=== PATIENT | male | born 1970 | race Hispanic/Latino ===

== ENCOUNTER 2017-09-09 13:38 | Emergency (ER) | payer OTHER, SELFPAY ==
[2017-09-09 13:39] VITALS: BP 151/79; PULSE 93; RESP 16; TEMP 36.7; O2SAT 97; BMI 32.5
[2017-09-09 14:08] LABS: Absolute Lymphocyte Count 1.81 X10^3/ul (0.83-4.51); Absolute Neutrophil Count 3.3 X10^3/uL (2.0-7.7); Basophil# 0.07 X10^3/uL; Basophil% 1.1 % (0-1); Eosinophil# 0.28 X10^3/uL; Eosinophils% 4.5 % (0-5); Hemoglobin 16.3 g/dl (13.0-16.5); Lymphocyte # 1.81 X10^3/ul (4.0); Lymphocyte % 28.8 % (19-41); Mean Corp Hgb Conc 34.7 g/gl (32-36); Mean Corpuscular Hgb 30.3 pg (27.0-32.0); Mean Corpuscular Volume 87.4 fL (80-94); Mean Platelet Vol. 9.8 fl (6.2-12.0); Monocyte# 0.78 X10^3/uL; Monocyte% 12.4 % (0-10); Neutrophil # 3.34 X10^3/uL (2.7-7.7); Neutrophil % 53.2 % (47-70); Platelet Count 211 K/mm3 (150-450); RBC Distribution Width SD 44.7 fl (35.1-43.9); Red Blood Count 5.38 M/mm3 (4.6-6.2); White Blood Count 6.3 K/mm3 (4.4-11.0)
[2017-09-09 14:18] LABS: Amphetamine Urine VISTA NEGATIVE (<1000 ng/mL); Barbiturate Urine VISTA NEGATIVE (< 200 ng/mL); Benzodiazepine Urine VISTA NEGATIVE (< 200 ng/mL); Cocaine Urine VISTA NEGATIVE (< 300 ng/mL); Ecstacy Urine VISTA NEGATIVE (< 500 ng/mL); Methadone Urine VISTA NEGATIVE (< 300 ng/mL); PCP Urine VISTA NEGATIVE (< 25 ng/mL); THC Urine VISTA NEGATIVE (< 50 ng/mL); Vista UDS pH Range 6
[2017-09-09 14:23] LABS: POSITIVE COUNT NO; POSITIVE DIFFERENTIAL NO; POSITIVE MORPHOLOGY NO
[2017-09-09 14:29] LABS: Anion Gap 7 (5-15); BUN 15 mg/dL (7-18); BUN/Creat Ratio 14.3 RATIO (10-20); Calcium,Total 8.8 mg/dL (8.5-10.1); Chloride 104 mmol/L (98-107); Creatinine, Serum 1.05 mg/dL (0.70-1.30); EST Glomerular Filtration Rate 80 mL/min (>60); Est Glom Filt Rate - Afr Amer 96 mL/min (>60); Estimated Creatinine Clearance 93.41 ml/min; Glucose 117 mg/dL (74-106); Sodium Level 138 mmol/L (136-145)
[2017-09-09 14:53] LABS: Alcohol, Blood (Medical)-Serum < 3.0 mg/dL
[2017-09-09 16:00] VITALS: BP 119/61; PULSE 85; RESP 16; O2SAT 98
--- NOTE | 2017-09-09 16:53 | ED.DCSUM_ITS ---
- ER Visit Summary Date of Service: 09/09/17 Chief Complaint: Depression and suicidal ideation History of Present Illness: The patient is a 47 M with depression and recent diagnosis of bipolar disorder. reports symptoms seem to be worsening in spite of medication that was started at the counseling center. Patient does admit to suicidal ideation with multiple different ideas. He mentions stepping in front of a car, slitting his wrist, or hanging himself. He states he has never acted on these thoughts. Physical Examination: Vital signs for blood pressure 151/79, otherwise unremarkable. Head neck examination is normal. Heart is regular rate and rhythm. Lung sounds are clear. Abdomen is soft nontender. Neuro exam reveals normal strength and sensation throughout. Psychiatric examination was normal speech pattern. He does admit to suicidal thoughts. He has good eye contact. Test Results: CBC and chemistry studies are unremarkable. TSH is normal. Tox screen and EtOH are normal. Emergency Department Course and Treatment: Patient was seen by crisis counselor. He has been accepted in transfer at [facility]. Counselor and myself are comfortable with driving him there. He has signed an agreement for voluntary admission. Treatment Plan: [] Disposition: Transfer Impression: Depression with suicidal ideation This note was generated with [employer] dictation software. It may contain incorrect words, spelling, and punctuation that were not noted in review of the chart prior to signing ED Disposition - Plan for ED Patient: Chief Complaint: Suicidal Referrals: Care Physician,No Primary [Primary Care Provider] -
[2017-09-09 17:49] VITALS: BP 127/99; PULSE 75; RESP 16; O2SAT 100
[2017-09-09 17:51] VITALS: BP 127/99; PULSE 75; RESP 16; O2SAT 100
--- NOTE | 2017-09-09 20:03 | ED.RN ---
EFRAIN CALLED AND ASKED WHERE PATIENT WAS BECAUSE PATIENT NEVER SHOWED UP TO FACILITY. I ADVISED THE MANAGER PHILOSOPHY THAT IT WAS CHARTED THAT THE PATIENT LEFT HERE AT [id number]. MANAGER PHILOSOPHY STATED SHE WAS GOING TO GIVE THE PATIENT A LITTLE MORE TIME AND SHE WILL CALL ME BACK AND LET ME KNOW IF HE SHOWS UP. TESS MUNGUIA TALKED TO DR. NEWELL AND MADE HER AWARE OF THE SITUATION. PATIENT WAS NOT PINK SLIPPED AND WAS GOING TO [facility] VOLUNTARILY. PATIENT WENT BY PRIVATE CAR WITH HIS TO [facility].
--- NOTE | 2017-09-09 20:30 | ED.RN ---
EFRAIN CALLED STATING PATIENT SHOWED UP TO FACILITY.
== END 2017-09-09 17:52 | disposition short-term general hospital (02) ==
PROVIDERS: Emergency Provider Emergency Medicine
DX: F31.9 Bipolar disorder, unspecified (principal); R45.851 Suicidal ideations; Z79.899 Other long term (current) drug therapy
CPT/HCPCS: 80048; 80307; 80320; 84443; 85025; 99284; G0480

== ENCOUNTER 2017-09-15 09:00 | Outpatient (RCR) | payer OTHER, SELFPAY ==
--- NOTE | 2017-09-15 09:30 | BH.COMM ---
Communication Note - Communication with Client Communication Note: Therapist met with client to complete intake paperwork, build rapport, and answer client's questions about the program. Therapist will be client's individual therapist during his time in IOP.
--- NOTE | 2017-09-15 13:04 | PCM.HP.BLA ---
History and Physical Identifying information 47-year-old male presents to the [facility] status post inpatient psychiatric hospitalization due to bipolar disorder with mood cycling. History is been obtained per interview with patient, discussion with staff, review of chart. Records reviewed quitting the history and physical from September 10 from [facility] by Dr. Raul Connell. Case discussed with treatment team. Chief complaint-bipolar disorder/I hit a low. History of present illness Patient is a 47-year-old male with history of bipolar disorder who was referred to the [facility] after psychiatric inpatient hospitalization September 10 - September 11 for mixed mood symptoms and suicidal thoughts in the context of recent med changes (increased Zoloft). Patient reports a long-standing history of episodic symptoms since his mid 20s. He describes them as a high burst of energy that then drops. Endorses symptoms consistent with cassia a week and a half ago in which he had a 4 day period when he felt energetic and excitable with decreased sleep to 3 hours per night, increased anxiety, and irritability. He reports that he is intermittently risky or impulsive in his decisions. He then developed depression prior to his hospitalization where he felt isolative with decreased energy and suicidal thoughts. He reports thinking about hanging or cutting. He denied making specific suicide plan. He feels that his mood is somewhat better since his hospitalization. He continues to have some depressive symptoms but of decreased intensity. He denies suicidal ideation since discharge from the hospital. Denies access to guns or firearms. Denies stock piles of medications. Feels able to maintain safety. Denies homicidal thoughts. Denies hallucinations. Sleeping 6-7 hours per night. Appetite normal. Reports history of ruminative anxiety about multiple issues. He reports some anxiety about his marriage as he had an affair between March 2016 and October 2016. Because of the affair he and his moved here from [place]. He denies panic attacks. He has some perfectionistic behavior and notices anxiety if there is disorganization. He denies counting or checking behaviors. He denies history of disordered eating. Past psychiatric history Patient was diagnosed with bipolar disorder 1 month ago by primary outpatient provider Sari Gray. He has had 1 previous psychiatric hospitalization as noted above from September 10 September 11 at [facility]. He reports depression in April for which he was started on Zoloft 50 mg. It was increased to 100 mg in May 150 mg 1-2 weeks ago. Reports she has been on Lamictal 50 mg daily since August. Primary outpatient psychiatric provider Sari Gray. Individual counseling with Bryn Sun at [facility]. Substance use history 8 month history of cocaine use in the early . 2 episodes lasting 1 year each of methamphetamine (mid 20s, mid 30s). Cannabis use for 20 years. Quit in 2005. Last alcohol consumption 1 year ago. Past medical history Neuroma left foot Hypertension Orthopedic shoulder injury Denies history of seizure History concussion Vitamin D deficiency Review of systems No fevers chills nausea vomiting chest pain dyspnea. All other systems reviewed and negative. Allergies-lactose/seasonal environmental Current medications Lamictal 50 mg daily Zoloft 150 mg daily Risperdal 0.25 mg twice daily - started inpatient 5 days ago Ativan 0.5 mg 3 times daily-started inpatient 5 days ago. Vitamin D 5000 units daily Xyzal Family medical psychiatric history Brother had previous suicide attempt Father-depression Developmental social history Patient is the eldest of 2 children. He was born in [place]. In 1980 the family moved to [place]. He grew up with his parents and his younger brother. His father worked at . He describes growing up as good. He attended 5 years of college in [employer] studying business, electrical engineering and physical therapy. He did not finish his degree. He worked at [employer] for 30 years. 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 He has been twice. His first marriage lasted 12 years. Per records from professor of social work at [employer] because he had an affair. He has 2 sons ages 14 and 19. They live in [place]. He has little contact with them. He is currently to his second . They have been for 6 years. They live in [place] with their daughter age 3. He had an affair from March 2016 through October 2016. He reports he and his are working things out. Legal history-none Mental status exam Vital signs reviewed and discussed with nursing. Alert and oriented . No acute distress. Ambulatory with normal gait and station. Appears stated age. Casually dressed and groomed. Appropriate hygiene. Cooperative with interview. Good eye contact. No psychomotor agitation or retardation. Mood depressed. Affect congruent. Speech is clear and with regular rate and rhythm. Language fluent. Thought process organized. Associations logical. Thought content significant for ruminative anxiety and themes of depression. Suicidal thoughts 1 week ago. No current suicidal or homicidal ideation related or detected. Feels able to maintain safety. No symptoms consistent with psychosis noted or detected. Immediate recent and remote memory grossly intact. Attention and concentration are fair. Estimated intelligence and fund of knowledge average. Judgment and insight fair. Labs and testing Lab work will be requested from [facility]. Further lab work will be obtained as needed. Diagnosis Bipolar disorder F 31.9 Anxiety unspecified Vit D def. Cannabis use disorder-remission Plan Admit to IOP the structured setting is necessary to prevent decompensation and rehospitalization. Risks benefits alternatives of medications discussed with patient. Patient acknowledges understanding. Increase Lamictal to 100 mg p.o. daily dispense #30 with 0 refills. Continue Risperdal 0.25 mg p.o. twice daily. No evidence of EPS. Decrease Zoloft to 100 mg daily as antidepressants may exacerbate hypomania and mixed mood symptoms. Continue vitamin D. Discontinue Lorazepam 0.5 mg 3 times daily. May use Lorazepam as needed. Patient acknowledges understanding and is in agreement with plan. Feels able to maintain safety. Agrees to seek help or emergency care feeling unsafe to self or others.
--- NOTE | 2017-09-15 13:38 | HP.PCM_ITS ---
History and Physical Identifying information 47-year-old male presents to the [facility] status post inpatient psychiatric hospitalization due to bipolar disorder with mood cycling. History is been obtained per interview with patient, discussion with staff, review of chart. Records reviewed quitting the history and physical from September 10 from [facility] by Dr. Raul Connell. Case discussed with treatment team. Chief complaint-bipolar disorder/I hit a low. History of present illness Patient is a 47-year-old male with history of bipolar disorder who was referred to the [facility] after psychiatric inpatient hospitalization September 10 - September 11 for mixed mood symptoms and suicidal thoughts in the context of recent med changes (increased Zoloft). Patient reports a long -standing history of episodic symptoms since his mid 20s. He describes them as a high burst of energy that then drops. Endorses symptoms consistent with cassia a week and a half ago in which he had a 4 day period when he felt energetic and excitable with decreased sleep to 3 hours per night, increased anxiety, and irritability. He reports that he is intermittently risky or impulsive in his decisions. He then developed depression prior to his hospitalization where he felt isolative with decreased energy and suicidal thoughts. He reports thinking about hanging or cutting. He denied making specific suicide plan. He feels that his mood is somewhat better since his hospitalization. He continues to have some depressive symptoms but of decreased intensity. He denies suicidal ideation since discharge from the hospital. Denies access to guns or firearms. Denies stock piles of medications. Feels able to maintain safety. Denies homicidal thoughts. Denies hallucinations. Sleeping 6-7 hours per night. Appetite normal. Reports history of ruminative anxiety about multiple issues. He reports some anxiety about his marriage as he had an affair between March 2016 and October 2016. Because of the affair he and his moved here from [place]. He denies panic attacks. He has some perfectionistic behavior and notices anxiety if there is disorganization. He denies counting or checking behaviors. He denies history of disordered eating. Past psychiatric history Patient was diagnosed with bipolar disorder 1 month ago by primary outpatient provider Sari Gray. He has had 1 previous psychiatric hospitalization as noted above from September 10 September 11 at [facility]. He reports depression in April for which he was started on Zoloft 50 mg. It was increased to 100 mg in May 150 mg 1-2 weeks ago. Reports she has been on Lamictal 50 mg daily since August. Primary outpatient psychiatric provider Sari Gray. Individual counseling with Bryn Sun at [facility]. Substance use history 8 month history of cocaine use in the early . 2 episodes lasting 1 year each of methamphetamine (mid 20s, mid 30s). Cannabis use for 20 years. Quit in 2005. Last alcohol consumption 1 year ago. Past medical history Neuroma left foot Hypertension Orthopedic shoulder injury Denies history of seizure History concussion Vitamin D deficiency Review of systems No fevers chills nausea vomiting chest pain dyspnea. All other systems reviewed and negative. Allergies-lactose/seasonal environmental Current medications Lamictal 50 mg daily Zoloft 150 mg daily Risperdal 0.25 mg twice daily - started inpatient 5 days ago Ativan 0.5 mg 3 times daily-started inpatient 5 days ago. Vitamin D 5000 units daily Xyzal Family medical psychiatric history Brother had previous suicide attempt Father-depression Developmental social history Patient is the eldest of 2 children. He was born in [place]. In 1980 the family moved to [place]. He grew up with his parents and his younger brother. His father worked at . He describes growing up as good. He attended 5 years of college in [employer] studying business, electrical engineering and physical therapy. He did not finish his degree. He worked at [employer] for 30 years. 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 He has been twice. His first marriage lasted 12 years. Per records from social media marketing specialist at [place] [facility] because he had an affair. He has 2 sons ages 14 and 19. They live in [place]. He has little contact with them. He is currently to his second . They have been for 6 years. They live in [place] with their daughter age 3. He had an affair from March 2016 through October 2016. He reports he and his are working things out. Legal history-none Mental status exam Vital signs reviewed and discussed with nursing. Alert and oriented . No acute distress. Ambulatory with normal gait and station. Appears stated age. Casually dressed and groomed. Appropriate hygiene. Cooperative with interview. Good eye contact. No psychomotor agitation or retardation. Mood depressed. Affect congruent. Speech is clear and with regular rate and rhythm. Language fluent. Thought process organized. Associations logical. Thought content significant for ruminative anxiety and themes of depression. Suicidal thoughts 1 week ago. No current suicidal or homicidal ideation related or detected. Feels able to maintain safety. No symptoms consistent with psychosis noted or detected. Immediate recent and remote memory grossly intact. Attention and concentration are fair. Estimated intelligence and fund of knowledge average. Judgment and insight fair. Labs and testing Lab work will be requested from [facility]. Further lab work will be obtained as needed. Diagnosis Bipolar disorder F 31.9 Anxiety unspecified Vit D def. Cannabis use disorder-remission Plan Admit to IOP the structured setting is necessary to prevent decompensation and rehospitalization. Risks benefits alternatives of medications discussed with patient. Patient acknowledges understanding. Increase Lamictal to 100 mg p.o. daily dispense #30 with 0 refills. Continue Risperdal 0.25 mg p.o. twice daily. No evidence of EPS. Decrease Zoloft to 100 mg daily as antidepressants may exacerbate hypomania and mixed mood symptoms. Continue vitamin D. Discontinue Lorazepam 0.5 mg 3 times daily. May use Lorazepam as needed. Patient acknowledges understanding and is in agreement with plan. Feels able to maintain safety. Agrees to seek help or emergency care feeling unsafe to self or others.
--- NOTE | 2017-09-15 13:39 | BH.DR.ITP ---
Initial Treatment Plan - Patient Information Visit Information: ADMISSION DATE: EXPECTED LOS: 4-6 weeks Diagnoses:: Bipolar F31.9 - Problems/Symptoms Problem #1:: mood cycling Symptom:: irritability, depression, recent suicidal ideation, biologic disruption sleep Problem #2:: Anxiety Symptom:: rumination
--- NOTE | 2017-09-15 15:17 | BH.SGPN ---
Service Group Progress Note - Session Psychotherapy Session #2 Date Open:: 09/15/17 Time Started:: 10:15 Time Stopped:: 11:05 Targeted Problem #:: 1 Type of Group:: Illness Management Goal of Group:: To increase understanding of a crisis and improve clients awareness of how he/she feels when in a crisis. Client Response/Progress/Benefit:: Client contributed to discussion and listened to peers. Client connected with quote that he tends to struggle with dealing with a crisis in a healthy manner. Client reported he will shut down, push others away or minimize the situation. Pt reported he can see how his reaction to a crisis sets himself up for additional problems and potentially a personal crisis. Client seemed to benefit from increased awareness of his own response to crisis and importance of using healthy skills to cope effectively with a crisis. Eye Contact:: Good Motor Activity:: Appropriate Appearance:: Casual Speech:: Appropriate Mood:: Depressed Affect:: Congruent Thoughts:: Linear, Logical, No evidence of hallucinations/delusions noted Staff Interventions:: Therapist facilitated group discussion about defining a crisis and specifying various events that are considered a crisis. Therapist led group in an activity in which group members had to identify their thoughts and emotions attached to being in a crisis. Therapist provided support by using active listening and providing feedback.
--- NOTE | 2017-09-15 16:11 | BH.SGPN ---
Service Group Progress Note - Session Psychotherapy Session #1 Date Open:: 09/15/17 Time Started:: 09:00 Time Stopped:: 10:00 Type of Group:: Process - 9 group members Goal of Group:: The goal of today's group was to check-in with client's mood, stressors, and positives, review homework and introduce topic for the day. Client Response/Progress/Benefit:: Pt spoke when prompted however was attentive throughtout the group. This was pt's first day and he shared with the group his current symptoms. Pt reports that he is hoping to improve his coping skills for depression and anxiety. Talked about his mood instability for the past several years which increased symptoms in the past few weeks. Discussed how depression and anxiety negative impacted him, his work, and his relationships. Group provided support and pt benefited from this. No progress noted on first day. WIll continue in IOP to maintain safety, prevent decompensation, and increase daily functioning so he can return to work. Eye Contact:: Good Motor Activity:: Appropriate Appearance:: Casual Speech:: Appropriate Mood:: Depressed Affect:: Congruent Thoughts:: Linear, Logical, No evidence of hallucinations/delusions noted Staff Interventions:: Therapist used open-ended questions to elicit information about client's current stressors and mood state. Therapist was supportive by using active listening and reflection.
--- NOTE | 2017-09-19 14:32 | BH.SGPN_ITS ---
Service Group Progress Note - Session Psychotherapy Session #2 Date Open:: 09/19/17 - group members Time Started:: 10:17 Time Stopped:: 11:12 Targeted Problem #:: 1 Type of Group:: Illness Management Goal of Group:: To identify within self what is keeping client trapped from achieving better quality of life. Client Response/Progress/Benefit:: Client responded well to session, quiet, but often nodding and taking notes. Client appeared to connect with the quote agreeing with peers that ?we build up our own cid.? Client helped the group identify things that keep people stuck such as isolation, erratic behaviors, avoidance, and depression. Client listened to discussion of how negative thinking can continue negative maintenance cycles of depression and anxiety. Client reported he only recently realized that he has been in a manic or depressive cycle most of his life and that his negative coping skills have kept client stuck. Client identified the negative thoughts keeping client stuck as I ?m a bad parent, I?m losing control, I?m not where I should be in life, and I?m not worthy. Client appeared to benefit from recognizing negative thoughts and coping skills keeping client stuck in an unhealthy maintenance cycle. Progress noted as shown by client's increased awareness, continue IOP to promote mood stability. Eye Contact:: Good Motor Activity:: Appropriate Appearance:: Neat Speech:: Soft Mood:: Dysthymic Affect:: Constricted Thoughts:: Linear, No evidence of hallucinations/delusions noted Staff Interventions:: Therapist facilitated discussion about what is keeping client?s stuck from moving toward mental wellness. Therapist assisted clients in connecting how thoughts can contribute to keeping clients stuck. Therapist led discussion about barriers clients face from making changes to help one move forward. Therapist provided support by using active listening and giving feedback to others. Psychotherapy Session #3 Date Open:: 09/19/17 - 7 group members Time Started:: 11:18 Time Stopped:: 12:20 Targeted Problem #:: 1 Type of Group:: Functional Skills Development Goal of Group:: To identify what client can do to release self from those things that are trapping them to find more peace and quality in everyday life. Client Response/Progress/Benefit:: Client responded well to session, active and supportive peer. Client identified ?I?m not where I should be in life? as a negative thought that keeps client stuck and increases his self-doubt and depression. Client identified the thought as unrealistic and stated when he has this thought he lashes out, makes bad decisions, and isolates. The group helped client recognize his thought is the ?should? cognitive distortion. With group and therapist elicitation, client reframed the thought to ?I?ve made the most of out of my experiences.? Client shared when he reframes the thought he has a more positive outlook and better self-worth. Client appeared to benefit from challenging his unrealistic thought and learning about the different cognitive distortions. Client to continue IOP to promote mood stability, increase coping skills, and prevent decompensation. Eye Contact:: Good Motor Activity:: Appropriate Appearance:: Neat Speech:: Appropriate Mood:: Anxious Affect:: Full Thoughts:: Linear, No evidence of hallucinations/delusions noted Staff Interventions:: Therapist used examples of maintenance cycles to help clients gain awareness of how negative thinking is keeping clients stuck. Therapist facilitated discussion about different strategies for challenging negative thoughts, assisting clients in connecting how the strategies could benefit them. Therapist provided clients with homework to focus on one thing that is keeping them stuck and identify small steps to start moving towards mental wellness.
--- NOTE | 2017-09-19 17:22 | BH.SGPN ---
Service Group Progress Note - Session Psychotherapy Session #1 Date Open:: 09/19/17 Time Started:: 09:05 Time Stopped:: 10:08 Targeted Problem #:: 1 Type of Group:: Process Goal of Group:: The goal of today's group was to check-in with client's mood, stressors, and positives, review homework and introduce topic for the day. Client Response/Progress/Benefit:: Client reported over the weekend he was able to recognize several of his anxiety triggers. Identified work to be 1 of his major anxiety triggers because when he sent a work email over the weekend he noticed himself getting very nervous. Client shared he had to speak to his boss and had a lot of ruminations about this conversation and after having the discussion on the phone with his boss it turned out not to be so bad. Client reported he is currently avoiding his other anxiety trigger which is his mother. Client explained he has a lot of underlying anger towards his mom about his father's because his mom was not there for his dad when his father . Client became tearful when talking about his father's explaining that he was really close to his dad. Client reported he knows he just needs to make the call his mom to let her know that he is okay since being released from the hospital but keeps pushing it off. Client shared he knows that when he is overwhelmed or anxious he tends to rely on electronics as his form of escape which he no longer wants to do. Client seemed to benefit from positive support from peers as well as having actually express his thoughts and feelings. Eye Contact:: Fair Motor Activity:: Appropriate Appearance:: Casual Speech:: Appropriate Mood:: Anxious, Dysthymic Affect:: Congruent, Other - Tearful at times Thoughts:: Linear, Logical, No evidence of hallucinations/delusions noted Staff Interventions:: Therapist used open-ended questions to elicit information about client's current stressors and mood state. Therapist was supportive by using active listening and reflection.
--- NOTE | 2017-09-20 11:32 | BH.COMM ---
Communication Note - Communication with Client Communication Note: Client called to cancel his scheduled group and indiviudal sessions today as his dog is sick. Client reported he will attend group tomorrow 09/21/17.
--- NOTE | 2017-09-21 11:34 | BH.SGPN ---
Service Group Progress Note - Session Psychotherapy Session #1 Date Open:: 09/21/17 Time Started:: 09:10 Time Stopped:: 10:10 Targeted Problem #:: 1 Type of Group:: Process Goal of Group:: The goal of today's group was to check-in with client's mood, stressors, and positives, review homework and introduce topic for the day. Client Response/Progress/Benefit:: Pt reported yesterday he couldn't attend IOP because his dog was dehydrated so he had to take his dog to the vet to get fluids. Pt shared his mother called whom he hasn't spoken to in a month and attempted he has been avoiding calling her. Pt reported overall the conversation went better than expected, reported there were a few things his mom had said about pt's dad that pt thought was negative. Pt shared after the phone call he tried to isolate himself, but his knew he was upset so processed the call with him. Pt reported by talking out his frustrations it helped him better understand where his mom was coming from. Pt shared he needs to continue to work on communicating his thoughts and feelings, especially with his . Pt reported he has several more phone calls to make to family members he has either hurt or hasn't spoken to in awhile. Pt reported he recognizes his lack of communication is only hurting him and needs to continue to work on opening up. Pt showing progress as evidenced by him not avoiding the conversation wtih his mom as well as showing insight and awareness into how certain behavior is negatively impacting him. Eye Contact:: Good Motor Activity:: Appropriate Appearance:: Casual Speech:: Appropriate Mood:: Anxious, Dysthymic Affect:: Congruent Thoughts:: Linear, Logical, No evidence of hallucinations/delusions noted Staff Interventions:: Therapist used open-ended questions to elicit information about client's current stressors and mood state. Therapist was supportive by using active listening and reflection.
--- NOTE | 2017-09-21 12:51 | BH.MTP_ITS ---
[facility] - Patient Information Program Physician:: Anna Rider Primary Therapist:: Jenn Portillo - Psychiatric Diagnoses Psychiatric Diagnoses:: Bipolar 1 most recent episode depressed, anxiety unspecified, cannabis use in remission. Diagnosis Code(s):: F 31.9 - Estimated LOS Estimated LOS (in weeks):: 6 Problem/Goal #1 - Problem/Goal #1 Stated Goal:: Client will increase mood stability and decrease depressive symptoms, anger/irritability, and suicidal ideation due to Bipolar I through Intensive Outpatient Program. Description of Barriers: Client reports high expectations of self, people pleasing, and negative core beliefs that may impact his treatment. Client reports several potential supports in his life, but shared he often shuts down, isolates, and does not communicate when he experiences increased depression. Client appears to have some insight to his bipolar warning signs, but reports struggling to change thoughts and behaviors that have kept client stuck in the past. Client reports a history of impulsive, risky behaviors that have led to relationship issues and punishment at work. Functional Impact: Client recently discharged from [facility] after a psychiatric hospitalization following increased symptoms of depression and suicidal ideation. Client reports a long-standing history of bipolar symptoms since his mid 20s. Client reported symptoms consistent with cassia a week and a half ago in which he had a 4 day period when he felt energetic and excitable with decreased sleep to 3 hours per night, increased anxiety, and irritability. Client stated that he is intermittently risky or impulsive in his decisions. At admission client endorsed depressive symptoms with decreased energy, negative thinking, passive suicidal thoughts, and isolation. Client also reports negative thoughts of self, history of substance abuse, and relationship discord with his . Goal Relevant Strengths/Supports: Client appears intelligent, outgoing, and reports a desire to learn about his warning signs and symptoms. Client has insight to his unhealthy coping skills and negative thought patterns. Client has a history of substance abuse, but currently reports refraining from substances. Client reports he loves his daughter and identifies himself as a hard worker. Additionally, client states willingness to work on his marriage and learn healthy coping skills. - Objectives Objective #1 Stated Objective: Identify 2-3 thoughts or behaviors that trigger manic or depressive symptoms and replace or reframe with healthy coping skills. Interventions: Therapist will provide psychoeducation on bipolar disorder and help client identify warning signs and triggers. Therapist will help client identify 2-3 negative thinking patterns that trigger mood changes and teach client 2-3 techniques to challenge negative thinking and increase emotional regulation. Discharge Criteria: Client will have met this goal when he can report better insight into mood changes and negative thinking patterns and be able to report success with using at least 2 healthy coping skills to reframe thoughts. Target Date: 10/27/17 Review Date: 10/13/17 Status: open Objective #3 Stated Objective: Client will identify 2-3 unhealthy patterns of coping for both depressive and manic episodes and be able to replace those unhealthy patterns with 2-3 positive coping skills. Interventions: Therapist will provide psychoeducation on maintenance cycles and help client identify his warning signs and patterns of unhealthy coping. Therapist will assist client in learning healthy internal coping strategies to manage depressive symptoms, along with helping client identify triggers. Therapist will help client identify external supports and help client weigh the pros and cons of changing behaviors. Discharge Criteria: Client will have achieved this goal when can verbalize and has practiced at least 2 healthy coping strategies to break unhealthy maintenance cycles. Target Date: 10/27/17 Review Date: 10/13/17 Status: open Problem/Goal #2 - Problem/Goal #2 Stated Goal:: Client will reduce overall frequency, intensity, and duration of anxiety rumination so that daily functioning is not impaired. Description of Barriers: Client reports high expectations of self, people pleasing, and negative core beliefs that may impact his treatment. Client reports several potential supports in his life, but shared he often shuts down, isolates, and does not communicate when he experiences increased depression. Client appears to have some insight to his bipolar warning signs, but reports struggling to change thoughts and behaviors that have kept client stuck in the past. Client reports a history of impulsive, risky behaviors that have led to relationship issues and punishment at work. Functional Impact: Client recently discharged from [facility] after a psychiatric hospitalization following increased symptoms of depression and suicidal ideation. Client reports a long-standing history of bipolar symptoms since his mid 20s. Client reported symptoms consistent with cassia a week and a half ago in which he had a 4 day period when he felt energetic and excitable with decreased sleep to 3 hours per night, increased anxiety, and irritability. Client stated that he is intermittently risky or impulsive in his decisions. At admission client endorsed depressive symptoms with decreased energy, negative thinking, passive suicidal thoughts, and isolation. Client also reports negative thoughts of self, history of substance abuse, and relationship discord with his . Goal Relevant Strengths/Supports: Client appears intelligent, outgoing, and reports a desire to learn about his warning signs and symptoms. Client has insight to his unhealthy coping skills and negative thought patterns. Client has a history of substance abuse, but currently reports refraining from substances. Client reports he loves his daughter and identifies himself as a hard worker. Additionally, client states willingness to work on his marriage and learn healthy coping skills. - Objectives Objective #1 Stated Objective: Client will increase awareness of stressors and identify 2-3 anxiety triggers and 2 coping skills to use when feeling anxious. Interventions: Therapist will assist client in exploring what triggers anxiety and teach client coping strategies to effectively manage anxiety symptoms. Therapist will help client explore how thoughts, emotions, and behaviors connect and provide psychoeducation on cognitive distortions and anxiety. Discharge Criteria: Client will have met this goal when can identify at least 2 triggers to anxiety and verbalize two healthy ways to cope with feelings of anxiety. Target Date: 10/27/17 Review Date: 10/13/17 Status: open
--- NOTE | 2017-09-21 12:51 | BH.PSA ---
Source of Information - Presenting Problems/Circumstances Problems, Referral Source, Mental Status, Client: Client is a 47-year-old male with a history of bipolar disorder. Client was recently discharged from [facility] inpatient psychiatric services on 09/11/17 after a two-day admission. Client was admitted due to worsening depressive symptoms and suicidal thoughts. Client reports worsening mental health symptoms for the past several weeks and gradual decompensation over the past 3 years. At [facility] admission, client endorsed decreased sleep, increased appetite, erratic energy, decreased motivation, hopelessness, worthlessness, racing thoughts, and poor concentration. Client has been on FMLA from work for 7 weeks due to mental health symptoms and reports being unable to function at his baseline. Client was alert and oriented during assessment. No signs of hallucinations or delusions. Psychiatric Presentation - Psych Issues & Need for Admission Psychiatric Issues:: Bipolar disorder F 31.9; Anxiety unspecified; Cannabis use disorder-remission Past Psychiatric History - Treatment Hx Treatment History: Client was diagnosed with bipolar disorder 1 month ago by primary outpatient psychiatrist Dorene Leger. Client reports one previous psychiatric hospitalization which happened this year, September 10- September 11 2017 at [facility]. Client noted depression in April for which he was started on Zoloft 50 mg. It was increased to 100 mg in May 150 mg 1-2 weeks ago. Client reports he has been on Lamictal 50 mg daily since August. Primary outpatient psychiatric provider Dorene Leger and individual counseling with Bryn Sun at [facility]. First hospitalization:: September 10 2017 Most recent hospitalization:: September 10 2017 Medication Trials:: Yes - Zoloft, Lamictal, Risperdal, Ativan ECT Therapy:: No Age of first mental health symptoms: Client reports belief his bipolar symptoms started in his mid-20s as client recalls episodic symptoms which he described as a high burst of energy that then drops. Client reported during this time he also had increased illicit drug use. Describe (age, circumstance, etc) any past hospitalizations: Client reports one previous psychiatric hospitalization this year from September 10 - September 11 for mixed mood symptoms and suicidal thoughts in the context of recent med changes (increased Zoloft). Client 47 at the time of inpatient admission. Current providers for mental health treatment (counselor, psychiatrist, geriatric case manager, etc.): Dorene Leger at [facility] for psychiatry and Bryn Sun at [facility] for counesling. Development & Family of Origin - Childhood Significant Childhood Events: Client described growing up as good, but client stated his father was gone a lot for work. Client reported looking back he can see that his father struggled with mental health as well. Client shared remembering times when his father was more irritable and did not leave the couch for hours. - Family Who currently lives in your home?: Client lives in [place] with his and [id number] daughter. Client and his currently rent a house, but are in the process of looking to buy a house and move. Client and his have been since 2011. Client was previously and the marriage lasted 12 years. Client had two sons in his first marriage ages 12 and 19. Client's ex- and sons live in [place]. Describe family composition:: Client was born in [place] and is the oldest of 2 children. Clients family moved to [place] in 1980 where he grew up with his parents and younger brothers. Clients father in 2012 in [place]. Client reports ongoing grief and anger that he did not get to be with his father when he . Client stated he has anger towards his mom and brothers as well regarding the loss of his father. Client has been twice, his first marriage lasted 12 years and they had two sons. Client described the marriage as not good sharing I felt like I had a duty to . Client had an affair which led to divorce in his first marriage. Client reports his relationship with his ex- is not good, and his relationship with his sons is estranged as well. Client shared he wants to improve his relationship with his sons. Client remarried in 2011 and the couple had a daughter in 2014. Client described the relationship as supportive and good. Client had an affair in 2016 and stated the couple is trying to work things out. - Family History Family Hx of Psychiatric or AOD Problems: Brother had previous suicide attempt. Father-depression Ethnicity - Culture Do you identify yourself with any particular cultural, ethnic background, or community?: Yes - Client reported his mother was from [facility] - Sexuality Sexual Orientation: Heterosexual Spirituality - Lutheran Do you currently identify with any organized restoration?: None - Beliefs Is there a particular form of support from this community you can use for your recovery?: No Mental Status - Memory Recent Memory: Good Remote Memory: Good - Concentration Concentration: Fair - Eye Contact Eye Contact: Good - Speech Speech: Rapid, Tangential - Thought Process Thought Process: Logical Insight: Fair Judgment: Fair Behavior: Anxious - restless, playing with ring on his finger. - Orientation Orientation: Time, Person, Place, Situation - Appearance Appearance: Appropriate - Mood Mood: Anxious, Depressed - Affect Affect: Constricted Suicide Assessment - Suicidal Ideation Have you ever felt like hurting yourself?: Yes Please explain:: Client reports suicidal ideation prior to his hospitalization. Client stated he had no specific plan, but had thoughts of cutting, hanging, or driving into traffic. Were you using ETOH/drugs at the time?: No Suicidal Intentional Rating Scale (SIRS): Suicidal thoughts (past) - Client reports no suicidal ideation since his discharge form [facility]. Client shared prior to his hospitalization he had thoughts of cutting, hanging, or driving into traffic but denied making a specific plan. Client denies access to firearms and stockpiles of medication. Client reports ability to maintain safety and identifies his and daughter as reasons to live. Physician Notification: If Active suicidal thoughts/Will not contract for safety is checked, contact physician and document in the Physician Notification section below. Violent Behavior/Abuse History - Homicidal Ideation Do you have any homicidal thoughts? If so, explain:: No Is there a known potential victim? If yes, who:: No - Abuse Have you ever been abused?: No - Life Events Are there any other significant life events?: Financial loss - Client has been on FMLA for 7 weeks which may impact client's finances., Hardships - had a miscarriage last year during which time client was having an affair. Client shared the couple continues to have trust issues., Loss of custody of child(jesus) - Client is estranged from his sons from his first marriage. Client shared he does not reach out to them for fear they don't want to have client in their lives. - Safety Do you ever feel threatened in your home? If yes, describe:: No Adult Social History - Age 16 to Present Describe your current support system:: Client identified his as his main support. Client shared his mother and brother may also be a support, but he has not spoken with them in several months. Client identified his counselor at [facility] as a positive support as well. Substance Use - Substance Substance Use Type: Alcohol, Cocaine, Marijuana, Methamphetamine - Specific Drugs What specific drugs have you used?: alcohol, cocaine, methamphetamine, marijuana - Extent of Use What quantity of substances have you used?: Client reported using marijuana daily for 20 years. Client unsure of the quantity of cocaine and methamphetamine use, client stated his use was social while with friends-not daily. Client reported social drinking as well. - Duration of Use How long have you used substances?: Client reports using cocaine for 8 months in the early 1999s. 2 episodes of methamphetamine use, lasting 1 year each (mid 20s, mid 30s). Client reported using marijuana for 20 years to self-medicate. - Last Usage What is the date and situation you last used?: 8 month history of cocaine use in the early . 2 episodes lasting 1 year each of methamphetamine (mid 20s, mid 30s). Last used marijuana in 2005. Last alcohol consumption 1 year ago. - IV Substance Use Do you have a history of IV use?: none reported Leisure/Social Activities - Interests What do you enjoy or might be interested in learning about?: Client reported he enjoys spending time outside, walking his dog, and spending time with his daughter. Client reports he enjoys being a leader, working on hands on projects, and listening to music. Education & Occupational Histo - Education What is your level of education?: Some College - He attended 5 years of college in [employer] studying business, electrical engineering and physical therapy. He did not finish his degree Do you have any learning disabilities?: No - Occupation List any current or past employment:: Client shared he has worked at [employer] for 30 years. Client has had various positions at [employer] during his time there. 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 List any previous volunteering you may have done:: none reported Service - Service Have you ever been in the ?: No Legal History - Records Have you had any past legal charges?: No Do you have any current legal charges?: No Have you ever been incarcerated? If yes, describe:: No - Court Orders Have you had any past court orders for psychiatric treatment?: No Do you have a present court order for psychiatric treatment?: No Problem Checklist - Current Problem Areas Problem List: Nutritional/Eating pattern changes - increased appetite and 15lb weight gain within the last few months., Depressed mood/sad - developed depression prior to his hospitalization where he felt isolative with decreased energy and suicidal thoughts., Bereavement - Client reports ongoing grief associated with the loss of his father in 2012, Anxiety - Client reports some anxiety about his marriage as he had an affair between March 2016 and October 2016. Client also reports anxiety about work and ruminations. Client has some perfectionistic behavior and notices anxiety if there is disorganization, Anger/aggression - Client reports when he becomes angry and irritable he tends to throw things and yell., Inattention - Client reports poor concentration and difficulty focsuing., Impulsivity - Client shared belief his affairs were impulsive and client enjoyed the thrill of it. Client reported he also gets a thrill from speeding and being late to work., Mood swings/hyperactivity - Client described his cassia as a high burst of energy that then drops. Client endorsed symptoms consistent with cassia a week and a half ago in which he had a 4 day period when he felt energetic and excitable with decreased sleep to 3 hours per night, increased anxiety, and irritability., Substance use - self-reported history of cocaine, marijuana, alcohol, and methamphetamine use., Other addictive behaviors - Client reports being addicted to online pornography., Sleep problems - Currently sleeping 6-7 hours per night, but when manic decreased sleep to 3 hours per night, Additional psychosocial stressors - Client currently on FMLA due to mental health symptoms. Client reported he and his are working through the affair. Discharge Planning Needs - Anticipated Follow-Up Mental Health Center (Name/Phone Number):: [facility] (counseling) [facility] (psychiatry) Private Therapist/Psychiatrist:: Bryn Brown Family and Caregiver Contacts:: Heaven Tejada Release of Information Signed:: Yes - [phone] Community Agency Contacts: none reported Program Director/Morning Show Host Name/Phone Number: none reported Software Design Analyst's Assessment - Client's Needs What are the client's feelings about the program?: Client shared the program has been helpful so far as client has increased self-awareness and learned more about his bipolar disorder. Client stated he continues to struggle at times with wearing the mask but client reported he feels somewhat comfortable opening up with peers during group. What are the client's goals?: Client states wanting to work on communication of emotions, managing symptoms, and reducing avoidance behaviors. Additionally, client wants to increase mood stability and decrease severity of symptoms. What are the client's strengths?: Client is intelligent, charismatic, and funny. Client has worked at [employer] for 30 years which demonstrates determination, reliability, and a good work ethic. Client self-reports as a people person and shared he does well connecting with others and being a leader. Client shared he loves his and daughter and stated he wants to get better for them. Diagnoses - Diagnoses Diagnosis #1:: Bipolar disorder F 31.9 Diagnosis #2:: Anxiety unspecified Diagnosis #3:: Cannabis use disorder-remission Interpretive Summary - Interpretive Summary Interpretive Summary: Client is a 47-year-old male with history of bipolar disorder who was referred to [facility] post psychiatric inpatient hospitalization from September 10, 2017 - September 11, 2017 for mixed mood symptoms and suicidal thoughts. Client reports a long-standing history of episodic symptoms since his mid-20s which client described as a high burst of energy that then drops. Per client report, he endorsed symptoms consistent with cassia a week and a half ago in which he had a 4-day period when he felt energetic and excitable with decreased sleep to 3 hours per night, increased anxiety, and irritability. Client reported that he was intermittently risky and impulsive in his decisions, sharing during this time he would drive erratically and be late to work on purpose. Client developed depression prior to his hospitalization where he felt isolative with decreased energy and suicidal thoughts of hanging, cutting, or driving into traffic. Client denied making specific suicide plan. Client denies suicidal ideation since discharge from the hospital and reports ability to maintain safety. Denies access to guns or firearms. Denies stock piles of medications. Client denies homicidal thoughts. Client reported his brother had a previous suicide attempt and his father had depression. Client denied history of trauma and abuse. Client reported history of substance abuse, having used marijuana, cocaine, alcohol, and methamphetamines. Client denies current use of substances. Client shared that his mood is somewhat better since his hospitalization although he continues to have some depressive symptoms, but of decreased intensity. Client reports history of ruminative anxiety about multiple issues including his marriage, job, and some perfectionism. Treatment Plan Recommendations - Recommendations Guidelines: Special needs identified to be included in the development of an individualized treatment plan regarding past psychiatric history and treatment, developmental events, family relationships/events/culture, past and/or current educational, occupational, social, and residential experience, and legal status. Recommendations:: Client recommended to be admitted to IOP as the structured setting is necessary to prevent decompensation and rehospitalization. Client recommended to participate in IOP for 6 weeks and to follow up with his outpatient psychiatrist and therapist for continuity of care.
--- NOTE | 2017-09-21 12:51 | BH.MDN ---
Multi-Disciplinary Note - Note 60-min Individual Time Started:: 11:37 Date: 09/21/17 Purpose of session/treatment goals addressed:: The purpose of this session was to gather information on client's current symptoms, supports, stressors, and treatment goals. Another goal was to build rapport, normalize bipolar symptoms, and set a small daily goal. Eye Contact:: Good Motor Activity:: Restless Appearance:: Casual Speech:: Rapid, Other - circumstantial Mood:: Euthymic - potentially hypomanic as shown by circumstantial speech and loose associations. Affect:: Full Thoughts:: Racing, No evidence of hallucinations/delusions noted Staff Interventions:: Therapist used active listening and open-ended questions to explore client's current stressors, symptoms, and supports. Therapist used strengths perspective to build rapport and help client identify positives. Therapist provided emotional support and psychoeducation on bipolar disorder and normalized clients experience. Therapist assisted client in identifying overall treatment goals and gave client homework to identify his warning signs for cassia and depression and to watch a video on emotional courage. Client Response:: Client responded well to session, potentially hypomanic as shown by his rapid speech and elevated mood. Client shared multiple stressors that led up to his most recent hospitalization such as medication changes, an affair, issues at work, grief, and marriage issues. Client reported before he was hospitalized he noticed increased depressive symptoms, isolation, suicidal thoughts, lack of concentration, low self-esteem, and weight gain. Client reported a history of mood cycling during which time client had increased erratic energy, heightened sexuality which led to an affair, and reduced need for sleep. Client shared he and his are currently working on improving their marriage and client identified his as my biggest support. Client stated his recognized a lot of client's warning signs before he did and has encouraged client to follow up with counseling. Client reported he often takes on too much and internalizes which increases stress and frustration. Client shared he would like to work on being outspoken for myself while in the program as client reports always being stoic and a people pleaser. Client also expressed wanting to work on expressing emotions fully rather than minimizing and shutting down. Risks/Concerns:: Client denies suicidal ideation, plan, and intent as of 09/21/17. Progress Toward Goals/Plan:: Progress limited as client just started IOP last Monday. However, client reports he feels the insight he has gained from group has helped him increase self-awareness and better understand his diagnosis. Client states wanting to work on communication of emotions, managing symptoms, and reducing avoidance behaviors. Client to continue IOP to promote mood stability and prevent decompensation. Time Stopped:: 12:33
--- NOTE | 2017-09-22 14:28 | BH.SGPN ---
Service Group Progress Note - Session Psychotherapy Session #1 Date Open:: 09/22/17 Time Started:: 09:05 Time Stopped:: 10:20 Targeted Problem #:: 1 Type of Group:: Process - 7 group members Goal of Group:: The goal of today's group was to check-in with client's mood, stressors, and positives, review homework and introduce topic for the day. Client Response/Progress/Benefit:: Client reported today plans to finish moving his in laws into their new condo. Client shared is excited and looking forward to having a relaxing weekend with his family. Client reported he was told by his landlord that once the contract is up he is going to have to move because they have a different family moving in. Client shared feeling stressed about having to find a new house whether they are going to rent or by house he is unsure of what to do. Client seemed to benefit from expressing thoughts and feelings as well as receiving support by peers. Progress noted with client being able to identify things he is looking forward to doing over the weekend. Eye Contact:: Fair Motor Activity:: Appropriate Appearance:: Casual Speech:: Appropriate Mood:: Anxious Affect:: Congruent Thoughts:: Linear, Logical, No evidence of hallucinations/delusions noted Staff Interventions:: Therapist used open-ended questions to elicit information about client's current stressors and mood state. Therapist was supportive by using active listening and reflection.
--- NOTE | 2017-09-22 15:45 | BH.NA_ITS ---
Physical Data - Vital Signs Pulse Rate: 94 Respiratory Rate: 16 Blood Pressure: 132/90 - Height/Weight Height: 1.83 m Weight:: 108.862 kg Weight in Pounds: 240.0 lbs Current Medication Compliance - Medication Compliance Do you take your medication as prescribed?: Yes Do you need assistance with taking medication?: No Have you had side effects from medication?: No Nutritional History - Appetite Nutritional Instructions:: If client shows signs of a swallowing problem, weight change of 10 pounds or more in the last month, or is on a diabetic diet, the physician will review and request a dietitian consult, as appropriate. All unintentional weight loss will be referred to the physician for decision on need for dietitian consult. Describe your appetite:: Good Have you noticed a change in your eating habits lately?: Yes - appetite has increased with decompensation of symptoms Additional nutritional information:: Caffiene use of 2-4 beverages daily Functional Assessment - Sleep Pattern Describe any problems with sleeping: Client notes that he had some difficulty both falling and staying asleep recently. However, he recent medication adjustments have helped and he is sleeping 5-6 hours nightly now. He does note that he is having vivid, movie-like dreams, not nightmares, but differnt from his normal. - Activities Motor Activity:: Functional Sensory/Communication Assess - Hearing Problems Do you have any hearing problems?: Adequate - Communication Problems Do you have difficulty understanding what people are saying?: No Do you have trouble putting your thoughts into words or expressing what you want to say?: No Do people ever have trouble understanding what you say?: No What is your primary language?: Chinese Learning Assessment - Learning Barriers Learning Barriers:: Ready to learn Medical Problems/History - Cardiac Conditions Cardiovascular: Hypertension - Pain Assessment Do you have acute or chronic pain?: No Surgical History - Surgical History Have you had any surgeries? If so, list type and date:: Yes - multiple orthopedic surgeries, umbilical hernia repair Substance Abuse - Substance Abuse Please describe substance abuse in the last 30 days:: Client denies ETOH use. Former smoker of 3 pack years. Significant history of illicit substance use including marijuana, meth, and cocaine. Mental Status Summary - Mental Status Significant Findings/Observations on Appearance and Mood:: Client is A&Ox4, casually dressed with appropriate hygiene and grooming. He is cooperative with interview. Normal activity. Fair eye contact. Speech is clear and of regular rate and volume. Logical associations with frequent derailment. Normal process. Fair-average knowledge. No symptoms of delusions. Denies hallucinations and HI. Does have past SI; ongoing rare, fleeting SI without plan or intent. He does exhibit some grandiose thoughts of self. Suicide Assessment - Suicidal Ideation Are you currently or have you been suicidal in the past?: Yes Suicidal Intentional Rating Scale (SIRS): Suicidal thoughts (past), Current suicidal thoughts/No plan/Contracts for safety Physician Notification: If Active suicidal thoughts/Will not contract for safety is checked, contact physician and document in the Physician Notification section below. Past Psychiatric History - Treatment Hx Describe (age, circumstance, etc) any past hospitalizations: September 2017: [place] [facility] for SI Fall Risk Assessment - Age Age: Less than 60 - Mental Status Mental Status: Willing & able to ask for assistance when needed - Physical Status Physical Status: No problems - Impairments Impairments: None - Elimination Elimination: Continent AND independent - Gait or Balance Gait or Balance: Walks independently - Hx of Falls History of falls in the past 6 months: No known history - Medications/Substances Psychotropics:: Antidepressants, Mood stabilizers Medications/substances used within the past 24 hours or ordered to administer: 1 -2 of the medications/substances listed above - Total Score Total Points:: 1 Physician Notification - Physician Notification Physician Notified: Anna Rider Method of Notification: Face to Face Comments: treatment planning discussion RN Summary of Impressions - Impressions Recommendations: Include psychiatric and medical issues, treatment planning recommendations, and discharge planning needs. Impressions: Psychiatric Issues: bipolar I Impression: General Medical Conditions: HTN - untreated - Level of Care How do the client's current symptoms and functional deficits support need for this level of care?: Client notes a gradual decompensation in his mental health for several weeks which culminated in SI and subsequent hospitalization. He did not have a plan or intent for suicide, but intrusive thoughts were becoming overwhelming. He was discharged from [facility] on 09/11/17 and has been feeling slightly better after adjustments were made to his medications. He continues to have little motivation, decreased concentration, and rumination ( especially at night). He has been on FMLA from work since early July and is anxious to return to work. He notes a long history of bipolar disorder, but this period of depression has been much worse than those in the past. He is able to cite his as his main support, and is future oriented at the time of conversation. IOP will promote gains and decrease risk of decompensation.
--- NOTE | 2017-09-22 15:47 | BH.SGPN ---
Service Group Progress Note - Session Psychotherapy Session #3 Date Open:: 09/22/17 - 8 group members Time Started:: 11:27 Time Stopped:: 12:25 Targeted Problem #:: 1 Type of Group:: Functional Skills Development Goal of Group:: To rehearse resilient factors and identify ways to maintain resilience despite hardships and stressors. Client Response/Progress/Benefit:: Client responded well to session, active participant. Client reported the activity and topic helped client recognize he needs to be resilient to continue to grow and accept emotions that he has suppressed over many years. Client identified his resiliency traits as being self-aware, humor, and being willing to accept help by coming to [facility]. Client stated he will continue to maintain resiliency by using his supports, setting small goals, and using positive self-talk. Client appeared to benefit from identifying ways he demonstrates resiliency and by learning how to maintain resiliency despite hardships. Progress noted in client's increased self-awareness and communication with his , but can continue to benefit from expressing emotions rather than suppressing them. Eye Contact:: Good Motor Activity:: Appropriate Appearance:: Neat Speech:: Appropriate Mood:: Euthymic Affect:: Congruent Thoughts:: Linear, No evidence of hallucinations/delusions noted Staff Interventions:: Therapist led group in an activity in which group members were challenged to stay resilient despite various stressors and hardships added to activity. Therapist provided each group member with a stress ball and used stress ball as a tool to discuss factors of resilient personality. Therapist provided group members with a handout about the building blocks of resilience. Therapist provided support by using reflective listening.
--- NOTE | 2017-09-25 15:13 | BH.COMM ---
Communication Note - Communication with Client Communication Note: This therapist attempted to call client's outpatient therapist, Bryn Sun, for continuity of care and to inform Bryn Sun that client has been involved in IOP. Therapist left a message asking for a follow up on client.
--- NOTE | 2017-09-26 10:56 | BH.SGPN ---
Service Group Progress Note - Session Psychotherapy Session #1 Date Open:: 09/26/17 - 6 group members Time Started:: 09:05 Time Stopped:: 10:15 Targeted Problem #:: 1 Type of Group:: Process Goal of Group:: The goal of today's group was to check-in with client's mood, stressors, and positives, and introduce topic for the day. Client Response/Progress/Benefit:: Client responded well to session, active participant. Client reports feeling positive and ambitious today as client had a good morning despite a rough weekend. Client stated he and his had several arguments which resulted in client throwing things and having an outburst. Client shared the argument came about as his started recognizing warning signs of client being spacey and unfocused. Client reported when his expressed these to client he became defensive. Client stated he was able to take a break and walk his dog which helped client calm down and more effectively communicate with his . Client was receptive to feedback on other ways to express anger in a healthy way such as journaling, cleaning, punching a pillow, and taking breaks. Client reports plan to share his needs and barriers with his so they can better communicate. Client appeared to benefit from receiving supportive statements and coping ideas from peers. Eye Contact:: Good Motor Activity:: Appropriate Appearance:: Neat - new haircut Speech:: Appropriate Mood:: Euthymic Affect:: Full Thoughts:: Linear, Logical, No evidence of hallucinations/delusions noted Staff Interventions:: Therapist used open-ended questions to elicit information about client's current stressors and mood state. Therapist was supportive by using active listening and reflection.
--- NOTE | 2017-09-27 15:27 | BH.SGPN_ITS ---
Service Group Progress Note - Session Psychotherapy Session #2 Date Open:: 09/27/17 Time Started:: 10:20 Time Stopped:: 11:10 Type of Group:: Illness Management - 9 group members Goal of Group:: To increase understanding of fear and explore the negative impact fear of failure can have on mental health and decision making. Behaviors/Verbalizations/Mental Status:: Pt was an active participant in group activity and discussion. Participated with group in discussion on definitions of failure. Along with the group discussed how failure and fear of failing has impacted life stated the importance of applauding the setback that can push us to success. He worked with the group during activity and processed the activity with group pointing out how learning from setbacks, missteps, and failures during the activity helped them accomplish their goals. Shared the importance of recalibrating when having a setback. Along with the group was able to identify how perceptions of the task and fear of not performing well impacted motivation and increased fear. Progress noted through increased awareness and education on how fear of failure impacts mental wellness. Able to identify that avoiding fear altogether is unrealistic. Also able to identify how failure can be beneficial. Eye Contact:: Fair Motor Activity:: Restless Appearance:: Casual Speech:: Appropriate Mood:: Anxious, Depressed Affect:: Congruent Thoughts:: Linear, Logical, No evidence of hallucinations/delusions noted Staff Interventions:: Therapist facilitated discussion about fear and impact fear of failure can have. Therapist led group in an experiential activity in which client?s would fail numerous times throughout, but were given the opportunity to try again. Therapist led the processing of the activity and assisted clients with connecting how fear of failure impacted their decision making during the activity. Psychotherapy Session #3 Date Open:: 09/27/17 Time Started:: 11:20 Time Stopped:: 12:10 Type of Group:: Functional Skills Development - 9 group members Goal of Group:: To identify the impact fear of failure has had on the group members lives and identify strategies to overcome fear of failure. Client Response/Progress/Benefit:: Active participant in group discussion and activity. Completed worksheet regarding how failure has impacted them, what they gained from the group topic, and how they plan to use topics discussed today in daily life. Shared in small group that he learned today is to Look at my successes and accept that they are positive regardless of the size or impact they have on me. Stated that she plans to think about what obstacles or goals he has not followed through with due to fear which include communicating with my spouse and family Progress noted AEB increased education and awareness. Will continue in IOP to maintain gains and prevent further decompensation. Eye Contact:: Fair Motor Activity:: Appropriate Appearance:: Casual Speech:: Appropriate Mood:: Anxious, Depressed Affect:: Congruent Thoughts:: Linear, Logical, No evidence of hallucinations/delusions noted Staff Interventions:: Therapist provided each group member with a worksheet to complete that asked questions about their experiences with fear of failure. Therapist led the processing of the worksheet, helping client?s connect how fear of failure has impacted them. Therapist provided support by using active listening and providing feedback.
--- NOTE | 2017-09-27 16:25 | BH.SGPN ---
Service Group Progress Note - Session Psychotherapy Session #1 Date Open:: 09/27/17 Time Started:: 09:08 Time Stopped:: 10:09 Targeted Problem #:: 1 Type of Group:: Process - 7 participants Goal of Group:: The goal of group was to check-in with clients on current mood, stressors, and positives and from previous group session. Client Response/Progress/Benefit:: Client responded well to session and openly processed with the group. He shared being tired this morning as his daughter had been up throughout the night. CLient went on to discuss that he and his had been able to have a long conversation the previous night and discussed Client's difficulty with expressing his emotions. Client noted that the conversation have been very helpful in shedding some light on what may have led to worsening symptoms of depression. Client discussed feeling encouraged that his was still willing to remain invested in the marriage and supportive of client treatment. CLient benefited from reflecting upon ways he may continue to incoporate effective communication strategies with his as well as detect warning signs that he may be falling back into isolative or closed off behaviors. CLient making progress in his ability to identify the relationship between his actions and emotions. CLient recommended continued IOP to further improve use of skills learned and maintain stability. Eye Contact:: Good Motor Activity:: Appropriate Appearance:: Casual Speech:: Appropriate Mood:: Euthymic Affect:: Congruent Thoughts:: Linear, Logical, No evidence of hallucinations/delusions noted Staff Interventions:: Therapist used open-ended questions to elicit information about client's current stressors and mood state. Therapist was supportive by using active listening and reflection. Therapist utilized a quote to introduce the topic of the day.
--- NOTE | 2017-09-28 10:29 | BH.SGPN ---
Service Group Progress Note - Session Psychotherapy Session #1 Date Open:: 09/28/17 - 7 group members Time Started:: 09:15 Time Stopped:: 10:05 Targeted Problem #:: 1 Type of Group:: Process Goal of Group:: The goal of today's group was to check-in with client's mood, stressors, and positives, and introduce topic for the day. Client Response/Progress/Benefit:: Client responded well to session, arrived late, but engaged throughout. Client reports feeling optimistic today as his day yesterday was uneventful, but good. Client shared he has multiple stressors weighing on him such as money, his car, and finding a new house. With group and therapist support, client able to identify ways to manage stress such as journaling and talking with his to avoid overflow and suppression of emotion. Client stated he tends to put on a mask and keep emotions in which often result in client getting angry and blowing up. Client appeared to benefit from identifying ways to manage stress and from receiving group support. Progress noted in client's improved mood, but can continue to benefit from challenging minimization of symptoms and emotions. Eye Contact:: Good Motor Activity:: Appropriate Appearance:: Neat Speech:: Appropriate Mood:: Euthymic Affect:: Full Thoughts:: Linear, No evidence of hallucinations/delusions noted Staff Interventions:: Therapist used open-ended questions to elicit information about client's current stressors and mood state. Therapist was supportive by using active listening and reflection.
--- NOTE | 2017-09-28 11:47 | BH.MDN ---
Multi-Disciplinary Note - Note 30-min Individual Time Started:: 11:00 Date: 09/28/17 Purpose of session/treatment goals addressed:: The purpose of this session was to work on goal #2 objective #1 of client's treatment plan. Another goal was to increase emotional intelligence and awareness of the function of emotions to help client more effectively express his feelings. Other topics included: grief, anger, and family session. Eye Contact:: Good Motor Activity:: Appropriate Appearance:: Neat Speech:: Rambling Mood:: Euthymic Affect:: Congruent Thoughts:: Linear, No evidence of hallucinations/delusions noted Staff Interventions:: Therapist used active listening and open-ended questions to explore client's current stressors and expression of emotions. Therapist helped client gain awareness of how suppressed emotions and grief can present themselves in ways client does not intent, such as anger and avoidance. Therapist and client discussed the biopsychosocial impacts of stress and discussed warning signs. Therapist and client identified strategies to help client more effectively express his emotions and increase emotional intelligence. Therapist gave client homework to record his emotions, thoughts, and stressors while identifying warning signs. Therapist and client discussed a family session next week with client's . Client Response:: Client responded well to session, rambling at times, but able to be redirected. Client shared he would like to continue to learn how to take off the mask as client has lived most of his life trying to please others, suppressing bad emotions, and not fully expressing his feelings. Client stated coming to therapy and getting help from others has been a huge step for me as client reported the belief he should be able to handle things on his own. Client expressed he has still not allowed himself to grieve the passing of his father, who in 2012, recognizing he has conflicting emotions about it. Client stated, part of me is angry with my mom and part of me is guilty. Client and therapist discussed the stages of grief and giving oneself permission to feel conflicting emotions. Client reflected that he always believed he should not feel anger or sadness, but when client suppresses these emotions it comes up in unhealthy ways like throwing things or yelling. Client learned about anger as a secondary emotion, identifying invalidation, fear, and stress to his primary emotions under anger. Client was receptive to having a family session to communicating his anger iceberg with his . Client also receptive to using a writing prompt to express emotions, stressors, and thoughts throughout the day. Risks/Concerns:: Client denies suicidal ideation, plan, and intent as of 09/28/17. Progress Toward Goals/Plan:: Client demonstrating progress towards treatment goals as shown by client's report of increased insight to stressors and unhealthy patterns of coping. Client continues to report anxiety and difficulty verbalizing his emotions. Client to continue IOP to promote emotional regulation and prevent decompensation. Client to follow up with homework and communicate potential family session with his . Time Stopped:: 11:35
--- NOTE | 2017-09-28 15:31 | BH.SGPN ---
Service Group Progress Note - Session Psychotherapy Session #3 Date Open:: 09/28/17 Time Started:: 10:18 Time Stopped:: 11:15 Targeted Problem #:: 1 Goal of Group:: The goal of group was to identify a goal for the weekend, explore the potential barriers to achieving that set goal, and identify strategies to overcome barriers. Client Response/Progress/Benefit:: Pt active and engaged as evidenced by pt contributing to discussion and listening attentively to others. Pt identified his goal for the week is to set time to talk with his every night about how his day went and other thoughts he has. Pt reported obstacles could be not going to bed at a reasonable time and minimizing how he is feeling. Pt shared he can overcome these obstacles by reminding himself of the importance of being open and honest with his . Pt seemed to benefit from identifying a SMART short term goal that will help keep pt moving towards his usp goals. Eye Contact:: Good Motor Activity:: Appropriate Appearance:: Casual Speech:: Appropriate Mood:: Euthymic Affect:: Congruent Thoughts:: Linear, Logical, No evidence of hallucinations/delusions noted Staff Interventions:: Therapist facilitated group activity in which group members identified a goal to work on over the next week. Therapist asked group members to identify barriers to achieving identified goal and strategies to help them achieve their goal. Therapist led group in processing their goal maps, assisting clients with establishing SMART goals. Therapist provided support by using reflective listening.
--- NOTE | 2017-09-29 14:29 | BH.SGPN ---
Service Group Progress Note - Session Psychotherapy Session #3 Date Open:: 09/29/17 Time Started:: 09:05 Time Stopped:: 10:15 Targeted Problem #:: 1 Type of Group:: Process Goal of Group:: The goal of today's group was to check-in with client's mood, stressors, and positives, review homework and introduce topic for the day. Client Response/Progress/Benefit:: Pt reported he was more open and honest with his about his anger from last week. Pt shared he recognized he needs to have structure and routine throughout his day or he starts to struggle. Reports he will get spacey and not actually pay attention to what others are saying, which results in conflict. 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 Pt reported this weekend he is going to work with his to create a structure/plans for each day so he doesn't feel lost on what to do. Pt continuing to struggle with negative thoughts and not functioning at baseline. Pt to continue IOP level of care to decrease depression and prevent decompensation. Eye Contact:: Fair Motor Activity:: Appropriate Appearance:: Casual Speech:: Appropriate Mood:: Depressed Affect:: Constricted Thoughts:: Linear, Logical, No evidence of hallucinations/delusions noted Staff Interventions:: Therapist used open-ended questions to elicit information about client's current stressors and mood state. Therapist was supportive by using active listening and reflection.
--- NOTE | 2017-10-02 12:05 | BH.COMM ---
Communication Note - Communication with Client Communication Note: Therapist spoke with client on the phone to set up client's family session this week. Client reports plan to have a family session with his on 10/05/17.
--- NOTE | 2017-10-03 14:13 | BH.SGPN ---
Service Group Progress Note - Session Psychotherapy Session #1 Date Open:: 10/03/17 Time Started:: 09:10 Time Stopped:: 10:00 Type of Group:: Process - 5 group members Goal of Group:: The goal of today's group was to check-in with client's mood, stressors, and positives, review homework and introduce topic for the day. Client Response/Progress/Benefit:: Pt was an active participant in group discussion. Emotion for today was content but anxious. Shared that his weekend went well. Reports that he was able to manage his emotions effectively. Discussed that he was in contact with his son (19) who is going to be in the area this weekend. Has plans to meet up with son for lunch. Pt has not seen his son in over a year. Has been thinking about talking to him about his recent MH struggles and hospitalization and wants to be as honest as he can. In the past he minimized his symptoms to his family however wants to be more honest. Group provided feedback on how they have approached family in the past regarding thier MH symptoms. Pt was receptive. Progress noted. Increased awareness of negative to people pleasing and minimizing symptoms to family. Will continue in IOP to stabilize mood, increase functioning, and prevent further decompensation. Eye Contact:: Good Motor Activity:: Appropriate Appearance:: Casual Speech:: Appropriate Mood:: Anxious Affect:: Congruent Thoughts:: Linear, Logical, No evidence of hallucinations/delusions noted Staff Interventions:: Therapist used open-ended questions to elicit information about client's current stressors and mood state. Therapist was supportive by using active listening and reflection.
--- NOTE | 2017-10-03 15:01 | BH.SGPN_ITS ---
Service Group Progress Note - Session Psychotherapy Session #2 Date Open:: 10/03/17 6 group members Time Started:: 10:07 Time Stopped:: 11:06 Targeted Problem #:: 1 Type of Group:: Illness Management Goal of Group:: To increase understanding of components of a problem, learn strategies to solve a problem and rehearse problem solving skills. Client Response/Progress/Benefit:: Client responded well to session, providing insight to discussion. Client appeared to connect with quote sharing, ?we can?t always use the same kind of thinking.? Client reported he is good at solving problems at work, but when it comes to his personal life, client struggles to find solutions. Client helped the group process problem-solving strategies, such as the ABCDEs of problem solving. Client participated in an activity aimed to help group members utilize in the moment problem solving skills. Client reported at times the activity was difficult because it took many attempts and ideas to find a solution. Client connected this to life outside of group, ?we need to use our supports and be open to new ideas.? Client appeared to benefit from learning how to more effectively solve problems. Progress noted in client? s improved mood, but continues to struggle with lack of implementation of internal coping skills. Eye Contact:: Good Motor Activity:: Appropriate Appearance:: Neat Speech:: Appropriate Mood:: Euthymic Affect:: Full Thoughts:: Linear, No evidence of hallucinations/delusions noted Staff Interventions:: Therapist facilitated group discussion about problems and the underlying components of problems. Therapist educated group about various strategies to solving a problem and provided an example of each. Therapist led group in an experiential activity that required group members to use problem solving skills to work together, rehearsing problem solving skills. Psychotherapy Session #3 Date Open:: 10/03/17 - 6 group members Time Started:: 11:10 Time Stopped:: 12:05 Targeted Problem #:: 1 Type of Group:: Functional Skills Development Goal of Group:: To identify steps to solving a personal problem and increase awareness to those barriers that impedes the problem solving process. Client Response/Progress/Benefit:: Client responded well to session, providing good insight. Client shared he connected with the step by step guide to problem solving so he can more effectively ?tackle? a problem. Client identified ? reducing minimizing? as problem he wants to solve. Client shared he plans to work towards his goal of being more open and honest by first evaluating the impact minimizing has had on client?s relationships and mental health. Client stated he will also focus on small successes, positive self-talk, and reminding himself of why he is doing this. Client reported his barriers are lack of trust , negative self-talk, and putting up a wall or isolating. Client appeared to benefit from problem-solving strategies to increase confidence and overcome barriers. Client to continue IOP to promote mood stability and increase generalization of healthy coping skills. Eye Contact:: Good Motor Activity:: Appropriate Appearance:: Neat Speech:: Appropriate Mood:: Euthymic Affect:: Full Thoughts:: Linear, No evidence of hallucinations/delusions noted Staff Interventions:: Therapist provided group members with a worksheet in which the group members were instructed to identify a problem and steps need to take to solve that problem. Then therapist instructed group members to identify those barriers that get in the way of solving the problem. Therapist led the processing of the activity. Therapist provided support by using active listening and providing feedback.
--- NOTE | 2017-10-04 10:23 | BH.SGPN ---
Service Group Progress Note - Session Psychotherapy Session #1 Date Open:: 18 - 6 group members Time Started:: 09:25 Time Stopped:: 10:09 Targeted Problem #:: 1 Type of Group:: Process Goal of Group:: The goal of today's group was to check-in with client's mood, stressors, and positives, and introduce topic for the day. Behaviors/Verbalizations/Mental Status:: Client arrived late to session. Client Response/Progress/Benefit:: Client responded well to session, active participant and receptive to feedback. Client reports feeling apprehensive today as client plans to see his son this week for the first time in over a year. Client shared his son does not know about client's mental health issues, but client hopes to be able to talk with his son more openly. Client was receptive to ideas from the group on ways to reduce anxiety and increase confidence in communicating such as writing down what he hopes to say. Client stated he and his are also in the process of moving which has increased client's stress, but client reported overall he is managing his emotions well. Client reported his communication has improved with his and he has been walking his dog daily which helps reduce stress. Client appeared to benefit from group support. Progress noted in client's improved mood and communication, but can continue to benefit from expressing emotions rather than suppressing them. Eye Contact:: Good Motor Activity:: Appropriate Appearance:: Neat Speech:: Appropriate Mood:: Anxious Affect:: Congruent Thoughts:: Linear, No evidence of hallucinations/delusions noted Staff Interventions:: Therapist used open-ended questions to elicit information about client's current stressors and mood state. Therapist was supportive by using active listening and reflection.
--- NOTE | 2017-10-04 15:25 | BH.SGPN ---
Service Group Progress Note - Session Psychotherapy Session #2 Date Open:: 10/04/17 Time Started:: 10:18 Time Stopped:: 11:14 Targeted Problem #:: 1 Type of Group:: Illness Management - 6 participants Goal of Group:: To increase understanding of communication and the various types of communication. Another goal was to increase understanding of impact communication styles can have.? Client Response/Progress/Benefit:: Client was receptive to group an indicated the topic of effective communication connected well with areas he would like to improve upon. CLient provided quality input throughout and worked with fellow participants on identifying characteristics associated with the 4 main communication styles. CLient expressed benefiting from reflecting upon potential pros and cons of each style as well as identifying the traits he may exhibit from each. Client is making progress in his ability to relate concepts discussed to daily life and is beginning to apply the skills learned. Client recommended continued IOP tx to maintain stability and continue to increase awareness and healthy management of mental health sx. Eye Contact:: Good Motor Activity:: Appropriate Appearance:: Casual Speech:: Appropriate Mood:: Euthymic Affect:: Congruent Thoughts:: Linear, Logical, No evidence of hallucinations/delusions noted Staff Interventions:: Therapist facilitated the group discussion about communication and explained the different types of communication. Therapist assisted group members in connecting the communication styles to the way they communicate and impact the communication style has on their relationships. Therapist provided support by using active listening and providing feedback.? Psychotherapy Session #3 Date Open:: 10/04/17 Time Started:: 11:19 Time Stopped:: 12:16 Targeted Problem #:: 1 Type of Group:: Functional Skills Development - 6 participants Goal of Group:: To identify important components of communication and practice specific, clear communication. Client Response/Progress/Benefit:: Client again did well to remain engaged throughout. He was able to actively participate in both discussion and activity portions of the group. CLient worked with fellow participants to communicate to a group member how to draw an object while attempting to overcome various communication barriers. CLient benefited from reflecting upon how the barriers in the activity relate to Client ability to openly communicate needs and emotions with his . CLient showed progress in his ability to identify areas in which he has been struggling to use effective forms of communication. He indicated wanting to improve attentiveness and receptivity when communicating with his spouse. CLient recommended additional focus on these areas in individual and/or family session to improve healthy communication with supports. Eye Contact:: Good Motor Activity:: Appropriate Appearance:: Casual Speech:: Appropriate Mood:: Euthymic Affect:: Congruent Thoughts:: Linear, Logical, No evidence of hallucinations/delusions noted Staff Interventions:: Therapist explained challenge activity to group, connecting skills learned from previous session to current activity. Therapist led group in an activity in which participants would need to use communication skills to overcome communication barriers and assist another participant in accomplishing a task. Therapist facilitated processing of challenge activity and helped connect skills used in activity to real life situations.
--- NOTE | 2017-10-05 10:08 | BH.COMM ---
Communication Note - Communication with Client Communication Note: Client called to cancel his scheduled group and family IOP sessions today due to car troubles and needing to care for his sick child. Client reports plan to attend group tomorrow 10/06/17 and reschedule his family session for next week.
--- NOTE | 2017-11-22 15:33 | BH.SGPN_ITS ---
Service Group Progress Note - Session Psychotherapy Session #3 Date Open:: 09/28/17 Time Started:: 10:18 Time Stopped:: 11:15 Targeted Problem #:: 1 Goal of Group:: The goal of group was to identify a goal for the weekend, explore the potential barriers to achieving that set goal, and identify strategies to overcome barriers. Client Response/Progress/Benefit:: Pt active and engaged as evidenced by pt contributing to discussion and listening attentively to others. Pt identified his goal for the week is to set time to talk with his every night about how his day went and other thoughts he has. Pt reported obstacles could be not going to bed at a reasonable time and minimizing how he is feeling. Pt shared he can overcome these obstacles by reminding himself of the importance of being open and honest with his . Pt seemed to benefit from identifying a SMART short term goal that will help keep pt moving towards his care home goals. Eye Contact:: Good Motor Activity:: Appropriate Appearance:: Casual Speech:: Appropriate Mood:: Euthymic Affect:: Congruent Thoughts:: Linear, Logical, No evidence of hallucinations/delusions noted Staff Interventions:: Therapist facilitated group activity in which group members identified a goal to work on over the next week. Therapist asked group members to identify barriers to achieving identified goal and strategies to help them achieve their goal. Therapist led group in processing their goal maps , assisting clients with establishing SMART goals. Therapist provided support by using reflective listening.
[2017-12-08 09:25] VITALS: BP 132/90; PULSE 94; RESP 16
--- NOTE | 2018-10-04 11:20 | BH.SGPN.GN ---
Behaviors/Verbalizations/Mental Status: []Client alert and oriented, casually dressed and groomed. Eye contact good. Motor activity appropriate. Speech within normal limits. Affect congruent, mood euthymic. Thoughts linear, logical, no signs of hallucinations or delusions. Client Response/Progress/Benefit: []Client was an active participant throughout session, providing good feedback and encouragement during the activity. Client worked with the group to complete the challenge activity. Client was able to identify barriers encountered that may also impact managing stress in daily life. Group identified barriers of stress management to include taking on the biggest stressor at once, not asking for help, and avoidance. Client actively listening and taking notes during discussion about the 4 A's of managing stress. Expressed wanting to get home projects out of his stress jar, which he stated the first step is to create a plan of action for each project. Client seemed to benefit from increased awareness of the impact of stress on mental health and increasing repertoire of stress management strategies. Will continue IOP tx to promote gains in symptom management and improve daily functioning. Narrative Note: []
== END 2017-10-09 23:59 ==
LOC: BHIOP 09:00
PROVIDERS: Visit Provider Psychiatry & Neurology Psychiatry
DX: F31.9 Bipolar disorder, unspecified (principal); F41.9 Anxiety disorder, unspecified; E55.9 Vitamin D deficiency, unspecified; Z79.899 Other long term (current) drug therapy; F12.21 Cannabis dependence, in remission; I10 Essential (primary) hypertension; D36.13 Benign neoplasm of peripheral nerves and autonomic nervous system of lower limb, including hip
CPT/HCPCS: H0035; 90832; 90837; 90853

== ENCOUNTER 2017-10-10 09:00 | Outpatient (RCR) | payer OTHER, SELFPAY ==
[2017-10-10 01:07] VITALS: PULSE 94; RESP 16
--- NOTE | 2017-10-10 10:31 | BH.SGPN ---
Service Group Progress Note - Session Psychotherapy Session #1 Date Open:: 18 - 6 group members Time Started:: 09:05 Time Stopped:: 10:05 Targeted Problem #:: 1 Type of Group:: Process Goal of Group:: The goal of today's group was to check-in with client's mood, stressors, and positives, review homework and introduce topic for the day. Client Response/Progress/Benefit:: Client responded well to session, quiet, but participating when prompted. Client reports feeling apprehensive and disappointed today as client's thinks client is presenting with warning signs of a depressive episode. Client was receptive to discussion of realistically looking at setbacks and having self-compassion. Client stated, I know I'm going to have this for the rest of my life and it's not always going to be good. Client shared he did not see his son as planned over the weekend as client reported I wasn't ready, however, client did talk with his son over the phone and for the first time verbalized client's mental health. Client expressed the conversation made him feel better and he hopes to increase contact with his son. Client appeared to benefit from challenging cognitive distortions. Progress noted in client's improved self-awareness, but continues to report lack of coping skill implementation and minimization which could hinder progress. Eye Contact:: Fair Motor Activity:: Appropriate Appearance:: Casual Speech:: Appropriate Mood:: Depressed Affect:: Constricted Thoughts:: Linear, No evidence of hallucinations/delusions noted Staff Interventions:: Therapist used open-ended questions to elicit information about client's current stressors and mood state. Therapist was supportive by using active listening and reflection.
--- NOTE | 2017-10-11 11:29 | BH.SGPN ---
Service Group Progress Note - Session Psychotherapy Session #1 Date Open:: 10/11/17 Time Started:: 09:06 Time Stopped:: 10:06 Targeted Problem #:: 1 Type of Group:: Process Goal of Group:: The goal of today's group was to check-in with client's mood, stressors, and positives, review homework and introduce topic for the day. Client Response/Progress/Benefit:: Client reported he is feeling crappy because he is still trying to gain insight and awareness into his triggers. Client shared he is also struggling because last year he engaged in risky behavior which he is now ruminating over and feeling guilty for his choices. Client reported having a difficult time focusing on current moment and keeps finding himself looking back at the choices he made. Client seemed to benefit from support by peers as well as expressing his thoughts and emotions. Client to continue IOP level of care to decrease depressive and anxious symptoms as well as prevent decompensation. Eye Contact:: Fair Motor Activity:: Restless Appearance:: Casual Speech:: Appropriate Mood:: Anxious, Depressed Affect:: Constricted Thoughts:: Linear, Logical, No evidence of hallucinations/delusions noted Staff Interventions:: Therapist used open-ended questions to elicit information about client's current stressors and mood state. Therapist was supportive by using active listening and reflection.
--- NOTE | 2017-10-11 13:40 | BH.SGPN_ITS ---
Service Group Progress Note - Session Psychotherapy Session #2 Date Open:: 10/11/17 - 6 group members Time Started:: 10:18 Time Stopped:: 11:08 Targeted Problem #:: 1 Type of Group:: Illness Management Goal of Group:: To increase understanding of pitfalls and impact can have on mental health. Client Response/Progress/Benefit:: Client responded well to session, active participant. Client appeared to connect with the quote, sharing ?the easy path leads to the same results, the right path could be happiness.? Client stated pitfalls are challenges and barriers to goals. Client reported depression, unrealistic expectations, and negative thinking can make someone vulnerable to pitfalls. Client reported pitfalls can lead to more severe mental health symptoms, low self-esteem, and self-fulfilling prophecies if one does not have awareness of how to overcome them. Client appeared to benefit from gaining awareness of how pitfalls impact mental health. Client seems to be progressing as shown by his report of increased awareness of self-sabotaging behaviors, but continue to struggle with implementing coping skills. Eye Contact:: Fair Motor Activity:: Appropriate Appearance:: Casual Speech:: Appropriate Mood:: Dysthymic Affect:: Constricted Thoughts:: Linear, No evidence of hallucinations/delusions noted Staff Interventions:: Therapist facilitated discussion about pitfalls and assisted group in identifying common pitfalls that can set you back. Therapist led group in an activity to help group understand impact pitfalls can have on oneself and identify strategies that could help you get back on the right path. Therapist provided support by using active listening and providing feedback. Psychotherapy Session #3 Date Open:: 10/11/17 - 6 group members Time Started:: 11:16 Time Stopped:: 12:15 Targeted Problem #:: 1 Type of Group:: Functional Skills Development Goal of Group:: To identify personal pitfalls and what keeps them stuck from moving forward. Client Response/Progress/Benefit:: Client responded well to session, quiet, but participating when prompted. Client identified personal pitfalls of his fear of failure, fear of rejection, being overly distracted, self-sabotage, and lack of communication. Client reported belief the program has helped client reduce some of his pitfalls, but shared he continues to stay stuck ?because I don?t always recognize them so I stay in a negative maintenance cycle.? Client helped the group identify strategies to overcome and prevent pitfalls such as setting boundaries, challenging negative thoughts, communicating with supports, and using self-care. Client appeared to benefit from increasing awareness of personal pitfalls and identifying strategies to overcome them. Client to continue IOP to promote mood stability and prevent decompensation. Eye Contact:: Good Motor Activity:: Appropriate Appearance:: Casual Speech:: Appropriate Mood:: Dysthymic Affect:: Constricted Thoughts:: Linear, No evidence of hallucinations/delusions noted Staff Interventions:: Therapist facilitated activity in which group members were given the task to identify personal pitfalls and what keeps them stuck from moving past the pitfall. Therapist provided group members with the homework assignment of identifying strategies that can help them overcome pitfalls.
--- NOTE | 2017-10-12 09:43 | BH.SGPN ---
Service Group Progress Note - Session Psychotherapy Session #2 Date Open:: 10/12/17 Time Started:: 10:20 Time Stopped:: 11:10 Type of Group:: Illness Management - 6 group members Goal of Group:: To increase understanding and awareness of emotions connected to change and the impact those emotions can have on change. Client Response/Progress/Benefit:: Pt was active participant group discussion and activity. Worked with peers in the group to identify common emotions related to changes which include; curious, fear, anxiety, panic, anger, enthusiastic, lost, and torn. Pt stated that for him change is going outside his comfort zone which causes stress. Benefited from education and awareness regarding change and how to manage emtions related to it. Eye Contact:: Fair Motor Activity:: Appropriate Appearance:: Casual Speech:: Appropriate Mood:: Anxious Affect:: Congruent Thoughts:: Linear, Logical, No evidence of hallucinations/delusions noted Staff Interventions:: Therapist facilitated group discussion about change. Therapist led the group in an activity in which the activity was utilized as a tool to increase clients awareness of emotions connected with change. Therapist led the processing of how each emotion was associated with change. Therapist also educated clients on the stages of change and discussed emotions associated with each stage. Therapist was supportive by providing feedback and using reflective listening.
--- NOTE | 2017-10-12 13:18 | BH.MDN_ITS ---
Multi-Disciplinary Note - Note 30-min Individual Time Started:: 12:35 Date: 10/12/17 Purpose of session/treatment goals addressed:: The purpose of this session was to address barriers to change, increase communication, and review stress management strategies. Another goal was to reschedule client's family session as it was scheduled to take place today. Motor Activity:: Restless - AEB playing with ring and adjusting in seat. Appearance:: Neat Speech:: Rapid Mood:: Anxious Affect:: Other - incongruent AEB smiling while reporting anxiety Thoughts:: Racing, No evidence of hallucinations/delusions noted Staff Interventions:: Therapist used active listening and opened-ended questions to explore client's current barriers, stressors, and use of coping skills. Therapist used solution focused strategies to help client scale his progress and identify strategies to help client move forward. Therapist used motivational interviewing to promote change talk and help client identify personal barriers to change. Therapist discussed the roles self-compassion and forgiveness play in processing emotions, managing emotions, and gaining progress. Therapist provided client with homework to utilize grounding techniques to reduce anxiety and to read an article about bipolar disorder. Client Response:: Client responded well to session, willing to meet despite cancelation of his family session. Client reported his had to cancel due to changes in childcare plans and client also stated, she has a lot going on and a lot of anxiety. Client recognized that his anxiety and his 's anxiety play off each other. Client and therapist talked about focusing on regulating client's emotions so he does not further escalate his . Client and therapist practiced mindfulness strategies and client agreed to use one before he talks with his . Client shared he continues to struggle with implementing the coping skills learned in group and individual session, recognizing I'm the one that prevents me from doing it.. I don't give myself the time. Client shared out of 10 (10 being high) client is at a 4 for progress. Client stated he would need to actually force himeslf to sit down every day and work on his mental health to improve progress. Client shared he is also apprehensive about changing his behaviors because it will break his routine. Client and therapist discussed the pros and cons of change and client was asked to look at the consequences of not changing as homework. Client stated he continues to struggle with verbalizing emotions and being fully honest with his . Client reported belief he is getting better communicating , but continues to shut down and avoid. Client expressed he wants to build trust in his relationship and improve with managing mental health symptoms, but feels stuck. With therapist elicitation, client reflected that he has not forgiven himself for his past mistakes which keeps client stuck in a cycle of guilt, self-blame, and defensiveness. Client reported wanting to work more on forgiveness and communicating with his in future sessions. Risks/Concerns:: Client denies suicidal ideation, plan, and intent as of 10/12/17. Progress Toward Goals/Plan:: Client demonstrating some progress towards treatment goals as he reports increased self-awareness and knowledge of healthy coping skills, but continues to struggle with applying coping skills outside of group. Client shared he continues to feel apprehensive about change which has kept client stuck in old patterns and results in internalization of emotions. Client to discuss family session with his and continue IOP to promote mood stability and increase communication. Time Stopped:: 13:00
--- NOTE | 2017-10-12 16:45 | BH.SGPN ---
Service Group Progress Note - Session Psychotherapy Session #3 Date Open:: 10/12/17 Time Started:: 11:23 Time Stopped:: 12:20 Targeted Problem #:: 1 Type of Group:: Functional Skills Development - 6 participants Goal of Group:: To identify the challenges associated with making change and identify positive outcomes that have resulted from changes made in past. Another goal was to identify one change they are willing to make this week. Eye Contact:: Fair Motor Activity:: Appropriate Appearance:: Neat, Casual Speech:: Appropriate Mood:: Euthymic, Anxious Affect:: Congruent Thoughts:: Linear, Logical, No evidence of hallucinations/delusions noted Staff Interventions:: Therapist led group in an activity to help group members recognize the challenges associated with change. Therapist utilized activity as a tool to identify ways to manage changes and adapt to the challenges that ensue. Therapist facilitated group discussion about positive outcomes from change. Therapist helped clients explore changes they are willing to make this week and elicited discussion on the pros and cons of making that change.
--- NOTE | 2017-10-13 09:14 | BH.TPR ---
Treatment Plan Review Date of Admission:: 09/15/17 Date of Treatment Plan Review:: 10/13/17 Admitting Diagnoses:: Bipolar 1 most recent episode depressed F31.9; anxiety unspecified; cannabis use in remission. Current Diagnoses:: Bipolar 1 most recent episode depressed F31.9; anxiety unspecified; cannabis use in remission. Patient's Response to Treatment:: Overall, client has responded well to treatment as he is an active group member and reports implementing calming and mindfulness strategies learned in individual and group sessions. Client has had ongoing issues with tardiness as he often arrives late for group and has canceled twice. However, client does well with calling and once he joins group he provides beneficial insight to discussion. Client appears receptive during group and individual sessions and has improved with reducing minimization of symptoms. Client reported IOP has helped client improve his awareness of warning signs, negative maintenance cycles, and mental health symptoms. Client also shared he has been trying to communicate more with his , although at times client reports he becomes defensive or shuts down. Status of Current Problems and Symptoms: Client reports ongoing difficulty with verbalizing emotions, minimizing, and being fully honest with his . Client reported belief he is getting better at communicating, but continues to shut down and avoid. Client stated his negative thoughts and shame of past decisions keeps client stuck in a cycle of guilt, self-blame, and defensiveness. Client has progressed with gaining awareness of warning signs, negative thoughts, triggers, and coping skills, but continues to report Im the one preventing me from using the skills as client shared he does not give himself time to practice thought challenging. Client also shared he continues to have reluctance to changing thoughts and breaking negative maintenance cycles, but has been open to weighing the pros and cons. Client reports ongoing anxiety regarding work, his family, and pleasing everyone. Client expresses having good days and bad days, with depression and anxiety, but feels better equipped to manage his symptoms. Problem #1 Problem Name:: Pt. to increase mood stability and reduce depressive symptoms Status of Goals:: Client has not yet accomplished this treatment goal as he continues to report ongoing anger triggered by feeling guilty and becoming defensive. Client also continues to report lack of implementation of thought challenging strategies. Client has demonstrated progress with utilizing mindfulness coping skills and increased communication. Overall, client reports reduced depressive symptoms and suicidal ideation. Team Recommendations:: Client recommended to continue working toward treatment goal as he can continue to benefit from challenging negative thoughts, applying skills learned in group, and reframing negative core beliefs. Client and therapist currently working on recognizing warning signs, communicating needs and not minimizing, and decisional balance to promote change in behaviors. Client recommended to follow up with Bryn [facility] for outpatient therapy. Problem #2 Problem Name:: Pt. to reduce frequency, intensity, and duration of anxiety and ruminations Status of Goals:: Client has not yet accomplished this treatment goal as he continues to report ongoing negative thinking, ruminations, and minimization of symptoms. Client has demonstrated progress with increasing awareness of triggers and warning signs as well as utilizing deep breathing. Client continues to work on improving communication with his as he reports she is a positive support that can help recognize warning signs. Team Recommendations:: Client to continue working toward treatment goal as he reports success with implementing calming strategies such as deep breathing to reduce anxiety in the moment, but continues to report ruminations and negative thinking. Client and therapist currently working on proactively utilizing coping skills, writing out negative thoughts and challenging them, and managing stress at work. Client recommended to follow up with outpatient therapist, Bryn Sun.
--- NOTE | 2017-10-13 09:44 | BH.SGPN_ITS ---
Service Group Progress Note - Session Psychotherapy Session #2 Date Open:: 10/12/17 Time Started:: 10:20 Time Stopped:: 11:10 Type of Group:: Illness Management - 6 group members Goal of Group:: To increase understanding and awareness of emotions connected to change and the impact those emotions can have on change. Client Response/Progress/Benefit:: Pt was active participant group discussion and activity. Worked with peers in the group to identify common emotions related to changes which include; curious, fear, anxiety, panic, anger, enthusiastic, lost, and torn. Pt stated that for him change is going outside his comfort zone which causes stress. Benefited from education and awareness regarding change and how to manage emtions related to it. Eye Contact:: Fair Motor Activity:: Appropriate Appearance:: Casual Speech:: Appropriate Mood:: Anxious Affect:: Congruent Thoughts:: Linear, Logical, No evidence of hallucinations/delusions noted Staff Interventions:: Therapist facilitated group discussion about change. Therapist led the group in an activity in which the activity was utilized as a tool to increase client?s awareness of emotions connected with change. Therapist led the processing of how each emotion was associated with change. Therapist also educated clients on the stages of change and discussed emotions associated with each stage. Therapist was supportive by providing feedback and using reflective listening.
--- NOTE | 2017-10-13 10:50 | BH.SGPN ---
Service Group Progress Note - Session Psychotherapy Session #1 Date Open:: 18 - 7 group members Time Started:: 09:05 Time Stopped:: 10:10 Targeted Problem #:: 1 Type of Group:: Process Goal of Group:: The goal of today's group was to check-in with client's mood, stressors, and positives, review homework and introduce topic for the day. Client Response/Progress/Benefit:: Client responded well to session, quiet, but participating when prompted. Client reports feeling tired today as he stayed up late last night. Client shared his late night was not due to cassia or rumination, it happened because of good conversation with his . Client reported yesterday his was highly anxious which impacted his anxiety. Client stated using 5 senses to help calm himself down. Client shared he continues to be busy with packing as he and his are looking at buying a home, but client reports he is managing his stress well. Client appeared to benefit from supportive statements from peers and identifying healthy coping skills he implemented. Progress noted in client's improved mood and communication, but continues to struggle with minimizing and applying thought challenging coping skills learned in IOP. Client to continue IOP to prevent decompensation and promote mood stability. Eye Contact:: Fair Motor Activity:: Appropriate Appearance:: Neat Speech:: Appropriate Mood:: Depressed Affect:: Constricted Thoughts:: Linear, No evidence of hallucinations/delusions noted Staff Interventions:: Therapist used open-ended questions to elicit information about client's current stressors and mood state. Therapist was supportive by using active listening and reflection.
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
--- NOTE | 2017-10-16 16:28 | BH.SGPN ---
Service Group Progress Note - Session Psychotherapy Session #1 Date Open:: 10/16/17 Time Started:: 09:09 Time Stopped:: 10:19 Targeted Problem #:: 1 Type of Group:: Process - 7 participants Goal of Group:: The goal of today's group was to check-in with client's mood, stressors, and positives, review homework and introduce topic for the day. Client Response/Progress/Benefit:: Client responded well to session and remained engaged. He did well to openly share thoughts, feelings, and opinions with the group. Client discussed that this past weekend had been one of the first times he had truly felt present in a long time. CLient indicated feeling more connected with his as a result and discussed that the two of them felt as though they were on the same wave length at various points throughout the weekend. Client expressed relief at the increase in communication. He shared attempting to actively communicate with his as they struggled with searching for a house over the weekend. Client benefitted from reflecting upon his areas of progress as well as identifying what skills he had used to maintain healthy communication with his . CLient is displaying progress in his willingness to begin actively applying treatment concepts outside of the group environment. Client recommended continued IOP to further work on challenging distorted thinking patterns. Eye Contact:: Good Motor Activity:: Appropriate Appearance:: Casual Speech:: Appropriate Mood:: Euthymic, Anxious - self described as anxious in a positive way Affect:: Congruent Thoughts:: Linear, Logical, No evidence of hallucinations/delusions noted Staff Interventions:: Therapist used open-ended questions to elicit information about client's current stressors and mood state. Therapist was supportive by using active listening and reflection.
--- NOTE | 2017-10-19 14:56 | BH.SGPN_ITS ---
Service Group Progress Note - Session Psychotherapy Session #2 Date Open:: 10/19/17 - 6 group members Time Started:: 10:23 Time Stopped:: 11:20 Targeted Problem #:: 1 Type of Group:: Illness Management Goal of Group:: To identify within self what is keeping client trapped from achieving better quality of life. Client Response/Progress/Benefit:: Client responded well to session, active participant. Client connected with the topic sharing, ?for many years I kept the cycle going with bad coping skills.? Client identified various things that keep people stuck such as depression, isolation, and negative thoughts. Client identified his top negative thoughts as ?I always mess up, I have failed my family, and I ruin everything.? Client shared these thoughts keep him stuck as they lead to isolation and depression. Client appeared to benefit from increased awareness of what keeps client stuck. Progress noted as evidenced by client?s improved mood and communication, but can continue to benefit from improved emotional regulation. Eye Contact:: Good Motor Activity:: Appropriate Appearance:: Neat Speech:: Appropriate Mood:: Anxious Affect:: Constricted Thoughts:: Linear, No evidence of hallucinations/delusions noted Staff Interventions:: Therapist facilitated discussion about what is keeping client?s stuck from moving toward mental wellness. Therapist assisted clients in connecting how thoughts can contribute to keeping clients stuck. Therapist led discussion about barriers clients face from making changes to help one move forward. Therapist provided support by using active listening and giving feedback to others. Psychotherapy Session #3 Date Open:: 10/19/17 - 5 group members Time Started:: 11:30 Time Stopped:: 12:27 Targeted Problem #:: 1 Type of Group:: Functional Skills Development Goal of Group:: To identify what client can do to release self from those things that are trapping them to find more peace and quality in everyday life. Client Response/Progress/Benefit:: Client responded well to session, engaged throughout. Client identified ?I have failed my family? as the thought that keeps client most stuck. Client stated this thought leads to self sabotage ?I shut down and don?t take any action to break my cycle? and lack of communication. Client reported this thought as unrealistic and reframed it with ?I am trying my best for my family, but I?m not perfect.? Client shared when he challenges this negative thought he has a better attitude and more open communication. Client helped the group identify strategies to challenge negative thoughts and increase awareness of cognitive distortions. Client appeared to benefit from utilizing in the moment thought challenging skills. Client to continue IOP to promote mood stability and increase coping skill consistency. Eye Contact:: Good Motor Activity:: Appropriate Appearance:: Neat Speech:: Appropriate Mood:: Euthymic Affect:: Full, Constricted Thoughts:: Linear, No evidence of hallucinations/delusions noted Staff Interventions:: Therapist used examples of maintenance cycles to help clients gain awareness of how negative thinking is keeping clients stuck. Therapist facilitated discussion about different strategies for challenging negative thoughts, assisting clients in connecting how the strategies could benefit them. Therapist provided clients with homework to focus on one thing th at is keeping them stuck and identify small steps to start moving towards mental wellness.
--- NOTE | 2017-10-20 09:14 | BH.MTP_ITS ---
Treatment Plan Review Date of Admission:: 09/15/17 Date of Treatment Plan Review:: 10/13/17 Admitting Diagnoses:: Bipolar 1 most recent episode depressed F31.9; anxiety unspecified; cannabis use in remission. Current Diagnoses:: Bipolar 1 most recent episode depressed F31.9; anxiety unspecified; cannabis use in remission. Patient's Response to Treatment:: Overall, client has responded well to treatment as he is an active group member and reports implementing calming and mindfulness strategies learned in individual and group sessions. Client has had ongoing issues with tardiness as he often arrives late for group and has canceled twice. However, client does well with calling and once he joins group he provides beneficial insight to discussion. Client appears receptive during group and individual sessions and has improved with reducing minimization of symptoms. Client reported IOP has helped client improve his awareness of warning signs, negative maintenance cycles, and mental health symptoms. Client also shared he has been trying to communicate more with his , although at times client reports he becomes defensive or shuts down. Status of Current Problems and Symptoms: Client reports ongoing difficulty with verbalizing emotions, minimizing, and being fully honest with his . Client reported belief he is getting better at communicating, but continues to shut down and avoid. Client stated his negative thoughts and shame of past decisions keeps client stuck in a cycle of guilt, self-blame, and defensiveness. Client has progressed with gaining awareness of warning signs, negative thoughts, triggers, and coping skills, but continues to report ?I?m the one preventing me from using the skills? as client shared he does not give himself time to practice thought challenging. Client also shared he continues to have reluctance to changing thoughts and breaking negative maintenance cycles, but has been open to weighing the pros and cons. Client reports ongoing anxiety regarding work, his family, and ?pleasing everyone.? Client expresses having good days and bad days, with depression and anxiety, but feels better equipped to manage his symptoms. Problem #1 Problem Name:: Pt. to increase mood stability and reduce depressive symptoms Status of Goals:: Client has not yet accomplished this treatment goal as he continues to report ongoing anger triggered by feeling guilty and becoming defensive. Client also continues to report lack of implementation of thought challenging strategies. Client has demonstrated progress with utilizing mindfulness coping skills and increased communication. Overall, client reports reduced depressive symptoms and suicidal ideation. Team Recommendations:: Client recommended to continue working toward treatment goal as he can continue to benefit from challenging negative thoughts, applying skills learned in group, and reframing negative core beliefs. Client and therapist currently working on recognizing warning signs, communicating needs and not minimizing, and decisional balance to promote change in behaviors. Client recommended to follow up with Bryn Sun for outpatient therapy. Problem #2 Problem Name:: Pt. to reduce frequency, intensity, and duration of anxiety and ruminations Status of Goals:: Client has not yet accomplished this treatment goal as he continues to report ongoing negative thinking, ruminations, and minimization of symptoms. Client has demonstrated progress with increasing awareness of triggers and warning signs as well as utilizing deep breathing. Client continues to work on improving communication with his as he reports she is a positive support that can help recognize warning signs. Team Recommendations:: Client to continue working toward treatment goal as he reports success with implementing calming strategies such as deep breathing to reduce anxiety in the moment, but continues to report ruminations and negative thinking. Client and therapist currently working on proactively utilizing coping skills, writing out negative thoughts and challenging them, and managing stress at work. Client recommended to follow up with outpatient therapist, Bryn Sun.
--- NOTE | 2017-10-20 14:46 | BH.SGPN_ITS ---
Service Group Progress Note - Session Psychotherapy Session #2 Date Open:: 10/20/17 - 7 group members Time Started:: 10:10 Time Stopped:: 11:15 Targeted Problem #:: 1 Type of Group:: Illness Management Goal of Group:: To increase understanding of what conflict is and increase awareness of how group members manage conflict. Client Response/Progress/Benefit:: Client responded well to session, active participant. Client connected with the quote sharing conflict is something I accept, but do my best to avoid. Client reported one can have internal and external conflict. Client identified his conflict resolution style as accommodating or avoidant type when it comes to conflicts with others as client reports fearing rejection. Client shared when dealing with internal conflict he is a shark as client is hard on himself and not self-compassionate. Client shared his current conflict resolution style negative impacts his mental health as he does not share his needs and he tries to people please. Client appeared to benefit from increasing awareness of his personal conflict resolution style. Progress noted in client's increased awareness, but can continue to improve with more consistent application of coping skills. Eye Contact:: Good Motor Activity:: Appropriate Appearance:: Casual Speech:: Appropriate Mood:: Anxious Affect:: Constricted Thoughts:: Linear, No evidence of hallucinations/delusions noted Staff Interventions:: Therapist facilitated discussion about conflict and conflict resolution. Therapist led group in an activity in which group members had to identify their initial response to conflict and how their response changes based on different situations. Therapist assisted clients with connecting the impact current conflict style has on their mental health. Psychotherapy Session #3 Date Open:: 10/20/17 - 6 group members Time Started:: 11:23 Time Stopped:: 12:13 Targeted Problem #:: 1 Type of Group:: Functional Skills Development Goal of Group:: To identify what contributes positively and negatively to conflict and appropriate ways to manage conflict with others. Client Response/Progress/Benefit:: Client responded well to session, active participant. Client reported the group managed conflict in the activity because we were understanding of each other?s point of view. Client stated he tried to use a more cooperative conflict resolution style during the activity to assertive his thoughts. Client helped the group identify strategies to improve conflict resolution such as having awareness of emotions, focusing on one issue at a time, and taking healthy breaks. Client shared he plans to use strategies from today's group to communicate his conflict ?pitfalls? with his with the hopes to improve how the two manage conflict. Client appeared to benefit from learning various conflict resolution strategies. Client to continue IOP to promote mood stability and reduce negative thinking. Eye Contact:: Good Motor Activity:: Appropriate Appearance:: Neat Speech:: Appropriate Mood:: Euthymic Affect:: Full Thoughts:: Linear, No evidence of hallucinations/delusions noted Staff Interventions:: Therapist facilitated group activity in which group members were provided with materials and had to eliminate certain items with consensus from group. Therapist processed activity, helping clients connect throughout activity strategies each person used to manage conflict. Therapist led discussion about what contributes to conflict in a positive or negative manner. Therapist facilitated discussion about conflict resolution strategies and provided group member with a handout about effective ways to manage conflict.
--- NOTE | 2017-10-20 15:48 | BH.COMM ---
Communication Note - Communication with Client Communication Note: Client was scheduled to have an individual session with this therapist today, but had to cancel due to an appointment conflict. Client reports plan to meet with therapist 10/23/17. Client and therapist also reviewed healthy coping skills to use over the weekend to manage anger.
--- NOTE | 2017-10-23 14:14 | BH.MDN ---
Multi-Disciplinary Note - Note 45-min Individual Time Started:: 11:32 Date: 10/23/17 Purpose of session/treatment goals addressed:: The purpose of this session was to explore client's current symptoms, stressors, and barriers to progress. Another goal was to identify warning signs for anxiety, negative thought patterns, and strategies to reduce work stress. Other topics included: developing a plan to reduce stress at work, discharge, and communication. Eye Contact:: Fair Motor Activity:: Restless - AEB rubbing arms Appearance:: Neat Speech:: Rapid Mood:: Anxious Affect:: Congruent Thoughts:: Linear, No evidence of hallucinations/delusions noted Staff Interventions:: Therapist used active listening and open-ended questions to gain further information on clients current symptoms, stressors, and barriers. Therapist reflected on clients progress and gently challenged client on lack of implementation of thought challenging coping skills. Therapist helped client identify his warning signs, common negative thoughts, and discussed creating a plan to help reduce anxiety at work. Therapist and client discussed clients current communication strategies and established a plan to maintain effective communication with clients supports. Therapist and client discussed discharge and therapist gave client a decisional balance sheet for homework to promote change talk. Client Response:: Client responded well to session, open about barriers and minimizing. Client shared overall, he has been experiencing less stress and not lost in my thoughts. However, client stated he continues to struggle with implementing thought challenging coping skills. Client reported he has been using relaxation strategies and has increased awareness of his cognitive distortions, but struggles with reframing thoughts. Client stated this concerns him as he plans to start work again at the end of this month. Client and therapist processed the pros and cons of not implementing thought challenging and how this may impact client's mental health. Client identified his most recent negative thoughts about work such as what if I let people down.. what if work becomes my main priority again. With therapist elicitation, client able to challenge negative thoughts sharing I'm not going to please everyone and I know my warning signs now. Client identified his stress warning signs as breaking out, heart burn, headache, and not taking breaks. Client also shared warning signs for work burnout to be working overtime, working off the clock, and taking on too many roles. Client stated he would like to continue to develop a plan for how to reduce stress and minimizing when he returns to work. Client was receptive to being more aware of his minimizing statements and trying to challenge them. Client reflected on progress sharing he spoke with his mother and his brother this weekend after not speaking with them for a long time. Client stated he was nervous about it, but was glad he did it. Client reported using deep breathing to help reduce anxiety on the phone. Client shared he and his mother would like to talk once every other week. Risks/Concerns:: Client denies suicidal ideation, plan, and intent as of 10/23/17. Client reported he had fleeting suicidal thoughts three weeks ago, but with no intent. Client denies suicidal thoughts since and reports ability to maintain safety. Progress Toward Goals/Plan:: Client demonstrating some progress towards treatment goals as he reports reduced intensity and duration of anxiety and depressive symptoms, but continues to report lack of implementation of coping skills learned in IOP. Client reports awareness that lack of implementation and consistency with thought challenging, stress management, and communication of needs may keep client stuck. Client to continue IOP to promote mood stability and increase generalization of healthy coping skills. Client agreed to let therapist call to gain further insight on client's symptoms and progress. Time Stopped:: 12:23
--- NOTE | 2017-10-23 14:26 | BH.SGPN ---
Service Group Progress Note - Session Psychotherapy Session #2 Date Open:: 10/23/17 Time Started:: 10:21 Time Stopped:: 11:22 Targeted Problem #:: 1 Type of Group:: Illness Management - 6 participants Goal of Group:: To increase understanding of the impact viewing situations as impossible can have on our mental health. Client Response/Progress/Benefit:: Client was an active participant throughout and appeared to respond well to group topic of Overcoming the impossible. Client worked with fellow participants in discussing ways in which an impossible mindset may impact one's mental health. Client shared that in the past he has held himself back by giving up because of one setback. Client benefited from identifying the connections between the activity in which participants were tasked with overcoming a seemingly impossible task and the internal and external barriers we may encounter in similar situations in daily life. Client displaying progress in his ability to process with the group and did well to advocate for his needs during the activity by asking fellow participants for additional assistance. Client continues to struggle with minimization and avoidance, he woiuld benefit from continued work on assessing motivation to change and identifying and challenging barriers related. Eye Contact:: Good Motor Activity:: Appropriate Appearance:: Casual Speech:: Appropriate Mood:: Euthymic Affect:: Bright, Congruent Thoughts:: Linear, Logical, No evidence of hallucinations/delusions noted Staff Interventions:: Therapist facilitated discussion about what it means to overcome what seems impossible. Therapist led group in an activity that would initially seem impossible to complete, but once group members looked at the problem in a different way they would be able to see alternative solutions. Therapist utilized the activity as a tool to discuss overcoming those situations that seem impossible to get through.
--- NOTE | 2017-10-24 08:16 | BH.MDN_ITS ---
Multi-Disciplinary Note - Note 45-min Individual Time Started:: 11:32 Date: 10/23/17 Purpose of session/treatment goals addressed:: The purpose of this session was to explore client's current symptoms, stressors, and barriers to progress. Another goal was to identify warning signs for anxiety, negative thought patterns, and strategies to reduce work stress. Other topics included: developing a plan to reduce stress at work, discharge, and communication. Eye Contact:: Fair Motor Activity:: Restless - AEB rubbing arms Appearance:: Neat Speech:: Rapid Mood:: Anxious Affect:: Congruent Thoughts:: Linear, No evidence of hallucinations/delusions noted Staff Interventions:: Therapist used active listening and open-ended questions to gain further information on client?s current symptoms, stressors, and barriers. Therapist reflected on client?s progress and gently challenged client on lack of implementation of thought challenging coping skills. Therapist helped client identify his warning signs, common negative thoughts, and discussed creating a plan to help reduce anxiety at work. Therapist and client discussed client?s current communication strategies and established a plan to maintain effective communication with client?s supports. Therapist and client discussed discharge and therapist gave client a decisional balance sheet for homework to promote change talk. Client Response:: Client responded well to session, open about barriers and minimizing. Client shared overall, he has been experiencing less stress and not lost in my thoughts. However, client stated he continues to struggle with implementing thought challenging coping skills. Client reported he has been using relaxation strategies and has increased awareness of his cognitive distortions, but struggles with reframing thoughts. Client stated this concerns him as he plans to start work again at the end of this month. Client and therapist processed the pros and cons of not implementing thought challenging and how this may impact client's mental health. Client identified his most recent negative thoughts about work such as what if I let people down.. what if work becomes my main priority again. With therapist elicitation, client able to challenge negative thoughts sharing I'm not going to please everyone and I know my warning signs now. Client identified his stress warning signs as breaking out, heart burn, headache, and not taking breaks. Client also shared warning signs for work burnout to be working overtime, working off the clock, and taking on too many roles. Client stated he would like to continue to develop a plan for how to reduce stress and minimizing when he returns to work. Client was receptive to being more aware of his minimizing statements and trying to challenge them. Client reflected on progress sharing he spoke with his mother and his brother this weekend after not speaking with them for a long time. Client stated he was nervous about it, but was glad he did it. Client reported using deep breathing to help reduce anxiety on the phone. Client shared he and his mother would like to talk once every other week. Risks/Concerns:: Client denies suicidal ideation, plan, and intent as of . Client reported he had fleeting suicidal thoughts three weeks ago, but with no intent. Client denies suicidal thoughts since and reports ability to maintain safety. Progress Toward Goals/Plan:: Client demonstrating some progress towards treatment goals as he reports reduced intensity and duration of anxiety and depressive symptoms, but continues to report lack of implementation of coping skills learned in IOP. Client reports awareness that lack of implementation and consistency with thought challenging, stress management, and communication of needs may keep client stuck. Client to continue IOP to promote mood stability and increase generalization of healthy coping skills. Client agreed to let therapist call to gain further insight on client's symptoms and progress. Time Stopped:: 12:23
--- NOTE | 2017-10-24 15:34 | BH.COMM ---
Communication Note - Communication with Client Communication Note: Therapist attempted to call client's to provide updates on client's progress and hopefully schedule a family session. Therapist was also hoping to gain insight to more effectively serve client's mental health needs while in the program. Client's did not answer, therapist left a message.
--- NOTE | 2017-10-25 14:40 | BH.SGPN ---
Service Group Progress Note - Session Psychotherapy Session #2 Date Open:: 10/25/17 Time Started:: 10:20 Time Stopped:: 11:15 Targeted Problem #:: 1 Type of Group:: Illness Management Goal of Group:: To increase understanding of what boundaries are and the different ways of setting boundaries (permeable, rigid, and flexible). Another goal was increase self-awareness of current boundaries. Client Response/Progress/Benefit:: Client alert and oriented, contributed to discussion and listened attentively to peers. Client reported he tends to be a people pleaser which contributes to him not setting boundaries due to not wanting to upset others. Client able to recognzie how bieng a people pleaser could be impacting his mental health. Client shared he also recognizes he has more rigid boundaries at home with closing himself off to his spouse and others supports and is more permeable with friends. Client able to recognize this incongruence could be impacting his relationships negatively. Client seemed to benefit from learning about the different boundary styles and how each boundary style can impact mental health. Eye Contact:: Good Motor Activity:: Appropriate Appearance:: Casual Speech:: Appropriate Mood:: Dysthymic Affect:: Congruent Thoughts:: Linear, Logical, No evidence of hallucinations/delusions noted Staff Interventions:: Therapist facilitated group discussion about defining boundaries. Therapist educated the group about the three different ways of setting boundaries and led discussion about each one. Therapist facilitated activity, asking group members to either draw or create something that represents their current way of setting boundaries. The activity was used as a tool to help increase clients self-awareness of their boundaries. Psychotherapy Session #3 Date Open:: 10/25/17 Time Started:: 11:25 Time Stopped:: 12:15 Targeted Problem #:: 1 Type of Group:: Functional Skills Development Goal of Group:: To identify the importance of boundaries and identifying skills to help increase healthy boundaries. Client Response/Progress/Benefit:: Client active participant, sharing thought and ideas as well as connecting with others. Client shared he recognizes he needs to move towards being less rigid with his spouse and support system because by trying to pretend to be okay it not only hurts himself but it also impacts his relationships. Client reported he will establish healthier boundaries by openly communicating with his . Client seemed to benefit from increasing insight into how his current style of setting boundaries is impacting him as well as what steps he can take to improve his healthy boundaries. Eye Contact:: Good Motor Activity:: Appropriate Appearance:: Casual Speech:: Appropriate Mood:: Dysthymic Affect:: Congruent Thoughts:: Linear, Logical, No evidence of hallucinations/delusions noted Staff Interventions:: Therapist facilitated the group discussion about importance of setting and maintaining boundaries. Therapist provided support by using reflective listening and giving feedback. Therapist processed client's view of how they currently set boundaries. Therapist inquired how client's current way of setting boundaries impacts them. Therapist elicited what client's would change about the way currently set boundaries. Therapist provided feedback to group members.
--- NOTE | 2017-10-31 09:50 | BH.COMM ---
Communication Note - Communication with Client Communication Note: Client called to cancel his scheduled group session today due to childcare issues this morning, but reports plan to come in after group ends to have his family session this afternoon.
--- NOTE | 2017-10-31 14:34 | BH.MDN ---
Multi-Disciplinary Note - Note Family Time Started:: 12:50 Date: 10/31/17 Purpose of session/treatment goals addressed:: The purpose of this session was to engage client's , Heaven in the treatment process by increasing communication, providing psychoeducation, and problem-solving strategies to reduce negative thinking, anger, and stress. Another goal was to increase communication of maintenance cycles, triggers, core beliefs, and defense mechanisms. Eye Contact:: Fair Motor Activity:: Restless - AEB fidgeting with her ring Appearance:: Casual Speech:: Appropriate Mood:: Anxious Affect:: Constricted Thoughts:: Linear, No evidence of hallucinations/delusions noted Staff Interventions:: Therapist used active listening and open-ended questions to explore clients and Christys expectations for session, communication barriers, triggers, and client's mental health needs. Therapist provided emotional validation and support to both client and Heaven as they processed emotions, thoughts, and behaviors. Therapist helped client and Heaven identify strategies to increase emotional regulation and improve communication when dealing with triggering topics. Therapist encouraged conversation of needs and helped client process his guilt, negative core beliefs, and defense mechanisms. Therapist assisted client and Heaven in challenging negative thought patterns. Client Response:: Client and Heaven responded well to session, utilizing open communication and active listening. Client and Heaven agreed that better communication and increased understanding of how to support client's mental were good goals for session. Heaven reported seeing progress in client's use of deep breathing, awareness, and recognition of unhealthy coping patterns. Client and Heaven stated client continues to struggle with minimizing and verbalizing his emotions, especially when the topics of work, money, and his ex- come up. Client shared those are my biggest triggers and with therapist elicitation, recognized he is triggered because these topics bring up guilt and his negative core beliefs of I'm not good enough. Client reported when these topics come up he personalizes, gets defensive, and feels guilty which comes out is anger. Heaven shared she also finds she becomes angry as she feels she is repeatedly asking client to open up with little response. Client reported he wants Heaven to talk with him, but he immediately gets defensive and feels like she is pushing client. The couple recognized that when they are both angry they say and do hurtful things, which makes the situation worse. The couple and therapist discussed strategies to increase communication and promote client's needs in the moment. Client shared I just really need a break before we start talking about those things. Heaven was receptive to her and client setting emotional boundaries to prevent further escalation. Client stated he also continues to struggle with forgiving himself which client reports belief is part of his minimizing, self-sabotaging, and stone-walling. Heaven shared she wants client to forgive himself and to feel your feelings. Client and Heaven agreed to work on better communication, setting emotional boundaries to promote emotional regulation, and start working on client's stress plan for work. Risks/Concerns:: Client denies suicidal ideation, plan, and intent as of 10/31/17. Client identifies his family as a protective factor. Progress Toward Goals/Plan:: Client demonstrating progress toward treatment goals as shown by the couples report of increased awareness of warning signs and triggers and improvement with communication. Client continues to report negative core beliefs, guilt, and difficulty verbalizing emotions. Client to reports willingness to improve his implementation of healthy coping skills as lack of application has been a barrier in the past. Client and to work on client's work action plan, utilize coping skills to manage emotions when communicating, and challenge client's cognitive distortions. Client to continue IOP to promote mood stability and prevent decompensation. Time Stopped:: 14:00
--- NOTE | 2017-10-31 14:46 | BH.MDN_ITS ---
Multi-Disciplinary Note - Note Family Time Started:: 12:50 Date: 10/31/17 Purpose of session/treatment goals addressed:: The purpose of this session was to engage client's , Heaven in the treatment process by increasing communication, providing psychoeducation, and problem-solving strategies to reduce negative thinking, anger, and stress. Another goal was to increase communication of maintenance cycles, triggers, core beliefs, and defense mechanisms. Eye Contact:: Fair Motor Activity:: Restless - AEB fidgeting with her ring Appearance:: Casual Speech:: Appropriate Mood:: Anxious Affect:: Constricted Thoughts:: Linear, No evidence of hallucinations/delusions noted Staff Interventions:: Therapist used active listening and open-ended questions to explore client?s and Heaven?s expectations for session, communication barriers, triggers, and client's mental health needs. Therapist provided emotional validation and support to both client and Heaven as they processed emotions, thoughts, and behaviors. Therapist helped client and Heaven identify strategies to increase emotional regulation and improve communication when dealing with triggering topics. Therapist encouraged conversation of needs and helped client process his guilt, negative core beliefs, and defense mechanisms. Therapist assisted client and Heaven in challenging negative thought patterns. Client Response:: Client and Heaven responded well to session, utilizing open communication and active listening. Client and Heaven agreed that better communication and increased understanding of how to support client's mental were good goals for session. Heaven reported seeing progress in client's use of deep breathing, awareness, and recognition of unhealthy coping patterns. Client and Heaven stated client continues to struggle with minimizing and verbalizing his emotions, especially when the topics of work, money, and his ex- come up. Client shared those are my biggest triggers and with therapist elicitation, recognized he is triggered because these topics bring up guilt and his negative core beliefs of I'm not good enough. Client reported when these topics come up he personalizes, gets defensive, and feels guilty which comes out is anger. Heaven shared she also finds she becomes angry as she feels she is repeatedly asking client to open up with little response. Client reported he wants Heaven to talk with him, but he immediately gets defensive and feels like she is ?pushing? client. The couple recognized that when they are both angry they say and do hurtful things, which makes the situation worse. The couple and therapist discussed strategies to increase communication and promote client's needs in the moment. Client shared I just really need a break before we start talking about those things. Heaven was receptive to her and client setting emotional boundaries to prevent further escalation. Client stated he also continues to struggle with forgiving himself which client reports belief is part of his minimizing, self-sabotaging, and stone-walling. Heaven shared she wants client to forgive himself and to feel your feelings. Client and Heaven agreed to work on better communication, setting emotional boundaries to promote emotional regulation, and start working on client's stress plan for work. Risks/Concerns:: Client denies suicidal ideation, plan, and intent as of . Client identifies his family as a protective factor. Progress Toward Goals/Plan:: Client demonstrating progress toward treatment goals as shown by the couple?s report of increased awareness of warning signs and triggers and improvement with communication. Client continues to report negative core beliefs, guilt, and difficulty verbalizing emotions. Client to reports willingness to improve his implementation of healthy coping skills as lack of application has been a barrier in the past. Client and to work on client's work action plan, utilize coping skills to manage emotions when communicating, and challenge client's cognitive distortions. Client to continue IOP to promote mood stability and prevent decompensation. Time Stopped:: 14:00
--- NOTE | 2017-11-01 15:14 | BH.COMM ---
Communication Note - Communication with Client Communication Note: Therapist attempted to call client to see if he wanted to reschedule as client has not attended group yet this week due to circumstances at home. Client did not answer and therapist left a message asking client to call back.
--- NOTE | 2017-11-03 10:45 | BH.SGPN ---
Service Group Progress Note - Session Psychotherapy Session #1 Date Open:: 18 - 7 group members Time Started:: 09:30 Time Stopped:: 10:10 Targeted Problem #:: 1 Type of Group:: Process Goal of Group:: The goal of today's group was to check-in with clients and review homework from previous group session. Client Response/Progress/Benefit:: Client responded well to session, active participant and providing supportive statements to peers. Client reports feeling hopeful and anxious today as he shared life at home is going well, but client is nervous about returning to work. Client stated he will feel much better about returning to work after he talks with his boss, but he has been putting it off. Client reported I've had the email written I just can't send it. With therapist elicitation, client recognized the benefits of sending the email outweigh the anxiety that comes from having a perfect email. Client receptive to the idea of limiting the number of times he rereads the email, sharing he will read it once with his and then send it. Client reported he has been working on being more compassionate and forgiving with himself which shows progress. Client appeared to benefit from problem-solving strategies to help reduce anxiety. Progress noted as client reports improved mood and use of coping skills, but can continue to benefit from challenging cognitive distortions. Eye Contact:: Good Motor Activity:: Appropriate Appearance:: Neat Speech:: Appropriate Mood:: Euthymic Affect:: Congruent Thoughts:: Linear, No evidence of hallucinations/delusions noted Staff Interventions:: Therapist inquired about each group member?s previous night and current mood state. Therapist reviewed the group member?s homework from previous group session with the group, asking open ended questions to get more information.
--- NOTE | 2017-11-07 11:04 | BH.MDN ---
Multi-Disciplinary Note - Note 60-min Individual Time Started:: 09:35 Date: 11/07/17 Purpose of session/treatment goals addressed:: The purpose of this session was to establish strategies to reduce stress and help create a smooth transition for client's return to work. Another goal was to discuss aftercare, progress, and coping skill maintenance. Eye Contact:: Good Motor Activity:: Appropriate Appearance:: Neat Speech:: Rambling Mood:: Euthymic Affect:: Congruent Thoughts:: Logical, Circular, No evidence of hallucinations/delusions noted Staff Interventions:: Therapist used open-ended questions to explore client's stressors, concerns, and progress. Therapist helped client process his emotions and identify strategies to manage mental health symptoms when client returns to work. Therapist used DBT rdz mind strategies to help client challenge negative thoughts and develop realistic, positive self-talk. Therapist assisted client in identifying warning for anxiety, stress, and depression. Therapist used strengths perspective to empower client on progress. Therapist encouraged client to follow up with outpatient mental health providers. Client Response:: Client responded well to session, smiling and reporting a relaxing and fun weekend with his family. Client stated he has noticed progress as he reports reduced intensity of symptoms, increased awareness, and improved mood stability. Client shared being a 7/8, 10 being very significant, when scaling progress. Client reported his improved progress is from client gaining awareness, using the coping skills, and really reflecting on what I can do to improve myself. Client stated he has been using mindfulness, self-talk, and awareness of warning signs to more effectively manage his anger and stress. Client reported over the weekend he recognized his anger warning signs early and took a healthy break which allowed client and his to avoid a fight and communicate better. Client shared he continues feel anxious about work, but reported I didn't let the thoughts consume me all weekend. Client stated he is most concerned about reverting to old habits such as minimizing and putting up a wall when asked about his absence. Client and therapist processed this and identified ways to communicate his absence without minimizing or oversharing. Client used the rdz mind worksheet to develop self-talk statements he can tell himself at work such as I can only do the best I can with what I have. 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 Client shared he emailed his boss to explain the extent of his mental health and advocate for himself. Client shared he is glad he communicated this with his boss and client is hopeful this will make the transition back to work go well. and Client and therapist discussed the importance of maintenance and consistency with utilizing communication, self-care, and healthy coping skills. Risks/Concerns:: Client denies suicidal ideation, plan, and intent as of 11/07/17. Progress Toward Goals/Plan:: Client demonstrating progress towards treatment goal as shown by his report of an improved mood, increased implementation of healthy coping skills, and improved communication with his . Client reports he still has his down days, but overall feels better able to manage his frustration, stress, and negative thoughts. Client reports utilizing mindfulness, self-talk, and journaling to manage symptoms. Client to discharge from [facility] tomorrow 11/08/17 and follow up with outpatient therapist Bryn 11/16/17. Client reported today that he would like to find a new psychiatrist and shared he plans to call [facility] to set up an appointment. Therapist to follow up on establishing outpatient psychiatry as well. Time Stopped:: 10:30
--- NOTE | 2017-11-07 11:55 | BH.MDN_ITS ---
Multi-Disciplinary Note - Note 60-min Individual Time Started:: 09:35 Date: 11/07/17 Purpose of session/treatment goals addressed:: The purpose of this session was to establish strategies to reduce stress and help create a smooth transition for client's return to work. Another goal was to discuss aftercare, progress, and coping skill maintenance. Eye Contact:: Good Motor Activity:: Appropriate Appearance:: Neat Speech:: Rambling Mood:: Euthymic Affect:: Congruent Thoughts:: Logical, Circular, No evidence of hallucinations/delusions noted Staff Interventions:: Therapist used open-ended questions to explore client's stressors, concerns, and progress. Therapist helped client process his emotions and identify strategies to manage mental health symptoms when client returns to work. Therapist used DBT rdz mind strategies to help client challenge negative thoughts and develop realistic, positive self-talk. Therapist assisted client in identifying warning for anxiety, stress, and depression. Therapist used strengths perspective to empower client on progress. Therapist encouraged client to follow up with outpatient mental health providers. Client Response:: Client responded well to session, smiling and reporting a relaxing and fun weekend with his family. Client stated he has noticed progress as he reports reduced intensity of symptoms, increased awareness, and improved mood stability. Client shared being a 7/8, 10 being very significant, when scaling progress. Client reported his improved progress is from client gaining awareness, using the coping skills, and really reflecting on what I can do to improve myself. Client stated he has been using mindfulness, self- talk, and awareness of warning signs to more effectively manage his anger and stress. Client reported over the weekend he recognized his anger warning signs early and took a healthy break which allowed client and his to avoid a fight and communicate better. Client shared he continues feel anxious about work , but reported I didn't let the thoughts consume me all weekend. Client stated he is most concerned about reverting to old habits such as minimizing and putting up a wall when asked about his absence. Client and therapist processed this and identified ways to communicate his absence without minimizing or oversharing. Client used the rdz mind worksheet to develop self- talk statements he can tell himself at work such as I can only do the best I can with what I have. 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 Client shared he emailed his boss to explain the extent of his mental health and advocate for himself. Client shared he is glad he communicated this with his boss and client is hopeful this will make the transition back to work go well. and Client and therapist discussed the importance of maintenance and consistency with utilizing communication, self-care, and healthy coping skills. Risks/Concerns:: Client denies suicidal ideation, plan, and intent as of . Progress Toward Goals/Plan:: Client demonstrating progress towards treatment goal as shown by his report of an improved mood, increased implementation of healthy coping skills, and improved communication with his . Client reports he still has his down days, but overall feels better able to manage his frustration, stress, and negative thoughts. Client reports utilizing mindfulness , self-talk, and journaling to manage symptoms. Client to discharge from [facility] tomorrow 11/08/17 and follow up with outpatient therapist Bryn 11/16/17. Client reported today that he would like to find a new psychiatrist and shared he plans to call [facility] to set up an appointment. Therapist to follow up on establishing outpatient psychiatry as well. Time Stopped:: 10:30
--- NOTE | 2017-11-07 15:50 | BH.SGPN ---
Service Group Progress Note - Session Psychotherapy Session #2 Date Open:: 11/07/17 Time Started:: 10:19 Time Stopped:: 11:14 Targeted Problem #:: 1 Type of Group:: Illness Management - 6 participants Goal of Group:: To increase understanding of a crisis and improve clients awareness of personal warning signs before crisis. Client Response/Progress/Benefit:: It was a positive participant and appeared to respond well to session. He did well to provide input and supportive feedback throughout the discussion at hand. Contributed to discussion reviewing the definition of a crisis well as various factors including ones mental-health date that may contribute to ability to manage a potential crisis situation and prevent relation. Benefited from shared group environment and processing his own crisis response. He shared that for him crisis looks like a wave of denial with various peaks and valleys. Client is displaying progress in his ability to more genuinely discuss his own mental health and current progress. He shared that through learning to take off the mask while in [facility] he has seen positive strides in his own daily life. Client to discharge from [facility] on the following date, 11/08, and would benefit from continuing to address emotional response and stress management techniques. Eye Contact:: Good Motor Activity:: Appropriate Appearance:: Casual Speech:: Appropriate Mood:: Euthymic Affect:: Congruent Thoughts:: Linear, Logical, No evidence of hallucinations/delusions noted Staff Interventions:: Therapist facilitated group discussion about defining a crisis and specifying various events that are considered a crisis. Therapist led the group in discussion about identifying personal warning signs before a crisis and importance of being aware of those signs. Therapist provided support by using active listening and providing feedback. Psychotherapy Session #3 Date Open:: 11/08/17 Time Started:: 11:21 Time Stopped:: 12:18 Targeted Problem #:: 1 Type of Group:: Functional Skills Development - 6 participants Goal of Group:: To increase awareness of warning signs before a crisis and identify interventions/coping strategies that would help clients proactively manage potential crises. Client Response/Progress/Benefit:: Client again did well to engage in both discussion and activity portions of session. He indicated specifically connecting with the discussion reviewing the importance of recognizing and and responding proactively to mental health warning signs. He disclosed that prior to treatment client had ignored or denied he had any warning signs. He shared that since engaging his in identifying these signs he has seen positive improvements. Client benefitted from reviewing various healthy means of coping and addressing warning signs and was willing to complete a crisis kit to remind him of these skills. Client displaying progres in his overall understanding of his mental health needs and triggers. CLient encouraged to continue focusing on communication and health stress management post discharge. Eye Contact:: Good Motor Activity:: Appropriate Appearance:: Casual Speech:: Appropriate Mood:: Euthymic Affect:: Congruent Thoughts:: Linear, Logical, No evidence of hallucinations/delusions noted Staff Interventions:: Therapist led the group in discussion about identifying personal warning signs before a crisis and importance of being aware of those signs. Therapist provided the group with various types of items and asked each group member to select five items that represent something that would be helpful in managing their warning signs of a crisis. Therapist facilitated group processing of the crisis emergency kits each group member created. Therapist used open-ended questions to encourage elaboration of each item chosen for their kit. Therapist helped clients connect how the crisis emergency kit could help be a crisis prevention tool.
--- NOTE | 2017-11-08 09:18 | BH.AFTERPLAN ---
Aftercare Plan - Demographics Treatment End Date:: 11/08/17 Psychiatrist:: Anna Rider Psychiatrist Office #:: [id number] [facility] Therapist:: Jenn Portilol Therapist Phone #:: [phone] - Medications Home Medications: Home Medications Lamotrigine [Lamictal] 100 mg PO QHS 09/09/17 Naproxen Sodium [Aleve] 220 mg PO Q12H PRN PRN 09/09/17 Sertraline HCl [Zoloft] 100 mg PO QHS 09/09/17 Cholecalciferol (Vitamin D3) [Vitamin D3] 5,000 unit PO DAILY 09/15/17 Levocetirizine Dihydrochloride [Xyzal] 5 mg PO QHS 09/15/17 Lorazepam [Ativan] 0.5 mg PO TID PRN PRN 09/15/17 Risperidone [Risperdal] 0.25 mg PO BID 09/15/17 - Plan Details Progress/Aftercare Plan Details:: You have demonstrated progress with taking off the mask and verbalizing your emotions, thoughts, and needs. You have reduced your anxiety and depression through use of mindfulness, communication, social supports, and challenging negative thoughts. You have gained awareness of your triggers, warning signs, and symptoms for cassia, depression, and anxiety which has helped you increase your ability to cope. You are learning how to forgive yourself and be more self-compassionate, even though you recognize you have some work left to do. You have used calming strategies to be mindful and cope with early warning signs of anger and stress. You are starting to challenge your thoughts and unrealistic expectations which will benefit you moving forward. Strategies for Success:: 1. Recognize your warning signs early and use those skills! 2. Talk!! remember no one is a mind-reader, share what you need and ask for help when needed. 3. Breathe!! It's okay to say you need a healthy break to calm down or gather your thoughts! 4. Be present and practice mindfulness- 5 senses, music, walking, etc. 5. Remember to challenge unrealistic expectations and negative thoughts. 6. Remember that you have the skills and despite hardships, you can thrive! Yes, I feel stressed, but I can manage. 7. Self-care and self-compassion! two krishnan factors in maintaining progress, managing stress, and overcome hardships. 8. Use the skills daily! stick with what works for you, and remember it doesn't have to be perfect! 9. Use your crisis kit! rock for grounding, elephant for texture and something to focus on. - Appointments Appointments/Referrals to Other Services:: 1. Appointment with Bryn Vega at [facility] on 11/16/17. 2. Follow up with [facility] or [facility] for psychiatry.
--- NOTE | 2017-11-08 09:29 | BH.IGGP_ITS ---
Aftercare Plan - Demographics Treatment End Date:: 11/08/17 Psychiatrist:: Anna Rider Psychiatrist Office #:: [phone] [facility] Therapist:: Jenn Portillo Therapist Phone #:: [phone] - Medications Home Medications: Home Medications Lamotrigine [Lamictal] 100 mg PO QHS 09/09/17 Naproxen Sodium [Aleve] 220 mg PO Q12H PRN PRN 09/09/17 Sertraline HCl [Zoloft] 100 mg PO QHS 09/09/17 Cholecalciferol (Vitamin D3) [Vitamin D3] 5,000 unit PO DAILY 09/15/17 Levocetirizine Dihydrochloride [Xyzal] 5 mg PO QHS 09/15/17 Lorazepam [Ativan] 0.5 mg PO TID PRN PRN 09/15/17 Risperidone [Risperdal] 0.25 mg PO BID 09/15/17 - Plan Details Progress/Aftercare Plan Details:: You have demonstrated progress with taking off the mask and verbalizing your emotions, thoughts, and needs. You have reduced your anxiety and depression through use of mindfulness, communication, social supports, and challenging negative thoughts. You have gained awareness of your triggers, warning signs, and symptoms for cassia, depression, and anxiety which has helped you increase your ability to cope. You are learning how to forgive yourself and be more self-compassionate, even though you recognize you have some work left to do. You have used calming strategies to be mindful and cope with early warning signs of anger and stress. You are starting to challenge your thoughts and unrealistic expectations which will benefit you moving forward. Strategies for Success:: 1. Recognize your warning signs early and use those skills! 2. Talk!! remember no one is a mind-reader, share what you need and ask for help when needed. 3. Breathe!! It's okay to say you need a healthy break to calm down or gather your thoughts! 4. Be present and practice mindfulness- 5 senses, music, walking, etc. 5. Remember to challenge unrealistic expectations and negative thoughts. 6. Remember that you have the skills and despite hardships, you can thrive! Yes, I feel stressed, but I can manage. 7. Self- care and self-compassion! two krishnan factors in maintaining progress, managing stress, and overcome hardships. 8. Use the skills daily! stick with what works for you, and remember it doesn't have to be perfect! 9. Use your crisis kit! rock for grounding, elephant for texture and something to focus on. - Appointments Appointments/Referrals to Other Services:: 1. Appointment with Bryn Vega at [facility] on 11/16/17. 2. Follow up with [facility] or [facility] for psychiatry.
--- NOTE | 2017-11-08 09:29 | BH.DS_ITS ---
Discharge Summary - Demographics Date of Admission:: 09/15/17 Discharge Date: 11/08/17 Presenting Problems at Admission:: At admission, client was recently discharged from [facility] after a psychiatric hospitalization following increased symptoms of depression and suicidal ideation. Client reported a long-standing history of bipolar symptoms since his mid 20s. Client reported symptoms consistent with cassia a week and a half before being admitted to [facility] in which he had a 4 day period when he felt energetic and excitable with decreased sleep to 3 hours per night, increased anxiety, and irritability. At admission client endorsed depressive symptoms with decreased energy, negative thinking, passive suicidal thoughts, and isolation. Client also reported negative thoughts of self, guilt, anxiety, history of substance abuse, and multiple stressors at home and with work. Discharge Diagnoses:: Bipolar disorder F 31.9; Anxiety unspecified Reason for Discharge:: Client has made significant progress towards treatment goals as shown by his report of reduced depression, suicidal ideation, and anxiety. Based on client's progress, he no longer meets [facility] level of care. - Treatment Progress During Treatment & Response: Overall, client responded well to treatment as shown by his active participation in group and individual sessions. Client struggled with tardiness throughout his time in [facility], but was once in group he was engaged, supportive, and provided good insight to discussion. Client has demonstrated progress with taking off the mask and verbalizing his emotions, thoughts, and needs to various social supports in his life including his , mother, and boss. At discharge client stated he has reduced isolation, ?shutting? down, and suicidal thoughts which demonstrates progress. Client has progressed with reducing his anxiety and depression through use of mindfulness, communication, social supports, and challenging negative thoughts. Client shared one of the most important aspects of his progress was the awareness he gained of his triggers, warning signs, and mental health symptoms. Client began improving with self-forgiveness and self- compassion, even though he recognizes he can continue to grow. Client has progressed with using calming strategies to be mindful and cope with early warning signs of anger and stress. Client also improved with learning to challenge negative thoughts and unrealistic expectations. Issues Still to be Addressed:: Client has made progress with increased emotional regulation to reduce intensity of symptoms, but can continue to benefit from ongoing work on cognitive distortions, reframing core beliefs, and managing anger and stress. Client did well while in the program with communication and applying the coping skills learned into his daily routine, however, there is a concern post discharge that client will not make time to practice these coping skills as time and work have been barriers in the past. It would also be beneficial for client to continue working on communicating emotions, thoughts, and mental health needs with his supports and working on managing defensiveness. Lastly, client reported he would like ongoing work with managing stress, forgiveness, and reducing minimization of mental health. Discharge Recommendations/Instructions:: Client recommended to follow up with Bryn Sun at [facility] for individual counseling, client's next appointment is 11/16. Client also recommended to follow up with psychiatry, he is established at [facility] with Dorene Leger. However, client reported he would like to explore other options for psychiatry, potentially at [facility]. Client reports plan to call this week and update this therapist. Discharge Handout: Complete Discharge Handout with client on aftercare options and continuity of care.
--- NOTE | 2017-11-08 14:19 | BH.SGPN ---
Service Group Progress Note - Session Psychotherapy Session #2 Date Open:: 11/08/17 - 10 group members Time Started:: 10:20 Time Stopped:: 11:15 Targeted Problem #:: 1 Type of Group:: Illness Management Goal of Group:: To increase understanding of resilience and identify the factors that contribute to building resilience. Client Response/Progress/Benefit:: Client responded well to session, providing good insight to discussion. Client connected with the quote stating, being rigid isn't being strong, being flexible is. Client defined resilience as bouncing back and adapting to difficulties and change. Client reported anyone can be resilient, but it is challenging and takes time and practice. Client helped the group identify factors that contribute to a resilient personality such as self-awareness and living to learn. Client stated one has to be self-aware of warning signs, negative thoughts, and emotions. Client reported social supports can help with increasing self-awareness. Client also shared being open to help and new ideas helps promote resilience as well. Client appeared to benefit from increasing his understanding of resilience and how it impacts mental health. Progress noted in client's improved mood and report of reduced symptoms. Eye Contact:: Good Motor Activity:: Appropriate Appearance:: Neat Speech:: Appropriate Mood:: Euthymic Affect:: Full Thoughts:: Linear, Logical, No evidence of hallucinations/delusions noted Staff Interventions:: Therapist led group in an activity that would induce a chaotic environment and used the activity as a tool in discussing the various stressors people are faced with each day. Therapist facilitated group discussion about resilience and explained the factors of building resilience. Therapist led discussion about factors that contribute to resilience. Therapist provided support by using active listening and providing feedback. Psychotherapy Session #3 Date Open:: 11/08/17 - 9 group members Time Started:: 11:25 Time Stopped:: 12:15 Targeted Problem #:: 1 Type of Group:: Functional Skills Development Goal of Group:: To rehearse resilient factors and identify ways to maintain resilience despite hardships and stressors. Client Response/Progress/Benefit:: Client responded well to session, reflecting on his progress in IOP. Client shared since starting IOP he has noticed he is more resilient than he thought. Client shared he has become more open to support, increased awareness, and improved communication. Client provided supportive statements to peers and reported let your supports know it's okay to help you. Client shared there are days when being resilient is more challenging, but he has to remind himself of the progress and keep moving towards goals. Client identified reminders for maintaining resilience as adaptability, self-awareness, and open communication. Client appeared to benefit from recognizing his personal resilience traits and reflecting on his progress. Client to discharge IOP. Eye Contact:: Good Motor Activity:: Appropriate Appearance:: Neat Speech:: Appropriate Mood:: Euthymic Affect:: Full Thoughts:: Linear, Logical, No evidence of hallucinations/delusions noted Staff Interventions:: Therapist led group in an activity in which group members were challenged to stay resilient despite various stressors and hardships added to activity. Therapist provided each group member with a stress ball and used stress ball as a tool to discuss factors of resilient personality. Therapist provided group members with a handout about the building blocks of resilience. Therapist provided support by using reflective listening.
--- NOTE | 2017-11-08 14:26 | BH.SGPN_ITS ---
Service Group Progress Note - Session Psychotherapy Session #2 Date Open:: 11/08/17 - 10 group members Time Started:: 10:20 Time Stopped:: 11:15 Targeted Problem #:: 1 Type of Group:: Illness Management Goal of Group:: To increase understanding of resilience and identify the factors that contribute to building resilience. Client Response/Progress/Benefit:: Client responded well to session, providing good insight to discussion. Client connected with the quote stating, being rigid isn't being strong, being flexible is. Client defined resilience as bouncing back and adapting to difficulties and change. Client reported anyone can be resilient, but it is challenging and takes time and practice. Client helped the group identify factors that contribute to a resilient personality such as self-awareness and living to learn. Client stated one has to be self- aware of warning signs, negative thoughts, and emotions. Client reported social supports can help with increasing self-awareness. Client also shared being open to help and new ideas helps promote resilience as well. Client appeared to benefit from increasing his understanding of resilience and how it impacts mental health. Progress noted in client's improved mood and report of reduced symptoms. Eye Contact:: Good Motor Activity:: Appropriate Appearance:: Neat Speech:: Appropriate Mood:: Euthymic Affect:: Full Thoughts:: Linear, Logical, No evidence of hallucinations/delusions noted Staff Interventions:: Therapist led group in an activity that would induce a chaotic environment and used the activity as a tool in discussing the various stressors people are faced with each day. Therapist facilitated group discussion about resilience and explained the factors of building resilience. Therapist led discussion about factors that contribute to resilience. Therapist provided support by using active listening and providing feedback. Psychotherapy Session #3 Date Open:: 11/08/17 - 9 group members Time Started:: 11:25 Time Stopped:: 12:15 Targeted Problem #:: 1 Type of Group:: Functional Skills Development Goal of Group:: To rehearse resilient factors and identify ways to maintain resilience despite hardships and stressors. Client Response/Progress/Benefit:: Client responded well to session, reflecting on his progress in IOP. Client shared since starting IOP he has noticed he is more resilient than he thought. Client shared he has become more open to support , increased awareness, and improved communication. Client provided supportive statements to peers and reported let your supports know it's okay to help you. Client shared there are days when being resilient is more challenging, but he has to remind himself of the progress and keep moving towards goals. Client identified reminders for maintaining resilience as adaptability, self-awareness , and open communication. Client appeared to benefit from recognizing his personal resilience traits and reflecting on his progress. Client to discharge IOP. Eye Contact:: Good Motor Activity:: Appropriate Appearance:: Neat Speech:: Appropriate Mood:: Euthymic Affect:: Full Thoughts:: Linear, Logical, No evidence of hallucinations/delusions noted Staff Interventions:: Therapist led group in an activity in which group members were challenged to stay resilient despite various stressors and hardships added to activity. Therapist provided each group member with a stress ball and used stress ball as a tool to discuss factors of resilient personality. Therapist provided group members with a handout about the building blocks of resilience. Therapist provided support by using reflective listening.
--- NOTE | 2017-11-08 16:04 | BH.SGPN_ITS ---
Service Group Progress Note - Session Psychotherapy Session #2 Date Open:: 11/07/17 Time Started:: 10:19 Time Stopped:: 11:14 Targeted Problem #:: 1 Type of Group:: Illness Management - 6 participants Goal of Group:: To increase understanding of a crisis and improve client?s awareness of personal warning signs before crisis. Client Response/Progress/Benefit:: It was a positive participant and appeared to respond well to session. He did well to provide input and supportive feedback throughout the discussion at hand. Contributed to discussion reviewing the definition of a crisis well as various factors including ones mental-health date that may contribute to ability to manage a potential crisis situation and prevent relation. Benefited from shared group environment and processing his own crisis response. He shared that for him crisis looks like a wave of denial with various peaks and valleys. Client is displaying progress in his ability to more genuinely discuss his own mental health and current progress. He shared that through learning to take off the mask while in [facility] he has seen positive strides in his own daily life. Client to discharge from [facility] on the following date, 11/08, and would benefit from continuing to address emotional response and stress management techniques. Eye Contact:: Good Motor Activity:: Appropriate Appearance:: Casual Speech:: Appropriate Mood:: Euthymic Affect:: Congruent Thoughts:: Linear, Logical, No evidence of hallucinations/delusions noted Staff Interventions:: Therapist facilitated group discussion about defining a crisis and specifying various events that are considered a crisis. Therapist led the group in discussion about identifying personal warning signs before a crisis and importance of being aware of those signs. Therapist provided support by using active listening and providing feedback. Psychotherapy Session #3 Date Open:: 11/08/17 Time Started:: 11:21 Time Stopped:: 12:18 Targeted Problem #:: 1 Type of Group:: Functional Skills Development - 6 participants Goal of Group:: To increase awareness of warning signs before a crisis and identify interventions/coping strategies that would help clients proactively manage potential crises. Client Response/Progress/Benefit:: Client again did well to engage in both discussion and activity portions of session. He indicated specifically connecting with the discussion reviewing the importance of recognizing and and responding proactively to mental health warning signs. He disclosed that prior to treatment client had ignored or denied he had any warning signs. He shared that since engaging his in identifying these signs he has seen positive improvements. Client benefitted from reviewing various healthy means of coping and addressing warning signs and was willing to complete a crisis kit to remind him of these skills. Client displaying progres in his overall understanding of his mental health needs and triggers. CLient encouraged to continue focusing on communication and health stress management post discharge. Eye Contact:: Good Motor Activity:: Appropriate Appearance:: Casual Speech:: Appropriate Mood:: Euthymic Affect:: Congruent Thoughts:: Linear, Logical, No evidence of hallucinations/delusions noted Staff Interventions:: Therapist led the group in discussion about identifying personal warning signs before a crisis and importance of being aware of those signs. Therapist provided the group with various types of items and asked each group member to select five items that represent something that would be helpful in managing their warning signs of a crisis. Therapist facilitated group processing of the crisis emergency kits each group member created. Therapist used open-ended questions to encourage elaboration of each item chosen for their kit. Therapist helped clients connect how the crisis emergency kit could help be a crisis prevention tool.
--- NOTE | 2017-12-07 11:40 | BH.SGPN_ITS ---
Service Group Progress Note - Session Psychotherapy Session #2 Date Open:: 10/16/17 Time Started:: 10:25 Time Stopped:: 11:15 Targeted Problem #:: 1 Type of Group:: Illness Management Goal of Group:: To increase understanding how positive and negative forces in life can impact balance in life. Client Response/Progress/Benefit:: Client active participant, contributed to discussion and listened attentively to others. Client reported he has been through a lot of different changes over the past 3 years and his response to each change impacted the outcome. Client shared he recognizes there will constantly be negative forces and barriers throughout life, but if he focuses on utilizing his supports he can balance those negative forces with positives. Client seemed to benefit from connecting importance of focusing on what is in his control to help him not let the negative forces overpower his progress. Eye Contact:: Good Motor Activity:: Appropriate Appearance:: Casual Speech:: Appropriate Mood:: Anxious, Dysthymic Affect:: Congruent Thoughts:: Linear, Logical, No evidence of hallucinations/delusions noted Staff Interventions:: Therapist facilitated group discussion about the various forces of life and helped clients connect the impact they have on balance in life. Therapist led group in an experiential activity in which group members had to work together to balance an object and move it to a designated location. Therapist utilized the activity as a tool to process the challenges connected with balancing various forces. Psychotherapy Session #3 Date Open:: 10/25/17 Time Started:: 11:25 Time Stopped:: 12:15 Targeted Problem #:: 1 Type of Group:: Functional Skills Development Goal of Group:: To identify positive and negative forces in life and identify which forces are helping stability and which forces are contributing to instability. Client Response/Progress/Benefit:: Client active and engaged throughout session AEB connecting with others and contributing his thoughts and ideas to discussion. Cient identified his positive forces to include: , family, IOP program, positive thinking and exercise. Client reported negative forces that impact progress to include: self-doubt, complacency, poor boundaries, not expressing his emotions, and puttong on a mask (pretending everything is okay). Client identified his to be the most impactful positive force in his life and his self-doubt to be most impactful negative force in his life. Client shared he can see progress within himself of increased communication and positive thinking, but recognizes he still has work to do until he feels fully stable. Client seemed to benefit from increasing awareness of his current positive and negative forces, focusing on what he can do to increase his balance and stability. Eye Contact:: Good Motor Activity:: Appropriate Appearance:: Casual Speech:: Appropriate Mood:: Anxious, Dysthymic Affect:: Congruent Thoughts:: Linear, Logical, No evidence of hallucinations/delusions noted Staff Interventions:: Therapist provided group with an example of a scenario of a person and the individual???s positive and negative forces. Therapist provided each group member with a worksheet in which they were to identify five positive and five negative forces in their life. Therapist processed the activity with the group, helping others connect the impact certain forces have on their life balance.
== END 2017-11-08 14:00 | disposition home or self-care (01) ==
LOC: BHIOP 09:00
PROVIDERS: Visit Provider Psychiatry & Neurology Psychiatry
DX: F31.9 Bipolar disorder, unspecified (principal); F41.9 Anxiety disorder, unspecified; E55.9 Vitamin D deficiency, unspecified; F12.21 Cannabis dependence, in remission; I10 Essential (primary) hypertension; D36.13 Benign neoplasm of peripheral nerves and autonomic nervous system of lower limb, including hip; Z79.899 Other long term (current) drug therapy
CPT/HCPCS: H0035; 90832; 90834; 90837; 90847; 90853

== ENCOUNTER 2018-01-22 19:14 | Inpatient (IN) | payer OTHER, SELFPAY ==
[2018-01-22 19:15] VITALS: BP 147/84; PULSE 111; RESP 16; TEMP 37.4; O2SAT 94; BMI 32.5
--- NOTE | 2018-01-22 20:33 | ED.VISSUMM ---
- ER Visit Summary Date of Service: 01/22/18 Chief Complaint: Left knee abscess History of Present Illness: The patient is a 47 M increasing redness to his left knee since yesterday. 2 day history noting slight redness. Saw the urgent care yesterday placed on Keflex and Bactrim. Total of 7 doses of Keflex 3 doses of Bactrim, redness has past the line. He had a fever 100 today status post Tylenol. No history of diabetes. Had ACL repair in that knee in 1995. He has a follow-up with orthopedics on , Dr. Hensley. Denies nausea or vomiting. No previous similar symptoms in the past. Physical Examination: General: Alert and oriented ?3, no acute distress HEENT: Normocephalic, atraumatic. Moist mucosa membranes Neck: supple, nontender. Cardiovascular: Regular rate and rhythm, no murmurs Respiratory: Normal breath sounds, symmetric, no distress Abdomen: Soft, nontender, nondistended Extremities: Nontender, no edema, pulses intact ?4 Neuro: no focal neurological deficits. Skin: Left knee: There is a healing scab patellar, there is fluctuance around this. There is erythema medial aspect of the knee and lower thigh. No pain with short arc movement. No active drainage. Test Results: WBC 8.8. Lactate is 1.4. Creatinine normal. Blood culture ?2 pending. Emergency Department Course and Treatment: Patient with worsening cellulitis failing outpatient therapy. Temperature 99.4 status post Tylenol at home. His heart rate was 111 on arrival however 90 on my evaluation. Sepsis protocol initiated. Initial plan was to perform incision and drainage for cultures and knee region, however placed the bedside ultrasound around the wound there was no fluid buildup or any cobblestoning that would assist with incision and drainage. Discussed this with the patient. His erythema was outlined passes initial markings. I did start him on Zosyn and vancomycin. Due to failing outpatient therapy even with normal labs, I do feel benefit of inpatient management. Spoke with Dr. Reilly for admission. Treatment Plan: [] Disposition: Admission Impression: Left knee cellulitis failing outpatient therapy This note was generated with [employer] dictation software. It may contain incorrect words, spelling, and punctuation that were not noted in review of the chart prior to signing ED Disposition - Plan for ED Patient: Disposition: Acute Care Hospital [facility] Chief Complaint: Abscess Diagnosis: Cellulitis of left knee Referrals: Hugo Garcia MD [Primary Care Provider] -
[2018-01-22 20:53] LABS: Absolute Lymphocyte Count 1.43 X10^3/ul (0.83-4.51); Absolute Neutrophil Count 6.1 X10^3/uL (2.0-7.7); Basophil# 0.04 X10^3/uL; Basophil% 0.5 % (0-1); Eosinophil# 0.19 X10^3/uL; Eosinophils% 2.2 % (0-5); Hematocrit 42.2 % (40-54); Hemoglobin 14.5 g/dl (13.0-16.5); Lymphocyte # 1.43 X10^3/ul (4.0); Lymphocyte % 16.3 % (19-41); Mean Corp Hgb Conc 34.4 g/gl (32-36); Mean Corpuscular Volume 87.4 fL (80-94); Mean Platelet Vol. 10.7 fl (6.2-12.0); Monocyte# 0.98 X10^3/uL; Monocyte% 11.2 % (0-10); Neutrophil # 6.11 X10^3/uL (2.7-7.7); Neutrophil % 69.7 % (47-70); POSITIVE COUNT NO; POSITIVE DIFFERENTIAL NO; POSITIVE MORPHOLOGY NO; Platelet Count 205 K/mm3 (150-450); RBC Distribution Width CV 13.1 % (11.6-14.6); RBC Distribution Width SD 41.7 fl (35.1-43.9); Red Blood Count 4.83 M/mm3 (4.6-6.2); White Blood Count 8.8 K/mm3 (4.4-11.0)
[2018-01-22 21:01] LABS: International Normalized Ratio 0.9; Partial Thromboplast Time 33.3 Seconds (24.1-36.2); Prothrombin Time (Protime)PT. 12.6 SECONDS (11.7-14.9)
[2018-01-22 21:02] LABS: ALB/GLOB Ratio 1.1 RATIO (0.9-2.4); AST(SGOT) 26 U/L (15-37); Alanine Aminotransfer ALT/SGPT 33 U/L (16-61); Albumin, Serum 3.9 g/dL (3.2-5.0); Alkaline Phosphatase 78 U/L (45-117); Anion Gap 6 (5-15); BUN 19 mg/dL (7-18); BUN/Creat Ratio 15.2 RATIO (10-20); Calcium,Total 8.9 mg/dL (8.5-10.1); Chloride 104 mmol/L (98-107); Creatinine, Serum 1.25 mg/dL (0.70-1.30); EST Glomerular Filtration Rate 65 mL/min (>60); Est Glom Filt Rate - Afr Amer 79 mL/min (>60); Estimated Creatinine Clearance 78.46 ml/min; Globulin 3.5 g/dL (2.2-4.2); Glucose 115 mg/dL (74-106); Potassium 3.6 mmol/L (3.5-5.1); Protein, Total 7.4 g/dL (6.4-8.2); Sodium Level 139 mmol/L (136-145)
[2018-01-22 21:08] LABS: Lactic Acid 1.4 mmol/L (0.4-2.0)
[2018-01-22 22:27] VITALS: BP 138/86; PULSE 85; RESP 16; O2SAT 97
--- NOTE | 2018-01-22 22:29 | PCM.HP.STD ---
Problem List (1) Left leg cellulitis Status: Acute History of Present Illness Date of Admission: 01/22/18 Chief Complaint: left leg cellulitis The patient is a 47 year old male male with a 2 day history of skin infection on his left leg over his knee. Yesterday he went to an urgent care and was placed on Bactrim and Keflex. The area of involvement increased despite oral antibiotic therapy. He has a low grade fever yet no chills. He denies chest juan pablo or shortness of breath. He will be admitted for IV antibiotics due to failure of outpatient therapy. Past Medical History Allergies lactose Adverse Reaction (Verified 01/22/18 19:17) Nausea/Vom/Diarrhea Home Medications: Ambulatory Orders Medication Instructions Recorded Lamotrigine [Lamictal] 150 mg PO QHS 09/09/17 Naproxen Sodium [Aleve] 220 mg PO Q12H PRN PRN 09/09/17 Cholecalciferol (Vitamin D3) 5,000 unit PO DAILY 09/15/17 [Vitamin D3] Risperidone [Risperdal] 0.25 mg PO BID 09/15/17 Fexofenadine/Pseudoephedrine 1 each PO DAILY 01/22/18 [Afia-D 24 Hour Tablet] Magnesium 350 mg PO BID 01/22/18 Smoking Status: Never smoker - *Family History Maternal History Items: No pertinent history Review of Systems Constitutional: Reports: Fever. Denies: Chills, Weight Change HEENT: Denies: Head Aches, Sinus Congestion, Sinus Drainage Cardiovascular: Denies: Chest Pain, Palpitations Respiratory: Denies: Cough, Shortness of breath at rest, Sputum production Gastrointestinal: Denies: Abdominal Pain, Nausea, Vomiting Genitourinary: Denies: Dysuria Musculoskeletal: Reports: Leg Pain. Denies: Joint Pain, Joint Tenderness Skin: Reports: Wounds. Denies: Rash Neurological: Denies: Numbness, Tingling, Focal weakness Psychiatric: Denies: Anxiety, Depression, Homicidal Ideations, Suicidal Ideations Hematologic/ Lymphatic: Denies: Easy Bruising, Easy Bleeding VTE Information - Inpt Only VTE Present on Admission: No VTE Mechan Device Prophylaxis: None VTE Pharm Prophylaxis ordered?: Yes Patient Problems: Active and Suspected Problems Left leg cellulitis (Acute) - Physical Exam General: Alert, Oriented x3, Cooperative HEENT: Atraumatic, Normocephalic Neck: Supple Lungs: Clear to auscultation, Normal air movement Cardiovascular: Regular rate, Normal S1, Normal S2, No murmurs Abdomen: Bowel Sounds Present, Soft, Non Tender Extremities: Capillary Refill Less than 3 Seconds, Edema - left leg 1+ Skin: Ulcer/ Wound - cellulitic area demarcated with marker erythema with induration at medial left knee Musculoskeletal: Tenderness - left knee Neurological: Neuro grossly intact Psych/Mental Status: Normal Affect, Appropriate Vital Signs Temp Pulse Resp BP Pulse Ox 99.4 F H 111 H 16 147/84 H 94 01/22/18 19:15 01/22/18 19:15 01/22/18 19:15 01/22/18 19:15 01/22/18 19:15 Oxygen Delivery Method Room Air Weight: 240 lb Body Mass Index (BMI) 32.5 Laboratory Tests Past 24 Hrs 01/22/18 01/22/18 01/22/18 20:10 20:10 20:10 WBC 8.8 RBC 4.83 Hgb 14.5 Hct 42.2 MCV 87.4 MCH 30.0 MCHC 34.4 RDW 13.1 RDW Differential 41.7 Plt Count 205 MPV 10.7 Immature Gran % (Auto) 0.100 Neut % (Auto) 69.7 Lymph % (Auto) 16.3 L [place] % (Auto) 11.2 H Eos % (Auto) 2.2 Baso % (Auto) 0.5 Absolute Neuts (auto) 6.1 Absolute Lymphs (auto) 1.43 Total Counted Not Reportable PT 12.6 INR 0.9 APTT 33.3 Sodium 139 Potassium 3.6 Chloride 104 Carbon Dioxide 29.0 Anion Gap 6 BUN 19 H Creatinine 1.25 Estim Creat Clear Calc 78.46 Est GFR (MDRD) Af Amer 79 Est GFR (MDRD) Non-Af 65 BUN/Creatinine Ratio 15.2 Glucose 115 H Lactic Acid Calcium 8.9 Total Bilirubin 0.30 AST 26 ALT 33 Alkaline Phosphatase 78 Total Protein 7.4 Albumin 3.9 Globulin 3.5 Albumin/Globulin Ratio 1.1 01/22/18 20:10 WBC RBC Hgb Hct MCV MCH MCHC RDW RDW Differential Plt Count MPV Immature Gran % (Auto) Neut % (Auto) Lymph % (Auto) [place] % (Auto) Eos % (Auto) Baso % (Auto) Absolute Neuts (auto) Absolute Lymphs (auto) Total Counted PT INR APTT Sodium Potassium Chloride Carbon Dioxide Anion Gap BUN Creatinine Estim Creat Clear Calc Est GFR (MDRD) Af Amer Est GFR (MDRD) Non-Af BUN/Creatinine Ratio Glucose Lactic Acid 1.4 Calcium Total Bilirubin AST ALT Alkaline Phosphatase Total Protein Albumin Globulin Albumin/Globulin Ratio Assessment/Plan All Active Problems Left leg cellulitis (Acute) Plan - admit to general medical floor - cbc in am - regular diet - Vancomycin and zosyn to continue - LMW for DVT prophylaxis Code Visit Inpatient E&M: 84393 Init Hosp L2
[2018-01-22] MEDS: Piperacil/Tazobactam 3.375 GM/50 ML ML IV (22:31)
[2018-01-22] MEDS: 0.9% Normal Saline 1,000 ML 150 ML IV (22:32)
[2018-01-22 23:37] VITALS: BMI 33.5
[2018-01-22 23:40] VITALS: BMI 33.6
[2018-01-23 00:03] VITALS: BP 124/74; PULSE 85; RESP 14; TEMP 36.8; O2SAT 99
[2018-01-23] MEDS: Naproxen 250 MG Tablet PO (00:16)
[2018-01-23] MEDS: lamoTRIgine 150 MG Tablet PO ×2 (00:17→22:02)
--- NOTE | 2018-01-23 00:36 | PCM.RX.CS ---
Consult Pharmacy has been consulted to manage selected antiobiotic: Vancomycin Type of Consult: New start Suspected Infection: Skin/Soft tissue Prior Doses of Antibiotics Received/Current Regimen: Medications Vancomycin HCl 1,250 mg/ (Sodium Chloride) 275 mls @ 167 mls/hr IV Q12H NAOMI Discontinued Medications Vancomycin HCl 1,500 mg/ (Sodium Chloride) 530 mls @ 250 mls/hr IV X1 ONE Stop: 01/22/18 22:38 Last Admin: 01/22/18 22:32 Dose: 250 mls/hr Labs: Sodium 139 mmol/L (136-145) 01/22/18 20:10 Potassium 3.6 mmol/L (3.5-5.1) 01/22/18 20:10 Chloride 104 mmol/L (98-107) 01/22/18 20:10 Carbon Dioxide 29.0 mmol/L (21.0-32.0) 01/22/18 20:10 Anion Gap 6 (5-15) 01/22/18 20:10 BUN 19 mg/dL (7-18) H 01/22/18 20:10 Creatinine 1.25 mg/dL (0.70-1.30) 01/22/18 20:10 Est GFR (MDRD) Af Amer 79 mL/min (>60) 01/22/18 20:10 Est GFR (MDRD) Non-Af 65 mL/min (>60) 01/22/18 20:10 BUN/Creatinine Ratio 15.2 RATIO (10-20) 01/22/18 20:10 Glucose 115 mg/dL (74-106) H 01/22/18 20:10 Weight used for dosin.3 kg Estimated Creatinine Clearance: 78 Goal Trough: 10-15 mcg/mL Pharmacy Plan for Drug Dosing: Pharmacy Service will continue to monitor and adjust dosing as required. Follow-Up Labs: Trough Vancomycin Labs to be done on [date and time ordered]: 01/24/18 @1000
[2018-01-23] MEDS: Piperacil/Tazobactam 3.375 GM/50 ML ML IV ×2 (05:45→13:54)
[2018-01-23] MEDS: 0.9% NaCl Peripheral Flush Adult/Peds IV ×3 (05:45→10:03)
[2018-01-23 05:50] VITALS: BP 117/66; PULSE 70; RESP 14; TEMP 36.9; O2SAT 100
[2018-01-23 06:14] LABS: Absolute Lymphocyte Count 2.13 X10^3/ul (0.83-4.51); Absolute Neutrophil Count 5.5 X10^3/uL (2.0-7.7); Basophil# 0.02 X10^3/uL; Basophil% 0.2 % (0-1); Eosinophils% 3.2 % (0-5); Hematocrit 42.1 % (40-54); Hemoglobin 14.1 g/dl (13.0-16.5); Lymphocyte # 2.13 X10^3/ul (4.0); Lymphocyte % 23.1 % (19-41); Mean Corp Hgb Conc 33.5 g/gl (32-36); Mean Corpuscular Hgb 29.7 pg (27.0-32.0); Mean Corpuscular Volume 88.8 fL (80-94); Mean Platelet Vol. 10.7 fl (6.2-12.0); Monocyte# 1.27 X10^3/uL; Monocyte% 13.7 % (0-10); Neutrophil # 5.52 X10^3/uL (2.7-7.7); Neutrophil % 59.8 % (47-70); Platelet Count 190 K/mm3 (150-450); RBC Distribution Width CV 13.2 % (11.6-14.6); RBC Distribution Width SD 43.1 fl (35.1-43.9); Red Blood Count 4.74 M/mm3 (4.6-6.2); White Blood Count 9.2 K/mm3 (4.4-11.0)
[2018-01-23 06:19] LABS: POSITIVE COUNT NO; POSITIVE DIFFERENTIAL NO; POSITIVE MORPHOLOGY NO
--- NOTE | 2018-01-23 08:41 | PCM.PN.HOSP ---
Patient Problems: Active and Suspected Problems Left leg cellulitis (Acute) Cellulitis of left knee (Acute) Subjective: decreased redness of left leg. stated that some pus was expressed from left knee. never had cellulitis previously. Vitals/I&O's: Vital Signs Temp Pulse Resp BP Pulse Ox 36.9 C 70 14 117/66 100 01/23/18 05:50 01/23/18 05:50 01/23/18 05:50 01/23/18 05:50 01/23/18 05:50 Oxygen Delivery Method Room Air Weight: 112.3 kg Body Mass Index (BMI) 33.5 Intake and Output for Last 24 Hours 01/21/18 01/22/18 01/23/18 23:59 23:59 23:59 Intake Total 200 / 200 Balance 200 / 200 General: Alert, No apparent distress HEENT: Atraumatic, Normocephalic Oral: Moist Mucosa, No Gingival or Mucosal Lesions/ Ulcerations Neck: No Nodes, Thyroid Normal Size and Texture Lungs: Clear to auscultation, Normal air movement, No rhonchi, No wheeze Cardiovascular: Regular rate, Regular Rhythm, Normal S1, Normal S2, No murmurs Abdomen: Bowel Sounds Present, Soft, Non Tender, Non-Distended, No Hepato-splenomegaly Extremities: No edema, No Calf Tenderness Skin: - - faint erythema LLE. very superficial abscess at RUQ of left knee. TTP with induration of left knee just above the knee cap. Musculoskeletal: No Tenderness to Palpation of Joints or Extremities, No Muscle Wasting Psych/Mental Status: Normal Affect, Appropriate Laboratory Results 01/23/18 05:25: WBC 9.2, RBC 4.74, Hgb 14.1, Hct 42.1, MCV 88.8, MCH 29.7, MCHC 33.5, RDW 13.2, RDW Differential 43.1, Plt Count 190, MPV 10.7, Immature Gran % (Auto) 0.000, Neut % (Auto) 59.8, Lymph % (Auto) 23.1, [place] % (Auto) 13.7 H, Eos % (Auto) 3.2, Baso % (Auto) 0.2, Absolute Neuts (auto) 5.5, Absolute Lymphs (auto) 2.13, Total Counted Not Reportable Current Medications Acetaminophen (Tylenol) 650 mg PO Q6H PRN PRN PRN Reason: pain or fever Cholecalciferol (Vitamin D) 5,000 unit PO DAILY [facility] Dextrose (D50w Syringe) 0 gm IV X1 PRN; Protocol PRN Reason: Hypoglycemia Enoxaparin Sodium (Lovenox) 40 mg SC DAILY@1000 NAOMI Glucagon () 1 mg IM .X1 PRN PRN Reason: Hypoglycemia Vancomycin IV Pharmacy to Dose (1 ea/ Sodium Chloride) 500 mls @ 250 mls/hr IV X1 PRN; Protocol PRN Reason: Rx to Dose Piperacillin Sod/Tazobactam Sod (Zosyn) 3.375 gm in 50 mls @ 12.5 mls/hr IV Q8 NAOMI Last Admin: 01/23/18 05:45 Dose: 12.5 mls/hr Vancomycin HCl 1,250 mg/ (Sodium Chloride) 275 mls @ 167 mls/hr IV Q12H NAOMI Lamotrigine (Lamictal) 150 mg PO QHS [facility] Last Admin: 01/23/18 00:17 Dose: 150 mg Loratadine (Claritin) 10 mg PO DAILY [facility] Magnesium Hydroxide (Milk Of Magnesia) 30 ml PO DAILY PRN PRN PRN Reason: Constipation Magnesium Oxide (Mag-Ox 400) 400 mg PO BID [facility] Naproxen (Naprosyn) 250 mg PO Q12H PRN PRN PRN Reason: PAIN Last Admin: 01/23/18 00:16 Dose: 250 mg Oxycodone HCl (Oxyir) 5 mg PO Q8H PRN PRN PRN Reason: SEVERE PAIN (6-10/10) Pseudoephedrine HCl (Sudafed) 60 mg PO 4X/DAY [facility] Risperidone (Risperdal) 0.25 mg PO BID [facility] Sodium Chloride () 5 - 30 ml IV UD PRN PRN Reason: SALINE FLUSH Last Admin: 01/23/18 05:45 Dose: 10 ml Medical Necessity - Tobacco Use Smoking Status: Never smoker Tobacco Use: Non-smoker Assessment/Plan All Active Problems Left leg cellulitis (Acute) Cellulitis of left knee (Acute) 1. LLE cellulitis failed outpt abx w Keflex and Bactrim (only 24h of abx) continue vancomycin superfical abscess of left knee that I feel will open up with no surgical intervention, however, I am concerned for a deeper abscess. Check CT to eval for abscess, if deeper abscess noted, then will need to consult surgery/ortho for I+D. no clinical suspicion for septic arthritis 2. DVT proph: Karena. Code Visit Inpatient E&M: 17104 Subs Hosp L2
--- NOTE | 2018-01-23 08:46 | PN_ITS ---
Patient Problems: Active and Suspected Problems Left leg cellulitis (Acute) Cellulitis of left knee (Acute) Subjective: decreased redness of left leg. stated that some pus was expressed from left knee. never had cellulitis previously. Vitals/I&O's: Vital Signs Temp Pulse Resp BP Pulse Ox 36.9 C 70 14 117/66 100 01/23/18 05:50 01/23/18 05:50 01/23/18 05:50 01/23/18 05:50 01/23/18 05:50 Oxygen Delivery Method Room Air Weight: 112.3 kg Body Mass Index (BMI) 33.5 Intake and Output for Last 24 Hours 01/21/18 01/22/18 01/23/18 23:59 23:59 23:59 Intake Total 200 / 200 Balance 200 / 200 General: Alert, No apparent distress HEENT: Atraumatic, Normocephalic Oral: Moist Mucosa, No Gingival or Mucosal Lesions/ Ulcerations Neck: No Nodes, Thyroid Normal Size and Texture Lungs: Clear to auscultation, Normal air movement, No rhonchi, No wheeze Cardiovascular: Regular rate, Regular Rhythm, Normal S1, Normal S2, No murmurs Abdomen: Bowel Sounds Present, Soft, Non Tender, Non-Distended, No Hepato- splenomegaly Extremities: No edema, No Calf Tenderness Skin: - - faint erythema LLE. very superficial abscess at RUQ of left knee. TTP with induration of left knee just above the knee cap. Musculoskeletal: No Tenderness to Palpation of Joints or Extremities, No Muscle Wasting Psych/Mental Status: Normal Affect, Appropriate Laboratory Results 01/23/18 05:25: WBC 9.2, RBC 4.74, Hgb 14.1, Hct 42.1, MCV 88.8, MCH 29.7, MCHC 33.5, RDW 13.2, RDW Differential 43.1, Plt Count 190, MPV 10.7, Immature Gran % (Auto) 0.000, Neut % (Auto) 59.8, Lymph % (Auto) 23.1, [place] % (Auto) 13.7 H, Eos % (Auto) 3.2, Baso % (Auto) 0.2, Absolute Neuts (auto) 5.5, Absolute Lymphs (auto) 2.13, Total Counted Not Reportable Current Medications Acetaminophen (Tylenol) 650 mg PO Q6H PRN PRN PRN Reason: pain or fever Cholecalciferol (Vitamin D) 5,000 unit PO DAILY [facility] Dextrose (D50w Syringe) 0 gm IV X1 PRN; Protocol PRN Reason: Hypoglycemia Enoxaparin Sodium (Lovenox) 40 mg SC DAILY@1000 NAOMI Glucagon () 1 mg IM .X1 PRN PRN Reason: Hypoglycemia Vancomycin IV Pharmacy to Dose (1 ea/ Sodium Chloride) 500 mls @ 250 mls/hr IV X1 PRN; Protocol PRN Reason: Rx to Dose Piperacillin Sod/Tazobactam Sod (Zosyn) 3.375 gm in 50 mls @ 12.5 mls/hr IV Q8 NAOMI Last Admin: 01/23/18 05:45 Dose: 12.5 mls/hr Vancomycin HCl 1,250 mg/ (Sodium Chloride) 275 mls @ 167 mls/hr IV Q12H NAOMI Lamotrigine (Lamictal) 150 mg PO QHS [facility] Last Admin: 01/23/18 00:17 Dose: 150 mg Loratadine (Claritin) 10 mg PO DAILY [facility] Magnesium Hydroxide (Milk Of Magnesia) 30 ml PO DAILY PRN PRN PRN Reason: Constipation Magnesium Oxide (Mag-Ox 400) 400 mg PO BID [facility] Naproxen (Naprosyn) 250 mg PO Q12H PRN PRN PRN Reason: PAIN Last Admin: 01/23/18 00:16 Dose: 250 mg Oxycodone HCl (Oxyir) 5 mg PO Q8H PRN PRN PRN Reason: SEVERE PAIN (6-10/10) Pseudoephedrine HCl (Sudafed) 60 mg PO 4X/DAY [facility] Risperidone (Risperdal) 0.25 mg PO BID [facility] Sodium Chloride () 5 - 30 ml IV UD PRN PRN Reason: SALINE FLUSH Last Admin: 01/23/18 05:45 Dose: 10 ml Medical Necessity - Tobacco Use Smoking Status: Never smoker Tobacco Use: Non-smoker Assessment/Plan All Active Problems Left leg cellulitis (Acute) Cellulitis of left knee (Acute) 1. LLE cellulitis * failed outpt abx w Keflex and Bactrim (only 24h of abx) * continue vancomycin * superfical abscess of left knee that I feel will open up with no surgical intervention, however, I am concerned for a deeper abscess. * Check CT to eval for abscess, if deeper abscess noted, then will need to consult surgery/ortho for I+D. * no clinical suspicion for septic arthritis 2. DVT proph: Lovenox. Code Visit Inpatient E&M: 76263 Subs Hosp L2
[2018-01-23 09:08] VITALS: BP 107/67; PULSE 80; RESP 16; TEMP 36.5; O2SAT 95
[2018-01-23] MEDS: Enoxaparin 40 MG/0.4 ML Syringe SC (10:03)
[2018-01-23] MEDS: RisperiDONE 0.25 MG Tablet PO ×2 (10:03→22:02)
[2018-01-23] MEDS: Magnesium Oxide 400 MG Tablet PO ×2 (10:03→22:02)
[2018-01-23] MEDS: Loratadine 10 MG Tablet PO (10:03)
[2018-01-23 10:35] VITALS: PULSE 84
--- NOTE | 2018-01-23 11:25 | CASEMGMT ---
RN NICOLASA Face to Face with patient for initial transition planning/care coordination assessment. RN CM introduced self and role at [facility]. Patient lying in bed, alert and oriented. Patient willing to participate in assessment and is able to answer all questions appropriately. Care providers, pharmacy, and demographics verified. See link attached. Patient wishes to discharge home, denies need for home health at this time. Patient states he has no further needs or concerns at this time. CM to follow for discharge planning needs that may arise. Disposition Plan: Patient to discharge home with family support and follow-up plans in place.
[2018-01-23 13:56] VITALS: BP 117/76; PULSE 84; RESP 16; TEMP 36.5; O2SAT 96
--- NOTE | 2018-01-23 20:31 | PCM.CONS.GEN ---
Reason for Consult Date of Consultation: 01/23/18 History of Present Illness: The patient is a 47 year old male that has had some foot ankle and calf pain and swelling over the past month. He denies any chest pain or shortness of breath. He states this past he was picking at a callus on the anterior aspect of his knee. By Monday he had more anterior knee pain and swelling. Pain at worst was 9 out of 10. He went to urgent care on Monday. He was started on oral antibiotics. He was having fevers and chills at home. No nausea vomiting. He felt like he may be getting the flu. He was brought to the hospital yesterday. ER physician did not feel he would be able to obtain any fluid from the involved area. Patient was admitted for IV antibiotics. CAT scan obtained. Patient states his pain is now 4 out of 10. He is happy with his improvement. He is able to bend the knee better. He is able to walk on it more normally. He is hoping for discharge on oral antibiotic soon. [] Past medical history significant for bipolar disorder, high cholesterol, history of high blood pressure, vitamin D deficiency Past Medical History Allergies lactose Adverse Reaction (Verified 01/22/18 19:17) Nausea/Vom/Diarrhea Home Medications: Ambulatory Orders Medication Instructions Recorded Lamotrigine [Lamictal] 150 mg PO QHS 09/09/17 Naproxen Sodium [Aleve] 220 mg PO Q12H PRN PRN 09/09/17 Cholecalciferol (Vitamin D3) 5,000 unit PO DAILY 09/15/17 [Vitamin D3] Risperidone [Risperdal] 0.25 mg PO BID 09/15/17 Fexofenadine/Pseudoephedrine 1 each PO DAILY 01/22/18 [Afia-D 24 Hour Tablet] Magnesium 175 mg PO BID 01/22/18 Surgical History: arthroscopy, knee - Patient had ACL reconstructive surgery, hernia surgery, bilateral carpal tunnel release surgery, biceps repair bilaterally Smoking Status: Never smoker Tobacco Use: Non-smoker - *Family History Maternal History Items: No pertinent history Patient Problems: Active and Suspected Problems Left leg cellulitis (Acute) Cellulitis of left knee (Acute) Objective: Left knee has no significant knee effusion. Left knee motion is 0-90?. Patient noted to ambulate in the room without a limp. He has some fullness at the anterior soft tissues of the left knee. He has a callus there with signs of superficial abrasion over the patella. No obvious fluctuance within his prepatellar bursa. Chronic thickening of the skin and soft tissues about the prepatellar bursa 1 small area measuring about 4 x 4 mm x 1 mm consistent with a superficial blister superior medially. No significant knee joint tenderness at the joint line. Tenderness about his prepatellar bursa. He is able to do a straight leg raise easily. No hip pain with motion. No calf pain or swelling. Negative Homans sign. Mild redness about the anterior leg. Mild tenderness about the anterior leg. No severe pain or swelling at the ankle. Full motion of the ankle and foot. Pulses are intact. Sensation intact. Some redness about the knee and lower thigh. This has been mapped with a pen. Notes from ER physician and hospitalist reviewed No x-rays obtained. CAT scan reviewed showing metallic bone screws from previous ACL reconstructive surgery in the tibia and femur. Degenerative joint disease of the left knee. There is thickening of the tissues in front of the patellar bursa. Possibility for abscess raised by the radiologist. Small left knee joint effusion noted. No obvious signs of osteomyelitis or septic knee. Laboratory work reviewed, vital signs reviewed - Physical Exam Vital Signs Temp Pulse Resp BP Pulse Ox 97.7 F L 84 16 117/76 96 01/23/18 13:56 01/23/18 13:56 01/23/18 13:56 01/23/18 13:56 01/23/18 13:56 Oxygen Delivery Method Room Air Weight: 112.3 kg Body Mass Index (BMI) 33.5 Intake and Output for Last 24 Hours 01/21/18 01/22/18 01/23/18 23:59 23:59 23:59 Intake Total 2250 / 2250 Balance 2250 / 2250 Laboratory Tests Past 24 Hrs 01/23/18 05:25 WBC 9.2 RBC 4.74 Hgb 14.1 Hct 42.1 MCV 88.8 MCH 29.7 MCHC 33.5 RDW 13.2 RDW Differential 43.1 Plt Count 190 MPV 10.7 Immature Gran % (Auto) 0.000 Neut % (Auto) 59.8 Lymph % (Auto) 23.1 [place] % (Auto) 13.7 H Eos % (Auto) 3.2 Baso % (Auto) 0.2 Absolute Neuts (auto) 5.5 Absolute Lymphs (auto) 2.13 Total Counted Not Reportable Assessment/Plan All Active Problems Left leg cellulitis (Acute) Cellulitis of left knee (Acute) Left leg cellulitis, left anterior knee swelling with possible prepatellar bursitis. Clinically no obvious signs of abscess or knee joint infection. Improving on IV antibiotics. Possibility of aspiration of the site discussed. Possibility of allowing further treatment with IV antibiotics discussed. Patient did wish to have this aspirated with a needle. Risk of the procedure explained. Continue IV antibiotics. Very scant bloody fluid obtained and sent for cultures, Gram stain. Do not recommend surgical intervention at this point. Hopeful continued improvement on antibiotics. Will follow. Possibility further aspirations discussed if the condition worsens. Procedure: After obtaining appropriate consent patient's left knee region was prepped with Betadine. From a anterior medial approach I aspirated through the small blister with an 18-gauge needle and obtained very scant amount of bloody fluid. I felt confident I was in the involved area based on CAT scan and clinical findings. Scant amount of bloody fluid in the syringe/needle to be sent to lab for Gram stain and cultures. Scant amount of fluid was expressible from the blister area, bloody, white, cultured with swab. I tried to express further material from the involved area and was not successful further. 4 x 4's and Zain wrap applied.
[2018-01-23 21:59] VITALS: BP 117/75; PULSE 82; RESP 16; TEMP 36.8; O2SAT 97
[2018-01-23] MEDS: oxyCODONE 5 MG Tablet PO (22:02)
[2018-01-23 22:40] LABS: M R Staph aureus DNA By PCR Negative (Negative); Probe Check PASS; Staph aureus DNA By PCR POSITIVE (Negative)
[2018-01-24 03:44] VITALS: BP 120/66; PULSE 80; RESP 16; TEMP 36.7; O2SAT 96
[2018-01-24 06:10] LABS: Anion Gap 4 (5-15); BUN 11 mg/dL (7-18); BUN/Creat Ratio 9.4 RATIO (10-20); Calcium,Total 8.9 mg/dL (8.5-10.1); Chloride 104 mmol/L (98-107); Creatinine, Serum 1.17 mg/dL (0.70-1.30); EST Glomerular Filtration Rate 70 mL/min (>60); Est Glom Filt Rate - Afr Amer 85 mL/min (>60); Estimated Creatinine Clearance 83.83 ml/min; Glucose 90 mg/dL (74-106); Potassium 4.3 mmol/L (3.5-5.1); Sodium Level 138 mmol/L (136-145)
--- NOTE | 2018-01-24 07:28 | PCM.PN.HOSP ---
Patient Problems: Active and Suspected Problems Left leg cellulitis (Acute) Cellulitis of left knee (Acute) Subjective: Patient was seen and examined. He feels well. Denies fever, chills, chest pain. He feels left lower leg redness and swelling is better but still unable to complete range of motion. Vitals/I&O's: Vital Signs Temp Pulse Resp BP Pulse Ox 98.0 F 80 16 120/66 96 01/24/18 03:44 01/24/18 03:44 01/24/18 03:44 01/24/18 03:44 01/24/18 03:44 Oxygen Delivery Method Room Air Weight: 112.3 kg Body Mass Index (BMI) 33.5 Intake and Output for Last 24 Hours 01/22/18 01/23/18 01/24/18 23:59 23:59 23:59 Intake Total 2250 / 2250 1052 / 1052 Balance 2250 / 2250 1052 / 1052 General: Alert, Oriented x3, Cooperative, No apparent distress HEENT: Atraumatic, PERRLA, EOMI, Normocephalic Oral: Moist Mucosa Neck: Supple Lungs: Clear to auscultation, Normal air movement Cardiovascular: Regular rate, Regular Rhythm, Normal S1, Normal S2, No murmurs Abdomen: Bowel Sounds Present, Soft, Non Tender, Non-Distended, No Hepato-splenomegaly Extremities: - - Left lower extremity swelling, erythema and differential warmth, present from distal thigh to ankle, scab on anterior knee Skin: No rashes, No breakdown Musculoskeletal: No Tenderness to Palpation of Joints or Extremities Neurological: Cranial nerves II-XII grossly intact Psych/Mental Status: Normal Affect, Appropriate Microbiology Past 72 Hours 01/23/18 20:30 Fluid - Other Gram Stain - Preliminary Laboratory Results 01/23/18 20:30: S.aureus Protein A PCR POSITIVE H, MRSA (PCR) Negative 01/24/18 05:15: Sodium 138, Potassium 4.3, Chloride 104, Carbon Dioxide 30.0, Anion Gap 4 L, BUN 11, Creatinine 1.17, Estim Creat Clear Calc 83.83, Est GFR (MDRD) Af Amer 85, Est GFR (MDRD) Non-Af 70, BUN/Creatinine Ratio 9.4 L, Glucose 90, Calcium 8.9 Current Medications Acetaminophen (Tylenol) 650 mg PO Q6H PRN PRN PRN Reason: pain or fever Cholecalciferol (Vitamin D) 5,000 unit PO DAILY [facility] Last Admin: 01/23/18 10:03 Dose: 5,000 unit Dextrose (D50w Syringe) 0 gm IV X1 PRN; Protocol PRN Reason: Hypoglycemia Enoxaparin Sodium (Lovenox) 40 mg SC DAILY@1000 NAOMI Glucagon () 1 mg IM .X1 PRN PRN Reason: Hypoglycemia Vancomycin IV Pharmacy to Dose (1 ea/ Sodium Chloride) 500 mls @ 250 mls/hr IV X1 PRN; Protocol PRN Reason: Rx to Dose Vancomycin HCl 1,250 mg/ (Sodium Chloride) 275 mls @ 167 mls/hr IV Q12H [facility] Last Admin: 01/23/18 22:03 Dose: 167 mls/hr Lamotrigine (Lamictal) 150 mg PO QHS [facility] Last Admin: 01/23/18 22:02 Dose: 150 mg Loratadine (Claritin) 10 mg PO DAILY [facility] Last Admin: 01/23/18 10:03 Dose: 10 mg Magnesium Hydroxide (Milk Of Magnesia) 30 ml PO DAILY PRN PRN PRN Reason: Constipation Magnesium Oxide (Mag-Ox 400) 400 mg PO BID [facility] Last Admin: 01/23/18 22:02 Dose: 400 mg Naproxen (Naprosyn) 250 mg PO Q12H PRN PRN PRN Reason: PAIN Last Admin: 01/23/18 00:16 Dose: 250 mg Oxycodone HCl (Oxyir) 5 mg PO Q8H PRN PRN PRN Reason: SEVERE PAIN (6-10/10) Last Admin: 01/23/18 22:02 Dose: 5 mg Pseudoephedrine HCl (Sudafed) 60 mg PO 4X/DAY [facility] Last Admin: 01/23/18 22:02 Dose: 60 mg Risperidone (Risperdal) 0.25 mg PO BID [facility] Last Admin: 01/23/18 22:02 Dose: 0.25 mg Sodium Chloride () 5 - 30 ml IV UD PRN PRN Reason: SALINE FLUSH Last Admin: 01/23/18 10:03 Dose: 10 ml Medical Necessity - Tobacco Use Smoking Status: Never smoker Tobacco Use: Non-smoker Assessment/Plan All Active Problems Left leg cellulitis (Acute) Cellulitis of left knee (Acute) 47-year-old male admitted with left knee and lower extremity swelling and redness and being managed as cellulitis/abscess. He had I&D done by the orthopedic team on 01/23/2018. 1. Left lower extremity cellulitis/abscess, status post I&D, blood and wound cultures are pending, MRSA PCR was negative, MSSA PCR positive, was on IV vancomycin and Zosyn, switched to IV cefazolin pending culture results, PT and OT to evaluate, continue with pain control 2. Bipolar disorder, on lamotrigine, risperidone 3. DVT Ppx- Lovenox SC 4. Disposition: Possible DC tomorrow, pending PT and OT evaluation Code Visit Inpatient E&M: 53312 Subs Hosp L2
[2018-01-24 08:32] VITALS: BP 142/93; PULSE 94; RESP 18; TEMP 36.5; O2SAT 96
[2018-01-24] MEDS: Naproxen 250 MG Tablet PO ×2 (08:37→21:53)
[2018-01-24] MEDS: RisperiDONE 0.25 MG Tablet PO ×2 (10:34→21:53)
[2018-01-24] MEDS: Magnesium Oxide 400 MG Tablet PO (10:35)
[2018-01-24 10:55] LABS: Vancomycin, Trough Level 6.5 ug/mL (5.0-15.0)
[2018-01-24] MEDS: Enoxaparin 40 MG/0.4 ML Syringe SC (12:20)
--- NOTE | 2018-01-24 12:43 | PCM.PN.ORT ---
Patient Problems: Active and Suspected Problems Left leg cellulitis (Acute) Cellulitis of left knee (Acute) Subjective: Patient states his leg is doing better. He did have some slight increased knee pain from aspiration last evening. That has resolved. He has been up walking in his room without assistance. He is hoping for discharge to home soon. He had questions about going back to work. Denies chest pain or shortness of breath. Denies posterior calf pain. Objective: Left knee continues to have some thickness of the anterior soft tissues. No expressible drainage. Diffuse mild warmth about his prepatellar bursa. Mild redness about the lower thigh and upper leg. No posterior calf pain or swelling. Negative Homans sign. Knee motion is 0-95 degrees. Ankle motion is normal. Toe motion is normal. No significant knee or ankle effusion palpated. No joint line tenderness at the knee medially or laterally. No hip pain with motion. No pain at the mid or upper thigh. Vital signs, laboratory work, culture, Gram stain reviewed. Notes from hospitalist reviewed - Physical Exam Vital Signs Temp Pulse Resp BP Pulse Ox 97.7 F L 94 18 142/93 H 96 01/24/18 08:32 01/24/18 08:32 01/24/18 08:32 01/24/18 08:32 01/24/18 08:32 Oxygen Delivery Method Room Air Weight: 112.3 kg Body Mass Index (BMI) 33.5 Intake and Output for Last 24 Hours 01/22/18 01/23/18 01/24/18 23:59 23:59 23:59 Intake Total 2250 / 2250 1677 / 1677 Balance 2250 / 2250 1677 / 1677 Microbiology Past 72 Hours 01/23/18 20:30 Gram Stain - Final Fluid - Other Laboratory Tests Past 24 Hrs 01/23/18 01/24/18 01/24/18 20:30 05:15 10:00 Sodium 138 Potassium 4.3 Chloride 104 Carbon Dioxide 30.0 Anion Gap 4 L BUN 11 Creatinine 1.17 Estim Creat Clear Calc 83.83 Est GFR (MDRD) Af Amer 85 Est GFR (MDRD) Non-Af 70 BUN/Creatinine Ratio 9.4 L Glucose 90 Calcium 8.9 Vancomycin Trough 6.5 S.aureus Protein A PCR POSITIVE H MRSA (PCR) Negative Medical Necessity - Tobacco Use Smoking Status: Never smoker Tobacco Use: Non-smoker Assessment/Plan All Active Problems Left leg cellulitis (Acute) Cellulitis of left knee (Acute) Left leg and knee cellulitis, prepatellar bursitis improving on IV antibiotics. Continue with elevation, IV antibiotics per hospitalist service. Patient can remain weightbearing as tolerated. He can work on knee motion. He can follow-up with his medical doctor. Follow-up with orthopedics as needed if surgery is deemed necessary. At this point I think he should continue to improve on IV antibiotics/oral antibiotics most likely without needing surgical intervention. Questions answered.
[2018-01-24 13:37] VITALS: BP 148/72; PULSE 89; RESP 18; TEMP 36.8; O2SAT 94
[2018-01-24] MEDS: Cefazolin 2 GM in 0.9% Normal Saline 100 ML IV ×2 (13:45→21:53)
[2018-01-24] MEDS: 0.9% NaCl Peripheral Flush Adult/Peds IV ×2 (13:45→21:54)
[2018-01-24 19:40] VITALS: BP 120/86; PULSE 91; RESP 18; TEMP 36.9; O2SAT 97
[2018-01-24] MEDS: lamoTRIgine 150 MG Tablet PO (21:53)
[2018-01-25 01:40] VITALS: BP 112/75; PULSE 82; RESP 16; TEMP 37; O2SAT 98
[2018-01-25] MEDS: Cefazolin 2 GM in 0.9% Normal Saline 100 ML IV (05:21)
[2018-01-25] MEDS: 0.9% NaCl Peripheral Flush Adult/Peds IV (05:21)
[2018-01-25 07:30] VITALS: BP 133/89; PULSE 78; RESP 16; TEMP 36.2; O2SAT 98
--- NOTE | 2018-01-25 07:30 | PCM.PN.HOSP ---
Patient Problems: Active and Suspected Problems Left leg cellulitis (Acute) Cellulitis of left knee (Acute) Subjective: Patient admits to feeling better. Denies any fever or chills. Swelling and redness of the left lower extremity is improved. Able to ambulate around the room. Range of motion is improved in the left knee. Objective: Physical exam: General: Alert, Oriented x3, Cooperative, No apparent distress HEENT: Atraumatic, PERRLA, EOMI, Normocephalic Oral: Moist Mucosa Neck: Supple Lungs: Clear to auscultation, Normal air movement Cardiovascular: Regular rate, Regular Rhythm, Normal S1, Normal S2, No murmurs Abdomen: Bowel Sounds Present, Soft, Non Tender, Non-Distended, No Hepato-splenomegaly Extremities: - - Left lower extremity swelling, erythema and differential warmth, present from distal thigh to ankle, scab on anterior knee, improving Skin: No rashes, No breakdown Musculoskeletal: No Tenderness to Palpation of Joints or Extremities Neurological: Cranial nerves II-XII grossly intact Psych/Mental Status: Normal Affect, Appropriate Vitals/I&O's: Vital Signs Temp Pulse Resp BP Pulse Ox 98.6 F 82 16 112/75 98 01/25/18 01:40 01/25/18 01:40 01/25/18 01:40 01/25/18 01:40 01/25/18 01:40 Oxygen Delivery Method Room Air Weight: 112.3 kg Body Mass Index (BMI) 33.5 Intake and Output for Last 24 Hours 01/23/18 01/24/18 01/25/18 23:59 23:59 23:59 Intake Total 2250 / 2250 3157 / 3157 Balance 2250 / 2250 3157 / 3157 Microbiology Past 72 Hours 01/23/18 20:30 Fluid - Other Gram Stain - Final Laboratory Results 01/24/18 10:00: Vancomycin Trough 6.5 Current Medications Acetaminophen (Tylenol) 650 mg PO Q6H PRN PRN PRN Reason: pain or fever Cholecalciferol (Vitamin D) 5,000 unit PO DAILY [facility] Last Admin: 01/24/18 10:34 Dose: 5,000 unit Dextrose (D50w Syringe) 0 gm IV X1 PRN; Protocol PRN Reason: Hypoglycemia Enoxaparin Sodium (Lovenox) 40 mg SC DAILY@1000 [facility] Last Admin: 01/24/18 12:20 Dose: 40 mg Glucagon () 1 mg IM .X1 PRN PRN Reason: Hypoglycemia Cefazolin Sodium 2 gm/ Sodium (Chloride) 110 mls @ 150 mls/hr IV Q8 [facility] Last Admin: 01/25/18 05:21 Dose: 150 mls/hr Lamotrigine (Lamictal) 150 mg PO QHS [facility] Last Admin: 01/24/18 21:53 Dose: 150 mg Loratadine (Claritin) 10 mg PO DAILY [facility] Last Admin: 01/24/18 10:35 Dose: Not Given Magnesium Hydroxide (Milk Of Magnesia) 30 ml PO DAILY PRN PRN PRN Reason: Constipation Magnesium Oxide (Mag-Ox 400) 400 mg PO BID [facility] Last Admin: 01/24/18 21:53 Dose: Not Given Naproxen (Naprosyn) 250 mg PO Q12H PRN PRN PRN Reason: PAIN Last Admin: 01/24/18 21:53 Dose: 250 mg Oxycodone HCl (Oxyir) 5 mg PO Q8H PRN PRN PRN Reason: SEVERE PAIN (6-10/10) Last Admin: 01/23/18 22:02 Dose: 5 mg Pseudoephedrine HCl (Sudafed) 60 mg PO 4X/DAY [facility] Last Admin: 01/24/18 21:53 Dose: 60 mg Risperidone (Risperdal) 0.25 mg PO BID [facility] Last Admin: 01/24/18 21:53 Dose: 0.25 mg Sodium Chloride () 5 - 30 ml IV UD PRN PRN Reason: SALINE FLUSH Last Admin: 01/25/18 05:21 Dose: 20 ml Medical Necessity - Tobacco Use Smoking Status: Never smoker Tobacco Use: Non-smoker Assessment/Plan All Active Problems Left leg cellulitis (Acute) Cellulitis of left knee (Acute) 47-year-old male admitted with left knee and lower extremity swelling and redness and being managed as cellulitis/abscess. He had I&D done by the orthopedic team on 01/23/2018. 1. Left lower extremity cellulitis/abscess, status post I&D, blood and wound cultures are pending, MRSA PCR was negative, MSSA PCR positive, on IV cefazolin, was switched to Keflex to complete a 10 day course. 2. Bipolar disorder, on lamotrigine, risperidone 3. DVT Ppx- Lovenox SC 4. Disposition: Discharged today
[2018-01-25] MEDS: RisperiDONE 0.25 MG Tablet PO (09:29)
[2018-01-25] MEDS: Magnesium Oxide 400 MG Tablet PO (09:29)
[2018-01-25] MEDS: Enoxaparin 40 MG/0.4 ML Syringe SC (09:29)
--- NOTE | 2018-01-25 09:31 | PCM.DC ---
- Discharge Diagnoses Current Active Problems: Current Active and Chronic Problems Left leg cellulitis (Acute) Cellulitis of left knee (Acute) Reason(s) for Visit for Discharge Instructions: Left leg cellulitis You will use the following diet at home:: Regular Your food should be the consistency of: Regular Your liquids should be the consistency of: Regular/Thin Discharge Activity: Return to Normal Activity Weight Bearing Status: Weight bearing as tolerated Call your doctor if your incision/area has: Increased Pain/ Swelling, Increased Redness Call your doctor if you observe: Fever of 101 or Higher, Change in Color Allergies/Adverse Reactions: Allergies lactose Adverse Reaction (Verified 01/22/18 19:17) Nausea/Vom/Diarrhea Medications to take at Discharge Lamotrigine [Lamictal] 150 mg PO QHS 09/09/17 Naproxen Sodium [Aleve] 220 mg PO Q12H PRN PRN 09/09/17 Cholecalciferol (Vitamin D3) [Vitamin D3] 5,000 unit PO DAILY 09/15/17 Risperidone [Risperdal] 0.25 mg PO BID 09/15/17 Fexofenadine/Pseudoephedrine [Afia-D 24 Hour Tablet] 1 each PO DAILY 01/22/18 Magnesium 175 mg PO BID 01/22/18 Cephalexin [Keflex] 500 mg PO Q6 #32 cap 01/25/18 The following prescriptions were given: Cephalexin [Keflex] 500 mg PO Q6 #32 cap Primary Care Physician: Hugo Garcia MD [Primary Care Provider] - Please follow up with your Primary Care Physician in: within 2 weeks Test Results: Test results from this visit will be discussed in further detail at your follow-up appointment, if applicable. Please Follow Up With: Rashad Nunn MD When: within 2 weeks Proposed Discharge Date: 01/25/18
--- NOTE | 2018-01-25 09:41 | PCM.DC.SUM ---
Discharge Date and Diagnosis Date of Admission: 01/22/18 Date of Discharge: 01/25/18 - Primary Discharge Diagnosis Active and Suspected Problems Left leg cellulitis/abscess (Acute) Cellulitis of left knee (Acute) - Secondary Discharge Diagnosis Bipolar disease Hospital Course and Treatment Imaging Results: Clinical Impression(s) from Imaging Studies Lower Extremity CT 01/23/18 08:47 IMPRESSION: There is diffuse subcutaneous edema/fluid consistent with cellulitis. There is a 2.0 cm focus of fluid anterior to the patellar tendon origin which could represent an abscess. Electronically Signed: Yolanda Rosario MD at 9:54 EDT , Service support , Orthopedics - Dr. Nunn Operations: None Procedures: - - Bedside I & D Summary of Care Provided: 47-year-old male admitted with left knee and lower extremity swelling and redness. He reported as 2 day history of skin infection over his left anterior knee. He went to the urgent care and was started on Bactrim and Keflex. She had CT scan of knee which showed 2cm abscess on left knee. Orthopedics was consulted and had bedside I&D. MRSA PCR was negative, MSSA PCR positive. He was initially managed on IV vancomycin and Zosyn and later transitioned to IV cefazolin. He was switched to Keflex to complete a 10 day course. Discharge Diet: No Restrictions Discharge Activity: Return to Normal Activity Weight Bearing Status: Weight bearing as tolerated Call your doctor if your incision/area has: Increased Pain/ Swelling, Increased Redness Call your doctor if you observe: Fever of 101 or Higher, Change in Color Home Medications: Medications to take at Discharge Lamotrigine [Lamictal] 150 mg PO QHS 09/09/17 Naproxen Sodium [Aleve] 220 mg PO Q12H PRN PRN 09/09/17 Cholecalciferol (Vitamin D3) [Vitamin D3] 5,000 unit PO DAILY 09/15/17 Risperidone [Risperdal] 0.25 mg PO BID 09/15/17 Fexofenadine/Pseudoephedrine [Afia-D 24 Hour Tablet] 1 each PO DAILY 01/22/18 Magnesium 175 mg PO BID 01/22/18 Cephalexin [Keflex] 500 mg PO Q6 #32 cap 01/25/18 Following Prescrptions Were Given to Patient: Cephalexin [Keflex] 500 mg PO Q6 #32 cap Primary Care Physician: Hugo Garcia MD [Primary Care Provider] - Please follow up with your Primary Care Physician in: within 2 weeks Please Follow Up With: Rashad Nunn MD When: within 2 weeks Disposition: Home Minutes spent on discharge:: 40 Patient Condition:: Stable Medical Necessity - Tobacco Use Smoking Status: Never smoker Tobacco Use: Non-smoker Meaningful Use Info Meaningful Use Diagnoses (Choose all that apply): None applicable Code Visit Inpatient E&M: 64290 Disch Hosp
== END 2018-01-25 12:52 | disposition home or self-care (01) | DRG 603 ==
LOC: ED 22:31 → MS3 22:46
PROVIDERS: Admitting Provider Family Medicine; Emergency Provider Emergency Medicine; PCP Family Medicine; Visit Provider Internal Medicine
DX: L03.116 Cellulitis of left lower limb (principal); F31.9 Bipolar disorder, unspecified; L02.416 Cutaneous abscess of left lower limb
CPT/HCPCS: 36415; 73700; 80048; 80053; 80202; 83605; 85025; 85610; 85730; 87040; 87070; 87077; 87186; 87205; 87640; 97162; 97166; 99285; J7030; J7040; J7050; A4216

== ENCOUNTER 2018-01-26 16:29 | Inpatient (IN) | payer OTHER, SELFPAY ==
[2018-01-26 16:30] VITALS: BP 141/84; PULSE 90; RESP 14; TEMP 36.6; O2SAT 95; BMI 34.3
--- NOTE | 2018-01-26 16:51 | ED.VISSUMM ---
- ER Visit Summary Date of Service: 01/26/18 Chief Complaint: Left leg cellulitis History of Present Illness: The patient is a 47 M who was discharged from the hospital yesterday with left leg cellulitis, presents with worsening redness and swelling around his leg calf and anterior knee region. Apparently he had improved on IV antibiotics but now is worse. He has no fever or chills, however he is more tired and feels somewhat more weak than normal. He was placed on Keflex at home and took 3 doses since his discharge. Physical Examination: Not appear in acute distress. Moist mucous membranes, no obvious facial deformity No C-spine tenderness supple neck. Regular rate and rhythm without any obvious murmurs Clear lungs bilaterally speaking in full sentences without any obvious respiratory distress Abdomen soft and nontender no guarding or rebound There is cellulitis involving the left lower extremity, it extends to the level above the knee. There is an area above the knee that has a small vesicle, this was drained and showed serosanguineous fluid. There is no crepitus or any signs of necrotizing fasciitis. Patient has full range of motion of the knee without any pain. No effusion. There is increased calor especially anterior knee region. Alert oriented Emergency Department Course and Treatment: Patient will be started on IV antibiotics, I am not worried about an intra-articular infection. Patient has no crepitus and no signs of necrotizing fasciitis. He will however need readmission. I do believe this is quite warranted, patient's cellulitis has gotten much worse, I am worried about progression of the cellulitis to the proximal leg and even abdomen, without proper treatment this could turn into necrotizing fasciitis or patient could become bacteremic and septic. Thus it is quite important that we readmit. Disposition: Admit stable condition Impression: Left knee cellulitis This note was generated with [employer] dictation software. It may contain incorrect words, spelling, and punctuation that were not noted in review of the chart prior to signing ED Disposition - Plan for ED Patient: Chief Complaint: Cellulitis Referrals: Viry Leyva DO [Primary Care Provider] -
--- NOTE | 2018-01-26 17:05 | PCM.HP.STD ---
<Pari Gomez - Last Filed: 01/26/18 17:41> Problem List (1) Left leg cellulitis Status: Acute (2) Cellulitis of left knee Status: Acute History of Present Illness Date of Admission: 01/26/18 Chief Complaint: Left leg cellulitis. The patient is a 47 year old M who presents to the emergency room with increased left lower extremity redness and swelling. He also complains of pain of the left lower extremity with walking. Denies fever, chills. Denies chest pain, shortness of breath. Denies history of DVT. Patient was just discharged yesterday, 01/25/2018 where he was treated for left knee and left lower extremity cellulitis which had previously failed outpatient antibiotic therapy with Bactrim and Keflex. He had a CT scan of the left knee at that time which showed 2 cm abscess of the left knee. Orthopedics consulted and attempted I&D with minimal aspiration. MRSA PCR negative, MSSA PCR positive. Patient was treated with IV cefazolin and discharged on Keflex. Patient states he took 3 doses of oral Keflex. His cellulitis seemed to have resolved at time of discharge. He woke up this morning with increased left lower extremity swelling which she states appeared similar to when he was originally admitted 01/22/2018. He denies injury to the left lower extremity. No open wounds. He has a past medical history of bipolar disorder. Denies other past medical history. Past Medical History Allergies lactose Adverse Reaction (Verified 01/26/18 16:30) Nausea/Vom/Diarrhea Home Medications: Ambulatory Orders Medication Instructions Recorded Lamotrigine [Lamictal] 150 mg PO QHS 09/09/17 Naproxen Sodium [Aleve] 220 mg PO Q12H PRN PRN 09/09/17 Cholecalciferol (Vitamin D3) 5,000 unit PO DAILY 09/15/17 [Vitamin D3] Risperidone [Risperdal] 0.25 mg PO BID 09/15/17 Fexofenadine/Pseudoephedrine 1 each PO DAILY 01/22/18 [Afia-D 24 Hour Tablet] Magnesium 175 mg PO BID 01/22/18 Cephalexin [Keflex] 500 mg PO Q6 01/26/18 Lactobacillus Combination No.4 1 each PO BID 01/26/18 [Probiotic] Multivitamin [Daily Multiple 1 each PO DAILY 01/26/18 Vitamin] Surgical History: arthroscopy, knee - Patient had ACL reconstructive surgery, hernia surgery, bilateral carpal tunnel release surgery, biceps repair bilaterally, - - Umbilical hernia repair, bilateral bicep tendon repair, left ACL repair. Lives: Spouse/ Significant Other Smoking Status: Former smoker Alcohol: None Drugs: None - *Family History Maternal History Items: Hypertension, - - Lupus Paternal History Items: Diabetes, - - Arthritis Review of Systems Constitutional: Denies: Chills, Fever, Weight Change HEENT: Denies: Head Aches, Sinus Congestion, Sinus Drainage Cardiovascular: Reports: Edema - Left lower extremity. Denies: Chest Pain, Palpitations Respiratory: Denies: Cough, Shortness of breath at rest, Sputum production Gastrointestinal: Denies: Abdominal Pain, Nausea, Vomiting Genitourinary: Denies: Dysuria Musculoskeletal: Reports: Leg Pain - Left Skin: Reports: - - Left lower extremity redness, warmth. Denies: Rash, Wounds Neurological: Denies: Numbness, Tingling, Focal weakness Psychiatric: Denies: Anxiety, Depression, Homicidal Ideations, Suicidal Ideations Hematologic/ Lymphatic: Denies: Easy Bruising, Easy Bleeding VTE Information - Inpt Only VTE Present on Admission: No VTE Mechan Device Prophylaxis: None VTE Pharm Prophylaxis ordered?: Yes - Physical Exam General: Alert, Oriented x3, Cooperative HEENT: Atraumatic, PERRLA, EOMI, Normocephalic Neck: Supple, No JVD, Negative Carotid Bruits Lungs: Clear to auscultation, Normal air movement Cardiovascular: Regular rate, Regular Rhythm, Normal S1, Normal S2, No murmurs Abdomen: Bowel Sounds Present, Soft, Non Tender, Non-Distended Extremities: No clubbing, No cyanosis, No Calf Tenderness, Edema - LLE Skin: - - Left lower extremity erythema, warmth and tenderness extending from left knee to left ankle/foot. No noted ulcerations or abscesses. Area of thickened skin on left kneecap. Musculoskeletal: Tenderness - Left ankle/foot. Neurological: Cranial nerves II-XII grossly intact, Neuro grossly intact Psych/Mental Status: Normal Affect, Appropriate Vital Signs Temp Pulse Resp BP Pulse Ox 97.9 F 90 14 141/84 H 95 01/26/18 16:30 01/26/18 16:30 01/26/18 16:30 01/26/18 16:30 01/26/18 16:30 Oxygen Delivery Method Room Air Weight: 246 lb 7.629 oz Body Mass Index (BMI) 34.3 Assessment/Plan All Active Problems Left leg cellulitis (Acute) Cellulitis of left knee (Acute) 1. Persistent left lower extremity MSSA cellulitis, no noted abscess-previous I&D 01/23/2018 with scant amount of aspiration. Positive for MSSA. MRSA PCR negative. Begin IV cefazolin. Consult ID given recurrent failed outpatient oral regimen. Ultrasound left lower extremity to rule out DVT. Keep leg elevated. 2. Bipolar disorder-continue home risperidone and lamotrigine regimen. DVT prophylaxis-Lovenox subcu. This patient was seen by ELZBIETA Montague under the supervision of Dr. Conte. <Chidi Conte - Last Filed: 01/27/18 08:02> History of Present Illness Seen and examined in ER on 01/26/2018 Patient was discharged yesterday after he was treated for left knee and left leg cellulitis. Wound culture shows MSSA and patient responded well with IV cefazolin during previous admission. Patient came back with left lower extremity redness and swelling and pain. [] Past Medical History Allergies lactose Adverse Reaction (Verified 01/26/18 16:30) Nausea/Vom/Diarrhea - Physical Exam General: Alert, Oriented x3, Cooperative HEENT: Atraumatic, PERRLA, EOMI, Normocephalic Neck: Supple, No JVD, Negative Carotid Bruits Lungs: Clear to auscultation, Normal air movement Cardiovascular: Regular rate, No murmurs Abdomen: Bowel Sounds Present, Soft, Non Tender Extremities: Edema, Tenderness - Tenderness over left knee and left leg below knee. Skin: No rashes, No breakdown, - Musculoskeletal: No Tenderness to Palpation of Joints or Extremities Neurological: Cranial nerves II-XII grossly intact, Neuro grossly intact Psych/Mental Status: Normal Affect, Appropriate Vital Signs Temp Pulse Resp BP Pulse Ox 97.7 F L 70 16 114/78 98 01/27/18 06:09 01/27/18 06:09 01/27/18 06:09 01/27/18 06:09 01/27/18 06:09 Oxygen Delivery Method Room Air Weight: 246 lb Body Mass Index (BMI) 34.2 Intake and Output for Last 24 Hours 01/25/18 01/26/18 01/27/18 23:59 23:59 23:59 Intake Total 1444 / 1444 900 / 900 Balance 1444 / 1444 900 / 900 Laboratory Tests Past 24 Hrs 01/26/18 01/26/18 01/26/18 17:25 17:25 17:25 WBC 6.1 RBC 5.04 Hgb 14.9 Hct 44.5 MCV 88.3 MCH 29.6 MCHC 33.5 RDW 12.8 RDW Differential 41.0 Plt Count 228 MPV 9.9 ESR 43 H Sodium 138 Potassium 3.9 Chloride 101 Carbon Dioxide 31.0 Anion Gap 6 BUN 14 Creatinine 1.19 Estim Creat Clear Calc 79.98 Est GFR (MDRD) Af Amer 83 Est GFR (MDRD) Non-Af 69 BUN/Creatinine Ratio 11.8 Glucose 144 H Hemoglobin A1c 5.4 Calcium 9.6 C-React Prot Ext Range 32.40 H Assessment/Plan This patient was seen in conjunction with COOK DESSERTPari. I have independently interviewed and examined the patient and reviewed pertinent history, examination findings, laboratory and plan of management. I have reviewed the note and agree with the documented findings with the few additional points. In brief, patient is admitted for persistent left lower extremity MSSA cellulitis. Patient had negative blood culture ?2 on 02/08/2018. Denies new fever after discharge. Patient responded well with IV cefazolin during previous admission. Started on IV cefazolin. ID consult. Left lower extremity venous Doppler. I have discussed my assessment with Pari IVEY and orders have been reviewed. Code Visit Inpatient E&M: 15592 Init Hosp L2
[2018-01-26 17:40] VITALS: BMI 34.2; BMI 34.3
[2018-01-26 17:42] LABS: Erythrocyte Sedimentation Rate 43 mm/hr (0-15)
[2018-01-26 17:45] LABS: Hematocrit 44.5 % (40-54); Hemoglobin 14.9 g/dl (13.0-16.5); Mean Corp Hgb Conc 33.5 g/gl (32-36); Mean Corpuscular Hgb 29.6 pg (27.0-32.0); Mean Corpuscular Volume 88.3 fL (80-94); Mean Platelet Vol. 9.9 fl (6.2-12.0); Platelet Count 228 K/mm3 (150-450); RBC Distribution Width CV 12.8 % (11.6-14.6); Red Blood Count 5.04 M/mm3 (4.6-6.2); Scan Indicated on CBC? Y/N NO; White Blood Count 6.1 K/mm3 (4.4-11.0)
[2018-01-26 17:55] VITALS: BP 144/88; PULSE 88; RESP 14; TEMP 36.8; O2SAT 95
[2018-01-26 18:01] LABS: Anion Gap 6 (5-15); BUN 14 mg/dL (7-18); BUN/Creat Ratio 11.8 RATIO (10-20); Calcium,Total 9.6 mg/dL (8.5-10.1); Chloride 101 mmol/L (98-107); Creatinine, Serum 1.19 mg/dL (0.70-1.30); EST Glomerular Filtration Rate 69 mL/min (>60); Est Glom Filt Rate - Afr Amer 83 mL/min (>60); Estimated Creatinine Clearance 79.98 ml/min; Glucose 144 mg/dL (74-106); Potassium 3.9 mmol/L (3.5-5.1); Sodium Level 138 mmol/L (136-145)
[2018-01-26 18:20] LABS: Hemoglobin A1c 5.4 % (4.2-6.3)
[2018-01-26 20:01] VITALS: BP 125/84; PULSE 91; RESP 18; TEMP 36.7; O2SAT 95
[2018-01-26] MEDS: 0.9% NaCl Peripheral Flush Adult/Peds IV (22:39)
[2018-01-26] MEDS: Cefazolin 1 GM/50 ML BAG IV (22:39)
[2018-01-26] MEDS: lamoTRIgine 150 MG Tablet PO (22:39)
[2018-01-26] MEDS: RisperiDONE 0.25 MG Tablet PO (22:39)
[2018-01-26 23:57] VITALS: BP 122/77; PULSE 81; RESP 16; TEMP 36.4; O2SAT 97
[2018-01-27 06:09] VITALS: BP 114/78; PULSE 70; RESP 16; TEMP 36.5; O2SAT 98
[2018-01-27] MEDS: Enoxaparin 40 MG/0.4 ML Syringe SC (06:11)
[2018-01-27] MEDS: Cefazolin 1 GM/50 ML BAG IV ×3 (06:16→21:51)
[2018-01-27] MEDS: 0.9% NaCl Peripheral Flush Adult/Peds IV ×2 (06:16→15:06)
--- NOTE | 2018-01-27 09:49 | PCM.PN.HOSP ---
Vitals/I&O's: Vital Signs Temp Pulse Resp BP Pulse Ox 97.7 F L 70 16 114/78 98 01/27/18 06:09 01/27/18 06:09 01/27/18 06:09 01/27/18 06:09 01/27/18 06:09 Oxygen Delivery Method Room Air Weight: 246 lb Body Mass Index (BMI) 34.2 Intake and Output for Last 24 Hours 01/25/18 01/26/18 01/27/18 23:59 23:59 23:59 Intake Total 1444 / 1444 900 / 900 Balance 1444 / 1444 900 / 900 Laboratory Results 01/26/18 17:25: WBC 6.1, RBC 5.04, Hgb 14.9, Hct 44.5, MCV 88.3, MCH 29.6, MCHC 33.5, RDW 12.8, RDW Differential 41.0, Plt Count 228, MPV 9.9, ESR 43 H 01/26/18 17:25: Sodium 138, Potassium 3.9, Chloride 101, Carbon Dioxide 31.0, Anion Gap 6, BUN 14, Creatinine 1.19, Estim Creat Clear Calc 79.98, Est GFR (MDRD) Af Amer 83, Est GFR (MDRD) Non-Af 69, BUN/Creatinine Ratio 11.8, Glucose 144 H, Calcium 9.6, C-React Prot Ext Range 32.40 H 01/26/18 17:25: Hemoglobin A1c 5.4 Current Medications Cholecalciferol (Vitamin D) 5,000 unit PO DAILY [facility] Enoxaparin Sodium (Lovenox) 40 mg SC DAILY@0600 [facility] Last Admin: 01/27/18 06:11 Dose: 40 mg Cefazolin Sodium () 1 gm in 50 mls @ 150 mls/hr IV Q8 [facility] Last Admin: 01/27/18 06:16 Dose: 150 mls/hr Lactobacillus Acidophilus (Acidophilus) 1 tablet PO BID [facility] Last Admin: 01/26/18 22:39 Dose: 1 tablet Lamotrigine (Lamictal) 150 mg PO QHS [facility] Last Admin: 01/26/18 22:39 Dose: 150 mg Oxycodone HCl (Oxyir) 5 mg PO Q4H PRN PRN PRN Reason: Moderate Pain (pain scale 4-5) Risperidone (Risperdal) 0.25 mg PO BID NAOMI Last Admin: 01/26/18 22:39 Dose: 0.25 mg Sodium Chloride () 5 - 30 ml IV UD PRN PRN Reason: SALINE FLUSH Last Admin: 01/27/18 06:16 Dose: 10 ml Medical Necessity - Tobacco Use Smoking Status: Former smoker Assessment/Plan All Active Problems Left leg cellulitis (Acute) Cellulitis of left knee (Acute)
--- NOTE | 2018-01-27 10:06 | PCM.CONS.GEN ---
Reason for Consult Date of Consultation: 01/27/18 Reason for Consultation: left knee abscess History of Present Illness: The patient is a 47 year old M with history of left knee ACL reconstruction. Patient has a callus over the anterior incision on his knee. Patient a week ago developed pain and swelling in this area. He was evaluated by my partner on January 23 when an attempted aspiration was performed. He did have a wound culture that was positive for MSSA. At that time no purulence could be obtained. Patient responded initially to IV antibiotics and the bacteria was sensitive to Keflex. Patient was discharged home on Keflex. Patient was seen yesterday by his primary care doctor was noted to have increasing redness again. There was significant swelling on the anterior portion of his knee. He was admitted back to the hospital and placed on cefazolin overnight. The redness on his skin and down his leg has significantly responded however he has a central area over the anterior portion of his knee where there is a small blister and evidence of purulent drainage. Patient has had constitutional symptoms intermittently throughout this time including fevers and chills. ESR and CRP are elevated. He does not have pain with range of motion of the knee except anteriorly on the knee. He does have a history of a callus over the anterior knee. Past Medical History Allergies lactose Adverse Reaction (Verified 01/26/18 16:30) Nausea/Vom/Diarrhea Home Medications: Ambulatory Orders Medication Instructions Recorded Lamotrigine [Lamictal] 150 mg PO QHS 09/09/17 Naproxen Sodium [Aleve] 220 mg PO Q12H PRN PRN 09/09/17 Cholecalciferol (Vitamin D3) 5,000 unit PO DAILY 09/15/17 [Vitamin D3] Risperidone [Risperdal] 0.25 mg PO BID 09/15/17 Fexofenadine/Pseudoephedrine 1 each PO DAILY 01/22/18 [Afia-D 24 Hour Tablet] Magnesium 175 mg PO BID 01/22/18 Cephalexin [Keflex] 500 mg PO Q6 01/26/18 Lactobacillus Combination No.4 1 each PO BID 01/26/18 [Probiotic] Multivitamin [Daily Multiple 1 each PO DAILY 01/26/18 Vitamin] Surgical History: arthroscopy, knee - Patient had ACL reconstructive surgery, hernia surgery, bilateral carpal tunnel release surgery, biceps repair bilaterally, - - Umbilical hernia repair, bilateral bicep tendon repair, left ACL repair. Lives: Spouse/ Significant Other Smoking Status: Former smoker Alcohol: None Drugs: None - *Family History Maternal History Items: Hypertension, - - Lupus Paternal History Items: Diabetes, - - Arthritis Review of Systems Constitutional: Reports: Chills, Fever HEENT: Denies: Head Aches, Sinus Congestion, Sinus Drainage Cardiovascular: Denies: Chest Pain, Palpitations Respiratory: Denies: Cough, Shortness of breath at rest, Sputum production Gastrointestinal: Denies: Abdominal Pain, Nausea, Vomiting Genitourinary: Denies: Dysuria Musculoskeletal: Denies: Joint Pain, Joint Tenderness Skin: Reports: - - Blister and drainage over anterior knee Neurological: Denies: Numbness, Tingling, Focal weakness Psychiatric: Denies: Anxiety, Depression, Homicidal Ideations, Suicidal Ideations Hematologic/ Lymphatic: Denies: Easy Bruising, Easy Bleeding Objective: Previous CT scan was reviewed showing anterior soft tissue swelling consistent with an abscess. 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 - Physical Exam General: Alert, Oriented x3, Cooperative Extremities: - - Left lower extremity: Patient has swelling on the anterior knee at the proximal portion of his previous incision. There is a callus over the anterior portion of the knee where he would kneel. The outlined area of erythema is significantly improved from last evening. There is a focal portion of erythema and swelling on the anterior knee. There is a blister which is beginning to unroofed with underlying purulence. At the base of the blister is a small pinpoint area where purulent drainage can be expressed. Copious amounts of this fluid was expressed today. The remainder of the lower extremity is neurovascularly intact. Motor is 5 out of 5 dorsiflexion EHL and plantar flexion. Sensations intact light touch superficial peroneal deep peroneal tibial sural and saphenous nerve distributions. 2+ DP pulse. No pain with short arc range of motion of the knee. Patient is otherwise comfortable. Vital Signs Temp Pulse Resp BP Pulse Ox 97.7 F L 70 16 114/78 98 01/27/18 06:09 01/27/18 06:09 01/27/18 06:09 01/27/18 06:09 01/27/18 06:09 Oxygen Delivery Method Room Air Weight: 246 lb Body Mass Index (BMI) 34.2 Intake and Output for Last 24 Hours 01/25/18 01/26/1818 23:59 23:59 23:59 Intake Total 1444 / 1444 900 / 900 Balance 1444 / 1444 900 / 900 Laboratory Tests Past 24 Hrs 01/26/18 01/26/18 01/26/18 17:25 17:25 17:25 WBC 6.1 RBC 5.04 Hgb 14.9 Hct 44.5 MCV 88.3 MCH 29.6 MCHC 33.5 RDW 12.8 RDW Differential 41.0 Plt Count 228 MPV 9.9 ESR 43 H Sodium 138 Potassium 3.9 Chloride 101 Carbon Dioxide 31.0 Anion Gap 6 BUN 14 Creatinine 1.19 Estim Creat Clear Calc 79.98 Est GFR (MDRD) Af Amer 83 Est GFR (MDRD) Non-Af 69 BUN/Creatinine Ratio 11.8 Glucose 144 H Hemoglobin A1c 5.4 Calcium 9.6 C-React Prot Ext Range 32.40 H Assessment/Plan All Active Problems Left leg cellulitis (Acute) Cellulitis of left knee (Acute) Left leg abscess over anterior knee. At this time I expressed a significant amount of purulent fluid from the area of the abscess. There is a small pinpoint area would like to increase this area with a lancet and continue to express any more fluid. Patient is consented to this procedure at the bedside. The procedure note below. At this time were going to proceed with packing of the wound on a twice daily basis. If patient does not respond to this treatment with IV antibiotics he may likely need a further more aggressive surgical debridement however based on the size of the abscess and the ability to significantly decompress it today this should likely be sufficient. He will need to follow-up at the wound center for continued monitoring of the wound. Wound care team was consulted today. While in the hospital will change the packing twice daily. Upon discharge we can change the packing once daily. Procedure: Patient was consented for lancet and irrigation. The wound was prepped using Betadine and alcohol in a sterile fashion. Sterile instruments were used. 5 mL of 2% lidocaine were injected into the local soft tissues. A 15 blade scalpel was used to make a 1 cm Trever incision over the anterior knee in line with where the previous drainage site was. Scissors and hemostat were used to spread and decompress the area. Wound was then packed using iodoform packing. One ribbon of packing was placed. Patient tolerated the procedure well and a sterile dressing was placed. [facility] Office:
[2018-01-27 10:59] VITALS: BP 127/84; PULSE 78; RESP 18; TEMP 36.6; O2SAT 97
[2018-01-27] MEDS: RisperiDONE 0.25 MG Tablet PO ×2 (11:03→21:51)
--- NOTE | 2018-01-27 11:46 | CM.UR ---
Met face to face with patient and his . Discussed the possibility of being discharged on IVAB. did take some nursing classes when she was younger and also had given injections to step-mother. She feels confident that she can learn how to administer IVAB. Explained we would send referral to [facility] who would send a nurse out to teach her. both patient and spouse are comfortable with that. Infectious disease is going to see him on Monday. They have no preference on providers for home care and any DME--just wants it to be in-network. Case management will continue to follow patient to assist with discharge planning. Ubaldo Kendrick RN, CCM.
--- NOTE | 2018-01-27 12:09 | PCM.PROGNOTE ---
<Pari Gomez - Last Filed: 01/27/18 12:17> Subjective: Patient seen and examined. States left lower extremity swelling and redness has improved overnight. Denies significant pain. Complains of mild discomfort and tightness of the left knee when ambulating after period of rest. Denies fever, chills. Denies other complaints. - Physical Exam General: Alert, Oriented x3, Cooperative, No apparent distress HEENT: Atraumatic, PERRLA, EOMI, Normocephalic Neck: Supple, No JVD, Negative Carotid Bruits Lungs: Clear to auscultation, Normal air movement Cardiovascular: Regular rate, Regular Rhythm, Normal S1, Normal S2, No murmurs Abdomen: Bowel Sounds Present, Soft, Non Tender, Non-Distended Extremities: No clubbing, No cyanosis, Capillary Refill Less than 3 Seconds, Edema - Left lower extremity Skin: - - Left lower extremity erythema and edema improved. Area of thickened skin on left kneecap. No visible abscesses or wounds noted. Musculoskeletal: Tenderness - Left ankle, foot. Neurological: Cranial nerves II-XII grossly intact, Neuro grossly intact Psych/Mental Status: Normal Affect, Appropriate Vital Signs Temp Pulse Resp BP Pulse Ox 97.9 F 78 18 127/84 H 97 01/27/18 10:59 01/27/18 10:59 01/27/18 10:59 01/27/18 10:59 01/27/18 10:59 Oxygen Delivery Method Room Air Weight: 246 lb Body Mass Index (BMI) 34.2 Intake and Output for Last 24 Hours 01/25/18 01/26/18 01/27/18 23:59 23:59 23:59 Intake Total 1444 / 1444 900 / 900 Balance 1444 / 1444 900 / 900 Laboratory Tests Past 24 Hrs 01/26/18 01/26/18 01/26/18 17:25 17:25 17:25 WBC 6.1 RBC 5.04 Hgb 14.9 Hct 44.5 MCV 88.3 MCH 29.6 MCHC 33.5 RDW 12.8 RDW Differential 41.0 Plt Count 228 MPV 9.9 ESR 43 H Sodium 138 Potassium 3.9 Chloride 101 Carbon Dioxide 31.0 Anion Gap 6 BUN 14 Creatinine 1.19 Estim Creat Clear Calc 79.98 Est GFR (MDRD) Af Amer 83 Est GFR (MDRD) Non-Af 69 BUN/Creatinine Ratio 11.8 Glucose 144 H Hemoglobin A1c 5.4 Calcium 9.6 C-React Prot Ext Range 32.40 H Medical Necessity - Tobacco Use Smoking Status: Former smoker Assessment/Plan All Active Problems Left leg cellulitis (Acute) Cellulitis of left knee (Acute) 1. Persistent left lower extremity MSSA cellulitis, anterior knee abscess-previous I&D 01/23/2018 with scant amount of aspiration. Positive for MSSA. MRSA PCR negative. Continue IV cefazolin. Consult ID given recurrent failed outpatient oral regimen. Ultrasound left lower extremity negative for DVT. Keep leg elevated. Ortho consulted. Anterior knee abscess decompressed by Dr. Alvarez. Wound RN consulted. Patient will need twice daily packing to the wound. Significant amount of purulent fluid was noted to be drained from the abscess. Patient may require further surgical debridement. 2. Bipolar disorder-continue home risperidone and lamotrigine regimen. DVT prophylaxis-Lovenox subcu. This patient was seen by ELZBIETA Montague under the supervision of Dr. Conte. <Chidi Conte - Last Filed: 01/27/18 13:48> Subjective: Agree with above note. Patient has improvement in redness but he still has a left knee swelling and pain. - Physical Exam General: Alert, Oriented x3, Cooperative HEENT: Atraumatic, PERRLA, EOMI, Normocephalic Neck: Supple, No JVD, Negative Carotid Bruits Lungs: Clear to auscultation, Normal air movement Cardiovascular: Regular rate, No murmurs Abdomen: Bowel Sounds Present, Soft, Non Tender Extremities: No edema, Capillary Refill Less than 3 Seconds, Edema Skin: - - Left lower extremity erythema and edema improved. Area of thickened skin on left kneecap. Small pinpoint drainage at the anterior right knee. Musculoskeletal: Arthritic Changes, Tenderness Neurological: Cranial nerves II-XII grossly intact Psych/Mental Status: Normal Affect, Appropriate Vital Signs Temp Pulse Resp BP Pulse Ox 97.9 F 78 18 127/84 H 97 01/27/18 10:59 01/27/18 10:59 01/27/18 10:59 01/27/18 10:59 01/27/18 10:59 Oxygen Delivery Method Room Air Weight: 246 lb Body Mass Index (BMI) 34.2 Intake and Output for Last 24 Hours 01/25/18 01/26/18 01/27/18 23:59 23:59 23:59 Intake Total 1444 / 1444 900 / 900 Balance 1444 / 1444 900 / 900 Laboratory Tests Past 24 Hrs 01/26/18 01/26/18 01/26/18 17:25 17:25 17:25 WBC 6.1 RBC 5.04 Hgb 14.9 Hct 44.5 MCV 88.3 MCH 29.6 MCHC 33.5 RDW 12.8 RDW Differential 41.0 Plt Count 228 MPV 9.9 ESR 43 H Sodium 138 Potassium 3.9 Chloride 101 Carbon Dioxide 31.0 Anion Gap 6 BUN 14 Creatinine 1.19 Estim Creat Clear Calc 79.98 Est GFR (MDRD) Af Amer 83 Est GFR (MDRD) Non-Af 69 BUN/Creatinine Ratio 11.8 Glucose 144 H Hemoglobin A1c 5.4 Calcium 9.6 C-React Prot Ext Range 32.40 H Assessment/Plan This patient was seen in conjunction with Pari IVEY. I have independently interviewed and examined the patient and reviewed pertinent history, examination findings, laboratory and plan of management. I have reviewed the note and agree with the documented findings with the few additional points. In brief, patient is admitted for persistent left lower extremity cellulitis with anterior knee abscess status post anterior ACL repair in the past. Orthopedic surgeon Dr. Alvarez consulted. Patient had incision and drainage with 1 cm of incision wound was packed with iodoform packing. His consult and procedure appreciated. Continue IV cefazolin I have discussed my assessment with Pari IVEY and orders have been reviewed. Code Visit Inpatient E&M: 59178 Subs Hosp L2
[2018-01-27] MEDS: Ibuprofen 600 MG Tablet PO ×2 (12:31→18:46)
[2018-01-27 15:13] VITALS: BP 141/83; PULSE 85; RESP 18; TEMP 36.6; O2SAT 96
[2018-01-27 20:47] VITALS: BP 120/82; PULSE 77; RESP 16; TEMP 36.7; O2SAT 96
[2018-01-27] MEDS: lamoTRIgine 150 MG Tablet PO (21:51)
[2018-01-28 03:00] VITALS: BP 138/79; PULSE 79; RESP 16; TEMP 36.6; O2SAT 96
[2018-01-28] MEDS: Cefazolin 1 GM/50 ML BAG IV ×3 (05:52→21:24)
[2018-01-28] MEDS: Ibuprofen 600 MG Tablet PO ×3 (05:54→21:24)
[2018-01-28 09:05] VITALS: BP 124/80; PULSE 74; RESP 18; TEMP 36.4; O2SAT 95
[2018-01-28] MEDS: RisperiDONE 0.25 MG Tablet PO ×2 (09:10→21:24)
--- NOTE | 2018-01-28 09:40 | PCM.PROGNOTE ---
<Pari Gomez - Last Filed: 01/28/18 09:44> Subjective: Patient seen and examined. States swelling and redness of left lower extremity has improved. Denies fever, chills. Complains of minimal left knee pain, mildly worse during ambulation. States his pain is adequately controlled with Motrin. Denies other current complaints. - Physical Exam General: Alert, Oriented x3, Cooperative HEENT: Atraumatic, PERRLA, EOMI, Normocephalic Neck: Supple, No JVD, Negative Carotid Bruits Lungs: Clear to auscultation, Normal air movement Cardiovascular: Regular rate, Regular Rhythm, Normal S1, Normal S2, No murmurs Abdomen: Bowel Sounds Present, Soft, Non Tender, Non-Distended Extremities: No clubbing, No cyanosis, Capillary Refill Less than 3 Seconds, Edema - Nonpitting, left lower extremity Skin: - - Left lower extremity erythema and edema improved. Left knee dressing clean dry and intact. Musculoskeletal: No Tenderness to Palpation of Joints or Extremities Neurological: Cranial nerves II-XII grossly intact, Neuro grossly intact Psych/Mental Status: Normal Affect, Appropriate Vital Signs Temp Pulse Resp BP Pulse Ox 97.6 F L 74 18 124/80 H 95 01/28/18 09:05 01/28/18 09:05 01/28/18 09:05 01/28/18 09:05 01/28/18 09:05 Oxygen Delivery Method Room Air Weight: 246 lb Body Mass Index (BMI) 34.2 Intake and Output for Last 24 Hours 01/26/18 01/27/18 01/28/18 23:59 23:59 23:59 Intake Total 1444 / 1444 1450 / 1450 832 / 832 Balance 1444 / 1444 1450 / 1450 832 / 832 Medical Necessity - Tobacco Use Smoking Status: Former smoker Assessment/Plan All Active Problems Left leg cellulitis (Acute) Cellulitis of left knee (Acute) 1. Persistent left lower extremity MSSA cellulitis, anterior knee abscess-previous I&D 01/23/2018 with scant amount of aspiration. Positive for MSSA. MRSA PCR negative. Continue IV cefazolin. Consult ID given recurrent failed outpatient oral regimen. Ultrasound left lower extremity negative for DVT. Keep leg elevated. Ortho consulted. Anterior knee abscess decompressed by Dr. Alvarez 01/27/18. Wound RN consulted. Patient will need twice daily packing to the wound. Significant amount of purulent fluid was noted to be drained from the abscess. Patient may require further surgical debridement. Ortho to assess again in a.m. 2. Bipolar disorder-continue home risperidone and lamotrigine regimen. DVT prophylaxis-Lovenox subcu. This patient was seen by ELZBIETA Montague under the supervision of Dr. Conte. <Chidi Conte - Last Filed: 01/28/18 11:23> Subjective: Patient had incision and drainage by Dr. Alvarez yesterday. Left knee swelling and pain has improved after I and D. Erythema and induration of left lower extremity has also improved - Physical Exam General: Alert, Oriented x3, Cooperative HEENT: Atraumatic, PERRLA, EOMI, Normocephalic Neck: Supple, No JVD, Negative Carotid Bruits Lungs: Clear to auscultation, Normal air movement Cardiovascular: Regular rate, Regular Rhythm, Normal S1, Normal S2, No murmurs Abdomen: Bowel Sounds Present, Soft, Non Tender, Non-Distended Extremities: No edema, Capillary Refill Less than 3 Seconds, Edema Skin: No rashes, No breakdown, - Musculoskeletal: No Tenderness to Palpation of Joints or Extremities Neurological: Cranial nerves II-XII grossly intact Psych/Mental Status: Normal Affect, Appropriate Vital Signs Temp Pulse Resp BP Pulse Ox 97.6 F L 74 18 124/80 H 95 01/28/18 09:05 01/28/18 09:05 01/28/18 09:05 01/28/18 09:05 01/28/18 09:05 Oxygen Delivery Method Room Air Weight: 246 lb Body Mass Index (BMI) 34.2 Intake and Output for Last 24 Hours 01/26/18 01/27/18 01/28/18 23:59 23:59 23:59 Intake Total 1444 / 1444 1450 / 1450 832 / 832 Balance 1444 / 1444 1450 / 1450 832 / 832 Assessment/Plan This patient was seen in conjunction with Pari IVEY. I have independently interviewed and examined the patient and reviewed pertinent history, examination findings, laboratory and plan of management. I have reviewed the note and agree with the documented findings with the few additional points. In brief, patient is admitted for persistent left lower extremity emesis cellulitis with anterior knee abscess which has much improved after incision and drainage yesterday. I think it was persistent cellulitis with intermittent fever because of inadequate drainage of anterior left knee abscess. Dr. Alvarez on to assist tomorrow and then further decide about discharge. I have discussed my assessment with PRODUCE SORTERPari and orders have been reviewed. Code Visit Inpatient E&M: 06928 Subs Hosp L2
--- NOTE | 2018-01-28 12:41 | PCM.PN.BLA ---
Progress Note S: Patient is doing well today. His pain is decreased. No purulent drainage today. Packing was pulled prior to my examination today. Erythematous essentially gone. Increased range of motion without pain. Objective: Small 1 cm incision over the front of the knee. Packing was removed. Cannot express any purulence today. Patient did have some local bleeding. Otherwise neurovascular intact. No pain with short arc range of motion of the knee. Assessment: L Anterior knee abscess decompressed yesterday. 1. Antibiotics per infectious disease service. 2. Abscess was decompressed at the bedside yesterday. Patient is feeling much better. He is currently packing the wound twice a day. On discharge he can pack the wound once a day. He was educated on appropriate packing of the wound. 3. Follow-up in office in 1 week 4. Disposition: Per primary service from orthopedic standpoint patient is doing well as soon as an antibiotic regimen is solidified patient should be able to be discharged home. [facility] Office:
[2018-01-28] MEDS: 0.9% NaCl Peripheral Flush Adult/Peds IV (13:59)
[2018-01-28 15:12] VITALS: BP 121/78; PULSE 83; RESP 18; TEMP 36.8; O2SAT 97
[2018-01-28 21:00] VITALS: BP 139/83; PULSE 77; RESP 16; TEMP 36.6; O2SAT 99
[2018-01-28] MEDS: lamoTRIgine 150 MG Tablet PO (21:24)
[2018-01-28] MEDS: oxyCODONE 5 MG Tablet 10 MG PO (23:29)
[2018-01-29 03:00] VITALS: BP 130/86; PULSE 78; RESP 16; TEMP 36.7; O2SAT 98
[2018-01-29] MEDS: Cefazolin 1 GM/50 ML BAG IV ×2 (06:27→12:13)
[2018-01-29 10:00] VITALS: BP 125/88; PULSE 73; RESP 14; TEMP 36.7; O2SAT 95
[2018-01-29] MEDS: Ibuprofen 600 MG Tablet PO (10:12)
[2018-01-29] MEDS: RisperiDONE 0.25 MG Tablet PO (10:13)
--- NOTE | 2018-01-29 10:30 | PCM.DC ---
You will use the following diet at home:: No restrictions Discharge Activity: Return to Normal Activity, - - Keep left lower extremity elevated as much as possible. Call your doctor if your incision/area has: Continuous Slow Oozing, Increased Pain/ Swelling, Increased Redness, Foul Smelling Discharge Call your doctor if you observe: Fever of 101 or Higher, Calf discomfort, Uncontrolled pain Additional Instructions: You will need to pack left knee wound once daily. Keep wrapped with clean, dry dressing. Allergies/Adverse Reactions: Allergies lactose Adverse Reaction (Verified 01/26/18 16:30) Nausea/Vom/Diarrhea Medications to take at Discharge Lamotrigine [Lamictal] 150 mg PO QHS 09/09/17 Naproxen Sodium [Aleve] 220 mg PO Q12H PRN PRN 09/09/17 Cholecalciferol (Vitamin D3) [Vitamin D3] 5,000 unit PO DAILY 09/15/17 Risperidone [Risperdal] 0.25 mg PO BID 09/15/17 Fexofenadine/Pseudoephedrine [Afia-D 24 Hour Tablet] 1 each PO DAILY 01/22/18 Magnesium 175 mg PO BID 01/22/18 Lactobacillus Combination No.4 [Probiotic] 1 each PO BID 01/26/18 Multivitamin [Daily Multiple Vitamin] 1 each PO DAILY 01/26/18 Cephalexin [Keflex] 500 mg PO Q8 #21 cap 01/29/18 The following prescriptions were given: Cephalexin [Keflex] 500 mg PO Q8 #21 cap Primary Care Physician: Viry Leyva DO [Primary Care Provider] - Please follow up with your Primary Care Physician in: 1 Week Test Results: Test results from this visit will be discussed in further detail at your follow-up appointment, if applicable. Please Follow Up With: Juan Pablo Alvarez MD When: 1 Week Proposed Discharge Date: 01/29/18
--- NOTE | 2018-01-29 10:38 | PCM.DC.SUM ---
<Pari Gomez - Last Filed: 01/29/18 11:00> Discharge Date and Diagnosis Date of Admission: 01/26/18 Date of Discharge: 01/29/18 - Primary Discharge Diagnosis 1. Persistent left lower extremity MSSA cellulitis with anterior knee abscess - Secondary Discharge Diagnosis Bipolar disorder Hospital Course and Treatment Imaging Results: Diagnostic Data Knee X-Ray 01/27/18 08:45 IMPRESSION: Soft tissue edema along the anterior knee. No soft tissue gas. Postoperative changes of ACL repair. Electronically Signed: Jerry DO Jason at 9:00 EDT Tel , Service support , Consultations 01/27/18 10:15 Consult: Onc/Wound/breast buffer Routine Comment: Reason for Consult:: left knee wound Comments:: bid iodoform packing changes Dr. Gaona- ID Dr. Alvarez- Ortho Operations: None Procedures: None Summary of Care Provided: The patient is a 47 year old M admitted 01/26/2018 due to increased left lower extremity redness and swelling. He was discharged prior 01/25/2018 where he was treated for left knee and left lower extremity cellulitis. 1. Persistent left lower extremity MSSA cellulitis, anterior knee abscess-previous I&D 01/23/2018 with scant amount of aspiration. Positive for MSSA. MRSA PCR negative. Dr. Alvarez consulted. Abscess decompressed 01/27/[address] Alvarez with large amount of drainage. No further drainage upon reassessment. Patient will pack wound once daily. Follow-up with Dr. Alvarez in 1 week. Infectious disease consulted who recommends Keflex 500 mg 3 times daily for 1 week. ID does not feel patient previously failed oral outpatient antibiotic therapy, rather patient needed source control with decompression of abscess. Ultrasound left lower extremity negative for DVT. Patient instructed to keep left lower extremity elevated as much as possible. 2. Bipolar disorder-continue home risperidone and lamotrigine regimen. General: Alert, Oriented x3, Cooperative HEENT: Atraumatic, PERRLA, EOMI, Normocephalic Neck: Supple, No JVD, Negative Carotid Bruits Lungs: Clear to auscultation, Normal air movement Cardiovascular: Regular rate, Regular Rhythm, Normal S1, Normal S2, No murmurs Abdomen: Bowel Sounds Present, Soft, Non Tender, Non-Distended Extremities: No clubbing, No cyanosis, Capillary Refill Less than 3 Seconds, Edema - Nonpitting, left lower extremity Skin: - - Left lower extremity erythema and edema improved. Left knee dressing clean dry and intact. Musculoskeletal: No Tenderness to Palpation of Joints or Extremities Neurological: Cranial nerves II-XII grossly intact, Neuro grossly intact Psych/Mental Status: Normal Affect, Appropriate Patient seen and examined prior to discharge. Physical examination as noted above. Patient stable for discharge home with the follow-up her conditions as noted above. This patient was seen by ELZBIETA Montague under the supervision of Dr. Choudhary. Discharge Diet: No Restrictions Discharge Activity: Return to Normal Activity, - - Keep left lower extremity elevated as much as possible. Call your doctor if your incision/area has: Continuous Slow Oozing, Increased Pain/ Swelling, Increased Redness, Foul Smelling Discharge Call your doctor if you observe: Fever of 101 or Higher, Calf discomfort, Uncontrolled pain Home Medications: Medications to take at Discharge Lamotrigine [Lamictal] 150 mg PO QHS 09/09/17 Naproxen Sodium [Aleve] 220 mg PO Q12H PRN PRN 09/09/17 Cholecalciferol (Vitamin D3) [Vitamin D3] 5,000 unit PO DAILY 09/15/17 Risperidone [Risperdal] 0.25 mg PO BID 09/15/17 Fexofenadine/Pseudoephedrine [Afia-D 24 Hour Tablet] 1 each PO DAILY 01/22/18 Magnesium 175 mg PO BID 01/22/18 Lactobacillus Combination No.4 [Probiotic] 1 each PO BID 01/26/18 Multivitamin [Daily Multiple Vitamin] 1 each PO DAILY 01/26/18 Cephalexin [Keflex] 500 mg PO Q8 #21 cap 01/29/18 Following Prescrptions Were Given to Patient: Cephalexin [Keflex] 500 mg PO Q8 #21 cap Primary Care Physician: Viry Leyva DO [Primary Care Provider] - Please follow up with your Primary Care Physician in: 1 Week Please Follow Up With: Juan Pablo Alvarez MD When: 1 Week Disposition: Home Minutes spent on discharge:: 35 Patient Condition:: Stable Medical Necessity - Tobacco Use Smoking Status: Former smoker Meaningful Use Info Meaningful Use Diagnoses (Choose all that apply): None applicable <Simone Choudhary - Last Filed: 01/29/18 11:53> Discharge Date and Diagnosis - Primary Discharge Diagnosis Active and Suspected Problems MSSA (methicillin susceptible Staphylococcus aureus) infection (Acute) Hospital Course and Treatment Consultations 01/27/18 10:15 Consult: Onc/Wound/breast buffer Routine Comment: Reason for Consult:: left knee wound Comments:: bid iodoform packing changes Operations: None Procedures: None Summary of Care Provided: Patient seen and examined independently. Data reviewed. I agree with the above note by the nurse practitioner. The patient is a 47 year old M presents with abscess of the anterior left knee. This is related with cellulitis. Patient did have a previous I&D but only had involvement of an abscess subsequently. Patient had incision and drainage performed by Dr. Carlson. Patient was on cefazolin lives here in his cellulitis has improved. Patient will follow up with orthopedics as outpatient. Patient was seen infection by infectious disease who verify the patient will not require any additional antibiotics and for the patient to continue with his Keflex. Patient does endorse that he was scratching and itching his knee prior to development of this. Explained that that was likely the etiology of this with a dry skin on his knee. [] Discharge Diet: No Restrictions Discharge Activity: Return to Normal Activity, - Call your doctor if your incision/area has: Continuous Slow Oozing, Increased Pain/ Swelling, Increased Redness, Foul Smelling Discharge Call your doctor if you observe: Fever of 101 or Higher, Calf discomfort, Uncontrolled pain Disposition: Home Minutes spent on discharge:: 35 Patient Condition:: Stable Meaningful Use Info Meaningful Use Diagnoses (Choose all that apply): None applicable Code Visit Inpatient E&M: 04148 Disch Hosp
--- NOTE | 2018-01-29 11:41 | PCM.HP.ID ---
Problem List (1) MSSA (methicillin susceptible Staphylococcus aureus) infection Status: Acute Reason for Consult: mssa Consulted by: Dr. Choudhary History of Present Illness: The patient is a 47 year old M who presented with worsening L knee swelling, pain, redness. Sx started about a 2 weeks ago with picking at callus on L knee. Developed small pustule, popped it, had acute pain/redness/swelling. Saw PCP, referred to ortho. Got started on keflex/bactrim around 01/20, improvement briefly, then worsened, admitted to [facility] 01/22. Small amount of pus was able to be drained with needle, cx (+) mssa on 01/22. D/c home on keflex. Again, brief improvement, then worsened. Came back 01/26, had larger incision done by Dr. Alvarez, large amount of pus drained, packing placed. Now on ancef. Feeling much better. Full ROS Performed and neg except as noted above. - Medical History Allergies/Adverse Reactions: Allergies lactose Adverse Reaction (Verified 01/26/18 16:30) Nausea/Vom/Diarrhea Home Medications: Ambulatory Orders Medication Instructions Recorded Lamotrigine [Lamictal] 150 mg PO QHS 09/09/17 Naproxen Sodium [Aleve] 220 mg PO Q12H PRN PRN 09/09/17 Cholecalciferol (Vitamin D3) 5,000 unit PO DAILY 09/15/17 [Vitamin D3] Risperidone [Risperdal] 0.25 mg PO BID 09/15/17 Fexofenadine/Pseudoephedrine 1 each PO DAILY 01/22/18 [Afia-D 24 Hour Tablet] Magnesium 175 mg PO BID 01/22/18 Lactobacillus Combination No.4 1 each PO BID 01/26/18 [Probiotic] Multivitamin [Daily Multiple 1 each PO DAILY 01/26/18 Vitamin] Cephalexin [Keflex] 500 mg PO Q8 #21 cap 01/29/18 - Social History SMOKING STATUS:: Former smoker Vital Signs Temp Pulse Resp BP Pulse Ox 98.0 F 73 14 125/88 H 95 01/29/18 10:00 01/29/18 10:00 01/29/18 10:00 01/29/18 10:00 01/29/18 10:00 Oxygen Delivery Method Room Air Weight: 111.584 kg Body Mass Index (BMI) 34.2 - Other Studies Radiology: [] reviewed Other Studies: [] Route of nutrition/ use of supplements: [] Nutritional Intake: [] IV Site: [] Rees Catheter: [] - Physical Exam General: Alert, Oriented x3, Cooperative, No apparent distress HEENT: Atraumatic, PERRLA, EOMI Neck: Supple, No Nodes Lungs: Clear to auscultation, Normal air movement Cardiovascular: Regular rate, Regular Rhythm, No murmurs Abdomen: Soft, Non Tender, Non-Distended Extremities: No edema Skin: No rashes, Incision - small wound with packing in place over L patella. No redness, minimal fluctuance. IV Site: Peripheral, without redness Musculoskeletal: No Tenderness to Palpation of Joints or Extremities Neurological: Cranial nerves II-XII grossly intact - Assessment/Plan Antibiotics: [] Assessment/Plan: [] L superficial patella mssa abscess - now much improved s/p I&D at bedside by Dr. Alvarez. Ok for d/c home on po keflex for one more week and ortho follow-up. D/w primary team, thank you.
[2018-01-29] MEDS: 0.9% NaCl Peripheral Flush Adult/Peds IV (12:13)
[2018-01-29 12:15] VITALS: BP 122/85; PULSE 69; RESP 14; TEMP 36.6; O2SAT 97
== END 2018-01-29 13:11 | disposition home or self-care (01) | DRG 581 ==
LOC: ED 17:03 → MS3 17:22
PROVIDERS: Nurse Practitioner Family; Admitting Provider Internal Medicine; Emergency Provider Emergency Medicine; PCP Internal Medicine
DX: L02.416 Cutaneous abscess of left lower limb (principal); L03.116 Cellulitis of left lower limb; F31.9 Bipolar disorder, unspecified; B95.61 Methicillin susceptible Staphylococcus aureus infection as the cause of diseases classified elsewhere
CPT/HCPCS: 73562; 80048; 83036; 85027; 85652; 86140; 93970; 99281; J7040; A4216

== ENCOUNTER → 2018-01-31 10:49 | Outpatient (CLI) | payer OTHER, SELFPAY | PROVIDERS: Family Provider Internal Medicine; PCP Internal Medicine; Visit Provider Nurse Practitioner | DX: M79.672 Pain in left foot (principal) | CPT/HCPCS: 73630 ==

== ENCOUNTER 2018-03-08 13:00 | Outpatient (RCR) | payer OTHER, SELFPAY ==
[2018-02-15 14:06] VITALS: BP 155/93; PULSE 95; RESP 18; TEMP 36.6
--- NOTE | 2018-02-15 17:48 | PCM.WC.HP ---
(1) Ulcer of left knee Status: Acute Current Visit: Yes Qualifiers: Non-pressure ulcer stage: with fat layer exposed Qualified Code(s): L97.822 - Non-pressure chronic ulcer of other part of left lower leg with fat layer exposed Code(s): L97.829 - Non-pressure chronic ulcer of other part of left lower leg with unspecified severity (2) Cellulitis of left knee Status: Acute Current Visit: No Code(s): L03.116 - Cellulitis of left lower limb (3) MSSA (methicillin susceptible Staphylococcus aureus) infection Status: Acute Current Visit: No Code(s): A49.01 - Methicillin susceptible Staphylococcus aureus infection, unspecified site History of Present Illness Date of Service: 02/15/18 Chief Complaint: Nonhealing ulcer left knee status post abscess drainage History of Wound: This is a 47-year-old white male who presents to the wound healing center today with complaints of nonhealing ulcer to the left knee status post abscess drainage. This initially started as a callus on his left knee which she scratched and then turned into an abscess. He does have a past medical history which is significant for that of bipolar disorder. The patient presented to an urgent care on 01/20 and was placed on Keflex and Bactrim and noted an improvement and then worsened and went to [facility] ER on 01/22 was admitted until 01/25 and was discharged home. Culture at that time showed MSSA on 01/22/2018. The patient presented again to [facility] on 01/26 and had a larger incision done by Dr. Alvarez and a large amount of pus was drained and packing was placed and the patient was discharged on 01/29/2018 home on Keflex after being seen by infectious disease, which he has since completed. The patient states that he denies any purulent drainage, however there is some serous drainage coming from the opening. He does note that his left lower extremity is somewhat swollen and that he occasionally has numbness and tingling down the left side of his leg to his left foot. He denies any fever, chills, or systemic signs of infection at this time. He has been packing the site with iodoform gauze daily. The patient otherwise denies any fever, chills, nausea, vomiting, shortness of breath, chest pain or pressure, palpitations, orthopnea, lower extremity edema, syncope or presyncopal episodes. Past Medical History Surgical History: arthroscopy, knee - Patient had ACL reconstructive surgery, hernia surgery, bilateral carpal tunnel release surgery, biceps repair bilaterally, - - Umbilical hernia repair, bilateral bicep tendon repair, left ACL repair. Allergies/Adverse Reactions: Allergies lactose Adverse Reaction (Verified 01/26/18 16:30) Nausea/Vom/Diarrhea Home Medications: Ambulatory Orders Medication Instructions Recorded Lamotrigine [Lamictal] 150 mg PO QHS 09/09/17 Cholecalciferol (Vitamin D3) 5,000 unit PO DAILY 09/15/17 [Vitamin D3] Risperidone [Risperdal] 0.25 mg PO BID 09/15/17 Fexofenadine/Pseudoephedrine 1 each PO DAILY 01/22/18 [Afia-D 24 Hour Tablet] Magnesium 175 mg PO BID 01/22/18 Lactobacillus Combination No.4 1 each PO BID 01/26/18 [Probiotic] Multivitamin [Daily Multiple 1 each PO DAILY 01/26/18 Vitamin] B Complex with Vitamin C 1 each PO CONT 02/15/18 [B-Complex Plus Vitamin C] Ibuprofen [Motrin] 600 mg PO Q6H PRN PRN 02/15/18 - Family History Maternal Hypertension, - - Lupus Paternal Diabetes, - - Arthritis Smoking Status: Former smoker Review of Systems Constitutional: Denies: Chills, Fever, Weight Change Eyes: Denies: Pain, Vision Change HEENT: Denies: Difficulty Hearing, Difficulty Swallowing, Sinus Congestion Cardiovascular: Reports: Edema - See HPI. Denies: Chest Pain, Palpitations Respiratory: Denies: Cough, Shortness of Breath Gastrointestinal: Denies: Diarrhea, Nausea, Vomiting Genitourinary: Denies: Dysuria, Hematuria Skin: Reports: Wounds - See HPI Endocrine: Denies: Heat/ Cold Intolerance, Polydipsia, Polyuria Hematologic/ Lymphatic: Denies: Easy Bruising, Easy Bleeding - Physical Exam Vital Signs Temp Pulse Resp BP 98 F 95 18 155/93 H 02/15/18 14:06 02/15/18 14:06 02/15/18 14:06 02/15/18 14:06 General: Alert, Oriented x3, Cooperative, No apparent distress HEENT: PERRLA, EOMI Neck: Supple, No JVD, Negative Carotid Bruits Lungs: Clear to auscultation, Normal air movement, No rhonchi, No wheeze, No rales Cardiovascular: Regular rate, Regular Rhythm Abdomen: Bowel Sounds Present, Soft, Non Tender Extremities: Capillary Refill Less than 3 Seconds, Edema - 1+ nonpitting edema left lower extremity Skin: Ulcer/ Wound - Small open ulceration status post abscess I&D left knee, no purulent exudate noted, there is some slough around wound edges, site does tunnel as documented. No erythema, no warmth, or no tenderness to exam. No signs of local or systemic infection at this time. Wound Measurements and Assessment WC - Nurse 1 - General Ulcer Measurement Start: 02/15/18 14:06 Freq: Status: Active Protocol: Activity Type Activity Date Activity User E-Sign Co-Sign Detail Recorded Client Recorded Date Recorded By Document 02/15/18 14:06 SELMA [id number] 02/15/18 14:15 SELMA 02/15/18 14:06 Wound Center Nurse 1 [Ulcer Assessment] 1. L knee -Combined with other wound No -Current Size (cm) - Length 0.5 -Current Size (cm) - Width 0.3 -Current Size (cm) - Depth 0.9 -Total Square Cm 0.15 -Photo Taken Yes -Tunneling No -Undermining/Tunneling Yes -Undermining/Tunneling Starts (O' 4 clock) -Undermining/Tunneling Ends (O'clock) 7 -Maximum Distance (cm) 1.4 -Circular Undermining No -Classification - Thickness Full Thickness without Exposed Support Structure -Exudate Amt Small (1-33%) -Exudate Type Serosanguineous -Wound Margin Distinct, Outline Attached -Granulation Amt Large (67-100%) -Granulation Quality [place] -Slough/Fibrin Yes -Necrosis Amt Small (1-33%) -Necrotic Tissue Type Adherent Slough -Structure Exposed N/A -Texture (Renu-wound Skin Appearance) Assessed -Moisture (Renu-wound Skin Appearance Assessed ) -Color (Renu-wound Skin Appearance) Assessed -Temperature (Renu-wound Skin No Abnormality Appearance) (Pt Warm) -Tenderness on Palpation (Renu-wound No Skin Appearance) -Ulcer Cleansing Rinsed/ Irrigated with Saline -Foul Odor after Cleansing No -Anesthetic Used 4% Lidocaine Solution [Edema Assessment] -Lower Limb Edema Present Yes -Right Calf (cm) 43.7 -Right Ankle (cm) 26 -Left Calf (cm) 43.7 -Left Ankle (cm) 26 WC - Nurse 2 - General Ulcer CM Notes Start: 02/15/18 14:06 Freq: Status: Active Protocol: Activity Type Activity Date Activity User E-Sign Co-Sign Detail Recorded Client Recorded Date Recorded By Document 02/15/18 15:04 [id number] 02/15/18 15:05 02/15/18 15:04 Wound Center Nurse 2 [Procedure/Treatment] 1. L knee -Time 15:04 -Correct Patient Yes -Correct Side, Site, Position Yes -Correct Procedure Yes -Procedure Performed Yes -Type of Procedure Debridement -Clinical Debridement Subcutaneous -Post Debridement Size (cm) - Length 0.4 -Post Debridement Size (cm) - Width 0.4 -Post Debridement Size (cm) - Depth 0.6 -Total Square Cm 0.16 -Wound/Ulcer Outcome Not Healed -Ulcer Cleansing Rinsed/ Irrigated with Saline -Foul Odor after Cleansing No -Bioengineered Tissue No -Topical Lidocaine (%) 4 -Lidocaine (ml) 5 -Bleeding Controlled with NA -Treatment Response Procedure Tolerated Well [See Physician Procedure note for Specifics] Pain Scale: 0-10 Numeric [Pain] -Is Patient Pain Free? Yes Musculoskeletal: No Tenderness to Palpation of Joints or Extremities, No Muscle Wasting Lymphatic: No Cervical, Supraclavicular, or Inguinal Adenopathy Neurological: Neuro grossly intact Psych/Mental Status: Normal Affect, Appropriate, Alert and oriented to time, place, person, mood and affect Debridement Note Post-Debridement Measurements/Treatment WC - Nurse 2 - General Ulcer CM Notes Start: 02/15/18 14:06 Freq: Status: Active Protocol: Activity Type Activity Date Activity User E-Sign Co-Sign Detail Recorded Client Recorded Date Recorded By Document 02/15/18 15:04 [id number] 02/15/18 15:05 02/15/18 15:04 Wound Center Nurse 2 1. L knee -Time 15:04 -Correct Patient Yes -Correct Side, Site, Position Yes -Correct Procedure Yes -Procedure Performed Yes -Type of Procedure Debridement -Clinical Debridement Subcutaneous -Post Debridement Size (cm) - Length 0.4 -Post Debridement Size (cm) - Width 0.4 -Post Debridement Size (cm) - Depth 0.6 -Total Square Cm 0.16 -Wound/Ulcer Outcome Not Healed -Ulcer Cleansing Rinsed/ Irrigated with Saline -Foul Odor after Cleansing No -Bioengineered Tissue No -Topical Lidocaine (%) 4 -Lidocaine (ml) 5 -Bleeding Controlled with NA -Treatment Response Procedure Tolerated Well Pain Scale: 0-10 Numeric Is Patient Pain Free? Yes Wound debrided: Left knee ulceration status post abscess I&D Laterality: Left Type of Debridement: Excisional debridement Anesthesia Used: 4% Lidocaine Solution Depth: in the subcutaneous layer Percentage of wound debrided: 100 Instrument Used: 3mm curette Tissue Removed: Slough and devitalized tissue Severity: Fat Layer Exposed Amount of bleeding with debridement: Mild Bleeding Controlled with: Pressure Patient tolerated procedure well Assessment/Plan Active Problems Ulcer of left knee (Acute) Assessment: See above diagnoses Plan: The patient was seen and examined at the wound center today and was updated on the plan of care. A subcutaneous debridement was performed today. The patient tolerated the procedure well. The patients wound care will consist of: Continuing packing with iodoform gauze and daily chlorhexidine rinses. For edema management Zain wrap at this time. Continue to monitor for signs and symptoms of infection, likely no cellulitis at this time. Wound cultures were collected. Baseline bloodwork reviewed. Patient educated on the importance of diet on wound healing and instructed to increase protein and vitamin C intake. Patient verbalized understanding. Patient will follow up at wound healing center in one week or sooner if needed. Will apply for snap vac if no infection is present given depth and tunneling. This note was generated with [employer] dictation software. It may contain incorrect words, spelling, and punctuation that were not noted in checking the note before signing. Code Visit Office Visits / Consults: [id number] OV L4 Est 111xxx-113xx: [id number] Heidi subq tissue 20 sq cm/<
[2018-02-22 13:44] VITALS: RESP 16; TEMP 35.7
--- NOTE | 2018-02-22 15:19 | PCM.WC.PN ---
(1) Ulcer of left knee Status: Acute Current Visit: Yes Qualifiers: Non-pressure ulcer stage: with fat layer exposed Qualified Code(s): L97.822 - Non-pressure chronic ulcer of other part of left lower leg with fat layer exposed Code(s): L97.829 - Non-pressure chronic ulcer of other part of left lower leg with unspecified severity (2) Cellulitis of left knee Status: Acute Current Visit: No Code(s): L03.116 - Cellulitis of left lower limb (3) MSSA (methicillin susceptible Staphylococcus aureus) infection Status: Acute Current Visit: No Code(s): A49.01 - Methicillin susceptible Staphylococcus aureus infection, unspecified site Type of Wound Date of Service: 02/22/18 Chief Complaint: Nonhealing ulcer left knee status post abscess drainage History of Wound: This is a 47-year-old white male who presents to the wound healing center today with complaints of nonhealing ulcer to the left knee status post abscess drainage. This initially started as a callus on his left knee which she scratched and then turned into an abscess. He does have a past medical history which is significant for that of bipolar disorder. The patient presented to an urgent care on 01/20 and was placed on Keflex and Bactrim and noted an improvement and then worsened and went to [facility] ER on 01/22 was admitted until 01/25 and was discharged home. Culture at that time showed MSSA on 01/22/2018. The patient presented again to [facility] on 01/26 and had a larger incision done by Dr. Alvarez and a large amount of pus was drained and packing was placed and the patient was discharged on 01/29/2018 home on Keflex after being seen by infectious disease, which he has since completed. The patient states that he denies any purulent drainage, however there is some serous drainage coming from the opening. He does note that his left lower extremity is somewhat swollen and that he occasionally has numbness and tingling down the left side of his leg to his left foot. He denies any fever, chills, or systemic signs of infection at this time. He has been packing the site with iodoform gauze daily. The patient otherwise denies any fever, chills, nausea, vomiting, shortness of breath, chest pain or pressure, palpitations, orthopnea, lower extremity edema, syncope or presyncopal episodes. Progress of Wound: Pt notes improvement of not having to utilize as much iodoform gauze packing. He denies any purulent drainage or signs of infection at this time. He does note small serous drainage at times. Denies any redness or streaking. - Physical Exam Vital Signs Temp Pulse Resp BP 96.2 F L 95 16 155/93 H 02/22/18 13:44 02/15/18 14:06 02/22/18 13:44 02/15/18 14:06 General: Alert, Oriented x3, Cooperative, No apparent distress HEENT: Atraumatic Cardiovascular: Regular rate Extremities: No clubbing, No cyanosis, Edema - Left lower ext edema Skin: Ulcer/ Wound - small ulceration as documented above noted left knee, no erythema or drainage on exam. No pain on palpation. Undermining and tunneling present Wound Measurements and Assessment WC - Nurse 1 - General Ulcer Measurement Start: 02/15/18 14:06 Freq: Status: Active Protocol: Activity Type Activity Date Activity User E-Sign Co-Sign Detail Recorded Client Recorded Date Recorded By Document 02/22/18 13:44 [facility] [id number] 02/22/18 13:51 [facility] 02/22/18 13:44 Wound Center Nurse 1 [Ulcer Assessment] 1. L knee -Combined with other wound No -Current Size (cm) - Length 0.4 -Current Size (cm) - Width 0.3 -Current Size (cm) - Depth 0.3 -Total Square Cm 0.12 -Photo Taken No -Epithelialization None Present -Tunneling No -Undermining/Tunneling Yes -Undermining/Tunneling Starts (O' 12 clock) -Undermining/Tunneling Ends (O'clock) 12 -Maximum Distance (cm) 0.7 -Circular Undermining Yes -Exudate Amt Small (1-33%) -Exudate Type Serosanguineous -Wound Margin Distinct, Outline Attached -Granulation Amt Large (67-100%) -Granulation Quality Red -Slough/Fibrin No -Necrosis Amt None Present (0 %) -Texture (Renu-wound Skin Appearance) Scarring -Moisture (Renu-wound Skin Appearance Dry/Scaly ) -Color (Renu-wound Skin Appearance) Ecchymosis -Temperature (Renu-wound Skin No Abnormality Appearance) (Pt Warm) -Tenderness on Palpation (Renu-wound No Skin Appearance) -Ulcer Cleansing Rinsed/ Irrigated with Saline -Foul Odor after Cleansing No -Anesthetic Used 5% Lidocaine Gel WC - Nurse 2 - General Ulcer CM Notes Start: 02/15/18 14:06 Freq: Status: Active Protocol: Activity Type Activity Date Activity User E-Sign Co-Sign Detail Recorded Client Recorded Date Recorded By Document 02/22/18 14:09 [id number] 02/22/18 14:10 02/22/18 14:09 Wound Center Nurse 2 [Procedure/Treatment] -Time 14:09 -Correct Patient Yes -Correct Side, Site, Position Yes -Correct Procedure Yes -Procedure Performed Yes -Type of Procedure Debridement -Clinical Debridement Subcutaneous -Post Debridement Size (cm) - Length 0.5 -Post Debridement Size (cm) - Width 0.4 -Post Debridement Size (cm) - Depth 0.7 -Total Square Cm 0.20 -Wound/Ulcer Outcome Not Healed -Ulcer Cleansing Not Cleansed -Foul Odor after Cleansing No -Bioengineered Tissue No -Bleeding Controlled with NA -Treatment Response Procedure Tolerated Well [See Physician Procedure note for Specifics] Pain Scale: 0-10 Numeric [Pain] -Is Patient Pain Free? No Neurological: Neuro grossly intact Psych/Mental Status: Normal Affect, Appropriate, Alert and oriented to time, place, person, mood and affect Debridement Note Post-Debridement Measurements/Treatment - Nurse 2 - General Ulcer CM Notes Start: 02/15/18 14:06 Freq: Status: Active Protocol: Activity Type Activity Date Activity User E-Sign Co-Sign Detail Recorded Client Recorded Date Recorded By Document 02/15/18 15:04 [id number] 02/15/18 15:05 Document 02/22/18 14:09 [id number] 02/22/18 14:10 02/15/18 02/22/18 15:04 14:09 Wound Center Nurse 2 1. L knee -Time 15:04 14:09 -Correct Patient Yes Yes -Correct Side, Site, Position Yes Yes -Correct Procedure Yes Yes -Procedure Performed Yes Yes -Type of Procedure Debridement Debridement -Clinical Debridement Subcutaneous Subcutaneous -Post Debridement Size (cm) - Length 0.4 0.5 -Post Debridement Size (cm) - Width 0.4 0.4 -Post Debridement Size (cm) - Depth 0.6 0.7 -Total Square Cm 0.16 0.20 -Wound/Ulcer Outcome Not Healed Not Healed -Ulcer Cleansing Rinsed/ Not Cleansed Irrigated with Saline -Foul Odor after Cleansing No No -Bioengineered Tissue No No -Topical Lidocaine (%) 4 -Lidocaine (ml) 5 -Bleeding Controlled with NA NA -Treatment Response Procedure Procedure Tolerated Well Tolerated Well Pain Scale: 0-10 Numeric Is Patient Pain Free? Yes No Wound debrided: left knee ulcer Laterality: Left Type of Debridement: Excisional debridement Anesthesia Used: 5% Lidocaine Gel Depth: in the subcutaneous layer Percentage of wound debrided: 100 Instrument Used: 3mm curette Tissue Removed: slough and devitalized tissue Severity: Fat Layer Exposed Amount of bleeding with debridement: Mild Bleeding Controlled with: Pressure Patient tolerated procedure well Assessment/Plan Active Problems Ulcer of left knee (Acute) Assessment: See above diagnoses Plan: The patient was seen and examined at the wound center today and was updated on the plan of care. A subcutaneous debridement was performed today. The patient tolerated the procedure well. The patients wound care will consist of: Continuing packing with iodoform gauze and daily chlorhexidine rinses. For edema management Zain wrap at this time. Continue to monitor for signs and symptoms of infection, likely no cellulitis at this time. Wound cultures were collected and were negative. Baseline bloodwork reviewed. Patient educated on the importance of diet on wound healing and instructed to increase protein and vitamin C intake. Patient verbalized understanding. Given delayed wound healing, will apply for purapply and snap vac therapy. Patient will follow up at wound healing center in one week or sooner if needed. This note was generated with [employer] dictation software. It may contain incorrect words, spelling, and punctuation that were not noted in checking the note before signing. Code Visit 111xxx-113xx: [id number] Heidi subq tissue 20 sq cm/<
--- NOTE | 2018-02-23 15:26 | PN.PCM_ITS ---
(1) Ulcer of left knee Status: Acute Current Visit: Yes Qualifiers: Non-pressure ulcer stage: with fat layer exposed Qualified Code(s): L97.822 - Non-pressure chronic ulcer of other part of left lower leg with fat layer exposed Code(s): L97.829 - Non-pressure chronic ulcer of other part of left lower leg with unspecified severity (2) Cellulitis of left knee Status: Acute Current Visit: No Code(s): L03.116 - Cellulitis of left lower limb (3) MSSA (methicillin susceptible Staphylococcus aureus) infection Status: Acute Current Visit: No Code(s): A49.01 - Methicillin susceptible Staphylococcus aureus infection, unspecified site Type of Wound Date of Service: 02/22/18 Chief Complaint: Nonhealing ulcer left knee status post abscess drainage History of Wound: This is a 47-year-old white male who presents to the wound healing center today with complaints of nonhealing ulcer to the left knee status post abscess drainage. This initially started as a callus on his left knee which she scratched and then turned into an abscess. He does have a past medical history which is significant for that of bipolar disorder. The patient presented to an urgent care on 01/20 and was placed on Keflex and Bactrim and noted an improvement and then worsened and went to [facility] ER on 01/22 was admitted until 01/25 and was discharged home. Culture at that time showed MSSA on 01/22/2018. The patient presented again to [facility] on 01/26 and had a larger incision done by Dr. Alvarez and a large amount of pus was drained and packing was placed and the patient was discharged on 01/29/2018 home on Keflex after being seen by infectious disease, which he has since completed. The patient states that he denies any purulent drainage, however there is some serous drainage coming from the opening. He does note that his left lower extremity is somewhat swollen and that he occasionally has numbness and tingling down the left side of his leg to his left foot. He denies any fever, chills, or systemic signs of infection at this time. He has been packing the site with iodoform gauze daily. The patient otherwise denies any fever, chills, nausea, vomiting, shortness of breath, chest pain or pressure, palpitations, orthopnea, lower extremity edema, syncope or presyncopal episodes. Progress of Wound: Pt notes improvement of not having to utilize as much iodoform gauze packing. He denies any purulent drainage or signs of infection at this time. He does note small serous drainage at times. Denies any redness or streaking. - Physical Exam Vital Signs Temp Pulse Resp BP 96.2 F L 95 16 155/93 H 02/22/18 13:44 02/15/18 14:06 02/22/18 13:44 02/15/18 14:06 General: Alert, Oriented x3, Cooperative, No apparent distress HEENT: Atraumatic Cardiovascular: Regular rate Extremities: No clubbing, No cyanosis, Edema - Left lower ext edema Skin: Ulcer/ Wound - small ulceration as documented above noted left knee, no erythema or drainage on exam. No pain on palpation. Undermining and tunneling present Wound Measurements and Assessment WC - Nurse 1 - General Ulcer Measurement Start: 02/15/18 14:06 Freq: Status: Active Protocol: Activity Type Activity Date Activity User E-Sign Co-Sign Detail Recorded Client Recorded Date Recorded By Document 02/22/18 13:44 [facility] [id number] 02/22/18 13:51 [facility] 02/22/18 13:44 Wound Center Nurse 1 [Ulcer Assessment] 1. L knee -Combined with other wound No -Current Size (cm) - Length 0.4 -Current Size (cm) - Width 0.3 -Current Size (cm) - Depth 0.3 -Total Square Cm 0.12 -Photo Taken No -Epithelialization None Present -Tunneling No -Undermining/Tunneling Yes -Undermining/Tunneling Starts (O' 12 clock) -Undermining/Tunneling Ends (O'clock) 12 -Maximum Distance (cm) 0.7 -Circular Undermining Yes -Exudate Amt Small (1-33%) -Exudate Type Serosanguineous -Wound Margin Distinct, Outline Attached -Granulation Amt Large (67-100%) -Granulation Quality Red -Slough/Fibrin No -Necrosis Amt None Present (0 %) -Texture (Renu-wound Skin Appearance) Scarring -Moisture (Renu-wound Skin Appearance Dry/Scaly ) -Color (Renu-wound Skin Appearance) Ecchymosis -Temperature (Renu-wound Skin No Abnormality Appearance) (Pt Warm) -Tenderness on Palpation (Renu-wound No Skin Appearance) -Ulcer Cleansing Rinsed/ Irrigated with Saline -Foul Odor after Cleansing No -Anesthetic Used 5% Lidocaine Gel WC - Nurse 2 - General Ulcer CM Notes Start: 02/15/18 14:06 Freq: Status: Active Protocol: Activity Type Activity Date Activity User E-Sign Co-Sign Detail Recorded Client Recorded Date Recorded By Document 02/22/18 14:09 [id number] 02/22/18 14:10 02/22/18 14:09 Wound Center Nurse 2 [Procedure/Treatment] -Time 14:09 -Correct Patient Yes -Correct Side, Site, Position Yes -Correct Procedure Yes -Procedure Performed Yes -Type of Procedure Debridement -Clinical Debridement Subcutaneous -Post Debridement Size (cm) - Length 0.5 -Post Debridement Size (cm) - Width 0.4 -Post Debridement Size (cm) - Depth 0.7 -Total Square Cm 0.20 -Wound/Ulcer Outcome Not Healed -Ulcer Cleansing Not Cleansed -Foul Odor after Cleansing No -Bioengineered Tissue No -Bleeding Controlled with NA -Treatment Response Procedure Tolerated Well [See Physician Procedure note for Specifics] Pain Scale: 0-10 Numeric [Pain] -Is Patient Pain Free? No Neurological: Neuro grossly intact Psych/Mental Status: Normal Affect, Appropriate, Alert and oriented to time, place, person, mood and affect Debridement Note Post-Debridement Measurements/Treatment - Nurse 2 - General Ulcer CM Notes Start: 02/15/18 14:06 Freq: Status: Active Protocol: Activity Type Activity Date Activity User E-Sign Co-Sign Detail Recorded Client Recorded Date Recorded By Document 02/15/18 15:04 [id number] 02/15/18 15:05 Document 02/22/18 14:09 [id number] 02/22/18 14:10 02/15/18 02/22/18 15:04 14:09 Wound Center Nurse 2 1. L knee -Time 15:04 14:09 -Correct Patient Yes Yes -Correct Side, Site, Position Yes Yes -Correct Procedure Yes Yes -Procedure Performed Yes Yes -Type of Procedure Debridement Debridement -Clinical Debridement Subcutaneous Subcutaneous -Post Debridement Size (cm) - Length 0.4 0.5 -Post Debridement Size (cm) - Width 0.4 0.4 -Post Debridement Size (cm) - Depth 0.6 0.7 -Total Square Cm 0.16 0.20 -Wound/Ulcer Outcome Not Healed Not Healed -Ulcer Cleansing Rinsed/ Not Cleansed Irrigated with Saline -Foul Odor after Cleansing No No -Bioengineered Tissue No No -Topical Lidocaine (%) 4 -Lidocaine (ml) 5 -Bleeding Controlled with NA NA -Treatment Response Procedure Procedure Tolerated Well Tolerated Well Pain Scale: 0-10 Numeric Is Patient Pain Free? Yes No Wound debrided: left knee ulcer Laterality: Left Type of Debridement: Excisional debridement Anesthesia Used: 5% Lidocaine Gel Depth: in the subcutaneous layer Percentage of wound debrided: 100 Instrument Used: 3mm curette Tissue Removed: slough and devitalized tissue Severity: Fat Layer Exposed Amount of bleeding with debridement: Mild Bleeding Controlled with: Pressure Patient tolerated procedure well Assessment/Plan Active Problems Ulcer of left knee (Acute) Assessment: See above diagnoses Plan: The patient was seen and examined at the wound center today and was updated on the plan of care. A subcutaneous debridement was performed today. The patient tolerated the procedure well. The patients wound care will consist of: Continuing packing with iodoform gauze and daily chlorhexidine rinses. For edema management Zain wrap at this time. Continue to monitor for signs and symptoms of infection, likely no cellulitis at this time. Wound cultures were collected and were negative. Baseline bloodwork reviewed. Patient educated on the importance of diet on wound healing and instructed to increase protein and vitamin C intake. Patient verbalized understanding. Given delayed wound healing , will apply for purapply and snap vac therapy. Patient will follow up at wound healing center in one week or sooner if needed. This note was generated with [employer] dictation software. It may contain incorrect words, spelling, and punctuation that were not noted in checking the note before signing. Code Visit 111xxx-113xx: 84254 Heidi subq tissue 20 sq cm/<
[2018-03-01 13:56] VITALS: BP 138/83; PULSE 88; RESP 18; TEMP 36.3
--- NOTE | 2018-03-01 20:55 | PCM.WC.PN ---
(1) Ulcer of left knee Status: Acute Qualifiers: Non-pressure ulcer stage: with fat layer exposed Qualified Code(s): L97.822 - Non-pressure chronic ulcer of other part of left lower leg with fat layer exposed Code(s): L97.829 - Non-pressure chronic ulcer of other part of left lower leg with unspecified severity (2) Cellulitis of left knee Status: Acute Code(s): L03.116 - Cellulitis of left lower limb (3) MSSA (methicillin susceptible Staphylococcus aureus) infection Status: Acute Code(s): A49.01 - Methicillin susceptible Staphylococcus aureus infection, unspecified site Type of Wound Date of Service: 03/01/18 Chief Complaint: Nonhealing ulcer left knee status post abscess drainage History of Wound: This is a 47-year-old white male who presents to the wound healing center today with complaints of nonhealing ulcer to the left knee status post abscess drainage. This initially started as a callus on his left knee which she scratched and then turned into an abscess. He does have a past medical history which is significant for that of bipolar disorder. The patient presented to an urgent care on 01/20 and was placed on Keflex and Bactrim and noted an improvement and then worsened and went to [facility] ER on 01/22 was admitted until 01/25 and was discharged home. Culture at that time showed MSSA on 01/22/2018. The patient presented again to [facility] on 01/26 and had a larger incision done by Dr. Alvarez and a large amount of pus was drained and packing was placed and the patient was discharged on 01/29/2018 home on Keflex after being seen by infectious disease, which he has since completed. The patient states that he denies any purulent drainage, however there is some serous drainage coming from the opening. He does note that his left lower extremity is somewhat swollen and that he occasionally has numbness and tingling down the left side of his leg to his left foot. He denies any fever, chills, or systemic signs of infection at this time. He has been packing the site with iodoform gauze daily. The patient otherwise denies any fever, chills, nausea, vomiting, shortness of breath, chest pain or pressure, palpitations, orthopnea, lower extremity edema, syncope or presyncopal episodes. Progress of Wound: Pt continues to note some improvement of not having to utilize as much iodoform gauze packing. He denies any purulent drainage or signs of infection at this time. He does note small seroserous drainage at times. Denies any redness or streaking. - Physical Exam Vital Signs Temp Pulse Resp BP 97.4 F L 88 18 138/83 H 03/01/18 13:56 03/01/18 13:56 03/01/18 13:56 03/01/18 13:56 General: Alert, Oriented x3, Cooperative, No apparent distress HEENT: Atraumatic Cardiovascular: Regular rate Abdomen: Obese Extremities: No clubbing, No cyanosis, Edema - +1 left lower extremity edema nonpitting Skin: Ulcer/ Wound - ulceration present left knee with adherant slough, no signs of infection, there is still undermining and tunneling present Neurological: Neuro grossly intact Psych/Mental Status: Normal Affect, Appropriate, Alert and oriented to time, place, person, mood and affect Debridement Note Post-Debridement Measurements/Treatment WC - Nurse 2 - General Ulcer CM Notes Start: 02/15/18 14:06 Freq: Status: Active Protocol: Activity Type Activity Date Activity User E-Sign Co-Sign Detail Recorded Client Recorded Date Recorded By Document 02/15/18 15:04 [id number] 02/15/18 15:05 Document 02/22/18 14:09 [id number] 02/22/18 14:10 Document 03/01/18 14:41 [id number] 03/01/18 14:43 02/15/18 02/22/18 03/01/18 15:04 14:09 14:41 Wound Center Nurse 2 1. L knee -Time 15:04 14:09 14:42 -Correct Patient Yes Yes Yes -Correct Side, Site, Position Yes Yes Yes -Correct Procedure Yes Yes Yes -Procedure Performed Yes Yes Yes -Type of Procedure Debridement Debridement Debridement -Clinical Debridement Subcutaneous Subcutaneous Subcutaneous -Post Debridement Size (cm) - Length 0.4 0.5 0.4 -Post Debridement Size (cm) - Width 0.4 0.4 0.4 -Post Debridement Size (cm) - Depth 0.6 0.7 0.1 -Total Square Cm 0.16 0.20 0.16 -Wound/Ulcer Outcome Not Healed Not Healed Not Healed -Ulcer Cleansing Rinsed/ Not Cleansed Not Cleansed Irrigated with Saline -Foul Odor after Cleansing No No No -Bioengineered Tissue No No No -Topical Lidocaine (%) 4 -Lidocaine (ml) 5 -Bleeding Controlled with NA NA Pressure -Treatment Response Procedure Procedure Procedure Tolerated Well Tolerated Well Tolerated Well Pain Scale: 0-10 Numeric Is Patient Pain Free? Yes No No Wound debrided: left knee ulcer s/p abcsess Laterality: Left Type of Debridement: Excisional debridement Depth: in the subcutaneous layer Percentage of wound debrided: 100 Instrument Used: 3mm curette Tissue Removed: slough and devitalized tissue Severity: Fat Layer Exposed Amount of bleeding with debridement: Mild Bleeding Controlled with: Pressure Patient tolerated procedure well Assessment/Plan Assessment: See above diagnoses Plan: The patient was seen and examined at the wound center today and was updated on the plan of care. A subcutaneous debridement was performed today. The patient tolerated the procedure well. The patients wound care will consist of: Continuing packing with iodoform gauze and daily chlorhexidine rinses. For edema management Zain wrap at this time. Continue to monitor for signs and symptoms of infection, likely no cellulitis at this time. Wound cultures were collected and were negative. Baseline bloodwork reviewed. Patient educated on the importance of diet on wound healing and instructed to increase protein and vitamin C intake. Patient verbalized understanding. Given delayed wound healing, will apply for purapply and snap vac therapy, both still pending at this time. Patient will follow up at wound healing center in one week or sooner if needed. This note was generated with [email or web address] dictation software. It may contain incorrect words, spelling, and punctuation that were not noted in checking the note before signing. Code Visit 111xxx-113xx: 12990 Heidi subq tissue 20 sq cm/<
--- NOTE | 2018-03-06 08:59 | PN.PCM_ITS ---
(1) Ulcer of left knee Status: Acute Qualifiers: Non-pressure ulcer stage: with fat layer exposed Qualified Code(s): L97.822 - Non-pressure chronic ulcer of other part of left lower leg with fat layer exposed Code(s): L97.829 - Non-pressure chronic ulcer of other part of left lower leg with unspecified severity (2) Cellulitis of left knee Status: Acute Code(s): L03.116 - Cellulitis of left lower limb (3) MSSA (methicillin susceptible Staphylococcus aureus) infection Status: Acute Code(s): A49.01 - Methicillin susceptible Staphylococcus aureus infection, unspecified site Type of Wound Date of Service: 03/01/18 Chief Complaint: Nonhealing ulcer left knee status post abscess drainage History of Wound: This is a 47-year-old white male who presents to the wound healing center today with complaints of nonhealing ulcer to the left knee status post abscess drainage. This initially started as a callus on his left knee which she scratched and then turned into an abscess. He does have a past medical history which is significant for that of bipolar disorder. The patient presented to an urgent care on 01/20 and was placed on Keflex and Bactrim and noted an improvement and then worsened and went to [facility] ER on 01/22 was admitted until 01/25 and was discharged home. Culture at that time showed MSSA on 01/22/2018. The patient presented again to [facility] on 01/26 and had a larger incision done by Dr. Alvarez and a large amount of pus was drained and packing was placed and the patient was discharged on 01/29/2018 home on Keflex after being seen by infectious disease, which he has since completed. The patient states that he denies any purulent drainage, however there is some serous drainage coming from the opening. He does note that his left lower extremity is somewhat swollen and that he occasionally has numbness and tingling down the left side of his leg to his left foot. He denies any fever, chills, or systemic signs of infection at this time. He has been packing the site with iodoform gauze daily. The patient otherwise denies any fever, chills, nausea, vomiting, shortness of breath, chest pain or pressure, palpitations, orthopnea, lower extremity edema, syncope or presyncopal episodes. Progress of Wound: Pt continues to note some improvement of not having to utilize as much iodoform gauze packing. He denies any purulent drainage or sign s of infection at this time. He does note small seroserous drainage at times. Denies any redness or streaking. - Physical Exam Vital Signs Temp Pulse Resp BP 97.4 F L 88 18 138/83 H 03/01/18 13:56 03/01/18 13:56 03/01/18 13:56 03/01/18 13:56 General: Alert, Oriented x3, Cooperative, No apparent distress HEENT: Atraumatic Cardiovascular: Regular rate Abdomen: Obese Extremities: No clubbing, No cyanosis, Edema - +1 left lower extremity edema nonpitting Skin: Ulcer/ Wound - ulceration present left knee with adherant slough, no signs of infection, there is still undermining and tunneling present Neurological: Neuro grossly intact Psych/Mental Status: Normal Affect, Appropriate, Alert and oriented to time, place, person, mood and affect Debridement Note Post-Debridement Measurements/Treatment WC - Nurse 2 - General Ulcer CM Notes Start: 02/15/18 14:06 Freq: Status: Active Protocol: Activity Type Activity Date Activity User E-Sign Co-Sign Detail Recorded Client Recorded Date Recorded By Document 02/15/18 15:04 [id number] 02/15/18 15:05 Document 02/22/18 14:09 [id number] 02/22/18 14:10 Document 03/01/18 14:41 [id number] 03/01/18 14:43 02/15/18 02/22/18 03/01/18 15:04 14:09 14:41 Wound Center Nurse 2 1. L knee -Time 15:04 14:09 14:42 -Correct Patient Yes Yes Yes -Correct Side, Site, Position Yes Yes Yes -Correct Procedure Yes Yes Yes -Procedure Performed Yes Yes Yes -Type of Procedure Debridement Debridement Debridement -Clinical Debridement Subcutaneous Subcutaneous Subcutaneous -Post Debridement Size (cm) - Length 0.4 0.5 0.4 -Post Debridement Size (cm) - Width 0.4 0.4 0.4 -Post Debridement Size (cm) - Depth 0.6 0.7 0.1 -Total Square Cm 0.16 0.20 0.16 -Wound/Ulcer Outcome Not Healed Not Healed Not Healed -Ulcer Cleansing Rinsed/ Not Cleansed Not Cleansed Irrigated with Saline -Foul Odor after Cleansing No No No -Bioengineered Tissue No No No -Topical Lidocaine (%) 4 -Lidocaine (ml) 5 -Bleeding Controlled with NA NA Pressure -Treatment Response Procedure Procedure Procedure Tolerated Well Tolerated Well Tolerated Well Pain Scale: 0-10 Numeric Is Patient Pain Free? Yes No No Wound debrided: left knee ulcer s/p abcsess Laterality: Left Type of Debridement: Excisional debridement Depth: in the subcutaneous layer Percentage of wound debrided: 100 Instrument Used: 3mm curette Tissue Removed: slough and devitalized tissue Severity: Fat Layer Exposed Amount of bleeding with debridement: Mild Bleeding Controlled with: Pressure Patient tolerated procedure well Assessment/Plan Assessment: See above diagnoses Plan: The patient was seen and examined at the wound center today and was updated on the plan of care. A subcutaneous debridement was performed today. The patient tolerated the procedure well. The patients wound care will consist of: Continuing packing with iodoform gauze and daily chlorhexidine rinses. For edema management Zain wrap at this time. Continue to monitor for signs and symptoms of infection, likely no cellulitis at this time. Wound cultures were collected and were negative. Baseline bloodwork reviewed. Patient educated on the importance of diet on wound healing and instructed to increase protein and vitamin C intake. Patient verbalized understanding. Given delayed wound healing, will apply for purapply and snap vac therapy, both still pending at this time. Patient will follow up at wound healing center in one week or sooner if needed. This note was generated with [employer] dictation software. It may contain incorrect words, spelling, and punctuation that were not noted in checking the note before signing. Code Visit 111xxx-113xx: 91915 Heidi subq tissue 20 sq cm/<
[2018-03-08 13:17] VITALS: RESP 16; TEMP 36.4
--- NOTE | 2018-03-08 19:32 | PCM.WC.PN ---
(1) Ulcer of left knee Status: Acute Qualifiers: Non-pressure ulcer stage: with fat layer exposed Qualified Code(s): L97.822 - Non-pressure chronic ulcer of other part of left lower leg with fat layer exposed Code(s): L97.829 - Non-pressure chronic ulcer of other part of left lower leg with unspecified severity (2) Cellulitis of left knee Status: Acute Code(s): L03.116 - Cellulitis of left lower limb (3) MSSA (methicillin susceptible Staphylococcus aureus) infection Status: Acute Code(s): A49.01 - Methicillin susceptible Staphylococcus aureus infection, unspecified site Type of Wound Date of Service: 03/08/18 Chief Complaint: Nonhealing ulcer left knee status post abscess drainage History of Wound: This is a 47-year-old white male who presents to the wound healing center today with complaints of nonhealing ulcer to the left knee status post abscess drainage. This initially started as a callus on his left knee which she scratched and then turned into an abscess. He does have a past medical history which is significant for that of bipolar disorder. The patient presented to an urgent care on 01/20 and was placed on Keflex and Bactrim and noted an improvement and then worsened and went to [facility] ER on 01/22 was admitted until 01/25 and was discharged home. Culture at that time showed MSSA on 01/22/2018. The patient presented again to [facility] on 01/26 and had a larger incision done by Dr. Alvarez and a large amount of pus was drained and packing was placed and the patient was discharged on 01/29/2018 home on Keflex after being seen by infectious disease, which he has since completed. The patient states that he denies any purulent drainage, however there is some serous drainage coming from the opening. He does note that his left lower extremity is somewhat swollen and that he occasionally has numbness and tingling down the left side of his leg to his left foot. He denies any fever, chills, or systemic signs of infection at this time. He has been packing the site with iodoform gauze daily. The patient otherwise denies any fever, chills, nausea, vomiting, shortness of breath, chest pain or pressure, palpitations, orthopnea, lower extremity edema, syncope or presyncopal episodes. Progress of Wound: Ulcer stable, he does note that over this past weekend the site became redenned with purulent exudate, so Dr. Alvarez placed him on 10 days of keflex. Doing well on the keflex and currently denies any signs of infection at this time. He does note small seroserous drainage at times. Denies any redness, fever, chills, or streaking. - Physical Exam Vital Signs Temp Pulse Resp BP 97.5 F L 88 16 138/83 H 03/08/18 13:17 03/01/18 13:56 03/08/18 13:17 03/01/18 13:56 General: Alert, Oriented x3, Cooperative, No apparent distress HEENT: Atraumatic Cardiovascular: Regular rate Abdomen: Obese Extremities: Edema - left lower extremity edema +1 Skin: Ulcer/ Wound - ulcer present left knee, adherant slough over opening, no odor, pain, redness or purulent drainage. Small serosanguinous drainage, site still tunnels and undermines Neurological: Neuro grossly intact Psych/Mental Status: Normal Affect, Appropriate, Alert and oriented to time, place, person, mood and affect Debridement Note Post-Debridement Measurements/Treatment WC - Nurse 2 - General Ulcer CM Notes Start: 02/15/18 14:06 Freq: Status: Active Protocol: Activity Type Activity Date Activity User E-Sign Co-Sign Detail Recorded Client Recorded Date Recorded By Document 02/15/18 15:04 [id number] 02/15/18 15:05 Document 02/22/18 14:09 [id number] 02/22/18 14:10 CS Document 03/01/18 14:41 [id number] 03/01/18 14:43 Document 03/08/18 13:43 [id number] 03/08/18 13:46 02/15/18 02/22/18 03/01/18 15:04 14:09 14:41 Wound Center Nurse 2 1. L knee -Time 15:04 14:09 14:42 -Correct Patient Yes Yes Yes -Correct Side, Site, Position Yes Yes Yes -Correct Procedure Yes Yes Yes -Procedure Performed Yes Yes Yes -Type of Procedure Debridement Debridement Debridement -Clinical Debridement Subcutaneous Subcutaneous Subcutaneous -Post Debridement Size (cm) - Length 0.4 0.5 0.4 -Post Debridement Size (cm) - Width 0.4 0.4 0.4 -Post Debridement Size (cm) - Depth 0.6 0.7 0.1 -Total Square Cm 0.16 0.20 0.16 -Wound/Ulcer Outcome Not Healed Not Healed Not Healed -Ulcer Cleansing Rinsed/ Not Cleansed Not Cleansed Irrigated with Saline -Foul Odor after Cleansing No No No -Bioengineered Tissue No No No -Topical Lidocaine (%) 4 -Lidocaine (ml) 5 -Bleeding Controlled with NA NA Pressure -Treatment Response Procedure Procedure Procedure Tolerated Well Tolerated Well Tolerated Well Pain Scale: 0-10 Numeric Is Patient Pain Free? Yes No No 03/08/18 13:43 Wound Center Nurse 2 1. L knee -Time 13:43 -Correct Patient Yes -Correct Side, Site, Position Yes -Correct Procedure Yes -Procedure Performed Yes -Type of Procedure Debridement -Clinical Debridement Subcutaneous -Post Debridement Size (cm) - Length 0.9 -Post Debridement Size (cm) - Width 0.6 -Post Debridement Size (cm) - Depth 0.7 -Total Square Cm 0.54 -Wound/Ulcer Outcome Not Healed -Ulcer Cleansing Not Cleansed -Foul Odor after Cleansing No -Bioengineered Tissue No -Topical Lidocaine (%) -Lidocaine (ml) -Bleeding Controlled with Pressure -Treatment Response Procedure Tolerated Well Pain Scale: 0-10 Numeric Is Patient Pain Free? Yes Wound debrided: Left knee ulcer Laterality: Left Type of Debridement: Excisional debridement Anesthesia Used: 5% Lidocaine Gel Depth: in the subcutaneous layer Percentage of wound debrided: 100 Instrument Used: 3mm curette Tissue Removed: slough and devitalized tissue Severity: Fat Layer Exposed Amount of bleeding with debridement: Mild Bleeding Controlled with: Pressure Patient tolerated procedure well snap vac applied Assessment/Plan Assessment: See above diagnoses Plan: The patient was seen and examined at the wound center today and was updated on the plan of care. A subcutaneous debridement was performed today. The patient tolerated the procedure well. The patients wound care will consist of: SNAP VAC placed over top of rosalie. For edema management Zain wrap at this time. Continue to monitor for signs and symptoms of infection, continue with current regimen of Keflexd as prescribed by ortho. Wound cultures were collected previously and were negative. Baseline bloodwork reviewed. Patient educated on the importance of diet on wound healing and instructed to increase protein and vitamin C intake. Patient verbalized understanding. Patient will follow up at wound healing center in 4 days for vac change and one week for provider visit. This note was generated with [employer] dictation software. It may contain incorrect words, spelling, and punctuation that were not noted in checking the note before signing. Code Visit 111xxx-113xx: 18384 Heidi subq tissue 20 sq cm/<
--- NOTE | 2018-03-13 13:37 | PN.PCM_ITS ---
(1) Ulcer of left knee Status: Acute Qualifiers: Non-pressure ulcer stage: with fat layer exposed Qualified Code(s): L97.822 - Non-pressure chronic ulcer of other part of left lower leg with fat layer exposed Code(s): L97.829 - Non-pressure chronic ulcer of other part of left lower leg with unspecified severity (2) Cellulitis of left knee Status: Acute Code(s): L03.116 - Cellulitis of left lower limb (3) MSSA (methicillin susceptible Staphylococcus aureus) infection Status: Acute Code(s): A49.01 - Methicillin susceptible Staphylococcus aureus infection, unspecified site Type of Wound Date of Service: 03/08/18 Chief Complaint: Nonhealing ulcer left knee status post abscess drainage History of Wound: This is a 47-year-old white male who presents to the wound healing center today with complaints of nonhealing ulcer to the left knee status post abscess drainage. This initially started as a callus on his left knee which she scratched and then turned into an abscess. He does have a past medical history which is significant for that of bipolar disorder. The patient presented to an urgent care on 01/20 and was placed on Keflex and Bactrim and noted an improvement and then worsened and went to [facility] ER on 01/22 was admitted until 01/25 and was discharged home. Culture at that time showed MSSA on 01/22/2018. The patient presented again to [facility] on 01/26 and had a larger incision done by Dr. Alvarez and a large amount of pus was drained and packing was placed and the patient was discharged on 01/29/2018 home on Keflex after being seen by infectious disease, which he has since completed. The patient states that he denies any purulent drainage, however there is some serous drainage coming from the opening. He does note that his left lower extremity is somewhat swollen and that he occasionally has numbness and tingling down the left side of his leg to his left foot. He denies any fever, chills, or systemic signs of infection at this time. He has been packing the site with iodoform gauze daily. The patient otherwise denies any fever, chills, nausea, vomiting, shortness of breath, chest pain or pressure, palpitations, orthopnea, lower extremity edema, syncope or presyncopal episodes. Progress of Wound: Ulcer stable, he does note that over this past weekend the site became redenned with purulent exudate, so Dr. Alvarez placed him on 10 days of keflex. Doing well on the keflex and currently denies any signs of infection at this time. He does note small seroserous drainage at times. Denies any redness, fever, chills, or streaking. - Physical Exam Vital Signs Temp Pulse Resp BP 97.5 F L 88 16 138/83 H 03/08/18 13:17 03/01/18 13:56 03/08/18 13:17 03/01/18 13:56 General: Alert, Oriented x3, Cooperative, No apparent distress HEENT: Atraumatic Cardiovascular: Regular rate Abdomen: Obese Extremities: Edema - left lower extremity edema +1 Skin: Ulcer/ Wound - ulcer present left knee, adherant slough over opening, no odor, pain, redness or purulent drainage. Small serosanguinous drainage, site still tunnels and undermines Neurological: Neuro grossly intact Psych/Mental Status: Normal Affect, Appropriate, Alert and oriented to time, place, person, mood and affect Debridement Note Post-Debridement Measurements/Treatment WC - Nurse 2 - General Ulcer CM Notes Start: 02/15/18 14:06 Freq: Status: Active Protocol: Activity Type Activity Date Activity User E-Sign Co-Sign Detail Recorded Client Recorded Date Recorded By Document 02/15/18 15:04 [id number] 02/15/18 15:05 Document 02/22/18 14:09 [id number] 02/22/18 14:10 CS Document 03/01/18 14:41 [id number] 03/01/18 14:43 Document 03/08/18 13:43 [id number] 03/08/18 13:46 02/15/18 02/22/18 03/01/18 15:04 14:09 14:41 Wound Center Nurse 2 1. L knee -Time 15:04 14:09 14:42 -Correct Patient Yes Yes Yes -Correct Side, Site, Position Yes Yes Yes -Correct Procedure Yes Yes Yes -Procedure Performed Yes Yes Yes -Type of Procedure Debridement Debridement Debridement -Clinical Debridement Subcutaneous Subcutaneous Subcutaneous -Post Debridement Size (cm) - Length 0.4 0.5 0.4 -Post Debridement Size (cm) - Width 0.4 0.4 0.4 -Post Debridement Size (cm) - Depth 0.6 0.7 0.1 -Total Square Cm 0.16 0.20 0.16 -Wound/Ulcer Outcome Not Healed Not Healed Not Healed -Ulcer Cleansing Rinsed/ Not Cleansed Not Cleansed Irrigated with Saline -Foul Odor after Cleansing No No No -Bioengineered Tissue No No No -Topical Lidocaine (%) 4 -Lidocaine (ml) 5 -Bleeding Controlled with NA NA Pressure -Treatment Response Procedure Procedure Procedure Tolerated Well Tolerated Well Tolerated Well Pain Scale: 0-10 Numeric Is Patient Pain Free? Yes No No 03/08/18 13:43 Wound Center Nurse 2 1. L knee -Time 13:43 -Correct Patient Yes -Correct Side, Site, Position Yes -Correct Procedure Yes -Procedure Performed Yes -Type of Procedure Debridement -Clinical Debridement Subcutaneous -Post Debridement Size (cm) - Length 0.9 -Post Debridement Size (cm) - Width 0.6 -Post Debridement Size (cm) - Depth 0.7 -Total Square Cm 0.54 -Wound/Ulcer Outcome Not Healed -Ulcer Cleansing Not Cleansed -Foul Odor after Cleansing No -Bioengineered Tissue No -Topical Lidocaine (%) -Lidocaine (ml) -Bleeding Controlled with Pressure -Treatment Response Procedure Tolerated Well Pain Scale: 0-10 Numeric Is Patient Pain Free? Yes Wound debrided: Left knee ulcer Laterality: Left Type of Debridement: Excisional debridement Anesthesia Used: 5% Lidocaine Gel Depth: in the subcutaneous layer Percentage of wound debrided: 100 Instrument Used: 3mm curette Tissue Removed: slough and devitalized tissue Severity: Fat Layer Exposed Amount of bleeding with debridement: Mild Bleeding Controlled with: Pressure Patient tolerated procedure well snap vac applied Assessment/Plan Assessment: See above diagnoses Plan: The patient was seen and examined at the wound center today and was updated on the plan of care. A subcutaneous debridement was performed today. The patient tolerated the procedure well. The patients wound care will consist of: SNAP VAC placed over top of rosalie. For edema management Zain wrap at this time. Continue to monitor for signs and symptoms of infection, continue with current regimen of Keflexd as prescribed by ortho. Wound cultures were collected previously and were negative. Baseline bloodwork reviewed. Patient educated on the importance of diet on wound healing and instructed to increase protein and vitamin C intake. Patient verbalized understanding. Patient will follow up at wound healing center in 4 days for vac change and one week for provider visit. This note was generated with [employer] dictation software. It may contain incorrect words, spelling, and punctuation that were not noted in checking the note before signing. Code Visit 111xxx-113xx: [id number] Heidi subq tissue 20 sq cm/<
== END 2018-03-11 23:59 ==
LOC: WC 13:00
PROVIDERS: Family Provider Internal Medicine; PCP Internal Medicine; Visit Provider Nurse Practitioner Family
DX: L97.822 Non-pressure chronic ulcer of other part of left lower leg with fat layer exposed (principal); L03.116 Cellulitis of left lower limb; Z86.19 Personal history of other infectious and parasitic diseases; F31.9 Bipolar disorder, unspecified; Z79.899 Other long term (current) drug therapy; Z87.891 Personal history of nicotine dependence
CPT/HCPCS: 11042; 87070; 87075; 87205; 97607; 99212; G0463

== ENCOUNTER 2018-04-05 13:15 | Outpatient (RCR) | payer OTHER, SELFPAY ==
[2018-03-12 00:14] VITALS: BP 138/83; PULSE 88; RESP 16; TEMP 36.4
[2018-03-12 09:43] VITALS: BP 136/94; PULSE 83; RESP 16; TEMP 35.6
[2018-03-15 12:47] VITALS: BP 134/88; PULSE 94; RESP 16; TEMP 36.1
--- NOTE | 2018-03-15 20:58 | PCM.WC.PN ---
(1) Ulcer of left knee Status: Acute Qualifiers: Non-pressure ulcer stage: with fat layer exposed Code(s): L97.829 - Non-pressure chronic ulcer of other part of left lower leg with unspecified severity (2) Left leg cellulitis Status: Acute Code(s): L03.116 - Cellulitis of left lower limb (3) MSSA (methicillin susceptible Staphylococcus aureus) infection Status: Acute Code(s): A49.01 - Methicillin susceptible Staphylococcus aureus infection, unspecified site Type of Wound Date of Service: 03/15/18 Chief Complaint: Nonhealing ulcer left knee status post abscess drainage History of Wound: This is a 47-year-old white male who presents to the wound healing center today with complaints of nonhealing ulcer to the left knee status post abscess drainage. This initially started as a callus on his left knee which she scratched and then turned into an abscess. He does have a past medical history which is significant for that of bipolar disorder. The patient presented to an urgent care on 01/20 and was placed on Keflex and Bactrim and noted an improvement and then worsened and went to [facility] ER on 01/22 was admitted until 01/25 and was discharged home. Culture at that time showed MSSA on 01/22/2018. The patient presented again to [facility] on 01/26 and had a larger incision done by Dr. Alvarez and a large amount of pus was drained and packing was placed and the patient was discharged on 01/29/2018 home on Keflex after being seen by infectious disease, which he has since completed. The patient states that he denies any purulent drainage, however there is some serous drainage coming from the opening. He does note that his left lower extremity is somewhat swollen and that he occasionally has numbness and tingling down the left side of his leg to his left foot. He denies any fever, chills, or systemic signs of infection at this time. He has been packing the site with iodoform gauze daily. The patient otherwise denies any fever, chills, nausea, vomiting, shortness of breath, chest pain or pressure, palpitations, orthopnea, lower extremity edema, syncope or presyncopal episodes. Progress of Wound: Pt continues to note some improvement of not as much tunneling. He denies any purulent drainage or signs of infection at this time. He does note that the snap vac did accidently come off after the second application. Denies any redness or streaking. - Physical Exam Vital Signs Temp Pulse Resp BP 96.9 F L 94 16 134/88 H 03/15/18 12:47 03/15/18 12:47 03/15/18 12:47 03/15/18 12:47 General: Alert, Oriented x3, Cooperative, No apparent distress HEENT: Atraumatic Cardiovascular: Regular rate Extremities: Edema - Generalized left lower extremity edema Skin: Ulcer/ Wound - Left knee ulceration present with adherent slough around the opening of the rim, less tunneling and undermining present this week compared to last. No signs of infection at this time, no drainage or malodor appreciated. Neurological: Neuro grossly intact Psych/Mental Status: Normal Affect, Appropriate, Alert and oriented to time, place, person, mood and affect Debridement Note Post-Debridement Measurements/Treatment WC - Nurse 2 - General Ulcer CM Notes Start: 03/12/18 09:42 Freq: Status: Active Protocol: Activity Type Activity Date Activity User E-Sign Co-Sign Detail Recorded Client Recorded Date Recorded By Document 03/15/18 13:25 [id number] 03/15/18 13:28 03/15/18 13:25 Wound Center Nurse 2 1. L knee -Time 13:25 -Correct Patient Yes -Correct Side, Site, Position Yes -Correct Procedure Yes -Procedure Performed Yes -Type of Procedure Debridement -Clinical Debridement Subcutaneous -Post Debridement Size (cm) - Length 0.8 -Post Debridement Size (cm) - Width 0.7 -Post Debridement Size (cm) - Depth 0.7 -Total Square Cm 0.56 -Wound/Ulcer Outcome Not Healed -Ulcer Cleansing Not Cleansed -Foul Odor after Cleansing No -Bioengineered Tissue No -Bleeding Controlled with Pressure -Treatment Response Procedure Tolerated Well Pain Scale: 0-10 Numeric Is Patient Pain Free? Yes Wound debrided: Left knee ulcer Laterality: Left Type of Debridement: Excisional debridement Anesthesia Used: 5% Lidocaine Gel Depth: in the subcutaneous layer Percentage of wound debrided: 100 Instrument Used: 3mm curette Tissue Removed: slough and devitalized tissue Severity: Fat Layer Exposed Amount of bleeding with debridement: Mild Bleeding Controlled with: Pressure Patient tolerated procedure well Assessment/Plan Assessment: See above diagnoses Plan: The patient was seen and examined at the wound center today and was updated on the plan of care. A subcutaneous debridement was performed today. The patient tolerated the procedure well. The patients wound care will consist of: Continuing the snap vac and using rosalie if it comes off. For edema management Zain wrap at this time. Continue to monitor for signs and symptoms of infection, recently completed another course of Keflex. Wound cultures were collected and were negative. Baseline bloodwork reviewed. Patient educated on the importance of diet on wound healing and instructed to increase protein and vitamin C intake. Patient verbalized understanding. Patient will follow up at wound healing center in one week or sooner if needed. This note was generated with [employer] dictation software. It may contain incorrect words, spelling, and punctuation that were not noted in checking the note before signing. Code Visit 111xxx-113xx: 19170 Heidi subq tissue 20 sq cm/<
[2018-03-22 13:30] VITALS: BP 158/88; PULSE 86; RESP 16; TEMP 36.4
--- NOTE | 2018-03-22 17:35 | PCM.WC.PN ---
(1) Ulcer of left knee Status: Acute Current Visit: Yes Qualifiers: Non-pressure ulcer stage: with fat layer exposed Code(s): L97.829 - Non-pressure chronic ulcer of other part of left lower leg with unspecified severity (2) Left leg cellulitis Status: Acute Current Visit: Yes Code(s): L03.116 - Cellulitis of left lower limb (3) MSSA (methicillin susceptible Staphylococcus aureus) infection Status: Acute Current Visit: Yes Code(s): A49.01 - Methicillin susceptible Staphylococcus aureus infection, unspecified site Type of Wound Date of Service: 03/22/18 Chief Complaint: Nonhealing ulcer left knee status post abscess drainage History of Wound: This is a 47-year-old white male who presents to the wound healing center today with complaints of nonhealing ulcer to the left knee status post abscess drainage. This initially started as a callus on his left knee which she scratched and then turned into an abscess. He does have a past medical history which is significant for that of bipolar disorder. The patient presented to an urgent care on 01/20 and was placed on Keflex and Bactrim and noted an improvement and then worsened and went to [facility] ER on 01/22 was admitted until 01/25 and was discharged home. Culture at that time showed MSSA on 01/22/2018. The patient presented again to [facility] on 01/26 and had a larger incision done by Dr. Alvarez and a large amount of pus was drained and packing was placed and the patient was discharged on 01/29/2018 home on Keflex after being seen by infectious disease, which he has since completed. The patient states that he denies any purulent drainage, however there is some serous drainage coming from the opening. He does note that his left lower extremity is somewhat swollen and that he occasionally has numbness and tingling down the left side of his leg to his left foot. He denies any fever, chills, or systemic signs of infection at this time. He has been packing the site with iodoform gauze daily. The patient otherwise denies any fever, chills, nausea, vomiting, shortness of breath, chest pain or pressure, palpitations, orthopnea, lower extremity edema, syncope or presyncopal episodes. Progress of Wound: Pt continues to note some improvement of not as much tunneling with the application of the snap vac, was getting small amount of serous drainage. He denies any purulent drainage or signs of infection at this time. Denies any redness or streaking. - Physical Exam Vital Signs Temp Pulse Resp BP 97.5 F L 86 16 158/88 H 03/22/18 13:30 03/22/18 13:30 03/22/18 13:30 03/22/18 13:30 General: Alert, Oriented x3, Cooperative, No apparent distress HEENT: PERRLA, EOMI Cardiovascular: Regular rate Abdomen: Obese Extremities: Edema - +1 generalized LLE edema Skin: Ulcer/ Wound - ulcer present left knee with adherant slough, slight tunneling at 2 oclock by .4 cm, no signs of infection at this time. No drainage, redness, or malodor. Wound Measurements and Assessment WC - Nurse 1 - General Ulcer Measurement Start: 03/12/18 09:42 Freq: Status: Active Protocol: Activity Type Activity Date Activity User E-Sign Co-Sign Detail Recorded Client Recorded Date Recorded By Document 03/22/18 13:30 [facility] [id number] 03/22/18 13:39 [facility] 03/22/18 13:30 Wound Center Nurse 1 [Ulcer Assessment] 1. L knee -Combined with other wound No -Current Size (cm) - Length 0.6 -Current Size (cm) - Width 0.1 -Current Size (cm) - Depth 0.3 -Total Square Cm 0.06 -Photo Taken No -Epithelialization Medium 34-66% -Tunneling No -Undermining/Tunneling No -Circular Undermining No -Exudate Amt Small (1-33%) -Exudate Type Serosanguineous -Wound Margin Distinct, Outline Attached -Granulation Amt Large (67-100%) -Granulation Quality [place] [facility] -Slough/Fibrin Yes -Necrosis Amt Small (1-33%) -Necrotic Tissue Type Adherent Slough -Texture (Renu-wound Skin Appearance) Scarring -Moisture (Renu-wound Skin Appearance Maceration ) -Color (Renu-wound Skin Appearance) Palor -Temperature (Renu-wound Skin No Abnormality Appearance) (Pt Warm) -Tenderness on Palpation (Renu-wound No Skin Appearance) -Ulcer Cleansing Wound Cleanser -Foul Odor after Cleansing No -Anesthetic Used 4% Lidocaine Solution 5% Lidocaine Gel WC - Nurse 2 - General Ulcer CM Notes Start: 03/12/18 09:42 Freq: Status: Active Protocol: Activity Type Activity Date Activity User E-Sign Co-Sign Detail Recorded Client Recorded Date Recorded By Document 03/22/18 13:54 [id number] 03/22/18 13:55 03/22/18 13:54 Wound Center Nurse 2 [Procedure/Treatment] -Time 13:54 -Correct Patient Yes -Correct Side, Site, Position Yes -Correct Procedure Yes -Procedure Performed Yes -Type of Procedure Debridement -Clinical Debridement Subcutaneous -Post Debridement Size (cm) - Length 0.5 -Post Debridement Size (cm) - Width 0.3 -Post Debridement Size (cm) - Depth 0.6 -Total Square Cm 0.15 -Wound/Ulcer Outcome Not Healed -Ulcer Cleansing Rinsed/ Irrigated with Saline -Foul Odor after Cleansing No -Bioengineered Tissue No -Topical Lidocaine (%) 5 -Bleeding Controlled with Pressure -Other underminging at 2-5 (0.4cm) -Treatment Response Procedure Tolerated Well [See Physician Procedure note for Specifics] Pain Scale: 0-10 Numeric [Pain] -Is Patient Pain Free? Yes Neurological: Neuro grossly intact Psych/Mental Status: Normal Affect, Appropriate, Alert and oriented to time, place, person, mood and affect Debridement Note Post-Debridement Measurements/Treatment - Nurse 2 - General Ulcer CM Notes Start: 03/12/18 09:42 Freq: Status: Active Protocol: Activity Type Activity Date Activity User E-Sign Co-Sign Detail Recorded Client Recorded Date Recorded By Document 03/15/18 13:25 [id number] 03/15/18 13:28 Document 03/22/18 13:54 [id number] 03/22/18 13:55 03/15/18 03/22/18 13:25 13:54 Wound Center Nurse 2 1. L knee -Time 13:25 13:54 -Correct Patient Yes Yes -Correct Side, Site, Position Yes Yes -Correct Procedure Yes Yes -Procedure Performed Yes Yes -Type of Procedure Debridement Debridement -Clinical Debridement Subcutaneous Subcutaneous -Post Debridement Size (cm) - Length 0.8 0.5 -Post Debridement Size (cm) - Width 0.7 0.3 -Post Debridement Size (cm) - Depth 0.7 0.6 -Total Square Cm 0.56 0.15 -Wound/Ulcer Outcome Not Healed Not Healed -Ulcer Cleansing Not Cleansed Rinsed/ Irrigated with Saline -Foul Odor after Cleansing No No -Bioengineered Tissue No No -Topical Lidocaine (%) 5 -Bleeding Controlled with Pressure Pressure -Other underminging at 2-5 (0.4cm) -Treatment Response Procedure Procedure Tolerated Well Tolerated Well Pain Scale: 0-10 Numeric Is Patient Pain Free? Yes Yes Wound debrided: left knee ulcer Type of Debridement: Excisional debridement Anesthesia Used: 5% Lidocaine Gel Depth: in the subcutaneous layer Percentage of wound debrided: 100 Instrument Used: 3mm curette Tissue Removed: slough and devitalized tissue Severity: Fat Layer Exposed Amount of bleeding with debridement: Mild Bleeding Controlled with: Pressure Patient tolerated procedure well Assessment/Plan Active Problems Left leg cellulitis (Acute) MSSA (methicillin susceptible Staphylococcus aureus) infection (Acute) Ulcer of left knee (Acute) Assessment: See above diagnoses Plan: The patient was seen and examined at the wound center today and was updated on the plan of care. A subcutaneous debridement was performed today. The patient tolerated the procedure well. The patients wound care will consist of: holding the snap vac and using daily aquacell silver rope. For edema management Zain wrap at this time. Daily chlorhexidine rinses. Continue to monitor for signs and symptoms of infection, recently completed another course of Keflex. Wound cultures were collected previously and were negative. Baseline bloodwork reviewed. Patient educated on the importance of diet on wound healing and instructed to increase protein and vitamin C intake. Patient verbalized understanding. Patient will follow up at wound healing center in 2 week or sooner if needed. This note was generated with [employer] dictation software. It may contain incorrect words, spelling, and punctuation that were not noted in checking the note before signing. Code Visit 111xxx-113xx: 22954 Heidi subq tissue 20 sq cm/<
--- NOTE | 2018-03-23 15:40 | PN.PCM_ITS ---
(1) Ulcer of left knee Status: Acute Current Visit: Yes Qualifiers: Non-pressure ulcer stage: with fat layer exposed Code(s): L97.829 - Non-pressure chronic ulcer of other part of left lower leg with unspecified severity (2) Left leg cellulitis Status: Acute Current Visit: Yes Code(s): L03.116 - Cellulitis of left lower limb (3) MSSA (methicillin susceptible Staphylococcus aureus) infection Status: Acute Current Visit: Yes Code(s): A49.01 - Methicillin susceptible Staphylococcus aureus infection, unspecified site Type of Wound Date of Service: 03/22/18 Chief Complaint: Nonhealing ulcer left knee status post abscess drainage History of Wound: This is a 47-year-old white male who presents to the wound healing center today with complaints of nonhealing ulcer to the left knee status post abscess drainage. This initially started as a callus on his left knee which she scratched and then turned into an abscess. He does have a past medical history which is significant for that of bipolar disorder. The patient presented to an urgent care on 01/20 and was placed on Keflex and Bactrim and noted an improvement and then worsened and went to [facility] ER on 01/22 was admitted until 01/25 and was discharged home. Culture at that time showed MSSA on 01/22/2018. The patient presented again to [facility] on 01/26 and had a larger incision done by Dr. Alvarez and a large amount of pus was drained and packing was placed and the patient was discharged on 01/29/2018 home on Keflex after being seen by infectious disease, which he has since completed. The patient states that he denies any purulent drainage, however there is some serous drainage coming from the opening. He does note that his left lower extremity is somewhat swollen and that he occasionally has numbness and tingling down the left side of his leg to his left foot. He denies any fever, chills, or systemic signs of infection at this time. He has been packing the site with iodoform gauze daily. The patient otherwise denies any fever, chills, nausea, vomiting, shortness of breath, chest pain or pressure, palpitations, orthopnea, lower extremity edema, syncope or presyncopal episodes. Progress of Wound: Pt continues to note some improvement of not as much tunneling with the application of the snap vac, was getting small amount of serous drainage. He denies any purulent drainage or signs of infection at this time. Denies any redness or streaking. - Physical Exam Vital Signs Temp Pulse Resp BP 97.5 F L 86 16 158/88 H 03/22/18 13:30 03/22/18 13:30 03/22/18 13:30 03/22/18 13:30 General: Alert, Oriented x3, Cooperative, No apparent distress HEENT: PERRLA, EOMI Cardiovascular: Regular rate Abdomen: Obese Extremities: Edema - +1 generalized LLE edema Skin: Ulcer/ Wound - ulcer present left knee with adherant slough, slight tunneling at 2 oclock by .4 cm, no signs of infection at this time. No drainage, redness, or malodor. Wound Measurements and Assessment WC - Nurse 1 - General Ulcer Measurement Start: 03/12/18 09:42 Freq: Status: Active Protocol: Activity Type Activity Date Activity User E-Sign Co-Sign Detail Recorded Client Recorded Date Recorded By Document 03/22/18 13:30 [facility] [id number] 03/22/18 13:39 [facility] 03/22/18 13:30 Wound Center Nurse 1 [Ulcer Assessment] 1. L knee -Combined with other wound No -Current Size (cm) - Length 0.6 -Current Size (cm) - Width 0.1 -Current Size (cm) - Depth 0.3 -Total Square Cm 0.06 -Photo Taken No -Epithelialization Medium 34-66% -Tunneling No -Undermining/Tunneling No -Circular Undermining No -Exudate Amt Small (1-33%) -Exudate Type Serosanguineous -Wound Margin Distinct, Outline Attached -Granulation Amt Large (67-100%) -Granulation Quality [place] -Slough/Fibrin Yes -Necrosis Amt Small (1-33%) -Necrotic Tissue Type Adherent Slough -Texture (Renu-wound Skin Appearance) Scarring -Moisture (Renu-wound Skin Appearance Maceration ) -Color (Renu-wound Skin Appearance) Palor -Temperature (Renu-wound Skin No Abnormality Appearance) (Pt Warm) -Tenderness on Palpation (Renu-wound No Skin Appearance) -Ulcer Cleansing Wound Cleanser -Foul Odor after Cleansing No -Anesthetic Used 4% Lidocaine Solution 5% Lidocaine Gel WC - Nurse 2 - General Ulcer CM Notes Start: 03/12/18 09:42 Freq: Status: Active Protocol: Activity Type Activity Date Activity User E-Sign Co-Sign Detail Recorded Client Recorded Date Recorded By Document 03/22/18 13:54 [id number] 03/22/18 13:55 03/22/18 13:54 Wound Center Nurse 2 [Procedure/Treatment] -Time 13:54 -Correct Patient Yes -Correct Side, Site, Position Yes -Correct Procedure Yes -Procedure Performed Yes -Type of Procedure Debridement -Clinical Debridement Subcutaneous -Post Debridement Size (cm) - Length 0.5 -Post Debridement Size (cm) - Width 0.3 -Post Debridement Size (cm) - Depth 0.6 -Total Square Cm 0.15 -Wound/Ulcer Outcome Not Healed -Ulcer Cleansing Rinsed/ Irrigated with Saline -Foul Odor after Cleansing No -Bioengineered Tissue No -Topical Lidocaine (%) 5 -Bleeding Controlled with Pressure -Other underminging at 2-5 (0.4cm) -Treatment Response Procedure Tolerated Well [See Physician Procedure note for Specifics] Pain Scale: 0-10 Numeric [Pain] -Is Patient Pain Free? Yes Neurological: Neuro grossly intact Psych/Mental Status: Normal Affect, Appropriate, Alert and oriented to time, pl zain, person, mood and affect Debridement Note Post-Debridement Measurements/Treatment - Nurse 2 - General Ulcer CM Notes Start: 03/12/18 09:42 Freq: Status: Active Protocol: Activity Type Activity Date Activity User E-Sign Co-Sign Detail Recorded Client Recorded Date Recorded By Document 03/15/18 13:25 [id number] 03/15/18 13:28 Document 03/22/18 13:54 [id number] 03/22/18 13:55 03/15/18 03/22/18 13:25 13:54 Wound Center Nurse 2 1. L knee -Time 13:25 13:54 -Correct Patient Yes Yes -Correct Side, Site, Position Yes Yes -Correct Procedure Yes Yes -Procedure Performed Yes Yes -Type of Procedure Debridement Debridement -Clinical Debridement Subcutaneous Subcutaneous -Post Debridement Size (cm) - Length 0.8 0.5 -Post Debridement Size (cm) - Width 0.7 0.3 -Post Debridement Size (cm) - Depth 0.7 0.6 -Total Square Cm 0.56 0.15 -Wound/Ulcer Outcome Not Healed Not Healed -Ulcer Cleansing Not Cleansed Rinsed/ Irrigated with Saline -Foul Odor after Cleansing No No -Bioengineered Tissue No No -Topical Lidocaine (%) 5 -Bleeding Controlled with Pressure Pressure -Other underminging at 2-5 (0.4cm) -Treatment Response Procedure Procedure Tolerated Well Tolerated Well Pain Scale: 0-10 Numeric Is Patient Pain Free? Yes Yes Wound debrided: left knee ulcer Type of Debridement: Excisional debridement Anesthesia Used: 5% Lidocaine Gel Depth: in the subcutaneous layer Percentage of wound debrided: 100 Instrument Used: 3mm curette Tissue Removed: slough and devitalized tissue Severity: Fat Layer Exposed Amount of bleeding with debridement: Mild Bleeding Controlled with: Pressure Patient tolerated procedure well Assessment/Plan Active Problems Left leg cellulitis (Acute) MSSA (methicillin susceptible Staphylococcus aureus) infection (Acute) Ulcer of left knee (Acute) Assessment: See above diagnoses Plan: The patient was seen and examined at the wound center today and was updated on the plan of care. A subcutaneous debridement was performed today. The patient tolerated the procedure well. The patients wound care will consist of: holding the snap vac and using daily aquacell silver rope. For edema management Zain wrap at this time. Daily chlorhexidine rinses. Continue to monitor for signs and symptoms of infection, recently completed another course of Keflex. Wound cultures were collected previously and were negative. Baseline bloodwork reviewed. Patient educated on the importance of diet on wound healing and instructed to increase protein and vitamin C intake. Patient verbalized understanding. Patient will follow up at wound healing center in 2 week or sooner if needed. This note was generated with [employer] dictation software. It may contain incorrect words, spelling, and punctuation that were not noted in checking the note before signing. Code Visit 111xxx-113xx: [id number] Heidi subq tissue 20 sq cm/<
[2018-04-05 13:36] VITALS: BP 144/92; PULSE 79; RESP 16; TEMP 36.3
--- NOTE | 2018-04-05 16:56 | PCM.WC.PN ---
(1) Ulcer of left knee Status: Acute Current Visit: Yes Qualifiers: Non-pressure ulcer stage: with fat layer exposed Code(s): L97.829 - Non-pressure chronic ulcer of other part of left lower leg with unspecified severity (2) Left leg cellulitis Status: Acute Current Visit: Yes Code(s): L03.116 - Cellulitis of left lower limb (3) MSSA (methicillin susceptible Staphylococcus aureus) infection Status: Acute Current Visit: Yes Code(s): A49.01 - Methicillin susceptible Staphylococcus aureus infection, unspecified site Type of Wound Date of Service: 04/05/18 Chief Complaint: Nonhealing ulcer left knee status post abscess drainage History of Wound: This is a 47-year-old white male who presents to the wound healing center today with complaints of nonhealing ulcer to the left knee status post abscess drainage. This initially started as a callus on his left knee which she scratched and then turned into an abscess. He does have a past medical history which is significant for that of bipolar disorder. The patient presented to an urgent care on 01/20 and was placed on Keflex and Bactrim and noted an improvement and then worsened and went to [facility] [place] ER on 01/22 was admitted until 01/25 and was discharged home. Culture at that time showed MSSA on 01/22/2018. The patient presented again to [facility] on 01/26 and had a larger incision done by Dr. Alvarez and a large amount of pus was drained and packing was placed and the patient was discharged on 01/29/2018 home on Keflex after being seen by infectious disease, which he has since completed. The patient states that he denies any purulent drainage, however there is some serous drainage coming from the opening. He does note that his left lower extremity is somewhat swollen and that he occasionally has numbness and tingling down the left side of his leg to his left foot. He denies any fever, chills, or systemic signs of infection at this time. He has been packing the site with iodoform gauze daily. The patient otherwise denies any fever, chills, nausea, vomiting, shortness of breath, chest pain or pressure, palpitations, orthopnea, lower extremity edema, syncope or presyncopal episodes. Progress of Wound: Stable, depth has improved, less undermining now. He denies any purulent drainage or signs of infection at this time. Denies any redness or streaking. - Physical Exam Vital Signs Temp Pulse Resp BP 97.3 F L 79 16 144/92 H 04/05/18 13:36 04/05/18 13:36 04/05/18 13:36 04/05/18 13:36 General: Alert, Oriented x3, Cooperative, No apparent distress HEENT: Atraumatic Cardiovascular: Regular rate Extremities: No clubbing, No cyanosis, Edema - +1 LLE Skin: Ulcer/ Wound - ulceration present left knee with adherant slough to wound bed, no signs of infection at this time, slight undermining present, no further tunneling Wound Measurements and Assessment WC - Nurse 1 - General Ulcer Measurement Start: 03/12/18 09:42 Freq: Status: Active Protocol: Activity Type Activity Date Activity User E-Sign Co-Sign Detail Recorded Client Recorded Date Recorded By Document 04/05/18 13:36 [facility] [id number] 04/05/18 13:43 [facility] 04/05/18 13:36 Wound Center Nurse 1 [Ulcer Assessment] 1. L knee -Combined with other wound No -Current Size (cm) - Length 0.7 -Current Size (cm) - Width 0.6 -Current Size (cm) - Depth 0.3 -Total Square Cm 0.42 -Photo Taken No -Epithelialization None Present -Tunneling No -Undermining/Tunneling No -Circular Undermining No -Exudate Amt Small (1-33%) -Exudate Type Serous -Wound Margin Distinct, Outline Attached -Granulation Amt Large (67-100%) -Granulation Quality Red -Slough/Fibrin Yes -Necrosis Amt Small (1-33%) -Necrotic Tissue Type Adherent Slough -Texture (Renu-wound Skin Appearance) Scarring -Moisture (Renu-wound Skin Appearance Dry/Scaly ) -Color (Renu-wound Skin Appearance) Assessed -Temperature (Renu-wound Skin No Abnormality Appearance) (Pt Warm) -Tenderness on Palpation (Renu-wound No Skin Appearance) -Ulcer Cleansing Rinsed/ Irrigated with Saline -Foul Odor after Cleansing No -Anesthetic Used 4% Lidocaine Solution WC - Nurse 2 - General Ulcer CM Notes Start: 03/12/18 09:42 Freq: Status: Active Protocol: Activity Type Activity Date Activity User E-Sign Co-Sign Detail Recorded Client Recorded Date Recorded By Document 04/05/18 13:56 DV [id number] 04/05/18 13:59 DV 04/05/18 13:56 Wound Center Nurse 2 [Procedure/Treatment] -Time 13:58 -Correct Patient Yes -Correct Side, Site, Position Yes -Correct Procedure Yes -Procedure Performed Yes -Type of Procedure Debridement -Clinical Debridement Subcutaneous -Post Debridement Size (cm) - Length 0.5 -Post Debridement Size (cm) - Width 0.5 -Post Debridement Size (cm) - Depth 0.3 -Total Square Cm 0.25 -Wound/Ulcer Outcome Not Healed -Ulcer Cleansing Rinsed/ Irrigated with Saline -Foul Odor after Cleansing No -Bioengineered Tissue No -Bleeding Controlled with Pressure -Treatment Response Procedure Tolerated Well [See Physician Procedure note for Specifics] Neurological: Neuro grossly intact Psych/Mental Status: Normal Affect, Appropriate, Alert and oriented to time, place, person, mood and affect Debridement Note Post-Debridement Measurements/Treatment WC - Nurse 2 - General Ulcer CM Notes Start: 03/12/18 09:42 Freq: Status: Active Protocol: Activity Type Activity Date Activity User E-Sign Co-Sign Detail Recorded Client Recorded Date Recorded By Document 03/15/18 13:25 [id number] 03/15/18 13:28 Document 03/22/18 13:54 [id number] 03/22/18 13:55 Document 04/05/18 13:56 [id number] 04/05/18 13:59 DV 03/15/18 03/22/18 04/05/18 13:25 13:54 13:56 Wound Center Nurse 2 1. L knee -Time 13:25 13:54 13:58 -Correct Patient Yes Yes Yes -Correct Side, Site, Position Yes Yes Yes -Correct Procedure Yes Yes Yes -Procedure Performed Yes Yes Yes -Type of Procedure Debridement Debridement Debridement -Clinical Debridement Subcutaneous Subcutaneous Subcutaneous -Post Debridement Size (cm) - Length 0.8 0.5 0.5 -Post Debridement Size (cm) - Width 0.7 0.3 0.5 -Post Debridement Size (cm) - Depth 0.7 0.6 0.3 -Total Square Cm 0.56 0.15 0.25 -Wound/Ulcer Outcome Not Healed Not Healed Not Healed -Ulcer Cleansing Not Cleansed Rinsed/ Rinsed/ Irrigated with Irrigated with Saline Saline -Foul Odor after Cleansing No No No -Bioengineered Tissue No No No -Topical Lidocaine (%) 5 -Bleeding Controlled with Pressure Pressure Pressure -Other underminging at 2-5 (0.4cm) -Treatment Response Procedure Procedure Procedure Tolerated Well Tolerated Well Tolerated Well Pain Scale: 0-10 Numeric Is Patient Pain Free? Yes Yes Wound debrided: left knee ulceration Laterality: Left Type of Debridement: Excisional debridement Anesthesia Used: 5% Lidocaine Gel Depth: in the subcutaneous layer Percentage of wound debrided: 100 Instrument Used: 3mm curette Tissue Removed: slough and devitalized tissue Severity: Fat Layer Exposed Amount of bleeding with debridement: Mild Bleeding Controlled with: Pressure Patient tolerated procedure well Assessment/Plan Active Problems Left leg cellulitis (Acute) MSSA (methicillin susceptible Staphylococcus aureus) infection (Acute) Ulcer of left knee (Acute) Assessment: See above diagnoses Plan: The patient was seen and examined at the wound center today and was updated on the plan of care. A subcutaneous debridement was performed today. The patient tolerated the procedure well. The patients wound care will consist of: holding the snap vac and using daily promogran. For edema management Zain wrap at this time. Daily chlorhexidine rinses. Continue to monitor for signs and symptoms of infection, recently completed another course of Keflex. Wound cultures were collected previously and were negative. Baseline bloodwork reviewed. Patient educated on the importance of diet on wound healing and instructed to increase protein and vitamin C intake. Patient verbalized understanding. Patient will follow up at wound healing center in 1 week or sooner if needed. This note was generated with [employer] dictation software. It may contain incorrect words, spelling, and punctuation that were not noted in checking the note before signing. Code Visit 111xxx-113xx: [id number] Heidi subq tissue 20 sq cm/<
--- NOTE | 2018-04-06 15:00 | PN.PCM_ITS ---
(1) Ulcer of left knee Status: Acute Current Visit: Yes Qualifiers: Non-pressure ulcer stage: with fat layer exposed Code(s): L97.829 - Non-pressure chronic ulcer of other part of left lower leg with unspecified severity (2) Left leg cellulitis Status: Acute Current Visit: Yes Code(s): L03.116 - Cellulitis of left lower limb (3) MSSA (methicillin susceptible Staphylococcus aureus) infection Status: Acute Current Visit: Yes Code(s): A49.01 - Methicillin susceptible Staphylococcus aureus infection, unspecified site Type of Wound Date of Service: 04/05/18 Chief Complaint: Nonhealing ulcer left knee status post abscess drainage History of Wound: This is a 47-year-old white male who presents to the wound healing center today with complaints of nonhealing ulcer to the left knee status post abscess drainage. This initially started as a callus on his left knee which she scratched and then turned into an abscess. He does have a past medical history which is significant for that of bipolar disorder. The patient presented to an urgent care on 01/20 and was placed on Keflex and Bactrim and noted an improvement and then worsened and went to [facility] ER on 01/22 was admitted until 01/25 and was discharged home. Culture at that time showed MSSA on 01/22/2018. The patient presented again to [facility] on 01/26 and had a larger incision done by Dr. Alvarez and a large amount of pus was drained and packing was placed and the patient was discharged on 01/29/2018 home on Keflex after being seen by infectious disease, which he has since completed. The patient states that he denies any purulent drainage, however there is some serous drainage coming from the opening. He does note that his left lower extremity is somewhat swollen and that he occasionally has numbness and tingling down the left side of his leg to his left foot. He denies any fever, chills, or systemic signs of infection at this time. He has been packing the site with iodoform gauze daily. The patient otherwise denies any fever, chills, nausea, vomiting, shortness of breath, chest pain or pressure, palpitations, orthopnea, lower extremity edema, syncope or presyncopal episodes. Progress of Wound: Stable, depth has improved, less undermining now. He denies any purulent drainage or signs of infection at this time. Denies any redness or streaking. - Physical Exam Vital Signs Temp Pulse Resp BP 97.3 F L 79 16 144/92 H 04/05/18 13:36 04/05/18 13:36 04/05/18 13:36 04/05/18 13:36 General: Alert, Oriented x3, Cooperative, No apparent distress HEENT: Atraumatic Cardiovascular: Regular rate Extremities: No clubbing, No cyanosis, Edema - +1 LLE Skin: Ulcer/ Wound - ulceration present left knee with adherant slough to wound bed, no signs of infection at this time, slight undermining present, no further tunneling Wound Measurements and Assessment WC - Nurse 1 - General Ulcer Measurement Start: 03/12/18 09:42 Freq: Status: Active Protocol: Activity Type Activity Date Activity User E-Sign Co-Sign Detail Recorded Client Recorded Date Recorded By Document 04/05/18 13:36 [facility] [id number] 04/05/18 13:43 [facility] 04/05/18 13:36 Wound Center Nurse 1 [Ulcer Assessment] 1. L knee -Combined with other wound No -Current Size (cm) - Length 0.7 -Current Size (cm) - Width 0.6 -Current Size (cm) - Depth 0.3 -Total Square Cm 0.42 -Photo Taken No -Epithelialization None Present -Tunneling No -Undermining/Tunneling No -Circular Undermining No -Exudate Amt Small (1-33%) -Exudate Type Serous -Wound Margin Distinct, Outline Attached -Granulation Amt Large (67-100%) -Granulation Quality Red -Slough/Fibrin Yes -Necrosis Amt Small (1-33%) -Necrotic Tissue Type Adherent Slough -Texture (Renu-wound Skin Appearance) Scarring -Moisture (Renu-wound Skin Appearance Dry/Scaly ) -Color (Renu-wound Skin Appearance) Assessed -Temperature (Renu-wound Skin No Abnormality Appearance) (Pt Warm) -Tenderness on Palpation (Renu-wound No Skin Appearance) -Ulcer Cleansing Rinsed/ Irrigated with Saline -Foul Odor after Cleansing No -Anesthetic Used 4% Lidocaine Solution WC - Nurse 2 - General Ulcer CM Notes Start: 03/12/18 09:42 Freq: Status: Active Protocol: Activity Type Activity Date Activity User E-Sign Co-Sign Detail Recorded Client Recorded Date Recorded By Document 04/05/18 13:56 DV [id number] 04/05/18 13:59 DV 04/05/18 13:56 Wound Center Nurse 2 [Procedure/Treatment] -Time 13:58 -Correct Patient Yes -Correct Side, Site, Position Yes -Correct Procedure Yes -Procedure Performed Yes -Type of Procedure Debridement -Clinical Debridement Subcutaneous -Post Debridement Size (cm) - Length 0.5 -Post Debridement Size (cm) - Width 0.5 -Post Debridement Size (cm) - Depth 0.3 -Total Square Cm 0.25 -Wound/Ulcer Outcome Not Healed -Ulcer Cleansing Rinsed/ Irrigated with Saline -Foul Odor after Cleansing No -Bioengineered Tissue No -Bleeding Controlled with Pressure -Treatment Response Procedure Tolerated Well [See Physician Procedure note for Specifics] Neurological: Neuro grossly intact Psych/Mental Status: Normal Affect, Appropriate, Alert and oriented to time, place, person, mood and affect Debridement Note Post-Debridement Measurements/Treatment WC - Nurse 2 - General Ulcer CM Notes Start: 03/12/18 09:42 Freq: Status: Active Protocol: Activity Type Activity Date Activity User E-Sign Co-Sign Detail Recorded Client Recorded Date Recorded By Document 03/15/18 13:25 [id number] 03/15/18 13:28 Document 03/22/18 13:54 [id number] 03/22/18 13:55 Document 04/05/18 13:56 [id number] 04/05/18 13:59 DV 03/15/18 03/22/18 04/05/18 13:25 13:54 13:56 Wound Center Nurse 2 1. L knee -Time 13:25 13:54 13:58 -Correct Patient Yes Yes Yes -Correct Side, Site, Position Yes Yes Yes -Correct Procedure Yes Yes Yes -Procedure Performed Yes Yes Yes -Type of Procedure Debridement Debridement Debridement -Clinical Debridement Subcutaneous Subcutaneous Subcutaneous -Post Debridement Size (cm) - Length 0.8 0.5 0.5 -Post Debridement Size (cm) - Width 0.7 0.3 0.5 -Post Debridement Size (cm) - Depth 0.7 0.6 0.3 -Total Square Cm 0.56 0.15 0.25 -Wound/Ulcer Outcome Not Healed Not Healed Not Healed -Ulcer Cleansing Not Cleansed Rinsed/ Rinsed/ Irrigated with Irrigated with Saline Saline -Foul Odor after Cleansing No No No -Bioengineered Tissue No No No -Topical Lidocaine (%) 5 -Bleeding Controlled with Pressure Pressure Pressure -Other underminging at 2-5 (0.4cm) -Treatment Response Procedure Procedure Procedure Tolerated Well Tolerated Well Tolerated Well Pain Scale: 0-10 Numeric Is Patient Pain Free? Yes Yes Wound debrided: left knee ulceration Laterality: Left Type of Debridement: Excisional debridement Anesthesia Used: 5% Lidocaine Gel Depth: in the subcutaneous layer Percentage of wound debrided: 100 Instrument Used: 3mm curette Tissue Removed: slough and devitalized tissue Severity: Fat Layer Exposed Amount of bleeding with debridement: Mild Bleeding Controlled with: Pressure Patient tolerated procedure well Assessment/Plan Active Problems Left leg cellulitis (Acute) MSSA (methicillin susceptible Staphylococcus aureus) infection (Acute) Ulcer of left knee (Acute) Assessment: See above diagnoses Plan: The patient was seen and examined at the wound center today and was updated on the plan of care. A subcutaneous debridement was performed today. The patient tolerated the procedure well. The patients wound care will consist of: holding the snap vac and using daily promogran. For edema management Zain wrap at this time. Daily chlorhexidine rinses. Continue to monitor for signs and symptoms of infection, recently completed another course of Keflex. Wound cultures were collected previously and were negative. Baseline bloodwork reviewed. Patient educated on the importance of diet on wound healing and instructed to increase protein and vitamin C intake. Patient verbalized understanding. Patient will follow up at wound healing center in 1 week or sooner if needed. This note was generated with [employer] dictation software. It may contain incorrect words, spelling, and punctuation that were not noted in checking the note before signing. Code Visit 111xxx-113xx: 20118 Heidi subq tissue 20 sq cm/<
== END 2018-04-11 23:59 ==
LOC: WC 13:15
PROVIDERS: Family Provider Internal Medicine; PCP Internal Medicine; Visit Provider Nurse Practitioner Family
DX: L97.822 Non-pressure chronic ulcer of other part of left lower leg with fat layer exposed (principal); L03.116 Cellulitis of left lower limb; R60.0 Localized edema
CPT/HCPCS: 11042; 97607; 99202; G0463

== ENCOUNTER 2018-04-12 14:19 | Outpatient (RCR) | payer OTHER, SELFPAY ==
[2018-04-12 00:25] VITALS: BP 144/92; PULSE 79; RESP 16; TEMP 36.3
[2018-04-12 14:31] VITALS: BP 138/91; PULSE 96; RESP 16; TEMP 36.3
--- NOTE | 2018-04-12 21:55 | PCM.WC.PN ---
(1) Ulcer of left knee Status: Acute Qualifiers: Code(s): L97.829 - Non-pressure chronic ulcer of other part of left lower leg with unspecified severity (2) Cellulitis of left knee Status: Acute Code(s): L03.116 - Cellulitis of left lower limb (3) Left leg cellulitis Status: Acute Code(s): L03.116 - Cellulitis of left lower limb (4) MSSA (methicillin susceptible Staphylococcus aureus) infection Status: Acute Code(s): A49.01 - Methicillin susceptible Staphylococcus aureus infection, unspecified site Type of Wound Date of Service: 04/12/18 Chief Complaint: Nonhealing ulcer left knee status post abscess drainage History of Wound: This is a 47-year-old white male who presents to the wound healing center today with complaints of nonhealing ulcer to the left knee status post abscess drainage. This initially started as a callus on his left knee which she scratched and then turned into an abscess. He does have a past medical history which is significant for that of bipolar disorder. The patient presented to an urgent care on 01/20 and was placed on Keflex and Bactrim and noted an improvement and then worsened and went to [facility] ER on 01/22 was admitted until 01/25 and was discharged home. Culture at that time showed MSSA on 01/22/2018. The patient presented again to [facility] on 01/26 and had a larger incision done by Dr. Alvarez and a large amount of pus was drained and packing was placed and the patient was discharged on 01/29/2018 home on Keflex after being seen by infectious disease, which he has since completed. The patient states that he denies any purulent drainage, however there is some serous drainage coming from the opening. He does note that his left lower extremity is somewhat swollen and that he occasionally has numbness and tingling down the left side of his leg to his left foot. He denies any fever, chills, or systemic signs of infection at this time. He has been packing the site with iodoform gauze daily. The patient otherwise denies any fever, chills, nausea, vomiting, shortness of breath, chest pain or pressure, palpitations, orthopnea, lower extremity edema, syncope or presyncopal episodes. Progress of Wound: Healed. He denies any purulent drainage or signs of infection at this time. Denies any redness or streaking. - Physical Exam Vital Signs Temp Pulse Resp BP 97.3 F L 96 16 138/91 H 04/12/18 14:31 04/12/18 14:31 04/12/18 14:31 04/12/18 14:31 General: Alert, Oriented x3, Cooperative, No apparent distress HEENT: Atraumatic Cardiovascular: Regular rate Extremities: No clubbing, No cyanosis, Edema - left lower extremity generalized edema, Peripheral Pulses Normal Skin: Ulcer/ Wound - left knee ulcer is healed, no redness, fluctuance, or drainage. No tenderness to palpation, no malodor or streaking. Neurological: Neuro grossly intact Psych/Mental Status: Normal Affect, Appropriate, Alert and oriented to time, place, person, mood and affect Debridement Note Post-Debridement Measurements/Treatment WC - Nurse 2 - General Ulcer CM Notes Start: 04/12/18 14:31 Freq: Status: Active Protocol: Activity Type Activity Date Activity User E-Sign Co-Sign Detail Recorded Client Recorded Date Recorded By Document 04/12/18 14:49 [id number] 04/12/18 14:53 04/12/18 14:49 Wound Center Nurse 2 1. L knee -Time 14:51 -Correct Patient Yes -Correct Side, Site, Position Yes -Correct Procedure Yes -Procedure Performed Yes -Post Debridement Size (cm) - Length 0 -Post Debridement Size (cm) - Width 0 -Post Debridement Size (cm) - Depth 0 -Total Square Cm 0 -Wound/Ulcer Outcome Healed- Epithelialized -Ulcer Cleansing Rinsed/ Irrigated with Saline -Foul Odor after Cleansing No -Bioengineered Tissue No -Topical Lidocaine (%) 4 -Bleeding Controlled with NA -Treatment Response Procedure Tolerated Well Pain Scale: 0-10 Numeric Is Patient Pain Free? Yes No debridement was completed today Assessment/Plan Assessment: See above diagnoses Plan: The patient was seen and examined at the wound center today and was updated on the plan of care. The patients wound is healed, may use guaze over healed left knee site for a week for protection. For edema management Zain wrap at this time. Continue to monitor for signs and symptoms of infection. Patient will be discharged and to follow up at wound healing center PRN. This note was generated with [employer] software. It may contain incorrect words, spelling, and punctuation that were not noted in checking the note before signing. Code Visit Office Visits / Consults: [id number] OV L3 Est
--- NOTE | 2018-04-18 10:00 | PN.PCM_ITS ---
(1) Ulcer of left knee Status: Acute Qualifiers: Code(s): L97.829 - Non-pressure chronic ulcer of other part of left lower leg with unspecified severity (2) Cellulitis of left knee Status: Acute Code(s): L03.116 - Cellulitis of left lower limb (3) Left leg cellulitis Status: Acute Code(s): L03.116 - Cellulitis of left lower limb (4) MSSA (methicillin susceptible Staphylococcus aureus) infection Status: Acute Code(s): A49.01 - Methicillin susceptible Staphylococcus aureus infection, unspecified site Type of Wound Date of Service: 04/12/18 Chief Complaint: Nonhealing ulcer left knee status post abscess drainage History of Wound: This is a 47-year-old white male who presents to the wound healing center today with complaints of nonhealing ulcer to the left knee status post abscess drainage. This initially started as a callus on his left knee which she scratched and then turned into an abscess. He does have a past medical history which is significant for that of bipolar disorder. The patient presented to an urgent care on 01/20 and was placed on Keflex and Bactrim and noted an improvement and then worsened and went to [facility] ER on 01/22 was admitted until 01/25 and was discharged home. Culture at that time showed MSSA on 01/22/2018. The patient presented again to [facility] on 01/26 and had a larger incision done by Dr. Alvarez and a large amount of pus was drained and packing was placed and the patient was discharged on 01/29/2018 home on Keflex after being seen by infectious disease, which he has since completed. The patient states that he denies any purulent drainage, however there is some serous drainage coming from the opening. He does note that his left lower extremity is somewhat swollen and that he occasionally has numbness and tingling down the left side of his leg to his left foot. He denies any fever, chills, or systemic signs of infection at this time. He has been packing the site with iodoform gauze daily. The patient otherwise denies any fever, chills, nausea, vomiting, shortness of breath, chest pain or pressure, palpitations, orthopnea, lower extremity edema, syncope or presyncopal episodes. Progress of Wound: Healed. He denies any purulent drainage or signs of infection at this time. Denies any redness or streaking. - Physical Exam Vital Signs Temp Pulse Resp BP 97.3 F L 96 16 138/91 H 04/12/18 14:31 04/12/18 14:31 04/12/18 14:31 04/12/18 14:31 General: Alert, Oriented x3, Cooperative, No apparent distress HEENT: Atraumatic Cardiovascular: Regular rate Extremities: No clubbing, No cyanosis, Edema - left lower extremity generalized edema, Peripheral Pulses Normal Skin: Ulcer/ Wound - left knee ulcer is healed, no redness, fluctuance, or drainage. No tenderness to palpation, no malodor or streaking. Neurological: Neuro grossly intact Psych/Mental Status: Normal Affect, Appropriate, Alert and oriented to time, place, person, mood and affect Debridement Note Post-Debridement Measurements/Treatment WC - Nurse 2 - General Ulcer CM Notes Start: 04/12/18 14:31 Freq: Status: Active Protocol: Activity Type Activity Date Activity User E-Sign Co-Sign Detail Recorded Client Recorded Date Recorded By Document 04/12/18 14:49 [id number] 04/12/18 14:53 04/12/18 14:49 Wound Center Nurse 2 1. L knee -Time 14:51 -Correct Patient Yes -Correct Side, Site, Position Yes -Correct Procedure Yes -Procedure Performed Yes -Post Debridement Size (cm) - Length 0 -Post Debridement Size (cm) - Width 0 -Post Debridement Size (cm) - Depth 0 -Total Square Cm 0 -Wound/Ulcer Outcome Healed- Epithelialized -Ulcer Cleansing Rinsed/ Irrigated with Saline -Foul Odor after Cleansing No -Bioengineered Tissue No -Topical Lidocaine (%) 4 -Bleeding Controlled with NA -Treatment Response Procedure Tolerated Well Pain Scale: 0-10 Numeric Is Patient Pain Free? Yes No debridement was completed today Assessment/Plan Assessment: See above diagnoses Plan: The patient was seen and examined at the wound center today and was update d on the plan of care. The patients wound is healed, may use guaze over healed left knee site for a week for protection. For edema management Zain wrap at this time. Continue to monitor for signs and symptoms of infection. Patient will be discharged and to follow up at wound healing center PRN. This note was generated with Dragon dictation software. It may contain incorrect words, spelling, and p unctuation that were not noted in checking the note before signing. Code Visit Office Visits / Consults: [id number] OV L3 Est
== END 2018-05-11 23:59 ==
LOC: WC 14:19
PROVIDERS: Family Provider Internal Medicine; PCP Internal Medicine; Visit Provider Nurse Practitioner Family
DX: Z09 Encounter for follow-up examination after completed treatment for conditions other than malignant neoplasm (principal); L03.116 Cellulitis of left lower limb; R60.0 Localized edema; Z86.19 Personal history of other infectious and parasitic diseases
CPT/HCPCS: 99213; G0463

== ENCOUNTER 2018-09-21 09:00 | Outpatient (RCR) | payer OTHER, SELFPAY ==
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
--- NOTE | 2018-09-21 11:17 | BH.SGPN.GN ---
Behaviors/Verbalizations/Mental Status: []Client alert and oriented, neatly dressed and groomed. Eye contact fair. Motor activity appropriate. Speech within normal limits. Affect constricted, mood dysthymic. Thoughts linear, logical, no signs of hallucinations or delusions. Client Response/Progress/Benefit: []Client responded well to session, participating when prompted. Client further processed the activity and shared that without balance and self-care, ?we drop ourselves.? Client engaged in the discussion and self-assessment of the different areas of self-care. Client gave himself mostly low scores on the self-assessment and shared he can do better to improve his self-care. Client reported his barriers are lack of motivation and support. Client set a goal to improve his personal social self-care. Client?s goal is to reach out to his family tonight and make it a goal to talk with them 1-2 times a week. Client appeared to benefit from increasing awareness of how he can improve his self-care balance. Client?s first day in IOP. Client to continue IOP to prevent decompensation and reduce depressive symptoms.
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
--- NOTE | 2018-09-21 15:30 | BH.DR.ITP ---
Initial Treatment Plan - Patient Information Visit Information: ADMISSION DATE: 09/21/18 EXPECTED LOS: 4-6 weeks Diagnoses:: Major depression; adjustment disorder with anxiety; borderline personality traits - Problems/Symptoms Problem #1:: depression Symptom:: sad mood, lack of motivation; low energy; anhedonia Problem #2:: adjustment disorder with anxiety Symptom:: lack of coping skills; feeling overwhelmed Problem #3:: borderline personality traits Symptom:: moodiness; anger problems, impulsivity
--- NOTE | 2018-09-26 09:10 | BH.SGPN.GN ---
Behaviors/Verbalizations/Mental Status: [] Eye contact is good. Motor activity is appropriate. Appearance is casual. Speech is Appropriate. Mood is depressed. Affect is flat. Thoughts are linear and logical. No evidence of psychosis. Reviewed daily check in sheet and no reports of suicidal ideations or intent. Client Response/Progress/Benefit: [] Pt participated in group when prompted. Attentive. Emotion for today is anxious. Shared with the group that he was depressed and anxious all day yesterday. Ruminated about sleeping in and missing group throughout the day. Shared that he has several projects in the house which he had started and not completed. Reports that this is primarily reported to his depression and becoming overwhelmed with a task. No motivation to follow through. He was proud of himself for working on a simple household task yesterday for an extended period of time. No progress noted. Will continue in IOP to maintain safety, prevent decompensation, and improve functioning to return to work. Benefited from group support and encouragement. Narrative Note: []
--- NOTE | 2018-09-26 10:10 | BH.SGPN.GN ---
Behaviors/Verbalizations/Mental Status: []Client alert and oriented, casually dressed and groomed. Eye contact good. Motor activity appropriate. Speech within normal limits. Affect constricted, mood depressed. Thoughts linear, logical, no signs of hallucinations or delusions. Client Response/Progress/Benefit: []Client responded well to session, engaged during activity providing occasional input to discussion. Client contributed to the discussion of how life is made of up different internal and external positive and negative forces and how those forces impact one?s mental health. Client shared personal growth does not happen by chance, but client admitted he has waited for external circumstances to change rather than take action. Client identified examples of positive forces including friends and family. Client identified examples of negative forces to be negative thinking and unhealthy coping skills. Client participated in the activity and did well to take a leadership role. Client appeared to benefit from gaining awareness of how positive and negative forces can cause growth. ?Client?s second day of IOP so limited progress to document at this time. Client continues to struggle with depressive symptoms that interfere with his ability to function at his baseline.
--- NOTE | 2018-09-26 11:14 | BH.SGPN.GN ---
Behaviors/Verbalizations/Mental Status: [Client alert and oriented, casually dressed and groomed. Eye contact good. Motor activity appropriate. Speech within normal limits. Affect congruent and mood anxious and euthymic. Thoughts linear, logical, no signs of hallucinations or delusions.] Client Response/Progress/Benefit: [Client willing to participate in activity and provided some input throughout. Pt did well to follow and provide direction, give input, and encourage fellow participants in group. Able to support fellow participants when recognizing urges to give up during the activity. Pt worked with group to identify positive and negative forces influencing group progress in the activity and did well to relate this back to daily life. Client completed reflection worksheet which identified positive and negative forces that impact mental wellness. Client noted positive forces as: his family, friends, motivation to change, self-awareness, and treatment. Identified negative forces as: negative thoughts, avoidance, isolation, procrastination, and lack of follow through. Client seemed to benefit from increased awareness of personal positive and negative forces in life and the impact they have on mental health and wellness. Progress noted in pt ability to identify positive forces of resilience factors supporting progress. Client to continue IOP level of care to continue to challenge distorted thought patterns, improve ability to regulation emotions, and prevent decompensation.] Narrative Note: []
--- NOTE | 2018-09-28 10:30 | BH.SGPN.GN ---
Behaviors/Verbalizations/Mental Status: []Client alert and oriented, neatly dressed and groomed. Eye contact good. Motor activity appropriate. Speech within normal limits. Affect incongruent-smiling but reporting depression, mood depressed. Thoughts linear, logical, no signs of hallucinations or delusions. Client Response/Progress/Benefit: []Client responded well to session, active participant. Client commented on the quote sharing, ?we stay stuck because we fear taking risks.? Client appeared to connect with the topic of personal pitfalls and how they can prevent mental health progress. Client identified barriers to making mental health progress such as fear of rejection, lack of support, and minimizing symptoms. Client shared examples of personal pitfalls are substance abuse and ?staying in a negative cycle.? Client participated in the group activity and provided direction to the group at times. Client reflected that self-awareness and communication are both needed in order to avoid falling into personal pitfalls. Client appeared to benefit from increasing self-awareness and applying in the moment coping. Progress limited, client continues to report depressed mood and struggles with attendance.
--- NOTE | 2018-09-28 11:30 | BH.SGPN.GN ---
Behaviors/Verbalizations/Mental Status: []Client alert and oriented, casually dressed and groomed. Eye contact good. Motor activity appropriate. Speech within normal limits. Affect congruent to topic being discussed, mood depressed. Thoughts linear, logical, no signs of hallucinations or delusions. Client Response/Progress/Benefit: []Limited participation in group discussion, however was attentive and was seen nodding in agreement with group suggestions. Completed activity. Pt completed a worksheet where he identified his own personal pitfalls which included: lack of communication, procrastination, minimizing symptoms, shutting down, ruminations, and negative thoughts. Group worked together to identify strategies to overcome personal and general pitfalls which included: actively participating in mental health treatment, developing and committing to a plan, identifying decision-making and problem solving strategies, reflection on past experiences, identifying coping skills that are effective and not effective, reframing, and challenging negative thoughts. Client identified other skills he can use to include: being in the moment, recognizing positives/progress, and taking small steps to improve communication. Benefited from identifying personal and general pitfalls and strategies to over these pitfalls. Will continue in IOP to decrease depression and prevent decompensation. Staff continues to provide support and education regarding depression as well as encourage consistent attendance for treatment. Narrative Note: []
--- NOTE | 2018-10-02 09:05 | BH.SGPN.GN ---
Behaviors/Verbalizations/Mental Status: [] Eye contact is good. Motor activity is appropriate. Appearance is casual. Speech is Appropriate. Mood is depressed. Affect is flat. Thoughts are linear and logical. No evidence of psychosis. Reviewed daily check in sheet and no reports of suicidal ideations or intent. Client Response/Progress/Benefit: [] Pt was an active participant in group discussion. Shared with the group continued difficulty with mood management and motivation. Reports isolation, avoidant behaviors, poor memory, no energy, no motivation, increased irritability, poor sleep, and difficulty completing daily tasks and responsibilities. Trouble managing emotions related to daily stressors. If a small part of his plan goes awry he reports giving up and spending time on the couch. Frustrated with himself. Emotion for today is irritable. Group provided support and feedback. No progress noted. Will continue in IOP to maintain safety, improve daily functioning, and stabilize mood. Narrative Note: []
--- NOTE | 2018-10-02 10:08 | BH.SGPN.GN ---
Behaviors/Verbalizations/Mental Status: [Client eye contact good, casually dressed, appropriately groomed, motor activity appropriate, speech normal rate and tone, mood depressed, congruent affect, thoughts linear and intact, no evidence of delusions or hallucinations.] Client Response/Progress/Benefit: [Pt active participant AEB contributing to discussion and providing feedback throughout. Pt noted connecting with topic of goal setting and reported that ?recognizing small progress is important in preventing giving up on goals?. Pt shared a benefit of short-term goals as: increasing motivation and providing a sense of accomplishment. Identified personal barriers to following through with goals as: high expectations and lack of follow through. Client participated in the review of SMART goal setting criteria and provided insight regarding each component of SMART goals. Noted that specific goals are important in giving something concrete to work towards. Client seemed to benefit from rehearsing setting short-term SMART goals in the group activity and displayed progress in ability to connect with materials discussed. Continued IOP tx to promote healthy change behaviors, increase consistent skill application, and prevent decompensation. ] Narrative Note: []
--- NOTE | 2018-10-02 11:10 | BH.SGPN.GN ---
Behaviors/Verbalizations/Mental Status: []Pt eye contact good, casually dressed, motor activity restless, speech normal rate and tone, mood depressed, constricted affect, thoughts linear and logical, no evidence of delusions or hallucinations. Client Response/Progress/Benefit: []Pt listened attentively to others and contributed thoughts and ideas to discussion. Client identified his small SMART goal is to focus positive attention on daughter to improve relationship and decrease frustration. Client receptive to feedback about creating a more specific goal in regards to what positive attention looks like. Client clarified he will increase time spent with daughter and be more mindful in how he reacts to his daughters tantrums'. Client stated this goal will benefit him by improving relationship with daughter and reduce frustration for the whole family. Pt identified being reactive to his daughter's tantrum to be barrier to achieving his goal, which he identified he can overcome this barrier by trying to connect with his daughter's emotions and listen to her before reacting. Pt shared another barrier would be feeling hopeless that he can make things better which he stated he can overcome this barrier by being persistent and reminding him of the benefits. Pt progress could be hindered with pt having difficulty with following through with set goals. Pt seemed to benefit from identifying a SMART goal and identifying ways to help overcome potential barriers. Pt to continue IOP level of care to decrease depression, increase utilization of healthy coping and cognitive restructuring, and prevent decompensation. Narrative Note: []
--- NOTE | 2018-10-03 09:05 | BH.SGPN.GN ---
Behaviors/Verbalizations/Mental Status: [] Eye contact is good. Motor activity is appropriate. Appearance is casual. Speech is Appropriate. Mood is depressed/irritable. Affect is flat. Thoughts are linear and logical. No evidence of psychosis. Reviewed daily check in sheet and no reports of suicidal ideations or intent. Client Response/Progress/Benefit: [] Pt spoke when prompted. Attentive. Emotion for today is hopeless and irritable. Identified some positives from yesterday stating that he went to see sleep specialist after canceling 3 appointment in the past. Also made some tough phone calls regarding f which he has been avoiding. Reports numerous psychosocial stressors which is impacting his motivation, mood, and causing hopelessness. When hopeless pt will avoid others and isolate often sitting on the couch and ruminating on past mistakes. This is what he has down the last several weeks. Benefited from group support and encouragement. Limited progress noted. Will continue in IOP to maintain safety, improve functioning to return to work, and stabilize emotions. Narrative Note: []
--- NOTE | 2018-10-03 10:09 | BH.SGPN.GN ---
Behaviors/Verbalizations/Mental Status: []Client alert and oriented, casually dressed and groomed. Eye contact good. Motor activity appropriate. Speech within normal limits. Affect congruent, mood euthymic. Thoughts linear, logical, no signs of hallucinations or delusions. Client Response/Progress/Benefit: []Pt receptive of session AEB pt listening to others, taking notes, and providing input at times. Pt appeared to connect with various definitions of resilience provided by the group as well as ideas for how resilience can have positive impacts mental health and wellness. Pt stated flexible thought patterns helps one adapt to situations and stressors more effectively. Pt engaged in small group discussion about the various strategies that can help strengthen one's resilience. Pt appeared to connect with others comments about importance of self-awareness to build resilience because if know personal barriers then know what you can do to improve situation. Pt seemed to benefit from increased awareness of various components that can contribute to increased resilience. Continued IOP recommended to prevent decompensation, increase utilization of healthy coping skills, and challenge distorted thoughts. Narrative Note: []
--- NOTE | 2018-10-03 14:45 | BH.MDN ---
Multi-Disciplinary Note - Note 45-min Individual Time Started:: 11:13 Date: 10/03/18 Purpose of session/treatment goals addressed:: Purpose of session was to assess pt's current symptoms and stresors. Other topics included: gaining awareness of main problem areas and problem solving strategies to address problems. Eye Contact:: Fair Motor Activity:: Appropriate Appearance:: Casual Speech:: Appropriate Mood:: Anxious, Dysthymic Affect:: Congruent Thoughts:: Linear, Logical, No evidence of hallucinations/delusions noted Staff Interventions:: Therapist used open ended questions to elicit pt's current symptoms and stressors. Elicited pt's thoughts about his main problem areas. Worked with pt to identify strategies to address problems. Provided support by using active listening and validating emotions. Client Response:: Pt reported he is struggling with hopelessness because doesn't know how to solve his problems. Pt stated he continues to sit on the couch and rumiante on his past miskates, which he recognizes results in him feeling wosre. Pt reported main problem areas to include: procrastination, shutting down, and avoidance of confrontration. Pt stated he he will put off tasks and responsibilties because doesn't want to have to deal with potential failure. Pt reported he is frustrated with his but doesn't confront her because worried she will bring up his past infidelity. Pt worked with therapist to identify strategies to work through problems. Pt stated he was willing to work on decreasing his procrastination by making a plan of action fo his various projects at his house. Pt stated if he has a plan in place he will be more motivated to get it done. Risks/Concerns:: Denies current suicidal ideatoin, plan or intention to date. Progress Toward Goals/Plan:: Progress limited as evidenced by pt continuing to isolate, not applying healthy coping skills, and ruminating on past mistakes. Pt continues to struggle with follow through, often reverting to maladaptive coping skills. Pt recommended to continue IOP to improve functioning so can retrun to work, increase use of healthy coping skills and prevent decompensation. Time Stopped:: 12:00
--- NOTE | 2018-10-04 09:05 | BH.SGPN.GN ---
Behaviors/Verbalizations/Mental Status: []Client alert and oriented, neatly dressed and groomed. Eye contact good. Motor activity appropriate. Speech within normal limits. Affect full, mood euthymic. Thoughts linear, logical, no signs of hallucinations or delusions. Reviewed client?s symptom tracker, no risk for suicidal ideation, plan, or intent as of 10/04/18. Client Response/Progress/Benefit: []Client responded well to session, attentively listening and engaged. Client reports feeling ?relieved and hopeful? today. Client shared yesterday after group he went to a [employer] arts class with his daughter and ?that was really fun.? Client also reached out to his mother and talked to her on the phone yesterday, which is significant as client shared he often avoids his mother. Client reported talking to her has pros and cons because client states his mother is supportive in some ways, but ?very closed off? to discussing mental health. Client shared his mother has been like this for as long as client can remember, and client contributes his own rigid boundaries about mental health to his upbringing. Client stated he did not let the conversation keep him down, though which is positive. Client appeared to benefit from reflecting on positives. Progress noted as client engaged in social activities last night, however, client continues to report mood instability and difficult managing symptoms.
--- NOTE | 2018-10-04 10:23 | BH.SGPN.GN ---
Addendum entered and electronically signed by LIANET Hernandez 06/13/19 08:23: Addendum entered due to note being put in the wrong month for this patient. Note reflects Group Psychotherapy Session #3. Behavioral Health Date: 10/04/18 1120 Duration: 60 minutes Fitness Studies Teacher: Rosalie Gabriel/BETTY Group Topic: []Stress # of Participants: []9 Goal of Group: []To practice in the moment stress management strategies and increase repertoire of healthy coping skills to manage stress. Staff Interventions: [] Therapist facilitated discussion about control versus no control and helped group members connect the concept to stressors. Therapist led group activity that provided participants opportunity to utilize stress management strategies in the moment. Therapist led discussion about importance of putting forth more energy on those stressors they can control. Therapist facilitated brainstorming of strategies to help manage stress and taught clients the four A?s of stress (adapt, alter, avoid, accept). Therapist provided support by using active listening and providing feedback. Individual Note: Behaviors/Verbalizations/Mental Status: []Client alert and oriented, casually dressed and groomed. Eye contact good. Motor activity appropriate. Speech within normal limits. Affect congruent, mood euthymic. Thoughts linear, logical, no signs of hallucinations or delusions. Client Response/Progress/Benefit: []Client was an active participant throughout session, providing good feedback and encouragement during the activity. Client worked with the group to complete the challenge activity. Client was able to identify barriers encountered that may also impact managing stress in daily life. Group identified barriers of stress management to include taking on the biggest stressor at once, not asking for help, and avoidance. Client actively listening and taking notes during discussion about the 4 A's of managing stress. Expressed wanting to get home projects out of his stress jar, which he stated the first step is to create a plan of action for each project. Client seemed to benefit from increased awareness of the impact of stress on mental health and increasing repertoire of stress management strategies. Will continue IOP tx to promote gains in symptom management and improve daily functioning. Original Note: Behaviors/Verbalizations/Mental Status: [Client alert and oriented, casually and neatly dressed. Eye contact good. Motor activity appropriate. Speech within normal limits. Affect congruent, mood dysthymic, anxious. Thoughts linear, logical, no signs of hallucinations or delusions. ] Client Response/Progress/Benefit: [Pt receptive of session, actively engaged and contributing to discussion on stress. Pt expressed that stress can have both healthy and unhealthy aspects depending on your perspective and ways of dealing with stress. Pt indicated relating to the impact of unmanaged stress and worked with the group to identify impacts of unmanaged stress. Noted that stress can cause shutting down, isolating, and increased depression. Shared that when managed, stress can increase determination. Pt appeared to benefit from gaining awareness of current stressors and learning about the impact stress has on overall wellbeing. Participated in activity identifying current stressors impacting mental health. Pt's current stressors include work, money, and looking for a new career. Progress noted in pt ability to identify positive effects of stress as well as which stressors are within his own control. Recommended continued IOP tx to promote internal coping mechanisms, increase consistency of skill application, and prevent decompensation.] Narrative Note: []
[2018-11-16 14:58] VITALS: BP 122/85; PULSE 82; RESP 14
== END 2018-10-09 23:59 ==
LOC: BHIOP 09:00
PROVIDERS: Family Provider Internal Medicine; PCP Internal Medicine; Referring Provider Psychiatry & Neurology Psychiatry; Visit Provider Psychiatry & Neurology Psychiatry
DX: F33.1 Major depressive disorder, recurrent, moderate (principal); F43.22 Adjustment disorder with anxiety; F10.11 Alcohol abuse, in remission; F14.10 Cocaine abuse, uncomplicated; F15.21 Other stimulant dependence, in remission; Z79.899 Other long term (current) drug therapy; E66.3 Overweight
CPT/HCPCS: H0035; 90832; 90834; 90853

== ENCOUNTER 2018-10-10 09:00 | Outpatient (RCR) | payer OTHER, SELFPAY ==
--- NOTE | 2018-10-10 09:10 | BH.SGPN.GN ---
Behaviors/Verbalizations/Mental Status: [] Eye contact is good. Motor activity is appropriate. Appearance is casual. Speech is Appropriate. Mood is depressed. Affect is flat. Thoughts are linear and logical. No evidence of psychosis. Reviewed daily check in sheet and pt reports 1/5 for suicidal ideations and 0/5 for intent. Client Response/Progress/Benefit: [] Pt was an active participant in group. Provided appropriate feedback. Same improved mood stating that he has accomplished a great deal at home which impacts his mental health. States that when tasks and house is disorganized it impacts his depression and he will avoid and isolate. While overwhelmed these house tasks are strongly correlated with his mental wellness. Often freezes up when feeling overwhelmed which lead to sleeping on the couch and being depressed. Reports some conflicts and arguments with when she challenges him. Also anxiety over job. Limited progress noted. Benefited from group feedback and support. Will continue in IOP to prevent decompensation, improve functioning to return to work, and stabilize mood. Narrative Note: []
--- NOTE | 2018-10-10 10:05 | BH.SGPN.GN ---
Behaviors/Verbalizations/Mental Status: [] Client Response/Progress/Benefit: [] Pt was an active participant in group discussion and activity. Worked together with the group to define and identify difference between internal and external conflict. Discussed the benefits of conflict which includes; increases communication, personal growth, conflict addresses issues, and appropriate conflict can increase relationships and improve mental health. Pt worked with group to identify barriers to overcoming conflict which included; fear, perceived failure, belief that truth or conflict will hurt others, dwelling on interactions, catastrophizing conflict, and belief that conflict is failure in relationships. Attentive during psychoeducation on different conflict styles such as avoiding, accommodating, competing, and collaborative. Reviewed benefits and drawbacks to each style. Benefited as he was able to identify and define conflict as well as increase awareness of how conflict style impacts his mental health. Will continue in IOP to maintain safety, prevent decompensation, and improve functioning to return to work. Narrative Note: []
--- NOTE | 2018-10-10 11:20 | BH.SGPN.GN ---
Behaviors/Verbalizations/Mental Status: []Client alert and oriented, neatly dressed and groomed. Eye contact good. Motor activity appropriate. Speech within normal limits. Affect congruent, mood euthymic. Thoughts linear, logical, no signs of hallucinations or delusions. Client Response/Progress/Benefit: []Client responded well to session, engaged throughout session. Client further processed his conflict resolution style. Client reported he is avoidant with himself and collaborating with others. Client shared ?with my own issues I shut down but with others I look for solutions.? Client reported his mental health has been negatively impacted by being avoiding. Client was encouraged to practice being collaborative during the active. Client did well to share his opinions and be assertive. Client helped the group identify things that positively and negatively impact conflict resolution. Client agreed with group that listening to others and focusing on one thing at a time helped effectively resolve conflict. Client helped the group identify strategies to better manage conflict and set a goal to focus on one issue at a time to manage internal conflict. Client appeared to benefit from learning conflict resolution strategies and increasing self-awareness. Progress noted as client reports increased motivation with house projects, but he continues to struggle with mood stability.
--- NOTE | 2018-10-11 09:10 | BH.SGPN.GN ---
Behaviors/Verbalizations/Mental Status: [] Eye contact is good. Motor activity is appropriate. Appearance is casual. Speech is Appropriate. Mood is depressed. Affect is flat. Thoughts are linear and logical. No evidence of psychosis. Reviewed daily check in sheet and reports 1/5 for suicidal ideations and 0/5 for intent. Client Response/Progress/Benefit: [] Pt is an active participant. Provided appropriate feedback. Emotion for today is positive. Reports that he completed another task yesterday around the house. Also reports that he went to an appointment with a fish and wildlife warden to help him staying focused on goals. Discussed feeling lost in the past month. Lost at work, lost at home, and lost in keeping in touch with his support. Has not followed through and when he sets goal to he will often isolate and not follow through. Struggling with finding consistent ways to mange his anger, anxiety, depression, stress, and relationships in healthy ways. Limited progress noted. Benefited from group feedback and support. Will continue in IOP to prevent decompensation, maintain safety, and improve daily functioning to return to work. Narrative Note: []
--- NOTE | 2018-10-11 11:10 | BH.SGPN.GN ---
Behaviors/Verbalizations/Mental Status: []Client alert and oriented, neatly dressed and groomed. Eye contact good. Motor activity appropriate. Speech within normal limits. Affect congruent, mood euthymic. Thoughts linear, logical, no signs of hallucinations or delusions. Client Response/Progress/Benefit: []Client responded well to session, quiet, but engaged when prompted. Client further processed the group activity and shared that communication and tuning out the negatives helped the group accomplish the activity. Client completed the fear of failure worksheet and he reported that fear of failure is keeping client from starting a new career. Client reported fear of success and no desire to address conflict are his barriers to overcoming fear of failure. Client helped the group identify strategies to overcome fear of failure and client selected a goal to help him overcome his fear of failure. Client?s goal is to work on increasing awareness of self-sabotaging behaviors such as frequent distractions. Client appeared to benefit from gaining awareness and setting a goal to reduce fear of failure. Client showing progress per his report of increased motivation at home. Client to continue IOP to prevent decompensation and increase mood stability.
--- NOTE | 2018-10-11 14:44 | BH.MDN ---
Multi-Disciplinary Note - Note 60-min Individual Time Started:: 12:05 Date: 10/11/18 Time Stopped:: 13:00
--- NOTE | 2018-10-12 09:10 | BH.SGPN.GN ---
Behaviors/Verbalizations/Mental Status: [] Eye contact is good. Motor activity is appropriate. Appearance is neat. Speech is Appropriate. Mood is depressed. Affect is flat. Thoughts are linear and logical. No evidence of psychosis. Reviewed daily check in sheet and no reports of suicidal ideations or intent Client Response/Progress/Benefit: [] Pt spoke very little however was attentive. Provided input and feedback at times to peers. Emotion for today is tired. Had a short check-in stating that yesterday was uneventful. Choose not to elaborate. Benefited from group support and encouragement. Will continue in IOP to prevent decompensation, improve functioning to return to work, and stabilize mood. Narrative Note: []
--- NOTE | 2018-10-12 11:15 | BH.SGPN.GN ---
Behaviors/Verbalizations/Mental Status: [] Eye contact is good. Motor activity is appropriate. Appearance is casual. Speech is Appropriate. Mood is depressed. Affect is flat. Thoughts are linear and logical. No evidence of psychosis. Client Response/Progress/Benefit: [] Pt was an active participant in group activity and discussion. Worked with the group members to identify strategies to overcome barriers to making changes which included planning ahead, identifying small steps that can be taken, reminding self of positives the change will have, reminding oneself of the reasons or whys behind making the change, and developing small incentives. Pt also identified a specific changes he would like to make, barriers to making that change, and a SMART goal to reach that change. Shared this with the group. Benefited from group as he was able to identify strategies to overcome barriers to change, developed specific change that he would like to make, and developed a plan to make that change. Will continue in IOP to maintain safety, stabilize mood, prevent decompensation, and improve functioning to return to work. Narrative Note: []
--- NOTE | 2018-10-12 11:20 | BH.SGPN.GN ---
Behaviors/Verbalizations/Mental Status: [Client alert and oriented, casually dressed, appropriate grooming. Eye contact good. Motor activity WNL. Speech appropriate rate/tone. Affect congruent, mood dysthymic. Thoughts linear, logical, no signs of hallucinations or delusions.] Client Response/Progress/Benefit: [Pt responded well to session, provided input and able to reflect on content discussed throughout. Pt connected with the quote and indicated that ?rereading the past chapter? can prevent from making changes in the present moment. Pt participated in group discussion regarding mental health benefits of change and barriers in making those changes. Pt identified three small personal changes to improve mental health as: creating a better sleep routine, spending more time being active and in the outdoors, and sharing more with his supports. Pt appeared to benefit from gaining awareness of personal changes that would improve mental health and the barriers keeping client stuck. Progress noted in client willingness to begin addressing barriers preventing change through increased awareness. Continue IOP to further increase healthy coping skills, improve communication and use of supports, and maintain stability.] Narrative Note: []
--- NOTE | 2018-10-17 11:23 | BH.SGPN.GN ---
Behaviors/Verbalizations/Mental Status: [Pt eye contact good, casually dressed, motor activity appropriate, speech normal rate and tone, mood euthymic, congruent affect, thoughts linear and intact, no evidence of delusions or hallucinations.] Client Response/Progress/Benefit: [Pt receptive of session, provided input throughout discussion on Social Supports. Pt worked with the group to make connections between the challenge activity and utilizing social supports in daily life. Reflected that a personal barrier in using current supports is lack of awareness. Contributed to discussion on different types of support and benefits each can provide. Noted that a workplace EAP program can provide occupational support. Pt worked with the group to identify strategies for developing new and enhancing current supports. He suggested being open with communication when asking supports for help. Pt benefited from identifying a type of support she would like to improve and creating actionable steps to promote follow-through. Indicated wanting to increase professional supports by increasing consistent utilization of this support and researching additional professional supports in the area. Pt to continue IOP level of care to prevent decompensation, reduce anxiety, and continue to promote change behaviors.] Narrative Note: []
--- NOTE | 2018-10-18 09:05 | BH.SGPN.GN ---
Behaviors/Verbalizations/Mental Status: [] Eye contact is good. Motor activity is appropriate. Appearance is casual. Speech is Appropriate. Mood is depressed. Affect is flat. Thoughts are linear and logical. No evidence of psychosis. Reviewed daily check in sheet and reports suicidal ideations as 2/5 and intent as 1/5. Therapist notified. Pt did not report this during group. Client Response/Progress/Benefit: [] Pt was attentive however did not participate unless prompted. Reports being focused on home projects as he recently started another. In-laws are going to be visiting and there is stress to make the house look more presentable. Ruminating a great deal on work, returning to work, and difficulty finding new employment. States I don't have a career anymore I have a job. Blames himself for no getting promotions. Hopeless about future which impacts daily functioning, mood, and relationships. Limited progress as he appears to be just getting by. Will continue with IOP to maintain safety, prevent decompensation, and stabilize mood. Narrative Note: []
--- NOTE | 2018-10-18 10:12 | BH.SGPN.GN ---
Behaviors/Verbalizations/Mental Status: [Pt alert and oriented, casually dressed, appropriate grooming. Eye contact fair, looking down. Motor activity WNL. Speech appropriate rate and soft tone. Affect constricted, mood depressed. Thoughts linear, logical, no signs of hallucinations or delusions.] Client Response/Progress/Benefit: [Pt receptive of session, actively listening AEB nodding and taking notes, though providing limited input during discussion. Pt connected with the topic of communication, worked with group to identify potential communication potholes impacting ability to engage with others. Noted that not listening and fear of judgement can impact effectiveness of communication. Pt helped the group discuss the different communication styles including the payoffs and costs of each. Pt discussed that passive -aggressive communication characteristics include lack of communication and limited eye contact. Pt appeared to benefit from increasing awareness of how communication impacts mental health. Progress in ability to identify own communication potholes Recommended to continue IOP to increase insight and use of coping skills for depression and anxiety and prevent decompensation. ] Narrative Note: []
--- NOTE | 2018-10-18 10:48 | BH.COMM ---
Communication Note - Communication with Client Communication Note: Therapist followed up with client to assess risk and lethality due to client's symptom tracker scores for suicidal ideation. Client reported his thoughts are ?passive? due to feeling overwhelmed and stressed. Client had thoughts such as my family would be better off without me but shared ?I know that?s not true.? Client denies any active suicidal ideations, plan, or intent to follow through. Client able to identify protective factors including his family. Reports ability to maintain safety and willing to meet with his primary therapist tomorrow.
--- NOTE | 2018-10-18 10:53 | BH.COMM_ITS ---
Communication Note - Communication with Client Communication Note: Therapist followed up with client to assess risk and l ethality due to client's symptom tracker scores for suicidal ideation. Client reported his thoughts are ?passive? due to feeling overwhelmed and stressed. Client had thoughts such as my family would be better off without me but shared ?I know that?s not true.? Client denies any active suicidal ideations, plan, or intent to follow through. Client able to identify protective factors including his family. Reports ability to maintain safety and willing to meet with his primary therapist tomorrow.
--- NOTE | 2018-10-19 10:12 | BH.SGPN.GN ---
Behaviors/Verbalizations/Mental Status: [Eye contact is good. Motor activity WNL. Appearance is neat and casual. Speech is Appropriate. Mood is anxious, dysthymic. Affect is congruent. Thoughts are linear and logical. No evidence of psychosis.] Client Response/Progress/Benefit: [Pt was an active participant in group activity and discussion, provided input throughout reflection portion of activity. Pt worked with the group to define anger and its causes, as well as the internal and external impacts of anger. Discussed that anger can often be viewed as negative which may be why it leads to minimization or avoidance when experiencing anger related emotions. Pt described personal internal impacts of unhealthy anger include; decreased self-esteem, physical sx, guilt, and isolation. Pt reports external impact of unhealthy anger as; relationship issues, occupational conflict, and decreased ability to provide support to those around him. Benefited from group by increasing awareness of the internal and external impacts of unhealthy anger. Progress noted in pt ability to identify anger related responses and the impact this has on mental health and ability to advocate for himself. Continued IOP tx to decrease depression, improve consistent application of emotion regulation skills, and prevent decompensation. ] Narrative Note: []
--- NOTE | 2018-10-19 12:47 | PCM.PN.BLA ---
Progress Note Chief Complaint: The patient is a 48-year old male who is an active participant in the intensive outpatient mental health treatment program at [facility]. He has a long history of depression, anxiety, marital problems, and borderline personality traits. History of Present Illness/Interim History: The patient reports doing fairly well. His mood has been good. He denied any significant depression. He has found the intensive outpatient groups to be helpful, and is trying to utilize this coping skills he has been learning. Things have been going fairly well in his marriage. He is learning to communicate better with his . They have been having fewer arguments. He has been under stress because of financial issues and having to return to his stressful job before long. That has caused some situational anxiety. He is looking for other work. He denied any problems stopping Risperdal. He apparently had some minor withdrawal symptoms at first but these have resolved. He denies any significant anger problems recently. Current Psychiatric Medications: Zoloft 50 mg daily, Lamictal 150 mg daily Review of Symptoms: Psychiatry: No significant depression, some situational anxiety. He is not suicidal. There is no psychosis. He is cognitively intact. Constitutional: He is overweight and his weight has been steady. His energy level is improving. Mental Status Examination: The patient presents as a pleasant, sincere male who is casually dressed and neatly groomed. He demonstrates good social skills. His thoughts are logical and coherent. He denied any significant problems with his mood at this time. He is not suicidal. There is no psychosis. He is cognitively intact. Diagnoses: [] [place] I: Recurrent major depression, in remission; adjustment disorder with anxiety; history of relationship disstress with spouse; history of polysubstance abuse and dependence, in remission [place] II: Borderline personality traits [place] III: Overweight Plan: I refilled his Zoloft and Lamictal. Patient will continue participation in the intensive outpatient groups. I will see him again for follow-up.
--- NOTE | 2018-10-19 12:55 | PN_ITS ---
Progress Note Chief Complaint: The patient is a 48-year old male who is an active participant in the intensive outpatient mental health treatment program at [facility]. He has a long history of depression, anxiety, marital problems, and borderline personality traits. History of Present Illness/Interim History: The patient reports doing fairly well. His mood has been good. He denied any significant depression. He has found the intensive outpatient groups to be helpful, and is trying to utilize this coping skills he has been learning. Things have been going fairly well in his marriage. He is learning to communicate better with his . They have been having fewer arguments. He has been under stress because of financial issues and having to return to his stressful job before long. That has caused some situational anxiety. He is looking for other work. He denied any problems stopping Risperdal. He apparently had some minor withdrawal symptoms at first but these have resolved. He denies any significant anger problems recently. Current Psychiatric Medications: Zoloft 50 mg daily, Lamictal 150 mg daily Review of Symptoms: Psychiatry: No significant depression, some situational anxiety. He is not suicidal. There is no psychosis. He is cognitively intact. Constitutional: He is overweight and his weight has been steady. His energy level is improving. Mental Status Examination: The patient presents as a pleasant, sincere male who is casually dressed and neatly groomed. He demonstrates good social skills. His thoughts are logical and coherent. He denied any significant problems with his mood at this time. He is not suicidal. There is no psychosis. He is cognitively intact. Diagnoses: [] [place] I: Recurrent major depression, in remission; adjustment disorder with anxiety; history of relationship disstress with spouse; history of polysubstance abuse and dependence, in remission [place] II: Borderline personality traits [place] III: Overweight Plan: I refilled his Zoloft and Lamictal. Patient will continue participation in the intensive outpatient groups. I will see him again for follow-up.
--- NOTE | 2018-10-22 10:15 | BH.SGPN.GN ---
Behaviors/Verbalizations/Mental Status: [] Eye contact is good. Motor activity is appropriate. Appearance is casual. Speech is Appropriate. Mood is depressed. Affect is flat. Thoughts are linear and logical. No evidence of psychosis. Client Response/Progress/Benefit: [] Pt was an active participant in group discussion and activity. Attentive during psychoeducation. Worked with the group to identify benefits to making changes in our lives which included; growth, new opportunities, new experiences, improved relationships, getting ourself out of our comfort zones, increasing our adaptability, and building confidence. Group then identified barriers to change or what keeps us from making changes which included; change can be risky, fear of the unknown, fear of failure, negative thinking, what if thinking, anxiety, and change is scary. Pt participated along with group in activity where they identified and discussed the emotions related to change. Benefited from increased awareness and understaging of emotions, benefits, and barriers related to change. Will continue in IOP to prevent decompensation, improve daily functioning to return to work, and stabilize emotions. Narrative Note: []
--- NOTE | 2018-10-22 11:17 | BH.SGPN.GN ---
Behaviors/Verbalizations/Mental Status: [Pt alert and oriented, casual dress, grooming appropriate. Eye contact good. Motor activity appropriate. Speech within normal limits. Affect congruent, mood euthymic, positive. Thoughts linear, logical, no signs of hallucinations or delusions.] Client Response/Progress/Benefit: [Pt responded well to session, actively listening throughout discussion as well as providing insight. Participated in the challenge activity and helped the group process barriers associated with making change. Pt noted connecting with barriers identified by group and indicated that actively communicating helped the group adapt to change. Pt appeared to connect with discussion regarding overcoming the costs of change by identifying potential benefits via decisional balance sheet. Identified a change he would like to make to improve mental health. Pt?s goal is to get more sleep by going to bed at an earlier time. Pt reported potential benefits of change as: having more energy and focus, improving ability to cope, and increased clarity. Costs of not making the change included: continuing to struggle with focus and communication. Progress noted in pt ability to identify MH benefits of change. Recommended continued IOP to promote healthy change behaviors, improve communication and reduce minimization, as well as maintain stability.] Narrative Note: []
--- NOTE | 2018-10-24 09:02 | BH.SGPN.GN ---
Behaviors/Verbalizations/Mental Status: []Client alert and oriented, neatly dressed and groomed. Eye contact good. Motor activity appropriate. Speech within normal limits. Affect congruent, mood anxious. Thoughts linear, logical, no signs of hallucinations or delusions. Reviewed client?s symptom tracker. Client reported 1/5 for thoughts of suicide, which client identifies as his baseline. no risk for suicidal plan, or intent as of 10/24/18. Client Response/Progress/Benefit: []Client responded well to session, engaged throughout. Client reports feeling ?tired and worried about work.? Client shared his sleep schedule continues to be erratic and today he almost missed IOP because he was hitting snooze. Client identified making it to group as a positive today. Client shared he continues to feel anxious about work and his next steps in life. Client reports plan to retire when he returns to work, and he hopes to find a new job. Client has worked on his current job for 30 years, so change appears scary for client. Client able to identify personal strengths and strategies that can help him overcome fear of change. Client?s mental health wins include getting more projects done around his house, spending time with his daughter outside yesterday, and having less stress going into his daughter?s birthday green party than he thought he would. Client appeared to benefit from processing stressors and identifying strengths. Progress noted as client reports increased follow through with projects at home. Client to continue IOP as he continues to struggle with mood dysregulation and consistent application of coping skills.
--- NOTE | 2018-10-24 10:15 | BH.SGPN.GN ---
Behaviors/Verbalizations/Mental Status: []Client alert and oriented, neatly dressed and groomed. Eye contact good. Motor activity appropriate. Speech within normal limits. Affect congruent, mood anxious. Thoughts linear, logical, no signs of hallucinations or delusions. Client Response/Progress/Benefit: []Client was an active participant in group activity and discussion. Client connected with the topic and able to identify common barriers that keep people stuck from moving forward. Client identified his current reality which client described as hopeless, fear of change, feeling overwhelmed, low confidence, and stress. Client able to identify his personal resilience factors in his current reality such as his desire to improve, increased self-awareness, and challenging negative thoughts. Client shared his realistic, desired reality would be less procrastination, more organization, less ruminating, and being more open to his emotions. Client reported belief he is getting closer to his desired reality, but he is still struggling. Worked with group to identify barriers to reaching desired reality which include; unrealistic expectations, procrastination, and negative thoughts. Benefited from group as client was able to identify current mental health state, resilience factors, and barriers that are impacting progress.
--- NOTE | 2018-10-24 11:20 | BH.SGPN.GN ---
Behaviors/Verbalizations/Mental Status: [] Eye contact is good. Motor activity is appropriate. Appearance is casual. Speech is Appropriate. Mood is depressed. Affect is flat. Thoughts are linear and logical. No evidence of psychosis. Client Response/Progress/Benefit: [] Pt was an active participant in group discussion and activity. Group worked together to identify obstacles and barriers that are keeping them from their desired reality. Identified distorted view of self, negative self-talk, lack of trust, procrastination, unrealistic expectations, and cognitive distortions as common barriers. Through experiential activity group then worked together to develop strategies to overcome these obstacles such as; reframing, reviewing positives, healthy distractions, baby steps, small goals, affirmations, setting boundaries, exposure, identify positive self-worth, adjusting expectations, and many more. Pt reports that he is not to far away from desired reality and feels that this is attainable. Needs to be more organized, reduce frustration, and work on mindfulness. Narrative Note: []
--- NOTE | 2018-10-31 09:10 | BH.SGPN.GN ---
Behaviors/Verbalizations/Mental Status: [] Eye contact is good. Motor activity is appropriate. Appearance is casual. Speech is Appropriate. Mood is depressed. Affect is flat. Thoughts are linear and logical. No evidence of psychosis. Reviewed daily check in sheet and pt reported 1/5 for SI and 0/5 for intent. Therapist notified. Client Response/Progress/Benefit: [] Pt was an active participant in group discussion. Emotions for today is hopeless. Discussed a great deal of emotions related to his current view of himself such as anger and loss of identity. Reports that he is accomplishing things. He had some difficult conversations with his family and is re-evaluating his career. Appears at this point that he is contemplating chcf from his job. He discussed the pros and cons to this. Feels stuck in his current position and believes that it is a significant stressors to his wellness, his health, and his relationships. Reports being anxious about this change. Group provided feedback and emotions related to change and provide support and encouragement. Will continue in IOP to prevent decompensation and maintain gains. Narrative Note: []
--- NOTE | 2018-10-31 11:20 | BH.SGPN.GN ---
Behaviors/Verbalizations/Mental Status: []Client alert and oriented, neatly dressed and groomed. Eye contact good. Motor activity appropriate. Speech within normal limits. Affect flat, mood anxious. Thoughts linear, logical, no signs of hallucinations or delusions. Client Response/Progress/Benefit: []Client was mostly a passive participant in group discussion, taking notes, but providing occasional input. Attentive during psychoeducation on 4 zones of regulation. Client able to identify how he feels in each zone as well as how he acts in each zone. Also able to identify strategies to incorporate to support himself in each zone which included; setting small goals, spending time with his daughter, going outside, and talking with a support. Client shared he is in the ?yellow zone? or the heightened alertness zone and recognized he could benefit from getting outside with his daughter which will make him feel calmer. Benefited from group from increased education on zones of regulation or stages of alertness for emotions and healthy coping skills to use for each zone.
--- NOTE | 2018-10-31 13:11 | BH.MDN ---
Multi-Disciplinary Note - Note 30-min Individual Time Started:: 12:30 Date: 10/31/18 Purpose of session/treatment goals addressed:: Assessed current symptoms. Reviewed progress in IOP. Primary therapist has been off for past 2 weeks. Checked in with patient and his treatment plan. Eye Contact:: Good Motor Activity:: Appropriate Appearance:: Casual Speech:: Appropriate Mood:: Euthymic Affect:: Full Thoughts:: Linear, Logical, No evidence of hallucinations/delusions noted Staff Interventions:: Utilized SC techniques to elicit change behaviors. Reviewed previous week. Client Response:: Pt reports that he is in a good place today and yesterday. Progress noted in IOP and he is ready to return to work next week. Utilizing coping skills such as mindfullness, distraction, thought-challenging, and behavioral activation. Communicating more effectively with . Not isolating or avoiding household tasks. Has had several conversations with regarding the future and reports feeling confident. Reports that he is going to retire from current position. Feels as if the job has becomed too stressful with little room to move up. Denies any overwhelming depression, anxiety, or stress. Feels stable. Risks/Concerns:: Denies any suicidal ideations, plan, or intent. No risks or concerns noted. Progress Toward Goals/Plan:: Progress noted. Reports stable mood currently. Improved mood in the past week. Future-oriented. Communicating with . Utilizing coping skills. Decreased isolation and avoidance. Completing tasks. Along with has made some important decisions and feels confident and supported in his decisions. Plan is to return to work next week. Will remain in IOP for 2 days next week. Time Stopped:: 12:55
--- NOTE | 2018-11-02 09:10 | BH.SGPN.GN ---
Behaviors/Verbalizations/Mental Status: [] Eye contact is good. Motor activity is appropriate. Appearance is casual. Speech is Appropriate. Mood is euthymic. Affect is full. Thoughts are linear and logical. No evidence of psychosis. Reviewed daily check in sheet and no reports of suicidal ideations or intent Client Response/Progress/Benefit: [] Pt was an active participant in group discussion. Emotion for today is hopeful. Shared with the group that he has decided to retire from his job. Reports that him and his discussed this yesterday and worked out the logistics of this decision. Pt reports that the job itself was simply causing more distress emotionally than it was beneficial. He discussed at length his reasons, his regrets, his future plans, and the impact that his job has had on him over the years. Reports I feel like a weight was lifted off my shoulders Pt at this point appears to be excited about the life change. Insight that with change will come otehr emotions such as anxiety and fear. Feels that he did not make an impulsive decsioin. Progress noted per pt. Will continue in IOP to prevent decompensation and maintain gains. Plan is to discharger next week. Narrative Note: []
--- NOTE | 2018-11-02 10:13 | BH.SGPN.GN ---
Behaviors/Verbalizations/Mental Status: []Eye contact is good. Motor activity is appropriate. Appearance is casual. Speech is Appropriate. Mood is euthymic. Affect is full. Thoughts are linear and logical. No evidence of psychosis. Client Response/Progress/Benefit: []Client responded well to session, active participant in discussion. Client participated in discussion of the importance of sleep and how it impacts mental health. Group able to identify benefits of sleep on mental health including: improved emotional regulation, better patience, improved attention, and better cognition. Client stated ?I do a terrible job of putting myself down for bed? as client reported he will stay up for hours after his family goes to sleep. Client participated in the discussion of the ?dos and don?ts? of sleep hygiene. The group identified strategies to improve sleep hygiene including: turning off electronics, getting sunlight during the day, reducing caffeine, having a routine, and engaging in relaxation strategies. Client participated in identifying things to avoid or things that could hinder sleep quality including: drinking alcohol before bed, using substances, exercising before bed, eating large meals, and spending time on electronics. Appeared to benefit from psychoeducation on sleep hygiene. Will continue IOP tx to promote application of coping skills more consistently to improve daily functioning.
--- NOTE | 2018-11-07 09:10 | BH.SGPN.GN ---
Behaviors/Verbalizations/Mental Status: [] Eye contact is good. Motor activity is appropriate. Appearance is neat. Speech is Appropriate. Mood is anxious. Affect is congruent. Thoughts are linear and logical. No evidence of psychosis. Reviewed daily check in sheet and no reports of suicidal ideations or intent. Client Response/Progress/Benefit: [] Pt was an active participant in group discussion. Emotions for today is hopeful. Shared that he had spoken with his employer over the weekend and let them know that he is planning on retiring. Discussed the emotions related to this and not really getting to say goodbye to some co-workers. Continues to report that the benefits of this decisions outwieght the negatives. 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 Overall reports that he is functioning much better than he was a month ago. Denies any overwhelming depression, anxiety, or hopelessness. Utilizing skills, communicating well with , and feels more organized. Progress noted per pt report. Benefited from group support, encouragement, feedback, and discussion. Plan is to discharge pt from [facility] this week. j Narrative Note: []
--- NOTE | 2018-11-07 10:20 | BH.SGPN.GN ---
Behaviors/Verbalizations/Mental Status: [] Eye contact is good. Motor activity is appropriate. Appearance is causal. Speech is Appropriate. Mood is euthymic. Affect is full. Thoughts are linear and logical. No evidence of psychosis. Client Response/Progress/Benefit: [] Pt participated in group activity and group discussion. Discussed quote Don't wait until you?ve reached your goal to be proud of yourself. Be proud of every step you take towards reaching that goall. Pt reports that its easier to do this for others ... If you don't acknowledge your progress you increase the likelihood of failing Group worked together to identify benefits to developing goals which included; gives us direction, motivates us, can increase self-esteem, increase confidence, increase awareness, helps us progress forward, and encourages personal growth. Group also identified barriers to setting and accomplishing goals which include; fear of failure, stressed by deadlines, anxiety, negative thoughts, and unrealistic expectations of ourself. Attentive during education on developing SMART goals. Benefited from increase awareness of goal-setting methods. Will continue in IOP to maintain gains. Narrative Note: []
--- NOTE | 2018-11-07 11:23 | BH.SGPN.GN ---
Behaviors/Verbalizations/Mental Status: []Pt eye contact good, casually dressed, motor activity appropriate, speech normal rate and tone, mood euthymic, congruent affect, thoughts linear and intact, no evidence of delusions or hallucinations. Client Response/Progress/Benefit: []Pt listened attentively to others and provided input throughout group discussion. Pt identified his short-term SMART goal is to spend at least five minutes daily to practice a healthy coping skill. Pt stated this goal will benefit him by increasing consistency of using healthy coping. Pt identified not having enough time as a potential barrier to identified goal, which pt reported he can overcome by setting a time each day to complete goal. Pt stated another barrier is negative thoughts, which pt stated he can overcome by reframing distorted thoughts. Pt seemed to benefit from creating a SMART goal. Pt to continue IOP level of care to maintain gains, increase consistent use of positive coping and prevent decompensation. Narrative Note: []
== END 2018-11-09 23:59 ==
LOC: BHIOP 09:00
PROVIDERS: Family Provider Internal Medicine; PCP Internal Medicine; Referring Provider Psychiatry & Neurology Psychiatry; Visit Provider Psychiatry & Neurology Psychiatry
DX: F33.40 Major depressive disorder, recurrent, in remission, unspecified (principal); F43.22 Adjustment disorder with anxiety; Z59.9 Problem related to housing and economic circumstances, unspecified; F19.11 Other psychoactive substance abuse, in remission; Z79.899 Other long term (current) drug therapy
CPT/HCPCS: H0035; 90837; 90853

== ENCOUNTER 2018-11-12 09:00 | Outpatient (RCR) | payer OTHER, MEDICAID, SELFPAY ==
--- NOTE | 2018-11-12 09:10 | BH.SGPN.GN ---
Behaviors/Verbalizations/Mental Status: [] Eye contact is good. Motor activity is appropriate. Appearance is casual. Speech is Appropriate. Mood is euthymic. Affect is full. Thoughts are linear and logical. No evidence of psychosis. Reviewed daily check in sheet and no reports of suicidal ideations or intent. Client Response/Progress/Benefit: [] Pt was an active participant in group discussions. Shared that this is his last day in [facility]. Reports that he encountered several stressors over the weekend regarding house issues. Believes that he managed his emotions well as he did not avoid, withdraw, get overwhelmed, or get angry. Stated I didn't go into a downward spiral. 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 Discussed progress in [facility], topics which resonated most with him, and his overall improved coping skills. Feels more hopeful and less overwhelmed with present and future. Will be discharged from [facility] today. Narrative Note: []
--- NOTE | 2018-11-12 10:25 | BH.SGPN.GN ---
Behaviors/Verbalizations/Mental Status: []Client alert and oriented, casually dressed. Eye contact good. Motor activity appropriate. Speech within normal limits. Affect congruent, mood euthymic. Thoughts linear, logical, no signs of hallucinations or delusions. Client Response/Progress/Benefit: []Pt responded well to session, provided input and able to reflect on content discussed throughout. Pt connected with the quote and indicated that ?rereading the past chapter? can lead to pt getting stuck in the what if questions. Pt participated in group discussion regarding mental health benefits of change and barriers in making those changes. Pt identified three small personal changes to improve mental health as: improved sleep routine, decreasing procrastination, and improved self-compassion. Pt identified barriers to making identified changes include: lack of self-accountability, fear of failure, and bad habits. Pt appeared to benefit from gaining awareness of personal changes that would improve mental health and the barriers keeping client stuck. Progress noted in pt's increased awareness of barriers that impact ability to make changes in his life. Pt has made significant progress in IOP and plan is to discharge from [facility] today. Narrative Note: []
--- NOTE | 2018-11-12 11:26 | BH.SGPN.GN ---
Behaviors/Verbalizations/Mental Status: [Eye contact is good. Motor activity is appropriate. Appearance is casual. Speech is Appropriate. Mood is euthymic. Affect is full. Thoughts are linear and logical. No evidence of psychosis. ] Client Response/Progress/Benefit: [Pt was an active participant, did well to participate in group activity and provided insight and input to discussion. Worked with group members to identify connections between activity and strategies for overcoming barriers to making changes. Pt did well to relate this back to his own mental health wellness. Identified a specific change he would like to make for his mental health, barriers to making that change, and a SMART goal to reach that change. Shared he would like to work on reducing tendency to procrastinate by beginning to create a daily to-do list as well as set specific deadlines for these tasks. Discussed that this change would help to increase sense of accomplishment and reduce stress. Benefited from group as he was able to identify strategies to overcome barriers to change and create a plan for implementing one small change promoting personal growth. Pt set to discharge from IOP program on this date and is recommended ongoing outpatient tx to maintain gains, continue to promote healthy change behaviors, and maintain stability.] Narrative Note: []
--- NOTE | 2018-11-12 14:20 | BH.MDN ---
Multi-Disciplinary Note - Note 30-min Individual Time Started:: 12:30 Date: 11/12/18 Purpose of session/treatment goals addressed:: Purpose of session was to assess pt's current symptoms and stressors. Other topics: identifying treatment progress, identifying strategies for success, and discussing aftercare plan. Eye Contact:: Good Motor Activity:: Appropriate Appearance:: Neat Speech:: Appropriate Mood:: Euthymic Affect:: Congruent Thoughts:: Linear, Logical, No evidence of hallucinations/delusions noted Staff Interventions:: Therapist used open ended questions to elicit pt's current symptoms and stressors. Therapist explored pt's thoughts about treatment progress since starting IOP. Therapist collaborated with pt to identify strategies to help maintain progress. Therapist inquired pt's aftercare plans for follow up care. Provided support by validating emotions and using active listening. Provided pt with printed aftercare plan. Client Response:: Pt reported he can note progress in many areas of his life since starting IOP. Pt shared the fact he chose to retire from his place of employment for the past 30 years shows significant progress. Pt stated previously he has stayed at his job despite not enjoying what he was doing because he was fearful he wouldn't be good enough to find a new career. 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 Pt stated by making these big changes in his life he is feeling less stressed and feels more confident in his abilities. Pt reported he has also progressed with improved communication with his , awareness of distorted thoughts, and utilization of healthy coping skills. Pt states he needs to continue working on decreased procrastication and consistency of follow through. Pt identified strategies to help him maintain progress to include: communicating with his , practicing healthy coping skills, challenge distorted thoughts, recognizing his warning signs and being honest with supports on how he is doing. Pt reported due to retiring and needing to get set up with [employer] insurance he has not set up any counseling or psychiatry appointments. Pt stated he plans to do both individual and couples counseling at [facility]. Pt reported he plans to call the counseling center of [facility] to set up psychiatry services. Risks/Concerns:: Pt denies current suicidal ideation, plan or intention to date. Progress Toward Goals/Plan:: Pt has demonstrated progress with decreased anxiety and depression. Pt has shown increased self-confidenced as shown by pt choosing to move forward with skilled nursing despite many fears and embark on a new career journey. Pt also has shown progress with increased self-awareness of distorted thought patterns with improved ability to challenge and reframe thoughts. Plan is for pt to discharge from [facility] level of care today. Pt reported due to retiring and needing to get set up with [employer] insurance he has not set up any counseling or psychiatry appointments. Pt stated once his [employer] insurance starts he plans to do both individual and couples counseling at [facility]. Pt reported he plans to call the counseling center of [facility] to set up psychiatry services. Time Stopped:: 13:00
--- NOTE | 2018-11-12 14:38 | BH.MDN_ITS ---
Multi-Disciplinary Note - Note 30-min Individual Time Started:: 12:30 Date: 11/12/18 Purpose of session/treatment goals addressed:: Purpose of session was to assess pt's current symptoms and stressors. Other topics: identifying treatment progress, identifying strategies for success, and discussing aftercare plan. Eye Contact:: Good Motor Activity:: Appropriate Appearance:: Neat Speech:: Appropriate Mood:: Euthymic Affect:: Congruent Thoughts:: Linear, Logical, No evidence of hallucinations/delusions noted Staff Interventions:: Therapist used open ended questions to elicit pt's current symptoms and stressors. Therapist explored pt's thoughts about treatment progress since starting IOP. Therapist collaborated with pt to identify strategies to help maintain progress. Therapist inquired pt's aftercare plans for follow up care. Provided support by validating emotions and using active listening. Provided pt with printed aftercare plan. Client Response:: Pt reported he can note progress in many areas of his life since starting IOP. Pt shared the fact he chose to retire from his place of employment for the past 30 years shows significant progress. Pt stated previously he has stayed at his job despite not enjoying what he was doing because he was fearful he wouldn't be good enough to find a new career. 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 Pt stated by making these big changes in his life he is feeling less stressed and feels more confident in his abilities. Pt reported he has also progressed with improved c ommunication with his , awareness of distorted thoughts, and utilization of healthy coping skills. Pt states he needs to continue working on decreased procrastication and consistency of follow through. Pt identified strategies to help him maintain progress to include: communicating with his , practicing healthy coping skills, challenge distorted thoughts, recognizing his warning signs and being honest with supports on how he is doing. Pt reported due to retiring and needing to get set up with [employer] insurance he has not set up any counseling or psychiatry appointments. Pt stated he plans to do both individual and couples counseling at [facility]. Pt reported he plans to call the counseling center of [facility] to set up psychiatry services. Risks/Concerns:: Pt denies current suicidal ideation, plan or intention to date. Progress Toward Goals/Plan:: Pt has demonstrated progress with decreased anxiety and depression. Pt has shown increased self-confidenced as shown by pt choosing to move forward with fci despite many fears and embark on a new career journey. Pt also has shown progress with increased self-awareness of distorted thought patterns with improved ability to challenge and reframe thoughts. Plan is for pt to discharge from [facility] level of care today. Pt reported due to retiring and needing to get set up with [employer] insurance he has not set up any counseling or psychiatry appointments. Pt stated once his [employer] insurance starts he plans to do both individual and couples counseling at [facility]. Pt reported he plans to call the counseling center of [facility] to set up psychiatry services. Time Stopped:: 13:00
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
== END 2018-11-12 14:00 | disposition home or self-care (01) ==
LOC: BHIOP 09:00
PROVIDERS: Family Provider Internal Medicine; PCP Internal Medicine; Referring Provider Psychiatry & Neurology Psychiatry; Visit Provider Psychiatry & Neurology Psychiatry
DX: F33.40 Major depressive disorder, recurrent, in remission, unspecified (principal); F43.22 Adjustment disorder with anxiety; F60.3 Borderline personality disorder; F19.21 Other psychoactive substance dependence, in remission
CPT/HCPCS: H0035; 90832; 90853

== ENCOUNTER 2019-01-16 17:02 | Emergency (ER) | payer MEDICAID, SELFPAY ==
[2019-01-16 17:03] VITALS: BP 131/83; PULSE 100; RESP 16; TEMP 36.2; O2SAT 96; BMI 32.5
--- NOTE | 2019-01-16 17:40 | ED.DCSUM_ITS ---
- ER Visit Summary Date of Service: 01/16/19 Chief Complaint: Abrasions History of Present Illness: The patient is a 48 M with abrasions to his left posterior leg. This happened prior to arrival. Patient needs a tetanus physician. Physical Examination: Patient has 2 linear abrasions to his left posterior lower leg. These are superficial. Neurovascular intact distally. Test Results: None indicated Emergency Department Course and Treatment: Wounds were cleaned and explored. I did close to the areas with Steri-Strips. No indication for antibiotics. Tetanus updated. Wound care instructions given. Cellulitis precautions given. Treatment Plan: As above Disposition: Discharge Impression: 1. Left leg abrasions This note was generated with [employer] dictation software. It may contain incorrect words, spelling, and punctuation that were not noted in review of the chart prior to signing ED Disposition - Plan for ED Patient: Referrals: Care Physician,No Primary [Primary Care Provider] -
--- NOTE | 2019-01-16 17:41 | ED.DEP ---
ED Disposition - Plan for ED Patient: Instructions: Abrasion Referrals: Care Physician,No Primary [Primary Care Provider] -
[2019-01-16] MEDS: Diphth,Pertuss(Acell),Tet Vac 0.5 ML Vial IM (17:46)
== END 2019-01-16 18:00 | disposition home or self-care (01) ==
LOC: ED 17:39
PROVIDERS: Emergency Provider Emergency Medicine
DX: S80.812A Abrasion, left lower leg, initial encounter (principal); W45.8XXA Other foreign body or object entering through skin, initial encounter; Y93.9 Activity, unspecified; Y92.9 Unspecified place or not applicable; Y99.9 Unspecified external cause status; Z23 Encounter for immunization; F32.9 Major depressive disorder, single episode, unspecified; F41.9 Anxiety disorder, unspecified; Z79.899 Other long term (current) drug therapy
CPT/HCPCS: 90471; 90715; 99282

== ENCOUNTER 2021-06-15 16:16 | Outpatient (CLI) | payer OTHER, MEDICAID, SELFPAY | END 2021-06-15 23:59 | disposition short-term general hospital (02) | LOC: LABSPEC 16:17 | PROVIDERS: Referring Provider Physician Assistant Surgical; Visit Provider Physician Assistant Surgical | DX: Z11.52 Encounter for screening for COVID-19 (principal) | CPT/HCPCS: 87635; U0003; U0005 ==

== ENCOUNTER → 2022-03-09 | Outpatient (CLI) | payer OTHER, MEDICAID, SELFPAY ==
[2022-03-09 12:20] LABS: Absolute Lymphocyte Count 1.51 X10^3/uL (0.83-4.51); Absolute Neutrophil Count 3.9 X10^3/uL (2.0-7.7); Basophil# 0.05 X10^3/uL; Basophil% 0.8 % (0-1); Eosinophils% 3.1 % (0-5); Hematocrit 48.2 % (40-54); Hemoglobin 16.2 g/dL (13.0-16.5); Lymphocyte # 1.51 X10^3/ul (0.83-4.51); Lymphocyte % 23.5 % (19-41); Mean Corp Hgb Conc 33.6 g/dL (32-36); Mean Corpuscular Hgb 29.1 pg (27.0-32.0); Mean Corpuscular Volume 86.7 fL (80-94); Mean Platelet Vol. 9.9 fl (6.2-12.0); Monocyte# 0.73 X10^3/uL; Monocyte% 11.4 % (0-10); NRBC Flagged by Analyzer 0 % (0-5); Neutrophil # 3.92 X10^3/uL (2.7-7.7); Platelet Count 227 K/mm3 (150-450); RBC Distribution Width CV 13.2 % (11.6-14.6); RBC Distribution Width SD 41.8 fl (35.1-43.9); Red Blood Count 5.56 M/mm3 (4.6-6.2); White Blood Count 6.4 K/mm3 (4.4-11.0)
[2022-03-09 12:41] LABS: Hemoglobin A1c 5.9 % (3.8-5.6)
[2022-03-09 12:54] LABS: ALB/GLOB Ratio 1.1 RATIO (0.9-2.4); AST(SGOT) 33 U/L (15-37); Alanine Aminotransfer ALT/SGPT 50 U/L (16-61); Alkaline Phosphatase 90 U/L (45-117); Anion Gap 6 (5-15); BUN 11 mg/dL (7-18); BUN/Creat Ratio 10.9 RATIO (10-20); Calcium,Total 9.2 mg/dL (8.5-10.1); Chloride 102 mmol/L (98-107); Cholesterol 172 mg/dL (200); Creatinine, Serum 1.01 mg/dL (0.70-1.30); EST Glomerular Filtration Rate 82 mL/min (>60); Est Glom Filt Rate - Afr Amer 99 mL/min (>60); Globulin 3.8 g/dL (2.2-4.2); Glucose 94 mg/dL (74-106); High Density Lipoprotein 44 mg/dL; PSA,Total - Annual Screen 0.71 ng/mL (0.00-4.00); Potassium 4.2 mmol/L (3.5-5.1); Protein, Total 7.8 g/dL (6.4-8.2); Sodium Level 138 mmol/L (136-145); Thyroid Stim Hormone (TSH) 2.05 uIU/mL (0.358-3.74); Triglycerides 207 mg/dL; Very Low Density Lipoprotein 41 mg/dL (5-40)
== END | disposition home or self-care (01) ==
LOC: LAB 11:48
PROVIDERS: PCP Internal Medicine; Visit Provider Internal Medicine
DX: Z13.220 Encounter for screening for lipoid disorders (principal); Z13.1 Encounter for screening for diabetes mellitus; Z12.5 Encounter for screening for malignant neoplasm of prostate
CPT/HCPCS: 36415; 80053; 80061; 83036; 84153; 84443; 85025; G0103

== ENCOUNTER → 2022-10-03 | Outpatient (CLI) | payer OTHER, MEDICAID, SELFPAY | END | disposition home or self-care (01) | PROVIDERS: PCP Nurse Practitioner Family; Visit Provider Physician Assistant | DX: J02.9 Acute pharyngitis, unspecified (principal) | CPT/HCPCS: 87070 ==

== ENCOUNTER 2022-12-22 07:19 | Day surgery (SDC) | payer OTHER, SELFPAY ==
--- NOTE | 2022-12-22 | COLBX_PTH ---
PATIENT: MALENA NAVAS LOC: EN U#:[id number] AGE/SX: 52/M ROOM: RE12/22/[address]: Dr. Raul Craft MD : [id number] BED: DIS: 12/22/2022 SPEC #: [id number] RECD: 12/22/22 13:15 STATUS: DENNIS ÁLVAREZ #: [id number] DEAN: 12/22/22 00:[address]: Raul Craft DEPT: SURGICAL PATHOLOGY RECD BY: Jeff Barron ENTERED: 12/22/22 13:15 SP TYPE: COLON BX OTHR DR: Dr. Cara Jones MD Tissues: COLON BIOPSY Procedures: Surgery Specimen Level IV HEADER OPERATION: colonoscopy-open access with polypectomy PRE-OP DIAGNOSIS: colon cancer screening TISSUE SUBMITTED: Proximal transverse colon MICROSCOPIC DIAGNOSIS Proximal transverse colon, biopsy: A minute fragment of colonic mucosa with marked cautery artifacts. See comment. COMMENT Correlation with clinical, endoscopic findings and appropriate follow up are necessary. MICROSCOPIC DESCRIPTION Slides are reviewed. GROSS DESCRIPTION Received is one container labeled with the patient name and designated proximal transverse. The specimen consists of one minute fragment of light avila soft tissue that measures 0.1 cm greatest dimension. The specimen is totally submitted in one cassette. /MARY:elvia 12/22/22 TC:cannot code CPT:19787
[2022-12-22 07:50] VITALS: BP 113/73; PULSE 70; RESP 18; TEMP 36.7; O2SAT 99; BMI 31.9
[2022-12-22] MEDS: Lactated Ringers 1,000 ML 15 ML IV (07:50)
--- NOTE | 2022-12-22 08:22 | H&P.OPEN ---
HPI - General General Date of Service: 12/22/22 HPI Narrative MALENA NAVAS, is a 52 M who presents screening colonoscopy. He confirms her preappointment questionnaire that she has not experienced any change in her bowel habits-and particularly denies any notice of blood. He also denies any family history of GI illness to include diverticulitis, inflammatory bowel disease, or colon cancer. Lastly he confirms that her prep was completed successfully and that his output is now clear. [facility] Medical History (Updated 12/21/22 @ 10:26 by Kalee Nava) Arthritis Back problem Bipolar 1 disorder Carpal tunnel syndrome Chronic cough Conjunctivitis CPAP (continuous positive airway pressure) dependence Depression Dietary restriction Former smoker Gastric reflux H/O emotional problems High cholesterol High triglycerides History of edema Hypertension Injury of head and neck Migraines Prediabetes Seasonal allergies Sleep apnea Vitamin D deficiency Wears glasses Home Medications multivitamin (Daily Multiple tablet) 1 ea PO DAILY supplement 01/26/18 [History Last Taken 01/26/18] ibuprofen 400 mg tablet 600 mg PO Q6H PRN PRN Pain 02/15/18 [History Last Taken Unknown] cholecalciferol (vitamin D3) 250 mcg (10,000 unit) capsule 250 mcg PO .COMPLEX 03/09/22 [History Last Taken Unknown] new chapter tumeric force 1 cap PO DAILY 09/20/22 [History Last Taken Unknown] omega-3 fatty acids-fish oil 300 mg-500 mg capsule (Fish Oil) 1 cap PO DAILY 09/20/22 [History Last Taken Unknown] vitamin C 30 mg-zinc citrate 1.1 mg-elderberry 25 mg chewable tablet 1 tab PO BID 09/20/22 [History Last Taken Unknown] Rubi's wort 300 mg capsule 700 mg PO BID 11/10/22 [History Last Taken Unknown] saw palm 160 mg-vit E 100 unit-selen 100 xih-gkxx-brobte-pygeum tablet ([employer]) 2 tab PO DAILY 11/14/22 [History Last Taken Unknown] azelastine 205.5 mcg (0.15 %) nasal spray (Astepro Allergy) 1 spray intranasal BID 12/15/22 [History Last Taken Unknown] erythromycin 5 mg/gram (0.5 %) eye ointment 1 applic ophthalmic (eye) QHS 2 weeks #3.5 grams 12/15/22 [Rx Last Taken Unknown] L.acidophil,rhamnosus-B.breve,longum 20 billion cell sprinkle capsule (Probiotic) 1 cap PO DAILY 12/21/22 [History Last Taken Unknown] calcium-magnesium 300 mg-300 mg tablet 1 tab PO TID 12/21/22 [History Last Taken Unknown] levocetirizine 5 mg tablet (Allergy Relief (levocetirizine)) 5 mg PO DAILY 12/21/22 [History Last Taken Unknown] vitamin B complex 1 tab PO DAILY 12/21/22 [History Last Taken Unknown] Allergy/AdvReac Type Severity Reaction Status Date / Time lactose AdvReac Nausea/Vom/ Verified 12/21/22 10:09 Diarrhea Family History Mother Arthritis Lupus Rheumatoid arthritis Hypertension Father Arthritis Cancer Depression Diabetes Hypertension Brother Depression Suicide attempt Surgical History Abscess of left knee Biceps tendinitis on left Biceps tendinitis on right Hernia, umbilical Torn ACL Social History adopted: No household members: spouse, family and children housing: house current occupational status: employed 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 pets and animals: Yes leisure activities: reading history of recent travel: No sexually active: Yes Smoking Status: Former smoker alcohol intake: former substance use type: does not use diet: lactose free well-balanced diet: daily or most days caffeine: Yes eating out: 1-3 times/week during the past year weight has: increased > 10 lbs what type of physical activity do you participate in: walking seatbelt use: always do you feel safe at home: Yes Past Medical/Surgical History Planned Operation Planned Operative Procedure/s: COLONOSCOPY Previous Hospitalizations/Surgeries HX Hospitalizations: No Any Problems With Anesthesia: No You/Your Family Experience Fever (Hyperthermia) With Anes: No Cholinesterase deficiency: No Cardiovascular Hx Chest Pain within Last 2 months: No Hx of Irregular Heartbeat and/or Afib: No Hx Heart Attack: No Hx Hypertension: Yes (NO MEDS PRESENTLY) Hx Cardiac Surgery/Stents/Etc.: No Hx Pain in Legs when Walking/Leg Cramps: No Respiratory Hx Chronic Obstructive Pulmonary Disease (COPD): No Hx Emphysema: No Hx Sleep Apnea: Yes CPAP: Yes BIPAP: No Hx Respiratory Tract Infection/Cold (presently): No Result (for STOP score): Positive Hx Smoking: No Smoking Status: Former smoker Gastrointestinal Hx Gastrointestinal Bleed: No Hx Ulcer: No Difficulty Chewing/Swallowing: No Hx Unplanned Weight Loss of 20#: No Neurological Hx Seizures: No Hx Multiple Sclerosis: No Hx Parkinson's Disease: No Does patient have nerve stimulator: No Blood Disorder Hx Hepatitis: No Hx Cirrhosis: No Hx Anemia: No Hx Blood Disorders: No Genitourinary Hx Renal Disease: No Hx Dialysis: No Musculoskeletal Hx Arthritis: Yes (Shoulder/knee) Hx Rheumatoid Arthritis: No Endocrine Hx Diabetes: No Thyroid Disease: No Psycho/Social Hx Substance Use: No Hx Alcohol Use: No Hx Anxiety: Yes Hx Depression: Yes Hx Dementia: No Miscellaneous Hx Cancer: No Recent Exposure to Contagious Disease: No Allergies lactose Adverse Reaction (Verified 12/21/22 10:09) Nausea/Vom/Diarrhea Maternal: Family History Mother Arthritis Lupus Rheumatoid arthritis Hypertension Father Arthritis Cancer Depression Diabetes Hypertension Brother Depression Suicide attempt Hypertension and - (Lupus) Paternal: Family History Mother Arthritis Lupus Rheumatoid arthritis Hypertension Father Arthritis Cancer Depression Diabetes Hypertension Brother Depression Suicide attempt Diabetes and - (Arthritis) Discharge Is Pt Admitted From a Long-Term, or a [place] [facility]: No After D/C, Where Do you Plan to Go: Return Home Vital Signs Vital Signs Vital Signs: 12/22/22 07:50 12/22/22 07:50 Temperature 98.1 F Temperature Source Temporal Pulse Rate 70 Respiratory Rate 18 Respiratory Pattern Normal Blood Pressure 113/73 Blood Pressure Mean 86 Blood Pressure Source Monitor Blood Pressure Position Semi-Fowlers Blood Pressure Location Left Arm Pulse Ox 99 Oxygen Delivery Method Room Air Weight Weight: 229 lb Body Mass Index (BMI) 31.9 Physical Exam Const alert, oriented x3 and no apparent distress General Appearance: cooperative Resp normal respiratory effort GI GI Narrative: Nondistended soft, nontender to palpation x4 quadrants Assessment & Plan Assessment/Plan (1) Colon cancer screening: PLAN: Patient is a 52-year-old male who presents for screening colonoscopy. He confirms his preappointment questionnaire and denies any concerns related to his bowels. He has had no prior colonoscopy evaluation so today gonzalez the first of his screening appointments. He confirms that his bowel prep was clear in anticipation of today's procedure. He denies any questions related to our plans today. Therefore we will proceed with screening colonoscopy under local [facility] as scheduled. Surgery Risks - Colonoscopy Risks Include but are not Limited To: Risks include but are not limited to: Bleeding, perforation requiring further surgery, inability to complete colonoscopy requiring barium enema.
[2022-12-22 09:25] VITALS: BP 113/73; BP 115/82; PULSE 64; RESP 16; TEMP 36.7; O2SAT 97
--- NOTE | 2022-12-22 09:25 | OP.COLON_ITS ---
Patient Name: Marv Tejada Procedure Date: 12/22/2022 8:17 AM Date of : 1970 Age: 52 Procedure: Colonoscopy Indications: Screening for colorectal malignant neoplasm Providers: Raul Craft MD Medicines: See the Anesthesia note for documentation of the administered medications Patient Profile: Last Colonoscopy: none. The patient's first colonoscopy is today. Complications: No immediate complications. Estimated blood loss: Minimal. Procedure: Pre-Anesthesia Assessment: - The heart rate, respiratory rate, oxygen saturations, blood pressure, adequacy of pulmonary ventilation, and response to care were monitored throughout the procedure. After I obtained informed consent, the scope was passed under direct vision. Throughout the procedure, the patient's blood pressure, pulse, and oxygen saturations were monitored continuously. The Colonoscope was introduced through the anus and advanced to the cecum, identified by the appendiceal orifice, ileocecal valve and palpation. The colonoscopy was performed without difficulty. The patient tolerated the procedure well. The quality of the bowel preparation was adequate to identify polyps. Scope In: 8:30:12 AM Scope Withdrawal Time 0 hours 34 minutes 26 seconds Scope Out: 9:14:05 AM Total Procedure Duration Time 0 hours 43 minutes 53 seconds Findings: The perianal and digital rectal examinations were normal. Pertinent negatives include normal sphincter tone. Many small and large-mouthed diverticula were found in the entire colon. Verification of patient identification for the specimen was done. A 5 mm polyp was found in the proximal transverse colon. The polyp was semi-pedunculated. The polyp was removed with a hot snare. Resection was complete, but the polyp tissue was not retrieved. Estimated blood loss: none. The retroflexed view of the distal rectum and anal verge was normal and showed no anal or rectal abnormalities. No biopsies or other specimens were collected for this exam. Impression: - Diverticulosis in the entire examined colon. - One 5 mm polyp in the proximal transverse colon, removed with a hot snare. Complete resection. Polyp tissue not retrieved. - The distal rectum and anal verge are normal on retroflexion view. Recommendation: - Discharge patient to home (via wheelchair). - High fiber diet today. - Continue present medications. - Repeat colonoscopy in 5-10 years for adenoma surveillance. Procedure Code(s): --- Professional --- 36008, Colonoscopy, flexible; with removal of tumor(s), polyp(s), or other lesion(s) by snare technique Diagnosis Code(s): --- Professional --- Z12.11, Encounter for screening for malignant neoplasm of colon D12.3, Benign neoplasm of transverse colon (hepatic flexure or splenic flexure) K57.30, Diverticulosis of large intestine without perforation or abscess without bleeding CPT copyright 2017 [employer]. All rights reserved. The codes documented in this report are preliminary and upon carrot harvester review may be revised to meet current compliance requirements. Raul Craft MD 12/22/2022 9:24:59 AM This report has been signed electronically. Number of Addenda: 0 Note Initiated On: 12/22/2022 8:17 AM
--- NOTE | 2022-12-22 09:26 | OP.CCLET_ITS ---
12/22/2022 Bryn Sun, [facility] [address] [place] [address] [place] [address] Re : Colonoscopy procedure for Marv Tejada Dear Mr. Sun This procedure was performed on December. My impressions and recommendations are as follows: Impressions : - Diverticulosis in the entire examined colon. - One 5 mm polyp in the proximal transverse colon, removed with a hot snare. Complete resection. Polyp tissue not retrieved. - The distal rectum and anal verge are normal on retroflexion view. Recommendations : - Discharge patient to home (via wheelchair). - High fiber diet today. - Continue present medications. - Repeat colonoscopy in 5-10 years for adenoma surveillance. My findings are described in the full procedure note, which is enclosed. If I can be of further assistance, please feel free to contact me at Doctor phone number(s): , Work: . Sincerely, Raul Craft MD 12/22/2022 9:24:59 AM This report has been signed electronically.
[2022-12-22 09:30] VITALS: BP 113/73; BP 116/85; PULSE 58; RESP 16; O2SAT 95
[2022-12-22 09:35] VITALS: BP 106/74; BP 113/73; PULSE 74; RESP 16; O2SAT 98
[2022-12-22 09:40] VITALS: BP 108/71; BP 113/73; PULSE 62; RESP 16; TEMP 36.4; O2SAT 98
[2022-12-22 09:50] VITALS: BP 113/73
== END 2022-12-22 10:28 | disposition home or self-care (01) ==
LOC: EN 07:20 → AC 07:21
PROVIDERS: PCP Internal Medicine; Referring Provider Surgery; Visit Provider Surgery
PROC: 0DJD8ZZ Inspection of Lower Intestinal Tract, Via Natural or Artificial Opening Endoscopic (ICD-10-PCS; CPT 45378; principal; 2022-12-22 08:10)
DX: Z12.11 Encounter for screening for malignant neoplasm of colon (principal); K57.30 Diverticulosis of large intestine without perforation or abscess without bleeding; E78.00 Pure hypercholesterolemia, unspecified; Z87.891 Personal history of nicotine dependence; I10 Essential (primary) hypertension; K63.5 Polyp of colon
CPT/HCPCS: 45385; 88305; J7120; J2405

== ENCOUNTER → 2023-01-02 | Outpatient (CLI) | payer OTHER, SELFPAY ==
[2023-01-02 09:17] LABS: Bacteria 0 SEEN /hpf (None Seen); Mucous, Urine 0 SEEN /hpf (<or=2+); Red Blood Cells-Urine 0 SEEN /hpf (0-5); Squamous Epithelial Cells - UA 0 SEEN /hpf (0-5); White Blood Cells 0 SEEN /hpf (0-5)
[2023-01-02 12:55] LABS: Absolute Neutrophil Count 2.9 X10^3/uL (2.0-7.7); Basophil# 0.06 X10^3/uL; Basophil% 1.2 % (0-1); Eosinophil# 0.28 X10^3/uL; Eosinophils% 5.4 % (0-5); Lymphocyte % 25.1 % (19-41); Mean Corp Hgb Conc 33.3 g/dL (32-36); Mean Corpuscular Hgb 29.6 pg (27.0-32.0); Mean Corpuscular Volume 88.8 fL (80-94); Mean Platelet Vol. 9.6 fl (6.2-12.0); Monocyte# 0.57 X10^3/uL; NRBC Flagged by Analyzer 0 % (0-5); Neutrophil # 2.93 X10^3/uL (2.7-7.7); Neutrophil % 56.5 % (47-70); Platelet Count 313 K/mm3 (150-450); RBC Distribution Width CV 13.2 % (11.6-14.6); RBC Distribution Width SD 43.1 fl (35.1-43.9); Red Blood Count 5.07 M/mm3 (4.6-6.2); White Blood Count 5.2 K/mm3 (4.4-11.0)
[2023-01-02 13:09] LABS: Color, Urine Yellow (Yellow); Glucose, Dipstick Normal (Normal); Ketone-Dipstick Negative (Negative); Leukocyte Esterase-Dipstick Negative /ul (Negative); Nitrite-Dipstick Negative (Negative); Occult Blood-Urine Negative /ul (Negative); Protein-Dipstick Negative (Negative); Urine Bilirubin Dipstick Negative (Negative); Urine Clarity Clear (Clear); Urine Urobilinogen Normal (Normal)
[2023-01-02 13:49] LABS: ALB/GLOB Ratio 0.9 RATIO (0.9-2.4); AST(SGOT) 30 U/L (15-37); Alanine Aminotransfer ALT/SGPT 43 U/L (16-61); Albumin, Serum 3.6 g/dL (3.2-5.0); Alkaline Phosphatase 70 U/L (45-117); Anion Gap 5 (5-15); BUN 14 mg/dL (7-18); BUN/Creat Ratio 13.5 RATIO (10-20); Calcium,Total 9.4 mg/dL (8.5-10.1); Chloride 105 mmol/L (98-107); Creatinine, Serum 1.04 mg/dL (0.70-1.30); EST Glomerular Filtration Rate 79 mL/min (>60); Est Glom Filt Rate - Afr Amer 96 mL/min (>60); Globulin 4.2 g/dL (2.2-4.2); Glucose 95 mg/dL (74-106); Potassium 4.5 mmol/L (3.5-5.1); Protein, Total 7.8 g/dL (6.4-8.2); Sodium Level 140 mmol/L (136-145)
== END | disposition home or self-care (01) ==
LOC: BIMLAB 09:04
PROVIDERS: PCP Internal Medicine; Referring Provider Internal Medicine; Visit Provider Internal Medicine
DX: R50.9 Fever, unspecified (principal)
CPT/HCPCS: 36415; 80053; 81001; 85025

== ENCOUNTER → 2023-04-26 | Outpatient (CLI) | payer OTHER, SELFPAY ==
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
== END | disposition home or self-care (01) ==
LOC: MTRAD 11:36
PROVIDERS: PCP Internal Medicine; Referring Provider Internal Medicine; Visit Provider Internal Medicine
DX: M25.532 Pain in left wrist (principal); V89.2XXA Person injured in unspecified motor-vehicle accident, traffic, initial encounter
CPT/HCPCS: 73110; 73130

== ENCOUNTER → 2023-05-11 | Outpatient (CLI) | payer OTHER, SELFPAY ==
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
== END | disposition home or self-care (01) ==
LOC: CT 08:11
PROVIDERS: PCP Internal Medicine; Referring Provider Internal Medicine; Visit Provider Internal Medicine
DX: G44.309 Post-traumatic headache, unspecified, not intractable (principal); V89.2XXA Person injured in unspecified motor-vehicle accident, traffic, initial encounter
CPT/HCPCS: 70450